=== PATIENT | female | born 1955 ===

== ENCOUNTER 2016-08-16 13:42 | Emergency (ER) | payer MEDICARE, MEDICAID ==
[2016-08-16 13:43] VITALS: BMI 28.5
[2016-08-16] MEDS ORDERED: Sodium Chloride 0.9% 1,000 ML IV STA ×2 (14:35→15:22)
--- NOTE | 2016-08-16 14:40 | ED PDOC ---
HPI: Altered Mental Status Time Seen by Provider: 08/16/16 13:50 Chief Complaint (Nursing): Altered Mental Status Chief Complaint (Provider): ALTERED MENTATION History Per: Patient (61 Y/O FEMALE BROUGHT TO ED FOR EVALUATION OF ALTERED MENTATION NOTED INTERMITTENTLY X 1 WEEK ASSOCIATED WITH VISUAL HALLUCINATIONS. PATIENT NOTES RIGHT SIDED HEADACHE X 1 WEEK WELL. NO VOMITING/FEVERS/CHILLS/ ABDOMINAL PAIN/CHEST PAIN/COUGH/URI. STATES SHE HAS STOPPED METFORMIN 2 YEARS AGO WHEN ADVISED BY [facility] THAT SHE NO LONGER HAD DIABETES. NO HEAD INJURY. DENEIS ANY DIFFICULTY WITH WEAKNESS/DIFFICULTY WITH SPEECH.) Past Medical History Reviewed: Historical Data, Nursing Documentation, Vital Signs Vital Signs: Last Vital Signs Temp 98.1 F 08/16/16 13:53 Pulse 114 H 08/16/16 14:20 Resp 15 08/16/16 14:20 BP 158/95 H 08/16/16 14:20 Pulse Ox 100 08/16/16 14:20 - Medical History PMH: HTN, Hypercholesterolemia Denies: Chronic Kidney Disease - Family History Family History: States: No Known Family Hx - Home Medications Home Medications: Ambulatory Orders Medication Instructions Recorded Valsartan [Diovan] 1 tab PO DAILY 08/16/16 - Allergies Allergies/Adverse Reactions: Allergies Allergy/AdvReac Type Severity Reaction Status Date / Time iodine Allergy Unknown ANAPHYLAXIS Verified 01/31/16 14:19 Penicillins Allergy Unknown ANAPHYLAXIS Verified 01/31/16 14:20 Review of Systems ROS Statement: Except As Marked, All Systems Reviewed And Found Negative Neurological: Positive for: Altered Mental Status, Headache Physical Exam - Reviewed Nursing Documentation Reviewed: Yes Vital Signs Reviewed: Yes - Physical Exam Appears: Positive for: Well, Non-toxic, No Acute Distress Head Exam: Positive for: ATRAUMATIC, NORMAL INSPECTION, NORMOCEPHALIC Skin: Positive for: Normal Color, Warm, DRY Eye Exam: Positive for: EOMI, Normal appearance, PERRL ENT: Positive for: Normal ENT Inspection Neck: Positive for: Normal, Painless ROM Cardiovascular/Chest: Positive for: Regular Rate, Rhythm Respiratory: Positive for: CNT, Normal Breath Sounds Gastrointestinal/Abdominal: Positive for: Normal Exam, Bowel Sounds, Soft Back: Positive for: Normal Inspection Extremity: Positive for: Normal ROM Neurologic/Psych: Positive for: Alert, Oriented - Laboratory Results Result Diagrams: 08/16/16 14:40 08/16/16 14:40 - ECG O2 Sat by Pulse Oximetry: 100 - Progress ED Course And Treament: EKG: SINUS TACHYCARDIA 114 BPM; NO ECTOPY NO ACUTE CHANGES CXR: NAD HEAD CT: WNL ACCUCHECK: 472 NS 1 LITER WIDE OPEN. INSULIN 8 UNITS IV X 1 DOSE NS 2ND LITER GIVEN. D/W ILAN. WILL SEE PATIENT IN ED. Disposition - Clinical Impression Clinical Impression: Hyperglycemia - Patient ED Disposition Is Patient to be Admitted: Transfer of Care - Disposition Disposition: Transfer of Care Disposition Time: 19:47 Condition: FAIR Patient Signed Over To: Gabriella Yanez Handoff Comments: PENDING ABG/BMP/D/W [facility] AFTER
[2016-08-16 15:12] LABS: ALB/GLOB RATIO 1.2 (1.0-2.1); ALCOHOL SERUM < 10 mg/dl (0-10); ALKALINE PHOSPHATASE 88 U/L (38-126); ALT/SGPT 24 U/L (9-52); AST/SGOT 19 U/L (14-36); BLOOD UREA NITROGEN 20 mg/dl (7-17); CALCIUM 9.9 mg/dL (8.4-10.2); CARBON DIOXIDE 25 mmol/L (22-30); CHLORIDE 97 mmol/L (98-107); GFR AFRICAN-AMERICAN > 60; POTASSIUM 3.6 MMOL/L (3.6-5.0); SODIUM 139 mmol/l (132-148); TOTAL PROTEIN 8.3 G/DL (6.3-8.2)
[2016-08-16 15:17] LABS: GLUCOSE,RANDOM 523 mg/dL (65-105)
[2016-08-16 15:18] LABS: RBC URINE 1 /hpf (0-3); URINE BILIRUBIN NEGATIVE (NEGATIVE); URINE BLOOD NEGATIVE (NEGATIVE); URINE COLOR STRAW (YELLOW); URINE GLUCOSE (UA) >=500 mg/dL (Normal); URINE KETONE TRACE mg/dL (NEGATIVE); URINE LEUKOCYTE ESTERASE NEG Leu/uL (Negative); URINE PROTEIN 30 mg/dL (NEGATIVE); URINE UROBILINOGEN 0.2-1.0 mg/dL (0.2-1.0); WBC URINE < 1 /hpf (0-5)
[2016-08-16 15:24] LABS: BASO % 0.6 % (0.0-2.0); EOS # 0.1 K/uL (0.0-0.7); EOS % 0.7 % (0.0-4.0); HEMATOCRIT 37.9 % (34.0-47.0); LYMPH # 1.8 K/uL (1.0-4.3); LYMPH % 21.8 % (20.0-40.0); MEAN CORPUSCULAR HEMOGLOBIN 30.8 pg (27.0-31.0); MEAN CORPUSCULAR HGB CONC 34.2 g/dL (33.0-37.0); MEAN PLATELET VOLUME 8.8 fl (7.2-11.7); MONO # 0.8 K/uL (0.0-0.8); MONO % 9.5 % (0.0-10.0); NEUT # 5.6 K/uL (1.8-7.0); NEUT % 67.4 % (50.0-75.0); RED CELL DISTRIBUTION WIDTH 14.5 % (11.5-14.5); WHITE BLOOD COUNT 8.3 K/uL (4.8-10.8)
[2016-08-16] MEDS ORDERED: Insulin Regular 100 units/ml IVP STA (15:32)
[2016-08-16] MEDS ORDERED: Insulin Regular 100 units/ml ONE (15:37)
--- NOTE | 2016-08-16 15:39 | RAD ---
PROCEDURE: CHEST RADIOGRAPH, 1 VIEW HISTORY: ALTERED MENTATION COMPARISON: 10/21/2014 FINDINGS: LUNGS: The lungs are well inflated and clear. PLEURA: No pneumothorax or pleural fluid seen. CARDIOVASCULAR: The cardiomediastinal silhouette is normal. OSSEOUS STRUCTURES: No significant abnormalities. VISUALIZED UPPER ABDOMEN: Normal. OTHER FINDINGS: None. IMPRESSION: No active pulmonary disease.
--- NOTE | 2016-08-16 16:58 | CARD ---
APPROVED REPORT EKG Measurement Heart [id number] [place] [id number] <Conclusion> Sinus tachycardia Biatrial enlargement Right bundle branch block Abnormal ECG
--- NOTE | 2016-08-16 17:02 | CT ---
PROCEDURE: CT HEAD WITHOUT CONTRAST. HISTORY: Altered mental status COMPARISON: None available. TECHNIQUE: Axial computed tomography images were obtained through the head/brain without intravenous contrast. Radiation dose: Total exam DLP = 775.80 mGy-cm. FINDINGS: HEMORRHAGE: No intracranial hemorrhage. BRAIN: Rogers-white matter differentiation is preserved. There is no mass, mass effect or abnormal extra-axial fluid collection. There is normal density in the larger dural venous sinuses. There are coarse atherosclerotic calcifications in the cavernous carotid arteries. There are symmetric senile calcifications in bilateral basal ganglia. VENTRICLES: There is mild age-related global parenchymal volume loss and proportionate enlargement of the ventricles and cortical sulci. There is a cavum vergae. CALVARIUM: The skull base and calvarium are normal. PARANASAL SINUSES: Predominantly clear. MASTOID AIR CELLS: Predominantly clear. OTHER FINDINGS: None. IMPRESSION: No acute intracranial abnormality. Mild age-related global parenchymal volume loss.
[2016-08-16 19:38] VITALS: RESP 16; TEMP 98.6
[2016-08-16 19:48] VITALS: O2SAT 100
[2016-08-16 20:13] LABS: BLOOD UREA NITROGEN 15 mg/dl (7-17); CALCIUM 9.5 mg/dL (8.4-10.2); CARBON DIOXIDE 24 mmol/L (22-30); CHLORIDE 104 mmol/L (98-107); GFR AFRICAN-AMERICAN > 60; GLUCOSE,RANDOM 216 mg/dL (65-105); POTASSIUM 4.9 MMOL/L (3.6-5.0); SODIUM 140 mmol/l (132-148)
[2016-08-16 20:29] LABS: ABG ALLEN TEST YES; ARTERIAL BLOOD GAS HCO3 24.4 mmol/L (21-28); ARTERIAL BLOOD GAS O2 CAPACITY 15.9 mL/dL (16-24); ARTERIAL BLOOD GAS PH 7.45 (7.35-7.45); ARTERIAL BLOOD GAS PO2 94 mm/Hg (80-100); ARTERIAL BLOOD HGB O2 SAT 96.4 % (95.0-98.0); CARBOXYHEMOGLOBIN 2.3 % (0.5-1.5); HHB -0.6 % (0.0-5.0); METHEMOGLOBIN 1.9 % (0.0-3.0)
[2016-08-16 20:46] VITALS: BP 144/82; PULSE 102
--- NOTE | 2016-08-16 22:07 | CP.PCM.PCO ---
Physician Communication Note - Physician Communication Note Physician Communication Note: Claytonmatt Julia Addendum Addendum: 08/16/16 21:29 CC: Visual hallucinations History provided by the patient and supplemented by family member at bedside S: Patient seen at bedside and describe visual hallucinations for about 1 week with associated headache and dizziness. She says the visual hallucinations she sees in her periphery, and denies auditory hallucinations or depressive symptoms , they occur in the evening but not every evening not associated with speech/ extremity changes, denies seizure-like activity, visual changes, hearing changes. She denies any fevers, chills, sick contacts, SOB, chest pain, palpitations, diarrhea, abdominal pain, dysuria, medication changes. PMH: HTN(medication prescribed by certified novell administrator), DM (no medication), RLE ankle wound (seeing Dr Blas regularly), chronic LEFT ear tinnitus PSH: Cataract b/l, Rt ankle surgery ALL: IV Contrast, PSN- rash ED COURSE CBC: wnl CMP: Glucose- >500, BUN- 20 UA: neg except trace ketones CXR: no active disease CT Head: No acute intracranial abnormality EKG: ST(114), RBB, bi-atrial enlargement Insulin: 8U 2L NS bolus O: 98.6- 102- 144/82- 16- 100%RA GEN: pleasant, AA&O x3, NAD, no speech abnormality noted HEAD: NCAT Eyes: EOMI, pupils c/w cataract surgery Mouth: mucosa moist/no tongue deviation Neck: supple, no adenopathy, fROM PULM: CTAB, no w/r/r CARD: ST, S1S2, no murmurs noted ABD: soft, NT/ND EXT: BLUE- strength 5/5, neurovascular intact, BLLE- strength 5/5, neurovascular intact, no ulcers, drsg to Rt ankle area Neuro: no pronator drift, CNII-XII grossly intact, no tongue deviation Rpt BMP (no gap, bicarb 24), collect ABG- pH 7.45 A/P: Case discussed with Dr Valente and patient may be discharged from the ED with the following instructions. - Follow up with [facility] as soon as possible (please provide #s for both central scheduling as well as General Practitioner Service) - Metformin 500mg, PO, BID #60 (side effects d/w patient) - Stay hydrated - Must be with family member at all times until seen in clinic - Any acute changes in neurological status to include but not limited to seizure activity/auditory hallucinations/lethargy/confusion/extremity weakness/ difficulty with speech - d/w LELA Marmolejo and attending Dr Elida Valente
== END 2016-08-16 22:10 | disposition home or self-care (01) ==
LOC: H.ER 13:42
DX: E11.65 Type 2 diabetes mellitus with hyperglycemia (principal); Z79.4 Long term (current) use of insulin; I10 Essential (primary) hypertension; R00.0 Tachycardia, unspecified

== ENCOUNTER 2016-08-19 16:28 | Inpatient (IN) | payer MEDICARE, MEDICAID ==
[2016-08-19 16:28] VITALS: BMI 28.5
[2016-08-19 17:43] LABS: BASO % 0.4 % (0.0-2.0); EOS # 0.1 K/uL (0.0-0.7); EOS % 0.9 % (0.0-4.0); HEMATOCRIT 40.6 % (34.0-47.0); LYMPH # 2.2 K/uL (1.0-4.3); LYMPH % 20.5 % (20.0-40.0); MEAN CELL VOLUME 89.5 fl (81.0-99.0); MEAN CORPUSCULAR HEMOGLOBIN 30.8 pg (27.0-31.0); MEAN CORPUSCULAR HGB CONC 34.4 g/dL (33.0-37.0); MEAN PLATELET VOLUME 9.2 fl (7.2-11.7); MONO # 1.1 K/uL (0.0-0.8); MONO % 10.5 % (0.0-10.0); NEUT # 7.2 K/uL (1.8-7.0); NEUT % 67.7 % (50.0-75.0); RED CELL DISTRIBUTION WIDTH 14.2 % (11.5-14.5); WHITE BLOOD COUNT 10.6 K/uL (4.8-10.8)
--- NOTE | 2016-08-19 17:44 | ED PDOC ---
Addendum entered and electronically signed by Dwight De La Rosa PA 08/20/16 04:40: Addendum Addendum: 08/20/16 04:40 MRI: IMPRESSION: 1. Acute infarction within RIGHT occipital region. MRI report given to Dr. Warner who is evaluating pt. at bedside. Original Note: HPI: Headache Time Seen by Provider: 08/19/16 16:58 Chief Complaint (Nursing): Headache Chief Complaint (Provider): Headache, dizziness History Per: Patient, Family (Son at bedside ) Additional Complaint(s): 61 y/o female with dizziness, headaches and possible change in vision, son states she has not been acting like herself for over 1 week. went to clinic today for re-evaluation after being seen here and evaluated 08/16 for similar and sent for further evaluation. CT head negative, labs with no acute finding. discharged at that time, son and patient report symptoms have continued with worsening dizziness. she fell today due to dizziness but reports no injury, no LOC. reports cataract surgery. Past Medical History Vital Signs: Last Vital Signs Temp 97.8 F 08/19/16 16:34 Pulse 129 H 08/19/16 16:34 Resp 16 08/19/16 16:34 BP 142/80 08/19/16 16:34 Pulse Ox 100 08/19/16 16:34 - Medical History PMH: HTN, Hypercholesterolemia Denies: Chronic Kidney Disease - Family History Family History: States: Unknown Family Hx - Home Medications Home Medications: Ambulatory Orders Medication Instructions Recorded Valsartan [Diovan] 160 mg PO DAILY 08/16/16 metFORMIN [glucOPHAGE] 500 mg PO BID #30 tab 08/16/16 - Allergies Allergies/Adverse Reactions: Allergies Allergy/AdvReac Type Severity Reaction Status Date / Time iodine Allergy Unknown ANAPHYLAXIS Verified 08/19/16 16:33 Penicillins Allergy Unknown ANAPHYLAXIS Verified 08/19/16 16:33 Review of Systems ROS Statement: Except As Marked, All Systems Reviewed And Found Negative Constitutional: Negative for: Fever, Weakness Eyes: Negative for: Pain Cardiovascular: Negative for: Chest Pain Respiratory: Negative for: Shortness of Breath Gastrointestinal: Negative for: Abdominal Pain Skin: Negative for: Rash Neurological: Positive for: Confusion, Headache, Dizziness. Negative for: Weakness, Numbness, Incoordination, Change in Speech, Seizures Physical Exam - Reviewed Nursing Documentation Reviewed: Yes Vital Signs Reviewed: Yes - Physical Exam Appears: Positive for: Well, No Acute Distress Head Exam: Positive for: NORMAL INSPECTION Skin: Positive for: Normal Color, Warm, Dry Eye Exam: Positive for: Normal appearance, EOMI, PERRL. Negative for: Periorbital swelling, Periorbital tenderness, Conjunctival injection ENT: Positive for: Normal ENT Inspection Neck: Positive for: Normal, Painless ROM Cardiovascular/Chest: Positive for: Tachycardia. Negative for: Murmur, Irregularly Irregular Respiratory: Positive for: Normal Breath Sounds. Negative for: Wheezing Pulses-Dorsalis Pedis (L): 2+ Pulses-Dorsalis Pedis (R): 2+ Pulses-Radial (L): 2+ Pulses-Radial (R): 2+ Gastrointestinal/Abdominal: Positive for: Normal Exam, Soft. Negative for: Tenderness Back: Positive for: Normal Inspection Extremity: Positive for: Normal ROM, Capillary Refill (normal ). Negative for: Tenderness, Swelling Neurologic/Psych: Positive for: Alert, bezel cutter II-XII (grossly intact ), Oriented, Cerebellar Tests (intact ), Gait (normal ), Other ((-) motor defictis, (+) ). Negative for: Motor/Sensory Deficits (peripheral vision deficit to the left periphery), Aphasia, Facial Droop - Laboratory Results Result Diagrams: 08/19/16 17:15 08/19/16 17:15 - ECG ECG: Positive for: Interpreted By Me, Viewed By Pa ECG Rhythm: Positive for: Normal QRS, Normal ST Segment, Sinus Tachycardia (121) , Right Bundle Branch Block O2 Sat by Pulse Oximetry: 100 Pulse Ox Interpretation: Normal Medical Decision Making Medical Decision Makin61 y/o female with dizziness, change in vision, ? AMS - seen and evaluated 08/[address] head negative, labs with no acute finding. discharged at that time - symptoms have continued now with tachycardia, worsening dizziness - labs - CT head - re-evaluation PROCEDURE: CT HEAD WITHOUT CONTRAST. HISTORY:headache, dizziness COMPARISON:Noncontrast head CT performed 08/16/16 TECHNIQUE:Axial computed tomography images were obtained through the head/brain without intravenous contrast. FINDINGS: HEMORRHAGE:No intracranial hemorrhage. BRAIN:Diffuse atrophy with prominence of the ventricles and sulci noted. No mass effect or edema. Bilateral basal ganglia calcifications. Intracranial atherosclerotic calcifications. Mild scattered white matter hypodensities, which are nonspecific, but often seen with chronic microvascular ischemic disease. Please note that MRI with diffusion imaging is more sensitive in the detection of acute ischemic event. VENTRICLES:No hydrocephalus. CALVARIUM:Unremarkable. PARANASAL SINUSES:Unremarkable as visualized. No significant inflammatory changes. MASTOID AIR CELLS:Unremarkable as visualized. No inflammatory changes. OTHER FINDINGS:None. IMPRESSION:Generalized atrophy. Nonspecific white matter changes. patient with Head CT as above. labs with no acute finding. glucoe [address] HR 105 on exam, NAD. Case discussed with Julia Clement. FP resident. agrees with MRI and further evaluation requests neuro python engineer for evaluation she saw this patient the other day, she states patient did have peripheral vision changes, no change in that exam today. she will place further orders. Spoke to Dr. Warner, agrees with MRI, he will be in for evaluation Disposition - Clinical Impression Clinical Impression: Headache, Dizziness, Peripheral visual field defect - Patient ED Disposition Is Patient to be Admitted: Yes - Disposition Disposition Time: 18:27 Condition: STABLE - Pt Status Changed To: Hospital Disposition Of: Inpatient - Admit Certification Admit to Inpatient:: After my assessment, the patient will require hospitalization for at least two midnights. This is because of the severity of symptoms shown, intensity of services needed, and/or the medical risk in this patient being treated as an outpatient. - POA Present On Arrival: Poor Glycemic Control
[2016-08-19 17:48] LABS: ALB/GLOB RATIO 1.2 (1.0-2.1); ALKALINE PHOSPHATASE 74 U/L (38-126); ALT/SGPT 25 U/L (9-52); AST/SGOT 29 U/L (14-36); BILIRUBIN,TOTAL 0.9 mg/dl (0.2-1.3); BLOOD UREA NITROGEN 20 mg/dl (7-17); CALCIUM 9.7 mg/dL (8.4-10.2); CARBON DIOXIDE 24 mmol/L (22-30); CHLORIDE 99 mmol/L (98-107); GFR AFRICAN-AMERICAN > 60; GLUCOSE,RANDOM 250 mg/dL (65-105); MAGNESIUM 1.6 MG/DL (1.6-2.3); PHOSPHOROUS 3.4 mg/dl (2.5-4.5); SODIUM 134 mmol/l (132-148); TOTAL PROTEIN 8.2 G/DL (6.3-8.2)
[2016-08-19 17:54] LABS: PARTIAL THROMBOPLASTIN TIME 22.4 SECONDS (23.3-32.5)
[2016-08-19 18:03] LABS: RBC URINE < 1 /hpf (0-3); URINE BILIRUBIN NEGATIVE (NEGATIVE); URINE BLOOD SMALL (NEGATIVE); URINE COLOR STRAW (YELLOW); URINE GLUCOSE (UA) >=500 mg/dL (Normal); URINE KETONE 20 mg/dL (NEGATIVE); URINE LEUKOCYTE ESTERASE NEG Leu/uL (Negative); URINE PROTEIN 30 mg/dL (NEGATIVE); URINE UROBILINOGEN 0.2-1.0 mg/dL (0.2-1.0); WBC URINE 3 /hpf (0-5)
--- NOTE | 2016-08-19 18:12 | CT ---
PROCEDURE: CT HEAD WITHOUT CONTRAST. HISTORY: headache, dizziness COMPARISON: Noncontrast head CT performed 08/16/16 TECHNIQUE: Axial computed tomography images were obtained through the head/brain without intravenous contrast. Radiation dose: Total exam DLP = 858.15 mGy-cm. FINDINGS: HEMORRHAGE: No intracranial hemorrhage. BRAIN: Diffuse atrophy with prominence of the ventricles and sulci noted. No mass effect or edema. Bilateral basal ganglia calcifications. Intracranial atherosclerotic calcifications. Mild scattered white matter hypodensities, which are nonspecific, but often seen with chronic microvascular ischemic disease. Please note that MRI with diffusion imaging is more sensitive in the detection of acute ischemic event. VENTRICLES: No hydrocephalus. CALVARIUM: Unremarkable. PARANASAL SINUSES: Unremarkable as visualized. No significant inflammatory changes. MASTOID AIR CELLS: Unremarkable as visualized. No inflammatory changes. OTHER FINDINGS: None. IMPRESSION: Generalized atrophy. Nonspecific white matter changes.
[2016-08-19 18:19] LABS: THYROID STIMULATING HORMONE 5.66 mIU/ML (0.46-4.68)
[2016-08-19] MEDS ORDERED: Sodium Chloride 0.9% 100 ML IV STA (18:38)
--- NOTE | 2016-08-19 19:28 | CP.PCM.HP ---
Addendum entered and electronically signed by ClaytonmattJulia 08/20/16 04:26: Paged by ED for acute decompensation in status in the form of seizure. On arrival, nurse at bedside, patient found to have: - Head and eyes turned completely to the LEFT (forced gaze palsy) - Eyelids rapidly blinking, mouth twitching - Non-verbal - b/l arms flexed but not tremulous, no noted effects on lower extremities - HR: 156, ST This then developed into more pronounced b/l upper limb involvement and then subsided, pt noted to be post-ictal with copious oral secretions, however seizures again commenced. Intervention: 2mg Ativan IV, Dr Warner and Hospitalist (Dr Pichardo called). Ativan worked well, however patient not spontaneously clearing secretions, minimal gag reflex, no longer exhibiting forced gaze palsy. Interventions: Emergent intubation for airway protection(Rocuronium/Etomidate), ABG, rpt CT head, CXR, ICU admission, Propofol gtt - Rpt CT scan: no acute changes - All events, rpt imaging d/w Dr Warner: Keppra 500mg Q12H - Protonix, OGT Original Note: History of Present Illness - History of Present Illness History of Present Illness: 61F seen and examined at bedside. Family and patient describe visual hallucinations for about 1 week with associated headache that resolves with motrin and dizziness. She says the visual hallucinations she sees in her periphery, and denies auditory hallucinations or depressive symptoms, they occur in the evening but not every evening not associated with speech/extremity changes, denies seizure-like activity, visual changes, hearing changes. She denies any fevers, chills, sick contacts, SOB, chest pain, palpitations, diarrhea, abdominal pain, dysuria, medication changes. However, referred from [facility] after being seen and both son and patient reporting symptoms have continued with worsening dizziness and that she fell today w/o injury and denies LOC. Son reports more "turning of the head to the left" and feels that confusion has worsened. PMH: HTN (medication prescribed by Dr Aaliyah Urbina), DM, RLE ankle wound ( seeing Dr Blas regularly), chronic LEFT ear tinnitus PSH: Cataract b/l, Rt ankle surgery ALL: IV Contrast, PCN- rash ED COURSE CBC: wnl except elevated monocytes CMP: Glucose- 250, BUN- 20 UA: Glucose>500, Ketones-20, Blood-POS w/o RBCs CXR: no active disease CT Head: no acute ICH, generalized atrophy, non-specific white matter changes MRI: Acute infarct within RIGHT occipital region EKG: No acute changes from 08/16, continues ST 1L NS bolus Neurology Consult: Dr Warner *Prior to MRI completion patient admitted to telemetry for dizziness/headache, NIHSS- 2 at time patient interviewed Present on Admission - Present on Admission Any Indicators Present on Admission: Yes History of DVT/PE: No History of Uncontrolled Diabetes: Yes Review of Systems - Review of Systems All systems: reviewed and no additional remarkable complaints except (as per HPI ) Past Patient History - Past Medical History & Family History Past Medical History?: Yes - Past Social History Smoking Status: Never Smoked - CARDIAC Hx Hypercholesterolemia: Yes Hx Hypertension: Yes - PULMONARY Hx Respiratory Disorders: No - NEUROLOGICAL Hx Neurological Disorder: Yes (RAYNAUD'S SYNDROME) Hx Dizziness: Yes - HEENT Hx HEENT Problems: Yes Hx Cataracts: Yes - RENAL Hx Chronic Kidney Disease: No - ENDOCRINE/METABOLIC Hx Endocrine Disorders: Yes Hx Diabetes Mellitus Type 2: Yes - HEMATOLOGICAL/ONCOLOGICAL Hx Blood Disorders: Yes Other/Comment: RAYNAUD'S SYNDROME - INTEGUMENTARY Hx Dermatological Problems: No - MUSCULOSKELETAL/RHEUMATOLOGICAL Hx Musculoskeletal Disorders: No - GASTROINTESTINAL Hx Gastrointestinal Disorders: No - GENITOURINARY/GYNECOLOGICAL Hx Genitourinary Disorders: No - PSYCHIATRIC Hx Psychophysiologic Disorder: No Hx Emotional Abuse: No Hx Physical Abuse: No Hx Substance Use: No - SURGICAL HISTORY Hx Surgeries: Yes Hx Cataract Extraction: Yes (RT EYE) Hx Orthopedic Surgery: Yes (RT FOOT EXC TUMORS/LEFT FOOT EXC BONE) - ANESTHESIA Hx Anesthesia: Yes Hx Anesthesia Reactions: No Hx Malignant Hyperthermia: No Meds Allergies/Adverse Reactions: Allergies Allergy/AdvReac Type Severity Reaction Status Date / Time iodine Allergy Unknown ANAPHYLAXIS Verified 08/19/16 16:33 Penicillins Allergy Unknown ANAPHYLAXIS Verified 08/19/16 16:33 Physical Exam - Constitutional Appears: Well (Pt w/o speech abnml, however at times could appreciate unexpected expression or answer), Non-toxic, No Acute Distress - Head Exam Head Exam: ATRAUMATIC, NORMAL INSPECTION - Eye Exam Eye Exam: EOMI, Normal appearance Pupil Exam: Irregular (cataract surgery b/l). absent: Unequal - ENT Exam ENT Exam: Mucous Membranes Moist, Normal Exam - Neck Exam Neck exam: Positive for: Normal Inspection. Negative for: Meningismus - Respiratory Exam Respiratory Exam: Clear to Auscultation Bilateral, NORMAL BREATHING PATTERN. absent: Rales, Rhonchi, Wheezes - Cardiovascular Exam Cardiovascular Exam: Tachycardia, REGULAR RHYTHM, +S1, +S2. absent: JVD, Rubs - GI/Abdominal Exam GI & Abdominal Exam: Normal Bowel Sounds, Soft. absent: Tenderness - Extremities Exam Extremities exam: Positive for: full ROM, normal capillary refill, normal inspection (except dressing), pedal pulses present. Negative for: pedal edema Additional comments: BLUE- strength 5/5, neurovascular intact, BLLE- strength 5/5, neurovascular intact, no ulcers, drsg to Rt ankle area - Neurological Exam Neurological exam: Alert, Oriented x3 Additional comments: no pronator drift, no tongue deviation, LEFT hemianopsia - Psychiatric Exam Psychiatric exam: Normal Affect, Normal Mood - Skin Skin Exam: Normal Color, Warm Results - Vital Signs Recent Vital Signs: Last Vital Signs Temp 97.8 F 08/19/16 16:34 Pulse 129 H 08/19/16 16:34 Resp 16 08/19/16 16:34 BP 142/80 08/19/16 16:34 Pulse Ox 100 08/19/16 19:10 - Labs Result Diagrams: 08/19/16 17:15 08/19/16 17:15 Labs: Laboratory Results - last 24 hr 08/19/16 08/19/16 17:10 17:15 WBC 10.6 RBC 4.53 Hgb 13.9 Hct 40.6 MCV 89.5 MCH 30.8 MCHC 34.4 RDW 14.2 Plt Count 227 MPV 9.2 Neut % (Auto) 67.7 Lymph % (Auto) 20.5 [place] % (Auto) 10.5 H Eos % (Auto) 0.9 Baso % (Auto) 0.4 Neut # 7.2 H Lymph # 2.2 [place] # 1.1 H Eos # 0.1 Baso # 0.0 PT 10.6 INR 1.02 APTT 22.4 L Sodium 134 Potassium 4.0 Chloride 99 Carbon Dioxide 24 Anion Gap 15 BUN 20 H Creatinine 0.7 Est GFR ( Amer) > 60 Est GFR (Non-Af Amer) > 60 Random Glucose 250 H Calcium 9.7 Phosphorus 3.4 Magnesium 1.6 Total Bilirubin 0.9 AST 29 ALT 25 Alkaline Phosphatase 74 Troponin I 0.0190 Total Protein 8.2 Albumin 4.5 Globulin 3.7 Albumin/Globulin Ratio 1.2 TSH 3rd Generation 5.66 H Urine Color Straw Urine Clarity Clear Urine pH 6.0 Ur Specific [place] 1.007 Urine Protein 30 Urine Glucose (UA) >=500 Urine Ketones 20 Urine Blood Small Urine Nitrate Negative Urine Bilirubin Negative Urine Urobilinogen 0.2-1.0 Ur Leukocyte Esterase Neg Urine RBC (Auto) < 1 Urine Microscopic WBC 3 Ur Squamous Epith Cells 3 Assessment & Plan (1) CVA (cerebral vascular accident) Assessment and Plan: Initial NIHSS-2, Dr Warner evaluated and with constellation of symptoms and current MRI findings concerned for posterior cerebral artery dysfunction. - Neurology Consult (Dr Warner) appreciated and recommendations noted and implemented. - Plavix 75mg, Daily - EEG, Carotid Duplex, Echocardiogram - Cardiology Consult (Dr Urbina, R) placed - CVA Protocol - NIHSS score, repeat Status: Acute (2) DM2 (diabetes mellitus, type 2) Assessment and Plan: Not well-controlled, recently started on Metformin 500mg, BID. - Hypoglycemia protocol - Accu-check Q6H - Lispro SSI, low - Levemir 7.5mg, SC (TDD calculated 0.3/kg = 15U) - Hemoglobin A1C pending - HELD Metformin Status: Chronic (3) HTN (hypertension) Assessment and Plan: Controlled, but with current CVA will hold for now. - HELD Valsartan 160mg - Monitor Status: Chronic (4) DVT prophylaxis Assessment and Plan: Patient currently on anti-platelet therapy, although no ICH will apply SCDs only at this time. Status: Acute
[2016-08-19] MEDS ORDERED: Dextrose 50% SYRINGE Inj (50 ml) IV PRN (20:02)
[2016-08-19] MEDS ORDERED: Glucagon Recombinant 1 mg Inj IM PRN (20:02)
--- NOTE | 2016-08-19 21:01 | MRI ---
EXAM: MR Head Without Intravenous Contrast. CLINICAL HISTORY: 61 years old, female; Signs and symptoms; Dizziness; Patient HX: Pat C/O dizz and headaches @ possible change in vision, son states she has not acting like herself for over a week TECHNIQUE: Magnetic resonance images of the head/brain without intravenous contrast in multiple planes. COMPARISON: No relevant prior studies available. FINDINGS: Limitations: Motion artifact - mild. Brain: Mild atrophy. No definite intracranial hemorrhage. No mass. Small area restricted diffusion within RIGHT occipital region. Few scattered foci of high T2 signal within periventricular and subcortical white matter. Ventricles: No hydrocephalus. Bones/joints: No acute fracture. Sinuses: No acute sinusitis. Mastoid air cells: Mild partial opacification of LEFT mastoid. Orbits: Unremarkable as visualized. IMPRESSION: 1. Acute infarction within RIGHT occipital region. 2. Incidental/non-acute findings are described above. THIS REPORT CONTAINS FINDINGS THAT MAY BE CRITICAL TO PATIENT CARE. The findings were verbally communicated via telephone conference with physician assistant Quintanilla at 9:00 PM EDT on 08/19/2016. The findings were acknowledged and understood.
--- NOTE | 2016-08-19 22:14 | CON ---
DATE: 08/19/2016 REASON FOR CONSULTATION: Visual disturbances. CHIEF COMPLAINT: The patient was brought in by family members with a history of unsteady gait and visual impairment. From neurological point of view, I was called in to evaluate her for further management. HISTORY OF PRESENT ILLNESS: The patient is a 61-year-old, right-handed, female who lives alone. The family found her, last week, she had visual impairment and she was brought into [facility], being evaluated for workup. She was told that she had hyperglycemia and she was sent home. She was kept with the family members. Her symptoms never have improved and she is losing her balance and she keeps seeing people on her left side, which is not realistic. No history of fall, no history of trauma, no history of involuntary movements, no other symptoms associating with this problem. No similar episodes happened in the past. PAST MEDICAL HISTORY: Hypertension, dyslipidemia, [id number] diabetes mellitus. SOCIAL HISTORY: No history of smoking or alcohol use. ALLERGIES: ALLERGIES TO IODINE AND PENICILLIN. REVIEW OF SYSTEMS: As per H and P. MEDICATIONS: Valsartan, glucagon, insulin, and Lovenox. PHYSICAL EXAMINATION: VITAL SIGNS: Blood pressure 142/80, mean arterial pressure 100, respiratory rate 16, temperature 97.8 with a pulse rate of 129. NECK: Supple. No carotid bruit. HEART: Sounds tachycardia. EXTREMITIES: Normal. NEUROLOGIC EXAMINATION: MENTAL STATUS EXAMINATION: The patient is examined in the presence of her family members. She is awake, alert, oriented to person, place, and time. She knows the President. She knows the year. She knows simple calculations and may get it right. No right and left confusion. CRANIAL NERVE EXAMINATION: Visual field. Dense left homonymous hemianopsia. Pupils reactive to light. Extraocular movement intact. No primary gaze nystagmus. No facial sensory deficit. Facial asymmetry manifesting as a flattening of the left nasolabial fold. Hearing is normal. Tongue is midline. Good gag. MOTOR: Outstretched hand with eyes closed, no drift noted. Power is symmetric on either side. DEEP TENDON REFLEXES: Biceps, brachialis, triceps 2+ on the right side; left side 1+. Both knees are trace. Both ankles are absent. Plantars are upgoing on the left side, right side was downgoing. SENSORY EXAMINATION: Mild distal sensory motor neuropathy. GAIT: She was able to stand up on her own. Rhomberg sign negative. Poor tandem. CONCLUSION: Upon reviewing her history and neurological examination, the patient has presented with possible posterior cerebral artery dysfunction manifesting with dense left homonymous hemianopsia and ataxia. This is probably embolic versus small vessel disease secondary to her underlying risk factors of diabetes and hypertension. WORKUP: CT of the head reviewed. No acute pathologies noted. MRI of the next of MRI of the brain showed a right occipital stroke. BLOOD WORKUP: WBC 10.6, hemoglobin 13.9, hematocrit 40.6, platelet 227. PT 10.6, INR 1.02, PTT 22.4. BUN 20. GFR more than 50. Random glucose of 250. Calcium 9.7, phosphorus 3.4, Troponin 0.019, TSH 5.66. RECOMMENDATIONS: 1. The patient had a sinus tachycardia. I would like to put beta blockers in addition to her current medication. 2. The patient needs antiplatelets, Plavix is added. 3. The patient can be benefitted on a statin as well. 4. EEG, carotid Doppler, and echocardiogram. 5. Cardiology consultation. 6. Out of bed and physical therapy. 7. The patient will be followed closely with you. Saud Warner MD cc: [id number] TT: 08/19/2016 22:14:41 Confirmation # [id number] Dictation # [id number] ln MTDD
[2016-08-19] MEDS ORDERED: Etomidate 20 mg/10ml Inj IV ONE ×2 (23:27→23:33)
[2016-08-19] MEDS ORDERED: Rocuronium 10 mg/ml (5 ml) IV ONE (23:33)
[2016-08-20] MEDS ORDERED: Propofol 10 mg/ml Inj (100 ml) IV SCH (00:15)
--- NOTE | 2016-08-20 01:01 | CP.PCM.CON ---
History of Present Illness - History of Present Illness History of Present Illness: CC: s/p CVA with seizures and AMS History obtained from relatives, chart, and other physicians. This is a 61 y/o female with ?DM2 and possible CVA who was admitted here from clinic after being found to not be acting like herself the past few days. Patient, at the time I saw her, was post-ictal/altered and not able to answer questions. She was having a difficult time maintaining her airway, and had to be emergently intubated. ROS: unable to obtain due to AMS/post ictal state MHx: HTN, HLD, ?DM2, ?CVA SHx: Cataract surgery Medications: As per med rec Allergies: iodinated dye, PCN Family Hx: Unable to obtain from patient/family/chart Social Hx: Lives with family, no tobacco or EtOH Surrogate: Son, info on chart Review of Systems - Review of Systems Systems not reviewed;Unavailable: Acuity of Condition Past Patient History - Past Medical History & Family History Past Medical History?: Yes - Past Social History Smoking Status: Never Smoked - CARDIAC Hx Hypercholesterolemia: Yes Hx Hypertension: Yes - PULMONARY Hx Respiratory Disorders: No - NEUROLOGICAL Hx Neurological Disorder: Yes (RAYNAUD'S SYNDROME) Hx Dizziness: Yes - HEENT Hx HEENT Problems: Yes Hx Cataracts: Yes - RENAL Hx Chronic Kidney Disease: No - ENDOCRINE/METABOLIC Hx Endocrine Disorders: Yes Hx Diabetes Mellitus Type 2: Yes - HEMATOLOGICAL/ONCOLOGICAL Hx Blood Disorders: Yes Other/Comment: RAYNAUD'S SYNDROME - INTEGUMENTARY Hx Dermatological Problems: No - MUSCULOSKELETAL/RHEUMATOLOGICAL Hx Musculoskeletal Disorders: No - GASTROINTESTINAL Hx Gastrointestinal Disorders: No - GENITOURINARY/GYNECOLOGICAL Hx Genitourinary Disorders: No - PSYCHIATRIC Hx Psychophysiologic Disorder: No Hx Emotional Abuse: No Hx Physical Abuse: No Hx Substance Use: No - SURGICAL HISTORY Hx Surgeries: Yes Hx Cataract Extraction: Yes (RT EYE) Hx Orthopedic Surgery: Yes (RT FOOT EXC TUMORS/LEFT FOOT EXC BONE) - ANESTHESIA Hx Anesthesia: Yes Hx Anesthesia Reactions: No Hx Malignant Hyperthermia: No Meds Allergies/Adverse Reactions: Allergies Allergy/AdvReac Type Severity Reaction Status Date / Time iodine Allergy Unknown ANAPHYLAXIS Verified 08/19/16 16:33 Penicillins Allergy Unknown ANAPHYLAXIS Verified 08/19/16 16:33 - Medications Medications: Current Medications Aspirin (Aspirin Chewable) 81 mg PO DAILY [facility] Dextrose (Glutose 15) 0 gm PO ONCE PRN; Protocol PRN Reason: Hypoglycemia Protocol Dextrose (Dextrose 50% Inj) 0 ml IV STAT PRN; Protocol PRN Reason: Hyglycemia Protocol Glucagon (Glucagen Diagnostic Kit) 0 mg IM STAT PRN; Protocol PRN Reason: Hypoglycemia Protocol Insulin Detemir (Levemir) 7.5 units SC HS [facility] Insulin Human Lispro (Humalog) 0 units SC ACHS [facility] PRN Reason: Protocol Metoprolol Succinate (Toprol Xl) 25 mg PO DAILY [facility] Propofol (Diprivan) 1,000 mg IV .TITRATE [facility] PRN Reason: Protocol Valsartan (Diovan) 160 mg PO DAILY [facility] Physical Exam - Constitutional Additional comments: Post ictal, no responsive - Head Exam Head Exam: ATRAUMATIC, NORMOCEPHALIC - ENT Exam ENT Exam: Mucous Membranes Moist - Respiratory Exam Respiratory Exam: Clear to Auscultation Bilateral, Wheezes - Cardiovascular Exam Cardiovascular Exam: Tachycardia, +S1, +S2 - GI/Abdominal Exam GI & Abdominal Exam: Normal Bowel Sounds - Extremities Exam Extremities exam: Positive for: normal inspection - Neurological Exam Additional comments: AMS, then sedated for vent - Skin Skin Exam: Dry, Warm Results - Vital Signs Recent Vital Signs: Last Vital Signs Temp 97.8 F 08/19/16 16:34 Pulse 129 H 08/19/16 16:34 Resp 16 08/19/16 16:34 BP 142/80 08/19/16 16:34 Pulse Ox 100 08/19/16 20:01 - Labs Result Diagrams: 08/19/16 17:15 08/19/16 17:15 - Imaging and Cardiology MRI - head Status: Report reviewed by me (R occipital infarct) Assessment & Plan (1) CVA (cerebral vascular accident) Assessment and Plan: This is a 61 y/o female with multiple medical conditions p/w CVA and seizures. -Admit to ICU -Will put on vent (AC/450/12/50%/5); successfully intubated -Sedate with Propofol, this should suppress further seizures as well -Repeat NC HCT -CXR now and AM -ABG now and AM -GI PPx -DVT PPx -Mgmt of CVA and seizure as per neuro consult (Timmy) -Mgmt of DM2/HTN as per primary team Status: Acute (2) Seizure Status: Acute (3) DM2 (diabetes mellitus, type 2) Status: Acute (4) HTN (hypertension) Status: Acute
--- NOTE | 2016-08-20 01:04 | PCM.PROC ---
Procedures Attestation:: I certify that I have explained the specified Operation(s) or Procedure(s), risks, benefits and reasonable alternatives to the Patient and/or other person responsible. The opportunity was given to ask questions and all questions answered - Intubation Time Out Performed: Yes Sedative: Etomidate Mg Given: 20 Paralytic: Rocuronimum Mg Given: 20 Laryngoscope: Glidescope ET Tube Size: 7.5 ET Tube Secured at Depth: 21 ET Tube Secured Locarion: Lips ET Tube Placement Confirmation: Visualized Passing Through Cords, Breath Sounds Equal Bilaterally, Confirmation w/Capnometry Patient Tolerated Procedure: Well, No Complications Procedure Immediate Complications: Difficult Intubation Additional comments: First attempt was made with direct laryngoscopy (Mac 3). Given difficulty of visualizing airway with direct, switch was made to glidescope. Airway/vocal cords were easily visualized with glidescope.
--- NOTE | 2016-08-20 01:17 | CT ---
EXAM: CT Head Without Intravenous Contrast. CLINICAL HISTORY: 61 years old, female; Condition or disease; Convulsions or seizures; Additional info: Seizure TECHNIQUE: Axial computed tomography images of the head/brain without intravenous contrast. This CT exam was performed using one or more of the following dose reduction techniques: automated exposure control, adjustment of the mA and/or kV according to patient size, and/or use of iterative reconstruction technique. Coronal and sagittal reformatted images were created and reviewed. COMPARISON: CT - 08/19/2016; MRI, 08/19/2016 FINDINGS: Brain: Mild atrophy. No intracranial hemorrhage. No mass. Few scattered foci of decreased attenuation within periventricular/subcortical white matter. Ventricles: No hydrocephalus. Bones/joints: No acute fracture. Soft tissues: Unremarkable. Vasculature: Atherosclerotic disease of intracranial arteries. Sinuses: No acute sinusitis. Mastoid air cells: No mastoid effusion. Orbits: Unremarkable as visualized. IMPRESSION: 1. Nonspecific white matter changes. See MRI report. 2. Incidental/non-acute findings are described above.
[2016-08-20 01:19] LABS: ABG ALLEN TEST YES; ABG MECHANICAL RATE 12; ARTERIAL BLOOD GAS MODE PRVC/AC; ARTERIAL BLOOD GAS O2 CAPACITY 15.4 mL/dL (16-24); ARTERIAL BLOOD GAS O2 CONTENT 15.4 ML/dL (15-23); ARTERIAL BLOOD GAS PH 7.41 (7.35-7.45); ARTERIAL BLOOD GAS PO2 190 mm/Hg (80-100); ARTERIAL BLOOD HGB O2 SAT 96.8 % (95.0-98.0); ATERIAL BLOOD GAS PEEP 5; CARBOXYHEMOGLOBIN 0.8 % (0.5-1.5); HHB 0.1 % (0.0-5.0); METHEMOGLOBIN 2.4 % (0.0-3.0)
[2016-08-20] MEDS: levETIRAcetam 500 MG in Sodium Chloride 0.9% 100 ML IVPB SCH ×2 (03:21→15:20)
[2016-08-20] MEDS: Midazolam 2 MG/2 ML VIAL IV PRN ×2 (03:27→05:44)
[2016-08-20 06:28] LABS: ABG ALLEN TEST YES; ABG MECHANICAL RATE 12; ARTERIAL BLOOD GAS HCO3 24.9 mmol/L (21-28); ARTERIAL BLOOD GAS MODE PRVC/AC; ARTERIAL BLOOD GAS O2 CAPACITY 14.7 mL/dL (16-24); ARTERIAL BLOOD GAS O2 CONTENT 14.7 ML/dL (15-23); ARTERIAL BLOOD GAS PH 7.46 (7.35-7.45); ARTERIAL BLOOD GAS PO2 203 mm/Hg (80-100); ARTERIAL BLOOD HGB O2 SAT 97.3 % (95.0-98.0); ATERIAL BLOOD GAS PEEP 5; CARBOXYHEMOGLOBIN 0.8 % (0.5-1.5); HHB -0.2 % (0.0-5.0)
[2016-08-20 06:34] LABS: HEMATOCRIT 31.2 % (34.0-47.0); MEAN CELL VOLUME 89.5 fl (81.0-99.0); MEAN CORPUSCULAR HEMOGLOBIN 30.6 pg (27.0-31.0); MEAN CORPUSCULAR HGB CONC 34.2 g/dL (33.0-37.0); WHITE BLOOD COUNT 12.1 K/uL (4.8-10.8)
[2016-08-20] MEDS: Insulin Lispro (humaLOG) 100 Units/ml Inj SC SCH ×4 (06:52→22:52)
[2016-08-20 07:12] LABS: BLOOD UREA NITROGEN 16 mg/dl (7-17); CALCIUM 8.6 mg/dL (8.4-10.2); CARBON DIOXIDE 23 mmol/L (22-30); CHLORIDE 104 mmol/L (98-107); CHOLESTEROL 178 mg/dL (0-199); GFR AFRICAN-AMERICAN > 60; GLUCOSE,RANDOM 297 mg/dL (65-105); POTASSIUM 3.9 MMOL/L (3.6-5.0); SODIUM 134 mmol/l (132-148)
[2016-08-20] MEDS ORDERED: Insulin Lispro (humaLOG) 100 Units/ml Inj SC SCH (07:30)
[2016-08-20] MEDS ORDERED: Sodium Chloride 0.9% 1,000 ML IV SCH (08:00)
[2016-08-20] MEDS ORDERED: Chlorhexidine Gluconate 1 APPL/PKT TP ONE (08:36)
--- NOTE | 2016-08-20 08:41 | RAD ---
HISTORY: tachycardia COMPARISON: Comparison is made to the previous study dated 08/16/2016 FINDINGS: LUNGS: No active pulmonary disease. PLEURA: No significant pleural effusion identified, no pneumothorax apparent. CARDIOVASCULAR: Normal. OSSEOUS STRUCTURES: No significant abnormalities. VISUALIZED UPPER ABDOMEN: Normal. OTHER FINDINGS: None. IMPRESSION: No active disease. No significant interval change.
[2016-08-20] MEDS: Metoprolol Succinate 25 mg XL Tab PO SCH (08:53)
[2016-08-20] MEDS ORDERED: Enoxaparin 40 mg Syringe SC SCH (09:00)
--- NOTE | 2016-08-20 10:50 | RAD ---
PROCEDURE: CHEST RADIOGRAPH, 1 VIEW HISTORY: ETT placement COMPARISON: Comparison is made to the previous study dated 08/19/2016 FINDINGS: LUNGS: The ET tube is seen at appropriate position with the tip at the level of the clavicle heads. No significant interval change in the lungs since the previous exam. PLEURA: No pneumothorax or pleural fluid seen. CARDIOVASCULAR: Normal. OSSEOUS STRUCTURES: No significant abnormalities. VISUALIZED UPPER ABDOMEN: Normal. OTHER FINDINGS: None. IMPRESSION: The ET tube seen in place with the tip at the level of the clavicles. No interval change in the lungs.
--- NOTE | 2016-08-20 11:28 | US ---
PROCEDURE: Bilateral duplex Doppler carotid arterial ultrasound examination HISTORY: stenosis COMPARISON: None available TECHNIQUE: Examination of the carotid and vertebral arteries was performed utilizing a linear array color Doppler transducer. FINDINGS: RIGHT CAROTID ARTERY: No significant atheromatous plaque identified. Peak systolic velocity measurements: Distal CCA: 93.5 cm/sec Mid ICA: 88.1 cm/sec ICA to CCA peak systolic velocity ratio: 1.0 Antegrade flow demonstrated in right vertebral artery. An LEFT CAROTID ARTERY: Peak systolic velocity measurements: Distal CCA: 68.2 cm/sec proximal ICA: 93.3 cm/sec ICA to CCA peak systolic velocity ratio: 1.4 Antegrade flow demonstrated in left vertebral artery IMPRESSION: Less than 50 percent carotid arterial stenosis bilaterally. No significant atheromatous narrowing identified. Antegrade flow demonstrated in both vertebral arteries.
--- NOTE | 2016-08-20 11:42 | CP.PCM.PN ---
Subjective - Date & Time of Evaluation Date of Evaluation: 08/20/16 Time of Evaluation: 07:20 - Subjective Subjective: Patient seen and examined bedside today in ICU. Intubated on ventilator A/C. FIO2 40 , PEEP 5. Under sedation, unresponsive but able to do spontaneous active flexion and extension of upper and lower extremities, not related with seizure activity at this moment. Thomson with normal urine color and adequate output Sister bedside amharic speaker reports that patient lives alone and she has not seen her or talked to her for a while but she was told that patient was acting different, not feeling well, with dizziness. Reports that patient had a fall at home, hit her head and had not slurred speech, but had uncontrolled tongue movements. Objective - Vital Signs/Intake and Output Vital Signs (last 24 hours): Temp Pulse Resp BP Pulse Ox 98.9 F 105 H 14 112/62 100 08/20/16 08:00 08/20/16 11:00 08/20/16 11:00 08/20/16 11:00 08/20/16 11:00 Intake and Output: 08/20/16 08/20/16 06:59 18:59 Intake Total 50 Balance 50 - Medications Medications: Current Medications Atorvastatin Calcium (Lipitor) 40 mg PO DAILY [facility] Last Admin: 08/20/16 08:53 Dose: 40 mg Clopidogrel Bisulfate (Plavix) 75 mg PO DAILY [facility] Last Admin: 08/20/16 08:54 Dose: 75 mg Dextrose (Glutose 15) 0 gm PO ONCE PRN; Protocol PRN Reason: Hypoglycemia Protocol Dextrose (Dextrose 50% Inj) 0 ml IV STAT PRN; Protocol PRN Reason: Hyglycemia Protocol Glucagon (Glucagen Diagnostic Kit) 0 mg IM STAT PRN; Protocol PRN Reason: Hypoglycemia Protocol Levetiracetam 500 mg/ Sodium (Chloride) 105 mls @ 210 mls/hr IVPB Q12H [facility] Last Admin: 08/20/16 03:21 Dose: 210 mls/hr Sodium Chloride (Sodium Chloride 0.9%) 1,000 mls @ 75 mls/hr IV .[id number] [facility] Stop: 08/21/16 08:01 Last Admin: 08/20/16 08:19 Dose: 75 mls/hr Propofol (Diprivan) 100 mls @ 1.497 mls/hr IV .Q24H [facility]; 5 MCG/KG/MIN PRN Reason: Protocol Stop: 08/21/16 08:16 Last Admin: 08/20/16 11:09 Dose: 3.742 mls/hr Insulin Detemir (Levemir) 7.5 units SC HS [facility] Insulin Human Lispro (Humalog) 0 units SC ACHS [facility] PRN Reason: Protocol Last Admin: 08/20/16 11:10 Dose: Not Given Metoprolol Succinate (Toprol Xl) 25 mg PO DAILY [facility] Last Admin: 08/20/16 08:53 Dose: 25 mg Midazolam HCl (Versed Inj) 2 mg IV Q2H PRN PRN Reason: Agitation Last Admin: 08/20/16 05:44 Dose: 2 mg Pantoprazole Sodium (Protonix Inj) 40 mg IVP DAILY [facility] Last Admin: 08/20/16 08:19 Dose: 40 mg Valsartan (Diovan) 160 mg PO DAILY [facility] - Labs Labs: 08/20/16 05:30 08/20/16 05:30 PT 10.6 SECONDS (9.6-11.2) 08/19/16 17:15 INR 1.02 (0.92-1.08) 08/19/16 17:15 APTT 22.4 SECONDS (23.3-32.5) L 08/19/16 17:15 - Constitutional Appears: Other (intabated under sedation) - Head Exam Head Exam: ATRAUMATIC - Eye Exam Eye Exam: PERRL - Respiratory Exam Respiratory Exam: absent: Rales, Rhonchi, Wheezes Additional comments: assisted by ventilator - Cardiovascular Exam Cardiovascular Exam: REGULAR RHYTHM, +S1, +S2 - GI/Abdominal Exam GI & Abdominal Exam: Soft, Normal Bowel Sounds. absent: Tenderness - Extremities Exam Extremities Exam: Normal Inspection. absent: Pedal Edema Additional comments: spontaneous active movements of flexion and extension of 4 ext - Neurological Exam Additional comments: Intubated under sedation, with involuntary spontaneous active movements of 4 ext not in relation with seizure activity, may be related to less sedation meds at this moment. - Skin Skin Exam: Intact Assessment and Plan - Assessment and Plan (Free Text) Plan: 61, yo , f, PMHx/o HTN, DM, uterine prolapse presented to ED c/o headache and dizziness started 7 days ago, associated with occs visual hallucination. Patient seen in ER last friday , discharged home and had f/u in our clinic yesterday. Patient was sent to ER for evaluation due to persistent symptoms. Patient had seizures in ED and repiratory distress needing intubation and admission in ICU. Right occipital infart was showed in MRI 1) CVA -risk factors associated HTN, DM -clinical manifestations of posterior cerebral artery CVA -Posible thrombotic origin -MRI Brain (08/19): Few scattered foci of high T2 signal within periventricular and subcortical white matter. Acute infarction within RIGHT occipital region. -CT head 08/16 no acute intracraneal abnormality -CT head 08/19 no specific white matter changes -CT head 08/20 no specific white matter changes. See MRI report. -Carotid U/S (08/19): < 50% carotid arterial stenosis bilaterally. No significant atheromatous narrowing identified. Anterograde flow in both vertebral arteries. -Plavix 75mg PO Daily -Aspirin 81 mg Po daily -Keppra 500 mg IV BID -Neuro Onboard consult appreciated: Recommends Aspirin, plavix and c/w Keppra -[employer] consult suggested -Echo f/u 2) Seizure -secondary to CVA -Intubated for airway precautions -Currently intubated, settings at Rate 12, Tvol 450, PEEP 5, FiO2 40% -Keppra 500mg IVPB Q12H -Versed 2mg IV Q2H PRN -Propofol IV 5mcg/kg/min -Neuro consult appreciated -TSH 5.6 -F/U Folate, Vit 12 -HIV, RPR, ESR 3) DM2 -Controlled with diet as per ECW -Hgb A1c 5.8 on 03/03/15 and same value during 2013 -labs reviewed. Blood glucose ranged bw 250-339 -Possible associated to stress cortisol releasing. -Lispro Sliding Scale ACHS -Levemir 7.5u SC HS -Atorvastatin 40mg PO Daily 4) HTN -Valsartan 160mg PO Daily. hold due to Hypotension -Metoprolol 25mg PO Daily, as per Neuro -Cardiology Consult suggested 5) DVT Prophylaxis -SCDs 6) PUD Prophylaxis -Protonix 40mg IVP Daily
--- NOTE | 2016-08-20 12:22 | CP.CCUPN ---
<Andrea Jacob T - Last Filed: 08/20/16 15:17> CCU Subjective - Physician Review Subjective (Free Text): Pt seen and examined at bedside in ICU. Pt is currently intubated and sedated, thus she cannot give an account of overnight events nor can she answer any questions pertaining to the ROS. There were no known events overnight once she was stabilized. CCU Objective - Vital Signs / Intake & Output Vital Signs (Last 4 hours): Vital Signs Temp Pulse Resp BP Pulse Ox 08/20/16 12:00 99.2 F 94 H 12 90/52 L 100 08/20/16 11:00 105 H 14 112/62 100 08/20/16 10:00 92 H 16 83/47 L 100 08/20/16 09:00 100 H 17 82/41 L 100 08/20/16 08:53 114 H 136/105 H Intake and Output (Last 8hrs): Intake & Output 08/19/16 08/20/16 08/20/16 22:59 06:59 14:59 Intake Total 50 Balance 50 Intake: IV 50 - Physical Exam Physical Exam Limitations: Positive for: Other (intubated, sedated) Head: Positive for: Atraumatic, Normocephalic Pupils: Positive for: PERRL, Other (reactivity has improved) Mouth: Positive for: Moist Mucous Membranes Respiratory/Chest: Positive for: Clear to Auscultation. Negative for: Wheezes, Rhonchi Cardiovascular: Positive for: Regular Rate and Rhythm, Normal S1, S2 Abdomen: Positive for: Normal Bowel Sounds. Negative for: Tenderness, Distention Upper Extremity: Positive for: Normal Inspection. Negative for: Cyanosis Lower Extremity: Positive for: Normal Inspection. Negative for: Edema Neurological: Positive for: Other (intubated, sedated, gag+) Skin: Positive for: Warm, Dry. Negative for: Rashes - Medications Active Medications: Active Medications Generic Name Dose Route Start Last Admin Trade Name Freq PRN Reason Stop Dose Admin Atorvastatin Calcium 40 mg 08/20/16 09:00 08/20/16 08:53 Lipitor PO 40 mg DAILY EDITH Administration Clopidogrel Bisulfate 75 mg 08/20/16 09:00 08/20/16 08:54 Plavix PO 75 mg DAILY EDITH Administration Dextrose 0 gm 08/19/16 20:02 Glutose 15 PO ONCE PRN Hypoglycemia Protocol Protocol Dextrose 0 ml 08/19/16 20:02 Dextrose 50% Inj IV STAT PRN Hyglycemia Protocol Protocol Glucagon 0 mg 08/19/16 20:02 Glucagen Diagnostic Kit IM STAT PRN Hypoglycemia Protocol Protocol Levetiracetam 500 mg/ Sodium 105 mls @ 210 mls/hr 08/20/16 03:30 08/20/16 03:21 Chloride IVPB 210 mls/hr Q12H EDITH Administration Sodium Chloride 1,000 mls @ 75 mls/hr 08/20/16 08:00 08/20/16 08:19 Sodium Chloride 0.9% IV 08/21/16 08:01 75 mls/hr .[id number] EDITH Administration Propofol 100 mls @ 1.497 mls/hr 08/20/16 08:15 08/20/16 11:09 Diprivan IV 08/21/16 08:16 3.742 mls/hr .Q24H EDITH Administration Protocol 5 MCG/KG/MIN Insulin Detemir 7.5 units 08/19/16 22:00 Levemir SC HS [facility] Insulin Human Lispro 0 units 08/20/16 07:30 08/20/16 11:10 Humalog SC Not Given ACHS EDITH Protocol Metoprolol Succinate 25 mg 08/20/16 09:00 08/20/16 08:53 Toprol Xl PO 25 mg DAILY EDITH Administration Midazolam HCl 2 mg 08/20/16 02:44 08/20/16 05:44 Versed Inj IV 2 mg Q2H PRN Administration Agitation Pantoprazole Sodium 40 mg 08/20/16 09:00 08/20/16 08:19 Protonix Inj IVP 40 mg DAILY EDITH Administration Valsartan 160 mg 08/20/16 09:00 Diovan PO DAILY EDITH - Patient Studies Lab Studies: Lab Studies 08/20/16 08/20/16 08/20/16 Range/Units 11:03 06:12 05:30 WBC 12.1 H (4.8-10.8) K/uL RBC 3.48 L (3.80-5.20) Mil/uL Hgb 10.7 L D (12.0-16.0) g/dL Hct 31.2 L (34.0-47.0) % MCV 89.5 (81.0-99.0) fl MCH 30.6 (27.0-31.0) pg MCHC 34.2 (33.0-37.0) g/dL RDW 14.0 (11.5-14.5) % Plt Count 190 (130-400) K/uL pCO2 33 L (35-45) mm/Hg pO2 203 H (80-100) mm/Hg HCO3 24.9 (21-28) mmol/L ABG pH 7.46 H (7.35-7.45) ABG Total CO2 24.5 (22-28) mmol/L ABG O2 Saturation 100.2 H (95-98) % ABG O2 Content 14.7 L (15-23) ML/dL ABG Base Excess 0 (-2.0-3.0) mmol/L ABG Hemoglobin 10.4 L (11.7-17.4) g/dL ABG Carboxyhemoglobin 0.8 (0.5-1.5) % POC ABG HHb (Measured) -0.2 L (0.0-5.0) % ABG Methemoglobin 2.0 (0.0-3.0) % ABG O2 Capacity 14.7 L (16-24) mL/dL Raheel Test Yes A-a O2 Difference 41.0 mm/Hg Hgb O2 Saturation 97.3 (95.0-98.0) % Vent Mode Prvc/ac Mechanical Rate 12 FiO2 40.0 % Tidal Volume 450 PEEP 5 Sodium 134 (132-148) mmol/l Potassium 3.9 (3.6-5.0) MMOL/L Chloride 104 (98-107) mmol/L Carbon Dioxide 23 (22-30) mmol/L Anion Gap 12 (10-20) BUN 16 (7-17) mg/dl Creatinine 0.8 (0.7-1.2) mg/dL Est GFR ( Amer) > 60 Est GFR (Non-Af Amer) > 60 POC Glucose (mg/dL) 128 H (65-110) mg/dL Random Glucose 297 H (65-105) mg/dL Calcium 8.6 (8.4-10.2) mg/dL Troponin I (0.00-0.120) ng/mL Triglycerides 174 H D (0-149) mg/DL Cholesterol 178 (0-199) mg/dL LDL Cholesterol Direct 117 (0-129) mg/dL HDL Cholesterol 39 (30-70) MG/DL Vitamin B12 356 (239-931) pg/mL 08/20/16 08/20/16 08/20/16 Range/Units 05:29 02:05 01:11 WBC (4.8-10.8) K/uL RBC (3.80-5.20) Mil/uL Hgb (12.0-16.0) g/dL Hct (34.0-47.0) % MCV (81.0-99.0) fl MCH (27.0-31.0) pg MCHC (33.0-37.0) g/dL RDW (11.5-14.5) % Plt Count (130-400) K/uL pCO2 39 (35-45) mm/Hg pO2 190 H (80-100) mm/Hg HCO3 25.0 (21-28) mmol/L ABG pH 7.41 (7.35-7.45) ABG Total CO2 25.9 (22-28) mmol/L ABG O2 Saturation 99.9 H (95-98) % ABG O2 Content 15.4 (15-23) ML/dL ABG Base Excess 0.1 (-2.0-3.0) mmol/L ABG Hemoglobin 11.0 L (11.7-17.4) g/dL ABG Carboxyhemoglobin 0.8 (0.5-1.5) % POC ABG HHb (Measured) 0.1 (0.0-5.0) % ABG Methemoglobin 2.4 (0.0-3.0) % ABG O2 Capacity 15.4 L (16-24) mL/dL Raheel Test Yes A-a O2 Difference 118.0 mm/Hg Hgb O2 Saturation 96.8 (95.0-98.0) % Vent Mode Prvc/ac Mechanical Rate 12 FiO2 50.0 % Tidal Volume 450 PEEP 5 Sodium (132-148) mmol/l Potassium (3.6-5.0) MMOL/L Chloride (98-107) mmol/L Carbon Dioxide (22-30) mmol/L Anion Gap (10-20) BUN (7-17) mg/dl Creatinine (0.7-1.2) mg/dL Est GFR ( Amer) Est GFR (Non-Af Amer) POC Glucose (mg/dL) 303 H (65-110) mg/dL Random Glucose (65-105) mg/dL Calcium (8.4-10.2) mg/dL Troponin I 0.0310 (0.00-0.120) ng/mL Triglycerides (0-149) mg/DL Cholesterol (0-199) mg/dL LDL Cholesterol Direct (0-129) mg/dL HDL Cholesterol (30-70) MG/DL Vitamin B12 (239-931) pg/mL 08/19/16 Range/Units 22:54 WBC (4.8-10.8) K/uL RBC (3.80-5.20) Mil/uL Hgb (12.0-16.0) g/dL Hct (34.0-47.0) % MCV (81.0-99.0) fl MCH (27.0-31.0) pg MCHC (33.0-37.0) g/dL RDW (11.5-14.5) % Plt Count (130-400) K/uL pCO2 (35-45) mm/Hg pO2 (80-100) mm/Hg HCO3 (21-28) mmol/L ABG pH (7.35-7.45) ABG Total CO2 (22-28) mmol/L ABG O2 Saturation (95-98) % ABG O2 Content (15-23) ML/dL ABG Base Excess (-2.0-3.0) mmol/L ABG Hemoglobin (11.7-17.4) g/dL ABG Carboxyhemoglobin (0.5-1.5) % POC ABG HHb (Measured) (0.0-5.0) % ABG Methemoglobin (0.0-3.0) % ABG O2 Capacity (16-24) mL/dL Raheel Test A-a O2 Difference mm/Hg Hgb O2 Saturation (95.0-98.0) % Vent Mode Mechanical Rate FiO2 % Tidal Volume PEEP Sodium (132-148) mmol/l Potassium (3.6-5.0) MMOL/L Chloride (98-107) mmol/L Carbon Dioxide (22-30) mmol/L Anion Gap (10-20) BUN (7-17) mg/dl Creatinine (0.7-1.2) mg/dL Est GFR ( Amer) Est GFR (Non-Af Amer) POC Glucose (mg/dL) 339 H (65-110) mg/dL Random Glucose (65-105) mg/dL Calcium (8.4-10.2) mg/dL Troponin I (0.00-0.120) ng/mL Triglycerides (0-149) mg/DL Cholesterol (0-199) mg/dL LDL Cholesterol Direct (0-129) mg/dL HDL Cholesterol (30-70) MG/DL Vitamin B12 (239-931) pg/mL Laboratory Results - last 24 hr 08/19/16 08/20/16 08/20/16 22:54 01:11 02:05 WBC RBC Hgb Hct MCV MCH MCHC RDW Plt Count pCO2 39 pO2 190 H HCO3 25.0 ABG pH 7.41 ABG Total CO2 25.9 ABG O2 Saturation 99.9 H ABG O2 Content 15.4 ABG Base Excess 0.1 ABG Hemoglobin 11.0 L ABG Carboxyhemoglobin 0.8 POC ABG HHb (Measured) 0.1 ABG Methemoglobin 2.4 ABG O2 Capacity 15.4 L Raheel Test Yes A-a O2 Difference 118.0 Hgb O2 Saturation 96.8 Vent Mode Prvc/ac Mechanical Rate 12 FiO2 50.0 Tidal Volume 450 PEEP 5 Sodium Potassium Chloride Carbon Dioxide Anion Gap BUN Creatinine Est GFR ( Amer) Est GFR (Non-Af Amer) POC Glucose (mg/dL) 339 H Random Glucose Calcium Troponin I 0.0310 Triglycerides Cholesterol LDL Cholesterol Direct HDL Cholesterol Vitamin B12 08/20/16 08/20/16 08/20/16 05:29 05:30 06:12 WBC 12.1 H RBC 3.48 L Hgb 10.7 L D Hct 31.2 L MCV 89.5 MCH 30.6 MCHC 34.2 RDW 14.0 Plt Count 190 pCO2 33 L pO2 203 H HCO3 24.9 ABG pH 7.46 H ABG Total CO2 24.5 ABG O2 Saturation 100.2 H ABG O2 Content 14.7 L ABG Base Excess 0 ABG Hemoglobin 10.4 L ABG Carboxyhemoglobin 0.8 POC ABG HHb (Measured) -0.2 L ABG Methemoglobin 2.0 ABG O2 Capacity 14.7 L Raheel Test Yes A-a O2 Difference 41.0 Hgb O2 Saturation 97.3 Vent Mode Prvc/ac Mechanical Rate 12 FiO2 40.0 Tidal Volume 450 PEEP 5 Sodium 134 Potassium 3.9 Chloride 104 Carbon Dioxide 23 Anion Gap 12 BUN 16 Creatinine 0.8 Est GFR ( Amer) > 60 Est GFR (Non-Af Amer) > 60 POC Glucose (mg/dL) 303 H Random Glucose 297 H Calcium 8.6 Troponin I Triglycerides 174 H D Cholesterol 178 LDL Cholesterol Direct 117 HDL Cholesterol 39 Vitamin B12 356 08/20/16 11:03 WBC RBC Hgb Hct MCV MCH MCHC RDW Plt Count pCO2 pO2 HCO3 ABG pH ABG Total CO2 ABG O2 Saturation ABG O2 Content ABG Base Excess ABG Hemoglobin ABG Carboxyhemoglobin POC ABG HHb (Measured) ABG Methemoglobin ABG O2 Capacity Raheel Test A-a O2 Difference Hgb O2 Saturation Vent Mode Mechanical Rate FiO2 Tidal Volume PEEP Sodium Potassium Chloride Carbon Dioxide Anion Gap BUN Creatinine Est GFR ( Amer) Est GFR (Non-Af Amer) POC Glucose (mg/dL) 128 H Random Glucose Calcium Troponin I Triglycerides Cholesterol LDL Cholesterol Direct HDL Cholesterol Vitamin B12 Fingerstick Blood Sugar Results: 128 Review of Systems - Review of Systems Review of Systems: see HPI Critical Care Progress Note - Ventilator Checklist Head of Bed 30 Degrees: Yes Daily Sedation Vacation: Yes Daily Assessment of Readiness to Wean: Yes Daily Spontaneous Breathing Trial: Yes PUD Prophalyxis: Yes DVT Prophylaxis: Yes Oral Care with Chlorhexidine Gluconate {CHG}: Yes - Vent Settings MODE:: PRVC TIDAL VOLUME:: 450 RESP RATE:: 12 FIO2:: 40 PEEP:: 5 - Nutrition Nutrition: Nutrition Category Date Time Status NPO Diet [DIET] Diets 08/19/16 Dinner Active Assessment/Plan - Assessment and Plan (Free Text) Plan: 61 yo F w PMHx of HTN, DM is admitted for CVA and onset seizures, while she's currently intubated/sedated for protection of her airway 1) CVA -Embolic VS small vessel disease secondary to underlying risk factors of DM & HTN -MRI Brain (08/19): Few scattered foci of high T2 signal within periventricular and subcortical white matter. Acute infarction within RIGHT occipital region. -Carotid U/S (08/19): < 50% carotid arterial stenosis bilaterally. No significant atheromatous narrowing identified. Anterograde flow in both vertebral arteries. -NS 75cc/hr -Plavix 75mg PO Daily -Neuro Onboard, follow recommendations -f/u Echo 2) Seizure -Intubated for airway precautions -Currently intubated, settings at Rate 12, Tvol 450, PEEP 5, FiO2 40% -Keppra 500mg IVPB Q12H -Versed 2mg IV Q2H PRN -Propofol IV 5mcg/kg/min -Neuro Onboard, follow recommendations 3) DM2 -FS have ranged bw 250-339 -Lispro Sliding Scale ACHS -Levemir 7.5u SC HS -Atorvastatin 40mg PO Daily -f/u FS 4) HTN -Valsartan 160mg PO Daily HELD due to Hypotension -Metoprolol 25mg PO Daily, as per Neuro -f/u Vitals -f/u Cardiology Consult 5) DVT Prophylaxis -SCDs 6) PUD Prophylaxis -Protonix 40mg IVP Daily <[email or web address] M - Last Filed: 08/20/16 15:22> CCU Objective - Vital Signs / Intake & Output Vital Signs (Last 4 hours): Vital Signs Temp Pulse Resp BP Pulse Ox 08/20/16 15:00 100 H 12 111/71 100 08/20/16 14:00 95 H 12 91/53 L 100 08/20/16 13:00 95 H 12 87/48 L 100 08/20/16 12:00 99.2 F 94 H 12 90/52 L 100 Intake and Output (Last 8hrs): Intake & Output 08/20/16 08/20/16 08/20/16 06:59 14:59 22:59 Intake Total 350 Balance 350 Intake: IV 350 - Medications Active Medications: Active Medications Generic Name Dose Route Start Last Admin Trade Name Freq PRN Reason Stop Dose Admin Aspirin 81 mg 08/21/16 09:00 Aspirin Chewable PO DAILY EDITH Atorvastatin Calcium 40 mg 08/20/16 09:00 08/20/16 08:53 Lipitor PO 40 mg DAILY EDITH Administration Clopidogrel Bisulfate 75 mg 08/20/16 09:00 08/20/16 08:54 Plavix PO 75 mg DAILY EDITH Administration Dextrose 0 gm 08/19/16 20:02 Glutose 15 PO ONCE PRN Hypoglycemia Protocol Protocol Dextrose 0 ml 08/19/16 20:02 Dextrose 50% Inj IV STAT PRN Hyglycemia Protocol Protocol Glucagon 0 mg 08/19/16 20:02 Glucagen Diagnostic Kit IM STAT PRN Hypoglycemia Protocol Protocol Levetiracetam 500 mg/ Sodium 105 mls @ 210 mls/hr 08/20/16 03:30 08/20/16 03:21 Chloride IVPB 210 mls/hr Q12H EDITH Administration Sodium Chloride 1,000 mls @ 75 mls/hr 08/20/16 08:00 08/20/16 08:19 Sodium Chloride 0.9% IV 08/21/16 08:01 75 mls/hr .[id number] EDITH Administration Propofol 100 mls @ 1.497 mls/hr 08/20/16 08:15 08/20/16 14:10 Diprivan IV 08/21/16 08:16 4.491 mls/hr .Q24H EDITH Administration Protocol 5 MCG/KG/MIN Insulin Detemir 7.5 units 08/19/16 22:00 Levemir SC HS [facility] Insulin Human Lispro 0 units 08/20/16 07:30 08/20/16 11:10 Humalog SC Not Given ACHS EDITH Protocol Metoprolol Succinate 25 mg 08/20/16 09:00 08/20/16 08:53 Toprol Xl PO 25 mg DAILY EDITH Administration Midazolam HCl 2 mg 08/20/16 02:44 08/20/16 05:44 Versed Inj IV 2 mg Q2H PRN Administration Agitation Pantoprazole Sodium 40 mg 08/20/16 09:00 08/20/16 08:19 Protonix Inj IVP 40 mg DAILY EDITH Administration Valsartan 160 mg 08/20/16 09:00 Diovan PO DAILY EDITH - Patient Studies Lab Studies: Lab Studies 08/20/16 08/20/16 08/20/16 Range/Units 11:03 06:12 05:30 WBC 12.1 H (4.8-10.8) K/uL RBC 3.48 L (3.80-5.20) Mil/uL Hgb 10.7 L D (12.0-16.0) g/dL Hct 31.2 L (34.0-47.0) % MCV 89.5 (81.0-99.0) fl MCH 30.6 (27.0-31.0) pg MCHC 34.2 (33.0-37.0) g/dL RDW 14.0 (11.5-14.5) % Plt Count 190 (130-400) K/uL pCO2 33 L (35-45) mm/Hg pO2 203 H (80-100) mm/Hg HCO3 24.9 (21-28) mmol/L ABG pH 7.46 H (7.35-7.45) ABG Total CO2 24.5 (22-28) mmol/L ABG O2 Saturation 100.2 H (95-98) % ABG O2 Content 14.7 L (15-23) ML/dL ABG Base Excess 0 (-2.0-3.0) mmol/L ABG Hemoglobin 10.4 L (11.7-17.4) g/dL ABG Carboxyhemoglobin 0.8 (0.5-1.5) % POC ABG HHb (Measured) -0.2 L (0.0-5.0) % ABG Methemoglobin 2.0 (0.0-3.0) % ABG O2 Capacity 14.7 L (16-24) mL/dL Raheel Test Yes A-a O2 Difference 41.0 mm/Hg Hgb O2 Saturation 97.3 (95.0-98.0) % Vent Mode Prvc/ac Mechanical Rate 12 FiO2 40.0 % Tidal Volume 450 PEEP 5 Sodium 134 (132-148) mmol/l Potassium 3.9 (3.6-5.0) MMOL/L Chloride 104 (98-107) mmol/L Carbon Dioxide 23 (22-30) mmol/L Anion Gap 12 (10-20) BUN 16 (7-17) mg/dl Creatinine 0.8 (0.7-1.2) mg/dL Est GFR ( Amer) > 60 Est GFR (Non-Af Amer) > 60 POC Glucose (mg/dL) 128 H (65-110) mg/dL Random Glucose 297 H (65-105) mg/dL Calcium 8.6 (8.4-10.2) mg/dL Troponin I (0.00-0.120) ng/mL Triglycerides 174 H D (0-149) mg/DL Cholesterol 178 (0-199) mg/dL LDL Cholesterol Direct 117 (0-129) mg/dL HDL Cholesterol 39 (30-70) MG/DL Vitamin B12 356 (239-931) pg/mL 08/20/16 08/20/16 08/20/16 Range/Units 05:29 02:05 01:11 WBC (4.8-10.8) K/uL RBC (3.80-5.20) Mil/uL Hgb (12.0-16.0) g/dL Hct (34.0-47.0) % MCV (81.0-99.0) fl MCH (27.0-31.0) pg MCHC (33.0-37.0) g/dL RDW (11.5-14.5) % Plt Count (130-400) K/uL pCO2 39 (35-45) mm/Hg pO2 190 H (80-100) mm/Hg HCO3 25.0 (21-28) mmol/L ABG pH 7.41 (7.35-7.45) ABG Total CO2 25.9 (22-28) mmol/L ABG O2 Saturation 99.9 H (95-98) % ABG O2 Content 15.4 (15-23) ML/dL ABG Base Excess 0.1 (-2.0-3.0) mmol/L ABG Hemoglobin 11.0 L (11.7-17.4) g/dL ABG Carboxyhemoglobin 0.8 (0.5-1.5) % POC ABG HHb (Measured) 0.1 (0.0-5.0) % ABG Methemoglobin 2.4 (0.0-3.0) % ABG O2 Capacity 15.4 L (16-24) mL/dL Raheel Test Yes A-a O2 Difference 118.0 mm/Hg Hgb O2 Saturation 96.8 (95.0-98.0) % Vent Mode Prvc/ac Mechanical Rate 12 FiO2 50.0 % Tidal Volume 450 PEEP 5 Sodium (132-148) mmol/l Potassium (3.6-5.0) MMOL/L Chloride (98-107) mmol/L Carbon Dioxide (22-30) mmol/L Anion Gap (10-20) BUN (7-17) mg/dl Creatinine (0.7-1.2) mg/dL Est GFR ( Amer) Est GFR (Non-Af Amer) POC Glucose (mg/dL) 303 H (65-110) mg/dL Random Glucose (65-105) mg/dL Calcium (8.4-10.2) mg/dL Troponin I 0.0310 (0.00-0.120) ng/mL Triglycerides (0-149) mg/DL Cholesterol (0-199) mg/dL LDL Cholesterol Direct (0-129) mg/dL HDL Cholesterol (30-70) MG/DL Vitamin B12 (239-931) pg/mL 08/19/16 Range/Units 22:54 WBC (4.8-10.8) K/uL RBC (3.80-5.20) Mil/uL Hgb (12.0-16.0) g/dL Hct (34.0-47.0) % MCV (81.0-99.0) fl MCH (27.0-31.0) pg MCHC (33.0-37.0) g/dL RDW (11.5-14.5) % Plt Count (130-400) K/uL pCO2 (35-45) mm/Hg pO2 (80-100) mm/Hg HCO3 (21-28) mmol/L ABG pH (7.35-7.45) ABG Total CO2 (22-28) mmol/L ABG O2 Saturation (95-98) % ABG O2 Content (15-23) ML/dL ABG Base Excess (-2.0-3.0) mmol/L ABG Hemoglobin (11.7-17.4) g/dL ABG Carboxyhemoglobin (0.5-1.5) % POC ABG HHb (Measured) (0.0-5.0) % ABG Methemoglobin (0.0-3.0) % ABG O2 Capacity (16-24) mL/dL Raheel Test A-a O2 Difference mm/Hg Hgb O2 Saturation (95.0-98.0) % Vent Mode Mechanical Rate FiO2 % Tidal Volume PEEP Sodium (132-148) mmol/l Potassium (3.6-5.0) MMOL/L Chloride (98-107) mmol/L Carbon Dioxide (22-30) mmol/L Anion Gap (10-20) BUN (7-17) mg/dl Creatinine (0.7-1.2) mg/dL Est GFR ( Amer) Est GFR (Non-Af Amer) POC Glucose (mg/dL) 339 H (65-110) mg/dL Random Glucose (65-105) mg/dL Calcium (8.4-10.2) mg/dL Troponin I (0.00-0.120) ng/mL Triglycerides (0-149) mg/DL Cholesterol (0-199) mg/dL LDL Cholesterol Direct (0-129) mg/dL HDL Cholesterol (30-70) MG/DL Vitamin B12 (239-931) pg/mL Laboratory Results - last 24 hr 08/19/16 08/20/16 08/20/16 22:54 01:11 02:05 WBC RBC Hgb Hct MCV MCH MCHC RDW Plt Count pCO2 39 pO2 190 H HCO3 25.0 ABG pH 7.41 ABG Total CO2 25.9 ABG O2 Saturation 99.9 H ABG O2 Content 15.4 ABG Base Excess 0.1 ABG Hemoglobin 11.0 L ABG Carboxyhemoglobin 0.8 POC ABG HHb (Measured) 0.1 ABG Methemoglobin 2.4 ABG O2 Capacity 15.4 L Raheel Test Yes A-a O2 Difference 118.0 Hgb O2 Saturation 96.8 Vent Mode Prvc/ac Mechanical Rate 12 FiO2 50.0 Tidal Volume 450 PEEP 5 Sodium Potassium Chloride Carbon Dioxide Anion Gap BUN Creatinine Est GFR ( Amer) Est GFR (Non-Af Amer) POC Glucose (mg/dL) 339 H Random Glucose Calcium Troponin I 0.0310 Triglycerides Cholesterol LDL Cholesterol Direct HDL Cholesterol Vitamin B12 08/20/16 08/20/16 08/20/16 05:29 05:30 06:12 WBC 12.1 H RBC 3.48 L Hgb 10.7 L D Hct 31.2 L MCV 89.5 MCH 30.6 MCHC 34.2 RDW 14.0 Plt Count 190 pCO2 33 L pO2 203 H HCO3 24.9 ABG pH 7.46 H ABG Total CO2 24.5 ABG O2 Saturation 100.2 H ABG O2 Content 14.7 L ABG Base Excess 0 ABG Hemoglobin 10.4 L ABG Carboxyhemoglobin 0.8 POC ABG HHb (Measured) -0.2 L ABG Methemoglobin 2.0 ABG O2 Capacity 14.7 L Raheel Test Yes A-a O2 Difference 41.0 Hgb O2 Saturation 97.3 Vent Mode Prvc/ac Mechanical Rate 12 FiO2 40.0 Tidal Volume 450 PEEP 5 Sodium 134 Potassium 3.9 Chloride 104 Carbon Dioxide 23 Anion Gap 12 BUN 16 Creatinine 0.8 Est GFR ( Amer) > 60 Est GFR (Non-Af Amer) > 60 POC Glucose (mg/dL) 303 H Random Glucose 297 H Calcium 8.6 Troponin I Triglycerides 174 H D Cholesterol 178 LDL Cholesterol Direct 117 HDL Cholesterol 39 Vitamin B12 356 08/20/16 11:03 WBC RBC Hgb Hct MCV MCH MCHC RDW Plt Count pCO2 pO2 HCO3 ABG pH ABG Total CO2 ABG O2 Saturation ABG O2 Content ABG Base Excess ABG Hemoglobin ABG Carboxyhemoglobin POC ABG HHb (Measured) ABG Methemoglobin ABG O2 Capacity Raheel Test A-a O2 Difference Hgb O2 Saturation Vent Mode Mechanical Rate FiO2 Tidal Volume PEEP Sodium Potassium Chloride Carbon Dioxide Anion Gap BUN Creatinine Est GFR ( Amer) Est GFR (Non-Af Amer) POC Glucose (mg/dL) 128 H Random Glucose Calcium Troponin I Triglycerides Cholesterol LDL Cholesterol Direct HDL Cholesterol Vitamin B12 Critical Care Progress Note - Nutrition Nutrition: Nutrition Category Date Time Status NPO Diet [DIET] Diets 08/19/16 Dinner Active Attending/Attestation - Attestation I have personally seen and examined this patient.: Yes I have fully participated in the care of the patient.: Yes I have reviewed all pertinent clinical information: Yes Notes (Text): 08/20/16 15:20 Today: Saturday, August 20, 2016 The Patient was seen and examined at the bedside, Medical records reviewed, all clinical/lab/hemodynamic/radiographic data were reviewed and management issues were discussed and formulated, Events reviewed Pain issues, skin care, head of the bed elevation, GI/DVT prophylaxis, glycemic control were addressed. Acute respiratory failure, intubated for airway protection in the sitting of acute RIGHT occipital cerebral vascular accident Agree with above treatment plans as transcribed in Dr. Jacob note
[2016-08-20] MEDS ORDERED: HYDROmorphone 0.5 mg/0.5 ml ISec IVP ONE (15:17)
[2016-08-20 16:24] LABS: FOLATE 10.4 ng/mL
[2016-08-20] MEDS ORDERED: Sodium Chloride 0.9% 500 ML IV ONE (16:57)
[2016-08-20] MEDS: Sodium Chloride 0.9% 1,000 ML IV SCH (18:31)
[2016-08-20] MEDS: Insulin Detemir 100 Units/ml Inj SC SCH (22:30)
[2016-08-21] MEDS: Sodium Chloride 0.9% 1,000 ML IV SCH (02:00)
[2016-08-21] MEDS: levETIRAcetam 500 MG in Sodium Chloride 0.9% 100 ML IVPB SCH ×2 (03:45→14:43)
[2016-08-21 05:48] LABS: ABG ALLEN TEST YES; ABG MECHANICAL RATE 12; ARTERIAL BLOOD GAS HCO3 22.9 mmol/L (21-28); ARTERIAL BLOOD GAS MODE PRVC/AC; ARTERIAL BLOOD GAS O2 CAPACITY 14.9 mL/dL (16-24); ARTERIAL BLOOD GAS O2 CONTENT 14.9 ML/dL (15-23); ARTERIAL BLOOD GAS PO2 150 mm/Hg (80-100); ARTERIAL BLOOD HGB O2 SAT 97.2 % (95.0-98.0); ATERIAL BLOOD GAS PEEP 5; CARBOXYHEMOGLOBIN 1.6 % (0.5-1.5); HHB 0.3 % (0.0-5.0)
[2016-08-21] MEDS: Insulin Lispro (humaLOG) 100 Units/ml Inj SC SCH ×4 (06:53→21:55)
[2016-08-21 07:21] LABS: HEMATOCRIT 28.8 % (34.0-47.0); MEAN CELL VOLUME 90.2 fl (81.0-99.0); MEAN CORPUSCULAR HEMOGLOBIN 31.2 pg (27.0-31.0); MEAN CORPUSCULAR HGB CONC 34.5 g/dL (33.0-37.0); RED CELL DISTRIBUTION WIDTH 14.4 % (11.5-14.5); WHITE BLOOD COUNT 9.9 K/uL (4.8-10.8)
[2016-08-21 07:38] LABS: ALKALINE PHOSPHATASE 42 U/L (38-126); ALT/SGPT 28 U/L (9-52); AST/SGOT 33 U/L (14-36); BILIRUBIN,TOTAL 0.9 mg/dl (0.2-1.3); BLOOD UREA NITROGEN 16 mg/dl (7-17); CARBON DIOXIDE 19 mmol/L (22-30); CHLORIDE 109 mmol/L (98-107); GFR AFRICAN-AMERICAN > 60; GLUCOSE,RANDOM 122 mg/dL (65-105); POTASSIUM 3.5 MMOL/L (3.6-5.0); SODIUM 142 mmol/l (132-148); TOTAL PROTEIN 5.5 G/DL (6.3-8.2)
[2016-08-21] MEDS: Metoprolol Succinate 25 mg XL Tab PO SCH (08:39)
--- NOTE | 2016-08-21 09:00 | CP.PCM.PN ---
Subjective - Date & Time of Evaluation Date of Evaluation: 08/21/16 Time of Evaluation: 07:20 - Subjective Subjective: Patient seen and examined bedside, intubated under sedation A/C mode ventilator FIO2 40 , PEEP 5 . No overnight events, no seizure activity. Thomson 30 ml normal color. no relatives bedside today. Objective - Vital Signs/Intake and Output Vital Signs (last 24 hours): Temp Pulse Resp BP Pulse Ox 98.4 F 94 H 12 99/58 L 100 08/21/16 04:00 08/21/16 06:00 08/21/16 06:00 08/21/16 06:00 08/21/16 06:00 Intake and Output: 08/21/16 08/21/16 06:59 18:59 Intake Total 870 Output Total 400 Balance 470 - Medications Medications: Current Medications Aspirin (Aspirin Chewable) 81 mg PO DAILY [facility] Last Admin: 08/21/16 08:38 Dose: 81 mg Atorvastatin Calcium (Lipitor) 40 mg PO DAILY [facility] Last Admin: 08/20/16 08:53 Dose: 40 mg Clopidogrel Bisulfate (Plavix) 75 mg PO DAILY [facility] Last Admin: 08/21/16 08:37 Dose: 75 mg Dextrose (Glutose 15) 0 gm PO ONCE PRN; Protocol PRN Reason: Hypoglycemia Protocol Dextrose (Dextrose 50% Inj) 0 ml IV STAT PRN; Protocol PRN Reason: Hyglycemia Protocol Glucagon (Glucagen Diagnostic Kit) 0 mg IM STAT PRN; Protocol PRN Reason: Hypoglycemia Protocol Levetiracetam 500 mg/ Sodium (Chloride) 105 mls @ 210 mls/hr IVPB Q12H [facility] Last Admin: 08/21/16 03:45 Dose: 210 mls/hr Sodium Chloride (Sodium Chloride 0.9%) 1,000 mls @ 125 mls/hr IV .Q8H [facility] Stop: 08/21/16 18:31 Last Admin: 08/21/16 02:00 Dose: 125 mls/hr Insulin Detemir (Levemir) 7.5 units SC HS [facility] Last Admin: 08/20/16 22:30 Dose: 7.5 units Insulin Human Lispro (Humalog) 0 units SC ACHS [facility] PRN Reason: Protocol Last Admin: 08/21/16 06:53 Dose: Not Given Metoprolol Succinate (Toprol Xl) 25 mg PO DAILY [facility] Last Admin: 08/21/16 08:39 Dose: Not Given Midazolam HCl (Versed Inj) 2 mg IV Q2H PRN PRN Reason: Agitation Last Admin: 08/20/16 05:44 Dose: 2 mg Pantoprazole Sodium (Protonix Inj) 40 mg IVP DAILY [facility] Last Admin: 08/21/16 08:39 Dose: 40 mg Valsartan (Diovan) 160 mg PO DAILY [facility] - Labs Labs: 08/21/16 07:02 08/21/16 07:02 PT 10.6 SECONDS (9.6-11.2) 08/19/16 17:15 INR 1.02 (0.92-1.08) 08/19/16 17:15 APTT 22.4 SECONDS (23.3-32.5) L 08/19/16 17:15 - Constitutional Appears: Other (intubated under sedation) - Respiratory Exam Respiratory Exam: Clear to Ausculation Bilateral. absent: Rales, Rhonchi, Wheezes Additional comments: on ventilator A/C mode - Cardiovascular Exam Cardiovascular Exam: REGULAR RHYTHM, +S1, +S2 - GI/Abdominal Exam GI & Abdominal Exam: Soft, Normal Bowel Sounds. absent: Tenderness - Extremities Exam Extremities Exam: Normal Capillary Refill, Normal Inspection. absent: Pedal Edema - Neurological Exam Additional comments: Intubated under sedation - Skin Skin Exam: Intact Assessment and Plan - Assessment and Plan (Free Text) Plan: 61, yo , f, PMHx/o HTN, DM, uterine prolapse presented to ED c/o headache and dizziness started 7 days ago, associated with occs visual hallucination. Patient seen in ER last friday , discharged home and had f/u in our clinic yesterday. Patient was sent to ER for evaluation due to persistent symptoms. Patient had seizures in ED and repiratory distress needing intubation and admission in ICU. 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 Acute infarction within RIGHT occipital region. -CT head 08/16 no acute intracraneal abnormality -CT head 08/19 no specific white matter changes -CT head 08/20 no specific white matter changes. See MRI report. -Carotid U/S (08/19): < 50% carotid arterial stenosis bilaterally. No significant atheromatous narrowing identified. Anterograde flow in both vertebral arteries. -Plavix 75mg PO Daily -Aspirin 81 mg Po daily -Keppra 500 mg IV BID -Neuro Onboard consult appreciated: Recommends Aspirin, plavix and c/w Keppra -Possible extubation today -[employer] consult suggested -Echo f/u 2) Seizure -secondary to CVA -Intubated for airway precautions -Currently intubated, settings at Rate 12, Tvol 450, PEEP 5, FiO2 40% -Keppra 500mg IVPB Q12H -Versed 2mg IV Q2H PRN -Propofol IV 5mcg/kg/min -Neuro consult appreciated -TSH 5.6 -Folate, Vit 12 and RPR normal -HIV, ESR f/u 3) DM2 -Controlled with diet as per ECW -Hgb A1c 5.8 on 03/03/15 and same value during 2013 -labs reviewed. Blood glucose trending down 109 mg/dl -Possible associated to stress cortisol releasing. -Lispro Sliding Scale ACHS -Levemir 7.5u SC HS -Atorvastatin 40mg PO Daily 4) HTN -Valsartan 160mg PO Daily. hold due to Hypotension -Metoprolol 25mg PO Daily, as per Neuro -Cardiology Consult suggested 5) DVT Prophylaxis -Lovenox 40 mg sc daily. Benefit outweigh the risk 6) PUD Prophylaxis -Protonix 40mg IVP Daily
--- NOTE | 2016-08-21 10:00 | RAD ---
HISTORY: intubated pt COMPARISON: 08/20/2016 FINDINGS: LUNGS: No active pulmonary disease. PLEURA: No significant pleural effusion identified, no pneumothorax apparent. CARDIOVASCULAR: Normal heart size. ET tube and NG tube are grossly unchanged in position. OSSEOUS STRUCTURES: No significant abnormalities. VISUALIZED UPPER ABDOMEN: Normal. OTHER FINDINGS: None. IMPRESSION: No acute infiltrate. Lines and tubes unchanged.
[2016-08-21] MEDS ORDERED: Dexmedetomidine Hydrochloride 400 MCG in Sodium Chloride 0.9% 96 ML IV ONE (10:12)
--- NOTE | 2016-08-21 12:33 | CP.CCUPN ---
<Andrea Jacob T - Last Filed: 08/21/16 13:03> CCU Subjective - Physician Review Subjective (Free Text): Pt seen and examined at bedside in ICU. Pt is currently intubated and sedated, is unresponsive to voice and pain, and thus she cannot give an account of overnight events. She cannot provide answers to ROS questioning. No known overnight events or problems. CCU Objective - Vital Signs / Intake & Output Vital Signs (Last 4 hours): Vital Signs Temp Pulse Resp BP Pulse Ox 08/21/16 12:00 98.4 F 95 H 12 107/63 100 08/21/16 11:00 97 H 17 107/63 100 08/21/16 09:00 102 H 18 106/74 100 Intake and Output (Last 8hrs): Intake & Output 08/20/16 08/21/16 08/21/16 22:59 06:59 14:59 Intake Total 850 870 350 Output Total 300 400 Balance 550 470 350 Intake: IV 750 750 250 Intake, Piggyback 100 120 Tube Feeding 100 Output: Urine 300 400 Urethral (Thomson) 300 400 - Physical Exam Physical Exam Limitations: Positive for: Other (intubated, sedated) Head: Positive for: Atraumatic, Normocephalic Pupils: Positive for: PERRL, Other Extroacular Muscles: Positive for: Other (sedated) Mouth: Positive for: Moist Mucous Membranes Respiratory/Chest: Positive for: Clear to Auscultation. Negative for: Wheezes, Rhonchi Cardiovascular: Positive for: Regular Rate and Rhythm, Normal S1, S2 Abdomen: Positive for: Normal Bowel Sounds. Negative for: Tenderness, Distention Upper Extremity: Positive for: Normal Inspection. Negative for: Cyanosis Lower Extremity: Positive for: Normal Inspection. Negative for: Edema Neurological: Positive for: Other (intubated, sedated, unresponsive to pain, gag +) Skin: Positive for: Warm, Dry. Negative for: Rashes - Medications Active Medications: Active Medications Generic Name Dose Route Start Last Admin Trade Name Freq PRN Reason Stop Dose Admin Aspirin 81 mg 08/21/16 09:00 08/21/16 08:38 Aspirin Chewable PO 81 mg DAILY EDITH Administration Atorvastatin Calcium 40 mg 08/20/16 09:00 08/20/16 08:53 Lipitor PO 40 mg DAILY EDITH Administration Clopidogrel Bisulfate 75 mg 08/20/16 09:00 08/21/16 08:37 Plavix PO 75 mg DAILY EDITH Administration Dextrose 0 gm 08/19/16 20:02 Glutose 15 PO ONCE PRN Hypoglycemia Protocol Protocol Dextrose 0 ml 08/19/16 20:02 Dextrose 50% Inj IV STAT PRN Hyglycemia Protocol Protocol Enoxaparin Sodium 40 mg 08/21/16 11:00 Lovenox SC DAILY EDITH Protocol Glucagon 0 mg 08/19/16 20:02 Glucagen Diagnostic Kit IM STAT PRN Hypoglycemia Protocol Protocol Levetiracetam 500 mg/ Sodium 105 mls @ 210 mls/hr 08/20/16 03:30 08/21/16 03:45 Chloride IVPB 210 mls/hr Q12H EDITH Administration Dexmedetomidine HCl 400 mcg/ 100 mls @ 2.49 mls/hr 08/21/16 10:30 Sodium Chloride IV 08/22/16 10:29 .Q24H ONE Protocol 0.2 MCG/KG/HR Insulin Detemir 7.5 units 08/19/16 22:00 08/20/16 22:30 Levemir SC 7.5 units HS EDITH Administration Insulin Human Lispro 0 units 08/20/16 07:30 08/21/16 11:30 Humalog SC Not Given ACHS EDITH Protocol Metoprolol Succinate 25 mg 08/20/16 09:00 08/21/16 08:39 Toprol Xl PO Not Given DAILY EDITH Midazolam HCl 2 mg 08/20/16 02:44 08/20/16 05:44 Versed Inj IV 2 mg Q2H PRN Administration Agitation Pantoprazole Sodium 40 mg 08/20/16 09:00 08/21/16 08:39 Protonix Inj IVP 40 mg DAILY EDITH Administration Valsartan 160 mg 08/20/16 09:00 Diovan PO DAILY EDITH - Patient Studies Lab Studies: Microbiology Studies 08/20/16 06:55 MRSA Culture (Admit) - Final Nose MRSA NOT DETECTED Lab Studies 08/21/16 08/21/16 08/21/16 Range/Units 07:02 06:04 05:00 WBC 9.9 (4.8-10.8) K/uL RBC 3.19 L (3.80-5.20) Mil/uL Hgb 9.9 L (12.0-16.0) g/dL Hct 28.8 L (34.0-47.0) % MCV 90.2 (81.0-99.0) fl MCH 31.2 H (27.0-31.0) pg MCHC 34.5 (33.0-37.0) g/dL RDW 14.4 (11.5-14.5) % Plt Count 148 (130-400) K/uL pCO2 35 (35-45) mm/Hg pO2 150 H (80-100) mm/Hg HCO3 22.9 (21-28) mmol/L ABG pH 7.40 (7.35-7.45) ABG Total CO2 22.8 (22-28) mmol/L ABG O2 Saturation 99.7 H (95-98) % ABG O2 Content 14.9 L (15-23) ML/dL ABG Base Excess -2.6 L (-2.0-3.0) mmol/L ABG Hemoglobin 10.7 L (11.7-17.4) g/dL ABG Carboxyhemoglobin 1.6 H (0.5-1.5) % POC ABG HHb (Measured) 0.3 (0.0-5.0) % ABG Methemoglobin 1.0 (0.0-3.0) % ABG O2 Capacity 14.9 L (16-24) mL/dL Raheel Test Yes A-a O2 Difference 91.0 mm/Hg Hgb O2 Saturation 97.2 (95.0-98.0) % Vent Mode Prvc/ac Mechanical Rate 12 FiO2 40.0 % Tidal Volume 450 PEEP 5 Sodium 142 (132-148) mmol/l Potassium 3.5 L (3.6-5.0) MMOL/L Chloride 109 H (98-107) mmol/L Carbon Dioxide 19 L (22-30) mmol/L Anion Gap 18 (10-20) BUN 16 (7-17) mg/dl Creatinine 0.7 (0.7-1.2) mg/dL Est GFR ( Amer) > 60 Est GFR (Non-Af Amer) > 60 POC Glucose (mg/dL) 109 (65-110) mg/dL Random Glucose 122 H (65-105) mg/dL Calcium 8.0 L (8.4-10.2) mg/dL Total Bilirubin 0.9 (0.2-1.3) mg/dl Direct Bilirubin 0.2 (0.0-0.4) mg/ml AST 33 (14-36) U/L ALT 28 (9-52) U/L Alkaline Phosphatase 42 (38-126) U/L Total Protein 5.5 L (6.3-8.2) G/DL Albumin 2.8 L D (3.5-5.0) g/dL Globulin 2.8 (2.2-3.9) gm/dL Albumin/Globulin Ratio 1.0 (1.0-2.1) Folate ng/mL RPR (NONREACTIVE) 08/20/16 08/20/16 08/20/16 Range/Units 23:19 22:13 16:33 WBC (4.8-10.8) K/uL RBC (3.80-5.20) Mil/uL Hgb (12.0-16.0) g/dL Hct (34.0-47.0) % MCV (81.0-99.0) fl MCH (27.0-31.0) pg MCHC (33.0-37.0) g/dL RDW (11.5-14.5) % Plt Count (130-400) K/uL pCO2 (35-45) mm/Hg pO2 (80-100) mm/Hg HCO3 (21-28) mmol/L ABG pH (7.35-7.45) ABG Total CO2 (22-28) mmol/L ABG O2 Saturation (95-98) % ABG O2 Content (15-23) ML/dL ABG Base Excess (-2.0-3.0) mmol/L ABG Hemoglobin (11.7-17.4) g/dL ABG Carboxyhemoglobin (0.5-1.5) % POC ABG HHb (Measured) (0.0-5.0) % ABG Methemoglobin (0.0-3.0) % ABG O2 Capacity (16-24) mL/dL Raheel Test A-a O2 Difference mm/Hg Hgb O2 Saturation (95.0-98.0) % Vent Mode Mechanical Rate FiO2 % Tidal Volume PEEP Sodium (132-148) mmol/l Potassium (3.6-5.0) MMOL/L Chloride (98-107) mmol/L Carbon Dioxide (22-30) mmol/L Anion Gap (10-20) BUN (7-17) mg/dl Creatinine (0.7-1.2) mg/dL Est GFR ( Amer) Est GFR (Non-Af Amer) POC Glucose (mg/dL) 184 H 193 H 182 H (65-110) mg/dL Random Glucose (65-105) mg/dL Calcium (8.4-10.2) mg/dL Total Bilirubin (0.2-1.3) mg/dl Direct Bilirubin (0.0-0.4) mg/ml AST (14-36) U/L ALT (9-52) U/L Alkaline Phosphatase (38-126) U/L Total Protein (6.3-8.2) G/DL Albumin (3.5-5.0) g/dL Globulin (2.2-3.9) gm/dL Albumin/Globulin Ratio (1.0-2.1) Folate ng/mL RPR (NONREACTIVE) 08/20/16 Range/Units 05:30 WBC (4.8-10.8) K/uL RBC (3.80-5.20) Mil/uL Hgb (12.0-16.0) g/dL Hct (34.0-47.0) % MCV (81.0-99.0) fl MCH (27.0-31.0) pg MCHC (33.0-37.0) g/dL RDW (11.5-14.5) % Plt Count (130-400) K/uL pCO2 (35-45) mm/Hg pO2 (80-100) mm/Hg HCO3 (21-28) mmol/L ABG pH (7.35-7.45) ABG Total CO2 (22-28) mmol/L ABG O2 Saturation (95-98) % ABG O2 Content (15-23) ML/dL ABG Base Excess (-2.0-3.0) mmol/L ABG Hemoglobin (11.7-17.4) g/dL ABG Carboxyhemoglobin (0.5-1.5) % POC ABG HHb (Measured) (0.0-5.0) % ABG Methemoglobin (0.0-3.0) % ABG O2 Capacity (16-24) mL/dL Raheel Test A-a O2 Difference mm/Hg Hgb O2 Saturation (95.0-98.0) % Vent Mode Mechanical Rate FiO2 % Tidal Volume PEEP Sodium (132-148) mmol/l Potassium (3.6-5.0) MMOL/L Chloride (98-107) mmol/L Carbon Dioxide (22-30) mmol/L Anion Gap (10-20) BUN (7-17) mg/dl Creatinine (0.7-1.2) mg/dL Est GFR ( Amer) Est GFR (Non-Af Amer) POC Glucose (mg/dL) (65-110) mg/dL Random Glucose (65-105) mg/dL Calcium (8.4-10.2) mg/dL Total Bilirubin (0.2-1.3) mg/dl Direct Bilirubin (0.0-0.4) mg/ml AST (14-36) U/L ALT (9-52) U/L Alkaline Phosphatase (38-126) U/L Total Protein (6.3-8.2) G/DL Albumin (3.5-5.0) g/dL Globulin (2.2-3.9) gm/dL Albumin/Globulin Ratio (1.0-2.1) Folate 10.4 ng/mL RPR Nonreactive (NONREACTIVE) Laboratory Results - last 24 hr 08/20/16 08/20/16 08/20/16 05:30 16:33 22:13 WBC RBC Hgb Hct MCV MCH MCHC RDW Plt Count pCO2 pO2 HCO3 ABG pH ABG Total CO2 ABG O2 Saturation ABG O2 Content ABG Base Excess ABG Hemoglobin ABG Carboxyhemoglobin POC ABG HHb (Measured) ABG Methemoglobin ABG O2 Capacity Raheel Test A-a O2 Difference Hgb O2 Saturation Vent Mode Mechanical Rate FiO2 Tidal Volume PEEP Sodium Potassium Chloride Carbon Dioxide Anion Gap BUN Creatinine Est GFR ( Amer) Est GFR (Non-Af Amer) POC Glucose (mg/dL) 182 H 193 H Random Glucose Calcium Total Bilirubin Direct Bilirubin AST ALT Alkaline Phosphatase Total Protein Albumin Globulin Albumin/Globulin Ratio Folate 10.4 RPR Nonreactive 08/20/16 08/21/16 08/21/16 23:19 05:00 06:04 WBC RBC Hgb Hct MCV MCH MCHC RDW Plt Count pCO2 35 pO2 150 H HCO3 22.9 ABG pH 7.40 ABG Total CO2 22.8 ABG O2 Saturation 99.7 H ABG O2 Content 14.9 L ABG Base Excess -2.6 L ABG Hemoglobin 10.7 L ABG Carboxyhemoglobin 1.6 H POC ABG HHb (Measured) 0.3 ABG Methemoglobin 1.0 ABG O2 Capacity 14.9 L Raheel Test Yes A-a O2 Difference 91.0 Hgb O2 Saturation 97.2 Vent Mode Prvc/ac Mechanical Rate 12 FiO2 40.0 Tidal Volume 450 PEEP 5 Sodium Potassium Chloride Carbon Dioxide Anion Gap BUN Creatinine Est GFR ( Amer) Est GFR (Non-Af Amer) POC Glucose (mg/dL) 184 H 109 Random Glucose Calcium Total Bilirubin Direct Bilirubin AST ALT Alkaline Phosphatase Total Protein Albumin Globulin Albumin/Globulin Ratio Folate RPR 08/21/16 07:02 WBC 9.9 RBC 3.19 L Hgb 9.9 L Hct 28.8 L MCV 90.2 MCH 31.2 H MCHC 34.5 RDW 14.4 Plt Count 148 pCO2 pO2 HCO3 ABG pH ABG Total CO2 ABG O2 Saturation ABG O2 Content ABG Base Excess ABG Hemoglobin ABG Carboxyhemoglobin POC ABG HHb (Measured) ABG Methemoglobin ABG O2 Capacity Raheel Test A-a O2 Difference Hgb O2 Saturation Vent Mode Mechanical Rate FiO2 Tidal Volume PEEP Sodium 142 Potassium 3.5 L Chloride 109 H Carbon Dioxide 19 L Anion Gap 18 BUN 16 Creatinine 0.7 Est GFR ( Amer) > 60 Est GFR (Non-Af Amer) > 60 POC Glucose (mg/dL) Random Glucose 122 H Calcium 8.0 L Total Bilirubin 0.9 Direct Bilirubin 0.2 AST 33 ALT 28 Alkaline Phosphatase 42 Total Protein 5.5 L Albumin 2.8 L D Globulin 2.8 Albumin/Globulin Ratio 1.0 Folate RPR Fingerstick Blood Sugar Results: 109 Review of Systems - Review of Systems Review of Systems: see HPI Critical Care Progress Note - Ventilator Checklist Head of Bed 30 Degrees: Yes Daily Sedation Vacation: Yes Daily Assessment of Readiness to Wean: Yes Daily Spontaneous Breathing Trial: Yes PUD Prophalyxis: Yes DVT Prophylaxis: Yes Oral Care with Chlorhexidine Gluconate {CHG}: Yes - Vent Settings MODE:: PRVC TIDAL VOLUME:: 450 RESP RATE:: 12 FIO2:: 40 PEEP:: 5 - Nutrition Nutrition: Nutrition Category Date Time Status NPO Diet [DIET] Diets 08/19/16 Dinner Active Assessment/Plan - Assessment and Plan (Free Text) Plan: 61 yo F w PMHx of HTN, DM is admitted for CVA and onset seizures, while she's currently intubated/sedated for protection of her airway 1) CVA -Embolic VS small vessel disease secondary to underlying risk factors of DM & HTN -MRI Brain (08/19): Few scattered foci of high T2 signal within periventricular and subcortical white matter. Acute infarction within RIGHT occipital region. -Carotid U/S (08/19): < 50% carotid arterial stenosis bilaterally. No significant atheromatous narrowing identified. Anterograde flow in both vertebral arteries. -NS 75cc/hr -Plavix 75mg PO Daily -Neuro Onboard, follow recommendations -f/u Echo -f/u Cardiology Consult 2) Seizure -Intubated for airway precautions -Vent: PRVC/AC- Rate 12, Tvol 450, PEEP 5, FiO2 40% -Versed 2mg IV Q2H PRN --d/c'ed Propofol --started on Precedex in hopes of weaning off of vent -Keppra 500mg IVPB Q12H -Neuro Onboard, follow recommendations -f/u ventilator wean -f/u mentation on transition to Precedex 3) DM2 -FS have ranged bw 250-339 -Lispro Sliding Scale ACHS -Levemir 7.5u SC HS -Atorvastatin 40mg PO Daily -f/u FS 4) HTN -Valsartan 160mg PO Daily HELD due to Hypotension -Metoprolol 25mg PO Daily, as per Neuro -f/u Vitals -f/u Cardiology Consult 5) DVT Prophylaxis -SCDs 6) PUD Prophylaxis -Protonix 40mg IVP Daily <Emerald Porter - Last Filed: 08/21/16 15:38> CCU Objective - Vital Signs / Intake & Output Vital Signs (Last 4 hours): Vital Signs Temp Pulse Resp BP Pulse Ox 08/21/16 14:00 114 H 12 103/62 97 08/21/16 13:00 91 H 12 92/54 L 100 08/21/16 12:00 98.4 F 95 H 12 107/63 100 Intake and Output (Last 8hrs): Intake & Output 08/21/16 08/21/16 08/21/16 06:59 14:59 22:59 Intake Total 870 550 Output Total 400 Balance 470 550 Intake: IV 750 450 Intake, Piggyback 120 Tube Feeding 100 Output: Urine 400 Urethral (Thomson) 400 - Medications Active Medications: Active Medications Generic Name Dose Route Start Last Admin Trade Name Freq PRN Reason Stop Dose Admin Aspirin 81 mg 08/21/16 09:00 08/21/16 08:38 Aspirin Chewable PO 81 mg DAILY EDITH Administration Atorvastatin Calcium 40 mg 08/20/16 09:00 08/21/16 12:53 Lipitor PO 40 mg DAILY EDITH Administration Clopidogrel Bisulfate 75 mg 08/20/16 09:00 08/21/16 08:37 Plavix PO 75 mg DAILY EDITH Administration Dextrose 0 gm 08/19/16 20:02 Glutose 15 PO ONCE PRN Hypoglycemia Protocol Protocol Dextrose 0 ml 08/19/16 20:02 Dextrose 50% Inj IV STAT PRN Hyglycemia Protocol Protocol Enoxaparin Sodium 40 mg 08/21/16 11:00 08/21/16 12:52 Lovenox SC 40 mg DAILY EDITH Administration Protocol Glucagon 0 mg 08/19/16 20:02 Glucagen Diagnostic Kit IM STAT PRN Hypoglycemia Protocol Protocol Levetiracetam 500 mg/ Sodium 105 mls @ 210 mls/hr 08/20/16 03:30 08/21/16 14:43 Chloride IVPB 210 mls/hr Q12H EDITH Administration Dexmedetomidine HCl 400 mcg/ 100 mls @ 2.49 mls/hr 08/21/16 10:30 08/21/16 15: 09 Sodium Chloride IV 08/22/16 10:29 0.4 mcg/kg/hr .Q24H ONE Titration Protocol 0.2 MCG/KG/HR Insulin Detemir 7.5 units 08/19/16 22:00 08/20/16 22:30 Levemir SC 7.5 units HS EDITH Administration Insulin Human Lispro 0 units 08/20/16 07:30 08/21/16 11:30 Humalog SC Not Given ACHS EDITH Protocol Metoprolol Succinate 25 mg 08/20/16 09:00 08/21/16 08:39 Toprol Xl PO Not Given DAILY EDITH Midazolam HCl 2 mg 08/20/16 02:44 08/20/16 05:44 Versed Inj IV 2 mg Q2H PRN Administration Agitation Pantoprazole Sodium 40 mg 08/20/16 09:00 08/21/16 08:39 Protonix Inj IVP 40 mg DAILY EDITH Administration Valsartan 160 mg 08/20/16 09:00 Diovan PO DAILY EDITH - Patient Studies Lab Studies: Microbiology Studies 08/20/16 06:55 MRSA Culture (Admit) - Final Nose MRSA NOT DETECTED Lab Studies 08/21/16 08/21/16 08/21/16 Range/Units 12:05 10:47 07:02 WBC 9.9 (4.8-10.8) K/uL RBC 3.19 L (3.80-5.20) Mil/uL Hgb 9.9 L (12.0-16.0) g/dL Hct 28.8 L (34.0-47.0) % MCV 90.2 (81.0-99.0) fl MCH 31.2 H (27.0-31.0) pg MCHC 34.5 (33.0-37.0) g/dL RDW 14.4 (11.5-14.5) % Plt Count 148 (130-400) K/uL pCO2 (35-45) mm/Hg pO2 (80-100) mm/Hg HCO3 (21-28) mmol/L ABG pH (7.35-7.45) ABG Total CO2 (22-28) mmol/L ABG O2 Saturation (95-98) % ABG O2 Content (15-23) ML/dL ABG Base Excess (-2.0-3.0) mmol/L ABG Hemoglobin (11.7-17.4) g/dL ABG Carboxyhemoglobin (0.5-1.5) % POC ABG HHb (Measured) (0.0-5.0) % ABG Methemoglobin (0.0-3.0) % ABG O2 Capacity (16-24) mL/dL Raheel Test A-a O2 Difference mm/Hg Hgb O2 Saturation (95.0-98.0) % Vent Mode Mechanical Rate FiO2 % Tidal Volume PEEP Sodium 142 (132-148) mmol/l Potassium 3.5 L (3.6-5.0) MMOL/L Chloride 109 H (98-107) mmol/L Carbon Dioxide 19 L (22-30) mmol/L Anion Gap 18 (10-20) BUN 16 (7-17) mg/dl Creatinine 0.7 (0.7-1.2) mg/dL Est GFR ( Amer) > 60 Est GFR (Non-Af Amer) > 60 POC Glucose (mg/dL) 86 96 (65-110) mg/dL Random Glucose 122 H (65-105) mg/dL Calcium 8.0 L (8.4-10.2) mg/dL Total Bilirubin 0.9 (0.2-1.3) mg/dl Direct Bilirubin 0.2 (0.0-0.4) mg/ml AST 33 (14-36) U/L ALT 28 (9-52) U/L Alkaline Phosphatase 42 (38-126) U/L Total Protein 5.5 L (6.3-8.2) G/DL Albumin 2.8 L D (3.5-5.0) g/dL Globulin 2.8 (2.2-3.9) gm/dL Albumin/Globulin Ratio 1.0 (1.0-2.1) Folate ng/mL RPR (NONREACTIVE) 08/21/16 08/21/16 08/20/16 Range/Units 06:04 05:00 23:19 WBC (4.8-10.8) K/uL RBC (3.80-5.20) Mil/uL Hgb (12.0-16.0) g/dL Hct (34.0-47.0) % MCV (81.0-99.0) fl MCH (27.0-31.0) pg MCHC (33.0-37.0) g/dL RDW (11.5-14.5) % Plt Count (130-400) K/uL pCO2 35 (35-45) mm/Hg pO2 150 H (80-100) mm/Hg HCO3 22.9 (21-28) mmol/L ABG pH 7.40 (7.35-7.45) ABG Total CO2 22.8 (22-28) mmol/L ABG O2 Saturation 99.7 H (95-98) % ABG O2 Content 14.9 L (15-23) ML/dL ABG Base Excess -2.6 L (-2.0-3.0) mmol/L ABG Hemoglobin 10.7 L (11.7-17.4) g/dL ABG Carboxyhemoglobin 1.6 H (0.5-1.5) % POC ABG HHb (Measured) 0.3 (0.0-5.0) % ABG Methemoglobin 1.0 (0.0-3.0) % ABG O2 Capacity 14.9 L (16-24) mL/dL Raheel Test Yes A-a O2 Difference 91.0 mm/Hg Hgb O2 Saturation 97.2 (95.0-98.0) % Vent Mode Prvc/ac Mechanical Rate 12 FiO2 40.0 % Tidal Volume 450 PEEP 5 Sodium (132-148) mmol/l Potassium (3.6-5.0) MMOL/L Chloride (98-107) mmol/L Carbon Dioxide (22-30) mmol/L Anion Gap (10-20) BUN (7-17) mg/dl Creatinine (0.7-1.2) mg/dL Est GFR ( Amer) Est GFR (Non-Af Amer) POC Glucose (mg/dL) 109 184 H (65-110) mg/dL Random Glucose (65-105) mg/dL Calcium (8.4-10.2) mg/dL Total Bilirubin (0.2-1.3) mg/dl Direct Bilirubin (0.0-0.4) mg/ml AST (14-36) U/L ALT (9-52) U/L Alkaline Phosphatase (38-126) U/L Total Protein (6.3-8.2) G/DL Albumin (3.5-5.0) g/dL Globulin (2.2-3.9) gm/dL Albumin/Globulin Ratio (1.0-2.1) Folate ng/mL RPR (NONREACTIVE) 08/20/16 08/20/16 08/20/16 Range/Units 22:13 16:33 05:30 WBC (4.8-10.8) K/uL RBC (3.80-5.20) Mil/uL Hgb (12.0-16.0) g/dL Hct (34.0-47.0) % MCV (81.0-99.0) fl MCH (27.0-31.0) pg MCHC (33.0-37.0) g/dL RDW (11.5-14.5) % Plt Count (130-400) K/uL pCO2 (35-45) mm/Hg pO2 (80-100) mm/Hg HCO3 (21-28) mmol/L ABG pH (7.35-7.45) ABG Total CO2 (22-28) mmol/L ABG O2 Saturation (95-98) % ABG O2 Content (15-23) ML/dL ABG Base Excess (-2.0-3.0) mmol/L ABG Hemoglobin (11.7-17.4) g/dL ABG Carboxyhemoglobin (0.5-1.5) % POC ABG HHb (Measured) (0.0-5.0) % ABG Methemoglobin (0.0-3.0) % ABG O2 Capacity (16-24) mL/dL Raheel Test A-a O2 Difference mm/Hg Hgb O2 Saturation (95.0-98.0) % Vent Mode Mechanical Rate FiO2 % Tidal Volume PEEP Sodium (132-148) mmol/l Potassium (3.6-5.0) MMOL/L Chloride (98-107) mmol/L Carbon Dioxide (22-30) mmol/L Anion Gap (10-20) BUN (7-17) mg/dl Creatinine (0.7-1.2) mg/dL Est GFR ( Amer) Est GFR (Non-Af Amer) POC Glucose (mg/dL) 193 H 182 H (65-110) mg/dL Random Glucose (65-105) mg/dL Calcium (8.4-10.2) mg/dL Total Bilirubin (0.2-1.3) mg/dl Direct Bilirubin (0.0-0.4) mg/ml AST (14-36) U/L ALT (9-52) U/L Alkaline Phosphatase (38-126) U/L Total Protein (6.3-8.2) G/DL Albumin (3.5-5.0) g/dL Globulin (2.2-3.9) gm/dL Albumin/Globulin Ratio (1.0-2.1) Folate 10.4 ng/mL RPR Nonreactive (NONREACTIVE) Laboratory Results - last 24 hr 08/20/16 08/20/16 08/20/16 05:30 16:33 22:13 WBC RBC Hgb Hct MCV MCH MCHC RDW Plt Count pCO2 pO2 HCO3 ABG pH ABG Total CO2 ABG O2 Saturation ABG O2 Content ABG Base Excess ABG Hemoglobin ABG Carboxyhemoglobin POC ABG HHb (Measured) ABG Methemoglobin ABG O2 Capacity Raheel Test A-a O2 Difference Hgb O2 Saturation Vent Mode Mechanical Rate FiO2 Tidal Volume PEEP Sodium Potassium Chloride Carbon Dioxide Anion Gap BUN Creatinine Est GFR ( Amer) Est GFR (Non-Af Amer) POC Glucose (mg/dL) 182 H 193 H Random Glucose Calcium Total Bilirubin Direct Bilirubin AST ALT Alkaline Phosphatase Total Protein Albumin Globulin Albumin/Globulin Ratio Folate 10.4 RPR Nonreactive 08/20/16 08/21/16 08/21/16 23:19 05:00 06:04 WBC RBC Hgb Hct MCV MCH MCHC RDW Plt Count pCO2 35 pO2 150 H HCO3 22.9 ABG pH 7.40 ABG Total CO2 22.8 ABG O2 Saturation 99.7 H ABG O2 Content 14.9 L ABG Base Excess -2.6 L ABG Hemoglobin 10.7 L ABG Carboxyhemoglobin 1.6 H POC ABG HHb (Measured) 0.3 ABG Methemoglobin 1.0 ABG O2 Capacity 14.9 L Raheel Test Yes A-a O2 Difference 91.0 Hgb O2 Saturation 97.2 Vent Mode Prvc/ac Mechanical Rate 12 FiO2 40.0 Tidal Volume 450 PEEP 5 Sodium Potassium Chloride Carbon Dioxide Anion Gap BUN Creatinine Est GFR ( Amer) Est GFR (Non-Af Amer) POC Glucose (mg/dL) 184 H 109 Random Glucose Calcium Total Bilirubin Direct Bilirubin AST ALT Alkaline Phosphatase Total Protein Albumin Globulin Albumin/Globulin Ratio Folate RPR 08/21/16 08/21/16 08/21/16 07:02 10:47 12:05 WBC 9.9 RBC 3.19 L Hgb 9.9 L Hct 28.8 L MCV 90.2 MCH 31.2 H MCHC 34.5 RDW 14.4 Plt Count 148 pCO2 pO2 HCO3 ABG pH ABG Total CO2 ABG O2 Saturation ABG O2 Content ABG Base Excess ABG Hemoglobin ABG Carboxyhemoglobin POC ABG HHb (Measured) ABG Methemoglobin ABG O2 Capacity Raheel Test A-a O2 Difference Hgb O2 Saturation Vent Mode Mechanical Rate FiO2 Tidal Volume PEEP Sodium 142 Potassium 3.5 L Chloride 109 H Carbon Dioxide 19 L Anion Gap 18 BUN 16 Creatinine 0.7 Est GFR ( Amer) > 60 Est GFR (Non-Af Amer) > 60 POC Glucose (mg/dL) 96 86 Random Glucose 122 H Calcium 8.0 L Total Bilirubin 0.9 Direct Bilirubin 0.2 AST 33 ALT 28 Alkaline Phosphatase 42 Total Protein 5.5 L Albumin 2.8 L D Globulin 2.8 Albumin/Globulin Ratio 1.0 Folate RPR Critical Care Progress Note - Nutrition Nutrition: Nutrition Category Date Time Status NPO Diet [DIET] Diets 08/19/16 Dinner Active Attending/Attestation - Attestation I have personally seen and examined this patient.: Yes I have fully participated in the care of the patient.: Yes I have reviewed all pertinent clinical information: Yes Notes (Text): 08/21/16 15:35 Patient seen and examined in the morning. Very agitated at times, switched to precedex in an attempt to control agitation and assess for extubation. No new seizure events. bp and dm fairly controlled.
[2016-08-21] MEDS: Enoxaparin 40 mg Syringe SC SCH (12:52)
[2016-08-21] MEDS: Dexmedetomidine Hydrochloride 400 MCG in Sodium Chloride 0.9% 96 ML IV ONE ×4 (13:48→16:56)
--- NOTE | 2016-08-21 14:44 | CP.PCM.CON ---
History of Present Illness - History of Present Illness History of Present Illness: I was asked to see patient by ICU team. Patient is a 61 year old female with PMH HTN who presents with altered mental status. The patient was noted to be altered last week, speaking incoherently. The patient presented to [facility] and required intubation. She was thought to have had a seizure. Troponin level was mildly elevated. Consultation was requested. Review of Systems - Review of Systems Systems not reviewed;Unavailable: Intubated Past Patient History - Past Medical History & Family History Past Medical History?: Yes - Past Social History Smoking Status: Never Smoked - CARDIAC Hx Hypercholesterolemia: Yes Hx Hypertension: Yes - PULMONARY Hx Respiratory Disorders: No - NEUROLOGICAL Hx Neurological Disorder: Yes (RAYNAUD'S SYNDROME) - HEENT Hx HEENT Problems: Yes - RENAL Hx Chronic Kidney Disease: No - ENDOCRINE/METABOLIC Hx Endocrine Disorders: Yes - HEMATOLOGICAL/ONCOLOGICAL Hx Blood Disorders: Yes - INTEGUMENTARY Hx Dermatological Problems: No - MUSCULOSKELETAL/RHEUMATOLOGICAL Hx Musculoskeletal Disorders: No - GASTROINTESTINAL Hx Gastrointestinal Disorders: No - GENITOURINARY/GYNECOLOGICAL Hx Genitourinary Disorders: No - PSYCHIATRIC Hx Psychophysiologic Disorder: No - SURGICAL HISTORY Hx Surgeries: Yes Hx Cataract Extraction: Yes (RT EYE) Hx Orthopedic Surgery: Yes (RT FOOT EXC TUMORS/LEFT FOOT EXC BONE) - ANESTHESIA Hx Anesthesia: Yes Hx Anesthesia Reactions: No Hx Malignant Hyperthermia: No Meds Allergies/Adverse Reactions: Allergies Allergy/AdvReac Type Severity Reaction Status Date / Time iodine Allergy Unknown ANAPHYLAXIS Verified 08/19/16 16:33 Penicillins Allergy Unknown ANAPHYLAXIS Verified 08/19/16 16:33 - Medications Medications: Current Medications Aspirin (Aspirin Chewable) 81 mg PO DAILY [facility] Last Admin: 08/21/16 08:38 Dose: 81 mg Atorvastatin Calcium (Lipitor) 40 mg PO DAILY [facility] Last Admin: 08/21/16 12:53 Dose: 40 mg Clopidogrel Bisulfate (Plavix) 75 mg PO DAILY [facility] Last Admin: 08/21/16 08:37 Dose: 75 mg Dextrose (Glutose 15) 0 gm PO ONCE PRN; Protocol PRN Reason: Hypoglycemia Protocol Dextrose (Dextrose 50% Inj) 0 ml IV STAT PRN; Protocol PRN Reason: Hyglycemia Protocol Enoxaparin Sodium (Lovenox) 40 mg SC DAILY [facility] PRN Reason: Protocol Last Admin: 08/21/16 12:52 Dose: 40 mg Glucagon (Glucagen Diagnostic Kit) 0 mg IM STAT PRN; Protocol PRN Reason: Hypoglycemia Protocol Levetiracetam 500 mg/ Sodium (Chloride) 105 mls @ 210 mls/hr IVPB Q12H [facility] Last Admin: 08/21/16 03:45 Dose: 210 mls/hr Dexmedetomidine HCl 400 mcg/ (Sodium Chloride) 100 mls @ 2.49 mls/hr IV .Q24H ONE; 0.2 MCG/KG/HR PRN Reason: Protocol Stop: 08/22/16 10:29 Last Admin: 08/21/16 14:39 Dose: 3.74 mls/hr Insulin Detemir (Levemir) 7.5 units SC HS [facility] Last Admin: 08/20/16 22:30 Dose: 7.5 units Insulin Human Lispro (Humalog) 0 units SC ACHS EDITH PRN Reason: Protocol Last Admin: 08/21/16 11:30 Dose: Not Given Metoprolol Succinate (Toprol Xl) 25 mg PO DAILY [facility] Last Admin: 08/21/16 08:39 Dose: Not Given Midazolam HCl (Versed Inj) 2 mg IV Q2H PRN PRN Reason: Agitation Last Admin: 08/20/16 05:44 Dose: 2 mg Pantoprazole Sodium (Protonix Inj) 40 mg IVP DAILY [facility] Last Admin: 08/21/16 08:39 Dose: 40 mg Valsartan (Diovan) 160 mg PO DAILY [facility] Physical Exam - Constitutional Appears: Toxic - Head Exam Head Exam: NORMAL INSPECTION - Eye Exam Eye Exam: Normal appearance - ENT Exam ENT Exam: Mucous Membranes Moist - Neck Exam Neck exam: Positive for: Full Rom - Respiratory Exam Respiratory Exam: Decreased Breath Sounds - Cardiovascular Exam Cardiovascular Exam: REGULAR RHYTHM - GI/Abdominal Exam GI & Abdominal Exam: Normal Bowel Sounds - Rectal Exam Rectal Exam: Deferred - Extremities Exam Extremities exam: Negative for: pedal edema - Back Exam Back exam: NORMAL INSPECTION - Skin Skin Exam: Normal Color Results - Vital Signs Recent Vital Signs: Last Vital Signs Temp 98.4 F 08/21/16 12:00 Pulse 91 H 08/21/16 13:00 Resp 12 08/21/16 13:00 BP 92/54 L 08/21/16 13:00 Pulse Ox 100 08/21/16 13:00 - Labs Result Diagrams: 08/21/16 07:02 08/21/16 07:02 Labs: Laboratory Results - last 24 hr 08/20/16 08/20/16 08/20/16 05:30 16:33 22:13 WBC RBC Hgb Hct MCV MCH MCHC RDW Plt Count pCO2 pO2 HCO3 ABG pH ABG Total CO2 ABG O2 Saturation ABG O2 Content ABG Base Excess ABG Hemoglobin ABG Carboxyhemoglobin POC ABG HHb (Measured) ABG Methemoglobin ABG O2 Capacity Raheel Test A-a O2 Difference Hgb O2 Saturation Vent Mode Mechanical Rate FiO2 Tidal Volume PEEP Sodium Potassium Chloride Carbon Dioxide Anion Gap BUN Creatinine Est GFR ( Amer) Est GFR (Non-Af Amer) POC Glucose (mg/dL) 182 H 193 H Random Glucose Calcium Total Bilirubin Direct Bilirubin AST ALT Alkaline Phosphatase Total Protein Albumin Globulin Albumin/Globulin Ratio Folate 10.4 RPR Nonreactive 08/20/16 08/21/16 08/21/16 23:19 05:00 06:04 WBC RBC Hgb Hct MCV MCH MCHC RDW Plt Count pCO2 35 pO2 150 H HCO3 22.9 ABG pH 7.40 ABG Total CO2 22.8 ABG O2 Saturation 99.7 H ABG O2 Content 14.9 L ABG Base Excess -2.6 L ABG Hemoglobin 10.7 L ABG Carboxyhemoglobin 1.6 H POC ABG HHb (Measured) 0.3 ABG Methemoglobin 1.0 ABG O2 Capacity 14.9 L Raheel Test Yes A-a O2 Difference 91.0 Hgb O2 Saturation 97.2 Vent Mode Prvc/ac Mechanical Rate 12 FiO2 40.0 Tidal Volume 450 PEEP 5 Sodium Potassium Chloride Carbon Dioxide Anion Gap BUN Creatinine Est GFR ( Amer) Est GFR (Non-Af Amer) POC Glucose (mg/dL) 184 H 109 Random Glucose Calcium Total Bilirubin Direct Bilirubin AST ALT Alkaline Phosphatase Total Protein Albumin Globulin Albumin/Globulin Ratio Folate RPR 08/21/16 08/21/16 08/21/16 07:02 10:47 12:05 WBC 9.9 RBC 3.19 L Hgb 9.9 L Hct 28.8 L MCV 90.2 MCH 31.2 H MCHC 34.5 RDW 14.4 Plt Count 148 pCO2 pO2 HCO3 ABG pH ABG Total CO2 ABG O2 Saturation ABG O2 Content ABG Base Excess ABG Hemoglobin ABG Carboxyhemoglobin POC ABG HHb (Measured) ABG Methemoglobin ABG O2 Capacity Raheel Test A-a O2 Difference Hgb O2 Saturation Vent Mode Mechanical Rate FiO2 Tidal Volume PEEP Sodium 142 Potassium 3.5 L Chloride 109 H Carbon Dioxide 19 L Anion Gap 18 BUN 16 Creatinine 0.7 Est GFR ( Amer) > 60 Est GFR (Non-Af Amer) > 60 POC Glucose (mg/dL) 96 86 Random Glucose 122 H Calcium 8.0 L Total Bilirubin 0.9 Direct Bilirubin 0.2 AST 33 ALT 28 Alkaline Phosphatase 42 Total Protein 5.5 L Albumin 2.8 L D Globulin 2.8 Albumin/Globulin Ratio 1.0 Folate RPR - EKG Data EKG Interpreted by: Myself Rate: Tachycardia Assessment & Plan - Assessment and Plan (Free Text) Assessment: CVA. Unclear etiology. neuro work up is in progress. currently in sinus rhythm. I reviewed the echocardiogram. There is normal left ventricular function with no evidence of apical thrombus. Recommend continued management. I will assist with blood pressure control. I reviewed the troponin level. This does not appear to be indicative of ACS. recommend medical management
--- NOTE | 2016-08-21 15:07 | EEG ---
DATE: 08/20/2016 This study was performed at the bedside in the unit. The patient was on vent and sedated. The resting electroencephalogram consists of 20-30 microvolt diffuse delta mixed with low theta activ ities noted in bilateral cortical leads. Some movement artifact in frontal as well as temporal leads contaminating with muscle artifacts noted. Some sharp wave activities consistently periodically see n which is non-electrographic process. It is probably the artifact from vent. IMPRESSION: This is abnormal electroencephalogram because of persistent slowing throughout the recor d suggestive of bilateral cerebral dysfunction. This is probably secondary to metabolic, vascular or degenerative process. Please correlate the finding with the neurological and radiological studies. Saud Warner MD cc: [id number] TT: 08/21/2016 15:06:15 Confirmation # [id number] Dictation # [id number]
[2016-08-21] MEDS ORDERED: Propofol 10 mg/ml 0 ML ONE (15:19)
--- NOTE | 2016-08-21 17:23 | PN ---
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 VITAL SIGNS: Blood pressure 126/66, mean arterial pressure of 83, respiratory rate 16, temperature a febrile, with a pulse rate 114. The patient is sedated. The patient moves all 4 extremities against gravity. Tone is increased in a ll 4 extremities. On forcibly opening the eyelid roving conjugate gaze noted, good corneal reflex. Electroencephalogram been reviewed by me showed no electrographic seizure activities. RECOMMENDATIONS: Continue Keppra for now. Continue weaning parameters. The case is discussed with [employer]. Continue antiplatelets for her stroke. Saud Warner MD cc: [id number] TT: 08/21/2016 17:22:44 Confirmation # [id number] Dictation # [id number] josiah
--- NOTE | 2016-08-21 20:51 | CON ---
DATE: 08/21/[address] of [address] Serafin Blas DPM THE PATIENT'S AGE: 61 THE PATIENT'S GENDER: Female. SUBJECTIVE: This is a 61-year-old female who was followed up by podiatry for changes to the right lower extremity and history of wounds. The patient is followed by Dr. Blas regularly on an outpatient basis. The patient is intubated and nonresponsive to verbal prompts. Nursing reports no acute overnight events. PHYSICAL EXAMINATION-RIGHT LOWER EXTREMITY FOCUSED: VASCULAR: Dorsalis pedis and posterior tibial pulses are fully palpable, graded 2/4. No localized edema to the right lower extremity. There is capillary refill time to all 5 digits less than 5 seconds. DERMATOLOGICAL: Scaling patch noted to the posterior lateral aspect of the right ankle joints, supramalleolar position, with superficial ulcerations graded to be 0.3 cm in diameter at the central core. No active drainage, no acute signs of infections, no periwound erythema, no exudate, no malodor. Nails are normotrophic. NEUROLOGICAL Protective sensation is unable due to the patient's non-responsive affect and condition. MUSCULOSKELETAL: Largely referred due to the patient being unresponsive. No pain illicit on palpation to the lower extremity. Muscle tone is adequate for the patient's age, and no gross deformities noted. ASSESSMENT: This is a 61-year-old female with some social ulcerations and dermatitis to the right ankle, etiology unknown. PLAN: The patient was evaluated and treated at bedside with attending, Dr. Blas, present. Chart, labs, and vitals reviewed. The patient is noted to be afebrile, and absent leukocytosis. Wound site was dressed with Silvadene and dry sterile dressing. Pt is stable from podiatry standpoint. Please reconsult as needed. Cali Arias DPM Serafin Blas DPM cc: [id number] TT: 08/21/2016 20:51:11 Confirmation # [id number] Dictation # [id number] [email or web address]
[2016-08-21] MEDS ORDERED: Dextrose 50% SYRINGE Inj (50 ml) IVP ONE (22:08)
[2016-08-21] MEDS: Insulin Detemir 100 Units/ml Inj SC SCH (22:18)
[2016-08-22] MEDS ORDERED: Dextrose 50% SYRINGE Inj (50 ml) IV PRN (00:31)
[2016-08-22] MEDS ORDERED: Glucagon Recombinant 1 mg Inj IM PRN (00:31)
[2016-08-22] MEDS: levETIRAcetam 500 MG in Sodium Chloride 0.9% 100 ML IVPB SCH ×2 (03:41→16:44)
[2016-08-22 05:53] LABS: BASO % 0.5 % (0.0-2.0); EOS # 0.1 K/uL (0.0-0.7); EOS % 1.4 % (0.0-4.0); HEMATOCRIT 32.9 % (34.0-47.0); LYMPH # 1.5 K/uL (1.0-4.3); LYMPH % 16.9 % (20.0-40.0); MEAN CELL VOLUME 91.6 fl (81.0-99.0); MEAN CORPUSCULAR HEMOGLOBIN 30.7 pg (27.0-31.0); MEAN CORPUSCULAR HGB CONC 33.5 g/dL (33.0-37.0); MEAN PLATELET VOLUME 8.4 fl (7.2-11.7); MONO # 1.1 K/uL (0.0-0.8); MONO % 11.8 % (0.0-10.0); NEUT # 6.2 K/uL (1.8-7.0); NEUT % 69.4 % (50.0-75.0); NRBC % 0.1 % (0.0-0.0); RED CELL DISTRIBUTION WIDTH 14.3 % (11.5-14.5); WHITE BLOOD COUNT 8.9 K/uL (4.8-10.8)
[2016-08-22 06:05] LABS: CHLORIDE 107 mmol/L (98-107)
[2016-08-22 06:06] LABS: POTASSIUM 3.4 MMOL/L (3.6-5.0); SODIUM 143 mmol/l (132-148)
[2016-08-22 06:09] LABS: ALB/GLOB RATIO 1.1 (1.0-2.1); ALKALINE PHOSPHATASE 59 U/L (38-126); ALT/SGPT 25 U/L (9-52); AST/SGOT 44 U/L (14-36); BILIRUBIN,TOTAL 1.5 mg/dl (0.2-1.3); BLOOD UREA NITROGEN 7 mg/dl (7-17); CALCIUM 8.6 mg/dL (8.4-10.2); CARBON DIOXIDE 23 mmol/L (22-30); GFR AFRICAN-AMERICAN > 60; GLUCOSE,RANDOM 115 mg/dL (65-105); TOTAL PROTEIN 6.3 G/DL (6.3-8.2)
[2016-08-22] MEDS: Insulin Lispro (humaLOG) 100 Units/ml Inj SC SCH ×4 (06:47→22:20)
[2016-08-22] MEDS: Potassium CL 10mEq/100ml 100 ML IVPB SCH ×4 (07:05→12:10)
[2016-08-22] MEDS ORDERED: Potassium CL 10 MEQ/50 ML 50 ML IVPB SCH (08:00)
--- NOTE | 2016-08-22 08:46 | CP.CCUPN ---
<Andrea Jacob T - Last Filed: 08/22/16 10:41> CCU Subjective - Physician Review Subjective (Free Text): Pt seen and examined at bedside in ICU. Pt was extubated yesterday and is currently awake, alert, oriented x3. She denies any overnight complaints or problems. She denies f/c/n/v/d/c, headaches, cp, sob, dyspnea, abd pain, hematuria, dysuria, or myalgias. CCU Objective - Vital Signs / Intake & Output Vital Signs (Last 4 hours): Vital Signs Temp Pulse Resp BP Pulse Ox 08/22/16 08:00 98.4 F 111 H 20 142/70 100 08/22/16 07:00 101 H 18 142/70 100 08/22/16 06:00 99 H 16 142/79 100 08/22/16 05:00 98.4 F 103 H 19 141/81 100 Intake and Output (Last 8hrs): Intake & Output 08/21/16 08/22/16 08/22/16 22:59 06:59 14:59 Intake Total 105 150 Output Total 900 1700 Balance -795 -1550 Intake: IV 5 50 Intake, Piggyback 100 100 Output: Urine 900 1700 Urethral (Thomson) 900 1700 - Physical Exam Head: Positive for: Atraumatic, Normocephalic Pupils: Positive for: PERRL Extroacular Muscles: Positive for: EOMI Conjunctiva: Positive for: Normal Mouth: Positive for: Moist Mucous Membranes Neck: Positive for: Normal Range of Motion, Trachea Midline. Negative for: JVD Respiratory/Chest: Positive for: Clear to Auscultation. Negative for: Wheezes, Rhonchi Cardiovascular: Positive for: Regular Rate and Rhythm, Normal S1, S2 Abdomen: Positive for: Normal Bowel Sounds. Negative for: Tenderness, Distention Upper Extremity: Positive for: Normal Inspection. Negative for: Cyanosis Lower Extremity: Positive for: Normal Inspection. Negative for: Edema Neurological: Positive for: GCS=15, CN II-XII Intact, Speech Normal Skin: Positive for: Warm, Dry, Normal Color. Negative for: Rashes, Diaphoretic Psychiatric: Positive for: Alert, Oriented x 3 - Medications Active Medications: Active Medications Generic Name Dose Route Start Last Admin Trade Name Freq PRN Reason Stop Dose Admin Aspirin 81 mg 08/21/16 09:00 08/21/16 08:38 Aspirin Chewable PO 81 mg DAILY EDITH Administration Atorvastatin Calcium 40 mg 08/20/16 09:00 08/21/16 12:53 Lipitor PO 40 mg DAILY EDITH Administration Clopidogrel Bisulfate 75 mg 08/20/16 09:00 08/21/16 08:37 Plavix PO 75 mg DAILY EDITH Administration Dextrose 0 gm 08/22/16 00:31 Glutose 15 PO ONCE PRN Hypoglycemia Protocol Protocol Dextrose 0 ml 08/22/16 00:31 Dextrose 50% Inj IV STAT PRN Hyglycemia Protocol Protocol Enoxaparin Sodium 40 mg 08/21/16 11:00 08/21/16 12:52 Lovenox SC 40 mg DAILY EDITH Administration Protocol Glucagon 0 mg 08/22/16 00:31 Glucagen Diagnostic Kit IM STAT PRN Hypoglycemia Protocol Protocol Levetiracetam 500 mg/ Sodium 105 mls @ 210 mls/hr 08/20/16 03:30 08/22/16 03:41 Chloride IVPB 210 mls/hr Q12H EDITH Administration Dexmedetomidine HCl 400 mcg/ 100 mls @ 2.49 mls/hr 08/21/16 10:30 08/21/16 16: 56 Sodium Chloride IV 08/22/16 10:29 7 mls/hr .Q24H ONE Administration Protocol 0.2 MCG/KG/HR Potassium Chloride 100 mls @ 100 mls/hr 08/22/16 07:00 08/22/16 07:05 Potassium Chloride 10 Meq/100 Ml IVPB 08/22/16 10:59 100 mls/hr Q1 EDITH Administration Insulin Detemir 7.5 units 08/19/16 22:00 08/21/16 22:18 Levemir SC Not Given HS EDITH Insulin Human Lispro 0 units 08/20/16 07:30 08/22/16 06:47 Humalog SC Not Given ACHS EDITH Protocol Metoprolol Succinate 25 mg 08/20/16 09:00 08/21/16 08:39 Toprol Xl PO Not Given DAILY EDITH Midazolam HCl 2 mg 08/20/16 02:44 08/20/16 05:44 Versed Inj IV 2 mg Q2H PRN Administration Agitation Pantoprazole Sodium 40 mg 08/20/16 09:00 08/21/16 08:39 Protonix Inj IVP 40 mg DAILY EDITH Administration Valsartan 160 mg 08/20/16 09:00 Diovan PO DAILY EDITH - Patient Studies Lab Studies: Microbiology Studies 08/20/16 06:55 MRSA Culture (Admit) - Final Nose MRSA NOT DETECTED Lab Studies 08/22/16 08/22/16 08/22/16 Range/Units 05:49 05:20 01:25 WBC 8.9 (4.8-10.8) K/uL RBC 3.60 L (3.80-5.20) Mil/uL Hgb 11.0 L (12.0-16.0) g/dL Hct 32.9 L (34.0-47.0) % MCV 91.6 (81.0-99.0) fl MCH 30.7 (27.0-31.0) pg MCHC 33.5 (33.0-37.0) g/dL RDW 14.3 (11.5-14.5) % Plt Count 146 (130-400) K/uL MPV 8.4 (7.2-11.7) fl Neut % (Auto) 69.4 (50.0-75.0) % Lymph % (Auto) 16.9 L (20.0-40.0) % Otero % (Auto) 11.8 H (0.0-10.0) % Eos % (Auto) 1.4 (0.0-4.0) % Baso % (Auto) 0.5 (0.0-2.0) % Neut # 6.2 (1.8-7.0) K/uL Lymph # 1.5 (1.0-4.3) K/uL Otero # 1.1 H (0.0-0.8) K/uL Eos # 0.1 (0.0-0.7) K/uL Baso # 0.0 (0.0-0.2) K/uL Sodium 143 (132-148) mmol/l Potassium 3.4 L (3.6-5.0) MMOL/L Chloride 107 (98-107) mmol/L Carbon Dioxide 23 (22-30) mmol/L Anion Gap 16 (10-20) BUN 7 (7-17) mg/dl Creatinine 0.6 L (0.7-1.2) mg/dL Est GFR ( Amer) > 60 Est GFR (Non-Af Amer) > 60 POC Glucose (mg/dL) 111 H 142 H (65-110) mg/dL Random Glucose 115 H (65-105) mg/dL Hemoglobin A1c (4.2-6.5) % Calcium 8.6 (8.4-10.2) mg/dL Total Bilirubin 1.5 H (0.2-1.3) mg/dl AST 44 H D (14-36) U/L ALT 25 (9-52) U/L Alkaline Phosphatase 59 (38-126) U/L Total Protein 6.3 (6.3-8.2) G/DL Albumin 3.4 L D (3.5-5.0) g/dL Globulin 3.0 (2.2-3.9) gm/dL Albumin/Globulin Ratio 1.1 (1.0-2.1) 08/21/16 08/21/16 08/21/16 Range/Units 23:31 21:54 16:26 WBC (4.8-10.8) K/uL RBC (3.80-5.20) Mil/uL Hgb (12.0-16.0) g/dL Hct (34.0-47.0) % MCV (81.0-99.0) fl MCH (27.0-31.0) pg MCHC (33.0-37.0) g/dL RDW (11.5-14.5) % Plt Count (130-400) K/uL MPV (7.2-11.7) fl Neut % (Auto) (50.0-75.0) % Lymph % (Auto) (20.0-40.0) % Otero % (Auto) (0.0-10.0) % Eos % (Auto) (0.0-4.0) % Baso % (Auto) (0.0-2.0) % Neut # (1.8-7.0) K/uL Lymph # (1.0-4.3) K/uL Otero # (0.0-0.8) K/uL Eos # (0.0-0.7) K/uL Baso # (0.0-0.2) K/uL Sodium (132-148) mmol/l Potassium (3.6-5.0) MMOL/L Chloride (98-107) mmol/L Carbon Dioxide (22-30) mmol/L Anion Gap (10-20) BUN (7-17) mg/dl Creatinine (0.7-1.2) mg/dL Est GFR ( Amer) Est GFR (Non-Af Amer) POC Glucose (mg/dL) 184 H 64 L 98 (65-110) mg/dL Random Glucose (65-105) mg/dL Hemoglobin A1c (4.2-6.5) % Calcium (8.4-10.2) mg/dL Total Bilirubin (0.2-1.3) mg/dl AST (14-36) U/L ALT (9-52) U/L Alkaline Phosphatase (38-126) U/L Total Protein (6.3-8.2) G/DL Albumin (3.5-5.0) g/dL Globulin (2.2-3.9) gm/dL Albumin/Globulin Ratio (1.0-2.1) 08/21/16 08/21/16 08/20/16 Range/Units 12:05 10:47 05:30 WBC (4.8-10.8) K/uL RBC (3.80-5.20) Mil/uL Hgb (12.0-16.0) g/dL Hct (34.0-47.0) % MCV (81.0-99.0) fl MCH (27.0-31.0) pg MCHC (33.0-37.0) g/dL RDW (11.5-14.5) % Plt Count (130-400) K/uL MPV (7.2-11.7) fl Neut % (Auto) (50.0-75.0) % Lymph % (Auto) (20.0-40.0) % Otero % (Auto) (0.0-10.0) % Eos % (Auto) (0.0-4.0) % Baso % (Auto) (0.0-2.0) % Neut # (1.8-7.0) K/uL Lymph # (1.0-4.3) K/uL Otero # (0.0-0.8) K/uL Eos # (0.0-0.7) K/uL Baso # (0.0-0.2) K/uL Sodium (132-148) mmol/l Potassium (3.6-5.0) MMOL/L Chloride (98-107) mmol/L Carbon Dioxide (22-30) mmol/L Anion Gap (10-20) BUN (7-17) mg/dl Creatinine (0.7-1.2) mg/dL Est GFR ( Amer) Est GFR (Non-Af Amer) POC Glucose (mg/dL) 86 96 (65-110) mg/dL Random Glucose (65-105) mg/dL Hemoglobin A1c 13.8 H D (4.2-6.5) % Calcium (8.4-10.2) mg/dL Total Bilirubin (0.2-1.3) mg/dl AST (14-36) U/L ALT (9-52) U/L Alkaline Phosphatase (38-126) U/L Total Protein (6.3-8.2) G/DL Albumin (3.5-5.0) g/dL Globulin (2.2-3.9) gm/dL Albumin/Globulin Ratio (1.0-2.1) Laboratory Results - last 24 hr 08/20/16 08/21/16 08/21/16 05:30 10:47 12:05 WBC RBC Hgb Hct MCV MCH MCHC RDW Plt Count MPV Neut % (Auto) Lymph % (Auto) Otero % (Auto) Eos % (Auto) Baso % (Auto) Neut # Lymph # Otero # Eos # Baso # Sodium Potassium Chloride Carbon Dioxide Anion Gap BUN Creatinine Est GFR ( Amer) Est GFR (Non-Af Amer) POC Glucose (mg/dL) 96 86 Random Glucose Hemoglobin A1c 13.8 H D Calcium Total Bilirubin AST ALT Alkaline Phosphatase Total Protein Albumin Globulin Albumin/Globulin Ratio 08/21/16 08/21/16 08/21/16 16:26 21:54 23:31 WBC RBC Hgb Hct MCV MCH MCHC RDW Plt Count MPV Neut % (Auto) Lymph % (Auto) Otero % (Auto) Eos % (Auto) Baso % (Auto) Neut # Lymph # Otero # Eos # Baso # Sodium Potassium Chloride Carbon Dioxide Anion Gap BUN Creatinine Est GFR ( Amer) Est GFR (Non-Af Amer) POC Glucose (mg/dL) 98 64 L 184 H Random Glucose Hemoglobin A1c Calcium Total Bilirubin AST ALT Alkaline Phosphatase Total Protein Albumin Globulin Albumin/Globulin Ratio 08/22/16 08/22/16 08/22/16 01:25 05:20 05:49 WBC 8.9 RBC 3.60 L Hgb 11.0 L Hct 32.9 L MCV 91.6 MCH 30.7 MCHC 33.5 RDW 14.3 Plt Count 146 MPV 8.4 Neut % (Auto) 69.4 Lymph % (Auto) 16.9 L Otero % (Auto) 11.8 H Eos % (Auto) 1.4 Baso % (Auto) 0.5 Neut # 6.2 Lymph # 1.5 Otero # 1.1 H Eos # 0.1 Baso # 0.0 Sodium 143 Potassium 3.4 L Chloride 107 Carbon Dioxide 23 Anion Gap 16 BUN 7 Creatinine 0.6 L Est GFR ( Amer) > 60 Est GFR (Non-Af Amer) > 60 POC Glucose (mg/dL) 142 H 111 H Random Glucose 115 H Hemoglobin A1c Calcium 8.6 Total Bilirubin 1.5 H AST 44 H D ALT 25 Alkaline Phosphatase 59 Total Protein 6.3 Albumin 3.4 L D Globulin 3.0 Albumin/Globulin Ratio 1.1 Fingerstick Blood Sugar Results: 111 Review of Systems - Review of Systems Review of Systems: see HPI Critical Care Progress Note - Nutrition Nutrition: Nutrition Category Date Time Status NPO Diet [DIET] Diets 08/19/16 Dinner Active Assessment/Plan - Assessment and Plan (Free Text) Plan: 61 yo F w PMHx of HTN, DM is admitted for CVA and onset seizures, was extubated yesterday afternoon and is improving 1) CVA -Mentation has improved once sedation/vent removed, pt is AAOx3 -Embolic VS small vessel disease secondary to underlying risk factors of DM & HTN -MRI Brain (08/19): Acute infarction within RIGHT occipital region. -Plavix 75mg PO Daily for prevention of any additional thrombi formation -Cardiology onboard, no evidence of emboli, will assist w HTN control -Neuro Onboard, follow recommendations 2) Seizure -No recent seizure activity -Extubated yesterday afternoon and is able to maintain patent airway w/o assistance -Versed 2mg IV Q2H PRN -Precedex IV -Keppra 500mg IVPB Q12H -Neuro Onboard, follow recommendations 3) DM2 -FS have ranged bw 250-339 -Lispro Sliding Scale ACHS -Levemir 7.5u SC HS -Atorvastatin 40mg PO Daily -f/u FS 4) HTN -Valsartan 160mg PO Daily HELD due to Hypotension -Metoprolol 25mg PO Daily, as per Neuro -f/u Vitals -f/u Cardiology Consult 5) DVT Prophylaxis -Lovenox 40mg SC Daily -SCDs 6) PUD Prophylaxis -Protonix 40mg IVP Daily <Russ-Emerald Jean - Last Filed: 08/22/16 14:13> CCU Objective - Vital Signs / Intake & Output Vital Signs (Last 4 hours): Vital Signs Temp Pulse Resp BP Pulse Ox 08/22/16 12:00 98.6 F 97 H 20 127/70 100 Intake and Output (Last 8hrs): Intake & Output 08/21/16 08/22/16 08/22/16 22:59 06:59 14:59 Intake Total 105 150 Output Total 900 1700 300 Balance -795 -1550 -300 Intake: IV 5 50 Intake, Piggyback 100 100 Output: Urine 900 1700 300 Urethral (Thomson) 900 1700 300 - Medications Active Medications: Active Medications Generic Name Dose Route Start Last Admin Trade Name Freq PRN Reason Stop Dose Admin Aspirin 81 mg 08/21/16 09:00 08/22/16 09:36 Aspirin Chewable PO 81 mg DAILY EDITH Administration Atorvastatin Calcium 40 mg 08/20/16 09:00 08/22/16 09:36 Lipitor PO 40 mg DAILY EDITH Administration Clopidogrel Bisulfate 75 mg 08/20/16 09:00 08/22/16 09:36 Plavix PO 75 mg DAILY EDITH Administration Dextrose 0 gm 08/22/16 00:31 Glutose 15 PO ONCE PRN Hypoglycemia Protocol Protocol Dextrose 0 ml 08/22/16 00:31 Dextrose 50% Inj IV STAT PRN Hyglycemia Protocol Protocol Enoxaparin Sodium 40 mg 08/21/16 11:00 08/22/16 09:36 Lovenox SC 40 mg DAILY EDITH Administration Protocol Glucagon 0 mg 08/22/16 00:31 Glucagen Diagnostic Kit IM STAT PRN Hypoglycemia Protocol Protocol Levetiracetam 500 mg/ Sodium 105 mls @ 210 mls/hr 08/20/16 03:30 08/22/16 03:41 Chloride IVPB 210 mls/hr Q12H EDITH Administration Insulin Detemir 7.5 units 08/19/16 22:00 08/21/16 22:18 Levemir SC Not Given HS [facility] Insulin Human Lispro 0 units 08/20/16 07:30 08/22/16 12:11 Humalog SC 2 units ACHS EDITH Administration Protocol Midazolam HCl 2 mg 08/20/16 02:44 08/20/16 05:44 Versed Inj IV 2 mg Q2H PRN Administration Agitation Pantoprazole Sodium 40 mg 08/20/16 09:00 08/22/16 09:37 Protonix Inj IVP 40 mg DAILY EDITH Administration - Patient Studies Lab Studies: Lab Studies 08/22/16 08/22/16 08/22/16 Range/Units 11:32 05:49 05:20 WBC 8.9 (4.8-10.8) K/uL RBC 3.60 L (3.80-5.20) Mil/uL Hgb 11.0 L (12.0-16.0) g/dL Hct 32.9 L (34.0-47.0) % MCV 91.6 (81.0-99.0) fl MCH 30.7 (27.0-31.0) pg MCHC 33.5 (33.0-37.0) g/dL RDW 14.3 (11.5-14.5) % Plt Count 146 (130-400) K/uL MPV 8.4 (7.2-11.7) fl Neut % (Auto) 69.4 (50.0-75.0) % Lymph % (Auto) 16.9 L (20.0-40.0) % Otero % (Auto) 11.8 H (0.0-10.0) % Eos % (Auto) 1.4 (0.0-4.0) % Baso % (Auto) 0.5 (0.0-2.0) % Neut # 6.2 (1.8-7.0) K/uL Lymph # 1.5 (1.0-4.3) K/uL Otero # 1.1 H (0.0-0.8) K/uL Eos # 0.1 (0.0-0.7) K/uL Baso # 0.0 (0.0-0.2) K/uL Sodium 143 (132-148) mmol/l Potassium 3.4 L (3.6-5.0) MMOL/L Chloride 107 (98-107) mmol/L Carbon Dioxide 23 (22-30) mmol/L Anion Gap 16 (10-20) BUN 7 (7-17) mg/dl Creatinine 0.6 L (0.7-1.2) mg/dL Est GFR ( Amer) > 60 Est GFR (Non-Af Amer) > 60 POC Glucose (mg/dL) 208 H 111 H (65-110) mg/dL Random Glucose 115 H (65-105) mg/dL Hemoglobin A1c (4.2-6.5) % Calcium 8.6 (8.4-10.2) mg/dL Total Bilirubin 1.5 H (0.2-1.3) mg/dl AST 44 H D (14-36) U/L ALT 25 (9-52) U/L Alkaline Phosphatase 59 (38-126) U/L Total Protein 6.3 (6.3-8.2) G/DL Albumin 3.4 L D (3.5-5.0) g/dL Globulin 3.0 (2.2-3.9) gm/dL Albumin/Globulin Ratio 1.1 (1.0-2.1) 08/22/16 08/21/16 08/21/16 Range/Units 01:25 23:31 21:54 WBC (4.8-10.8) K/uL RBC (3.80-5.20) Mil/uL Hgb (12.0-16.0) g/dL Hct (34.0-47.0) % MCV (81.0-99.0) fl MCH (27.0-31.0) pg MCHC (33.0-37.0) g/dL RDW (11.5-14.5) % Plt Count (130-400) K/uL MPV (7.2-11.7) fl Neut % (Auto) (50.0-75.0) % Lymph % (Auto) (20.0-40.0) % Otero % (Auto) (0.0-10.0) % Eos % (Auto) (0.0-4.0) % Baso % (Auto) (0.0-2.0) % Neut # (1.8-7.0) K/uL Lymph # (1.0-4.3) K/uL Otero # (0.0-0.8) K/uL Eos # (0.0-0.7) K/uL Baso # (0.0-0.2) K/uL Sodium (132-148) mmol/l Potassium (3.6-5.0) MMOL/L Chloride (98-107) mmol/L Carbon Dioxide (22-30) mmol/L Anion Gap (10-20) BUN (7-17) mg/dl Creatinine (0.7-1.2) mg/dL Est GFR ( Amer) Est GFR (Non-Af Amer) POC Glucose (mg/dL) 142 H 184 H 64 L (65-110) mg/dL Random Glucose (65-105) mg/dL Hemoglobin A1c (4.2-6.5) % Calcium (8.4-10.2) mg/dL Total Bilirubin (0.2-1.3) mg/dl AST (14-36) U/L ALT (9-52) U/L Alkaline Phosphatase (38-126) U/L Total Protein (6.3-8.2) G/DL Albumin (3.5-5.0) g/dL Globulin (2.2-3.9) gm/dL Albumin/Globulin Ratio (1.0-2.1) 08/21/16 08/20/16 Range/Units 16:26 05:30 WBC (4.8-10.8) K/uL RBC (3.80-5.20) Mil/uL Hgb (12.0-16.0) g/dL Hct (34.0-47.0) % MCV (81.0-99.0) fl MCH (27.0-31.0) pg MCHC (33.0-37.0) g/dL RDW (11.5-14.5) % Plt Count (130-400) K/uL MPV (7.2-11.7) fl Neut % (Auto) (50.0-75.0) % Lymph % (Auto) (20.0-40.0) % Otero % (Auto) (0.0-10.0) % Eos % (Auto) (0.0-4.0) % Baso % (Auto) (0.0-2.0) % Neut # (1.8-7.0) K/uL Lymph # (1.0-4.3) K/uL Otero # (0.0-0.8) K/uL Eos # (0.0-0.7) K/uL Baso # (0.0-0.2) K/uL Sodium (132-148) mmol/l Potassium (3.6-5.0) MMOL/L Chloride (98-107) mmol/L Carbon Dioxide (22-30) mmol/L Anion Gap (10-20) BUN (7-17) mg/dl Creatinine (0.7-1.2) mg/dL Est GFR ( Amer) Est GFR (Non-Af Amer) POC Glucose (mg/dL) 98 (65-110) mg/dL Random Glucose (65-105) mg/dL Hemoglobin A1c 13.8 H D (4.2-6.5) % Calcium (8.4-10.2) mg/dL Total Bilirubin (0.2-1.3) mg/dl AST (14-36) U/L ALT (9-52) U/L Alkaline Phosphatase (38-126) U/L Total Protein (6.3-8.2) G/DL Albumin (3.5-5.0) g/dL Globulin (2.2-3.9) gm/dL Albumin/Globulin Ratio (1.0-2.1) Laboratory Results - last 24 hr 08/20/16 08/21/16 08/21/16 05:30 16:26 21:54 WBC RBC Hgb Hct MCV MCH MCHC RDW Plt Count MPV Neut % (Auto) Lymph % (Auto) Otero % (Auto) Eos % (Auto) Baso % (Auto) Neut # Lymph # Otero # Eos # Baso # Sodium Potassium Chloride Carbon Dioxide Anion Gap BUN Creatinine Est GFR ( Amer) Est GFR (Non-Af Amer) POC Glucose (mg/dL) 98 64 L Random Glucose Hemoglobin A1c 13.8 H D Calcium Total Bilirubin AST ALT Alkaline Phosphatase Total Protein Albumin Globulin Albumin/Globulin Ratio 0308/22/16 08/22/16 23:31 01:25 05:20 WBC 8.9 RBC 3.60 L Hgb 11.0 L Hct 32.9 L MCV 91.6 MCH 30.7 MCHC 33.5 RDW 14.3 Plt Count 146 MPV 8.4 Neut % (Auto) 69.4 Lymph % (Auto) 16.9 L Otero % (Auto) 11.8 H Eos % (Auto) 1.4 Baso % (Auto) 0.5 Neut # 6.2 Lymph # 1.5 Otero # 1.1 H Eos # 0.1 Baso # 0.0 Sodium 143 Potassium 3.4 L Chloride 107 Carbon Dioxide 23 Anion Gap 16 BUN 7 Creatinine 0.6 L Est GFR ( Amer) > 60 Est GFR (Non-Af Amer) > 60 POC Glucose (mg/dL) 184 H 142 H Random Glucose 115 H Hemoglobin A1c Calcium 8.6 Total Bilirubin 1.5 H AST 44 H D ALT 25 Alkaline Phosphatase 59 Total Protein 6.3 Albumin 3.4 L D Globulin 3.0 Albumin/Globulin Ratio 1.1 08/22/16 08/22/16 05:49 11:32 WBC RBC Hgb Hct MCV MCH MCHC RDW Plt Count MPV Neut % (Auto) Lymph % (Auto) Otero % (Auto) Eos % (Auto) Baso % (Auto) Neut # Lymph # Otero # Eos # Baso # Sodium Potassium Chloride Carbon Dioxide Anion Gap BUN Creatinine Est GFR ( Amer) Est GFR (Non-Af Amer) POC Glucose (mg/dL) 111 H 208 H Random Glucose Hemoglobin A1c Calcium Total Bilirubin AST ALT Alkaline Phosphatase Total Protein Albumin Globulin Albumin/Globulin Ratio Critical Care Progress Note - Nutrition Nutrition: Nutrition Category Date Time Status Pureed [Dysphagia/Modified Consistency Diet] [DIET] Diets 08/22/16 Breakfast Active Attending/Attestation - Attestation I have personally seen and examined this patient.: Yes I have fully participated in the care of the patient.: Yes I have reviewed all pertinent clinical information: Yes Notes (Text): 08/22/16 14:02 Patient seen and examined in the morning. HR not controlled despite verapamil 160 mg daily. Noted that yesterday she slow her rate on metoprolol IV, but no cardizem IV. So started on metoprolol 12.5 mg q12h. Tolerates trach collar, but needs lots of reassuring since she gets very anxious and wants to go back on the ventilator right away, gave 5 mg of haldol in an attempt to relax her, but she very sedated. A few mn ago she went hypotensive, possibly a combination of sedative and b- es. change to metoprolol 2.5 q6h prn hr above 100 mmhg
--- NOTE | 2016-08-22 09:31 | CP.PCM.PN ---
Subjective - Date & Time of Evaluation Date of Evaluation: 08/22/16 Time of Evaluation: 07:00 - Subjective Subjective: Patient seen and examined bedside. Patient was extubated yesterday afternoon. Awake, alert, Oriented to person, time but not place. Speech fluent. Reports sore throat. Denies chest pain, palpitation, SOB. Able to move her 4 extremities. 10: 30Am Rounding with Dr Gabriel and patient sitting on a chair, able to stand up from chair, c/o sore throat. fluent speech, no motor deficit, no facial paralysis. Objective - Vital Signs/Intake and Output Vital Signs (last 24 hours): Temp Pulse Resp BP Pulse Ox 98.4 F 111 H 20 142/70 100 08/22/16 08:00 08/22/16 08:00 08/22/16 08:00 08/22/16 08:00 08/22/16 08:00 Intake and Output: 08/22/16 08/22/16 06:59 18:59 Intake Total 150 Output Total 1700 Balance -1550 - Medications Medications: Current Medications Aspirin (Aspirin Chewable) 81 mg PO DAILY [facility] Last Admin: 08/21/16 08:38 Dose: 81 mg Atorvastatin Calcium (Lipitor) 40 mg PO DAILY [facility] Last Admin: 08/21/16 12:53 Dose: 40 mg Clopidogrel Bisulfate (Plavix) 75 mg PO DAILY [facility] Last Admin: 08/21/16 08:37 Dose: 75 mg Dextrose (Glutose 15) 0 gm PO ONCE PRN; Protocol PRN Reason: Hypoglycemia Protocol Dextrose (Dextrose 50% Inj) 0 ml IV STAT PRN; Protocol PRN Reason: Hyglycemia Protocol Enoxaparin Sodium (Lovenox) 40 mg SC DAILY [facility] PRN Reason: Protocol Last Admin: 08/21/16 12:52 Dose: 40 mg Glucagon (Glucagen Diagnostic Kit) 0 mg IM STAT PRN; Protocol PRN Reason: Hypoglycemia Protocol Levetiracetam 500 mg/ Sodium (Chloride) 105 mls @ 210 mls/hr IVPB Q12H [facility] Last Admin: 08/22/16 03:41 Dose: 210 mls/hr Dexmedetomidine HCl 400 mcg/ (Sodium Chloride) 100 mls @ 2.49 mls/hr IV .Q24H ONE; 0.2 MCG/KG/HR PRN Reason: Protocol Stop: 08/22/16 10:29 Last Admin: 08/21/16 16:56 Dose: 7 mls/hr Potassium Chloride (Potassium Chloride 10 Meq/100 Ml) 100 mls @ 100 mls/hr IVPB Q1 [facility] Stop: 08/22/16 10:59 Last Admin: 08/22/16 07:05 Dose: 100 mls/hr Insulin Detemir (Levemir) 7.5 units SC HS [facility] Last Admin: 08/21/16 22:18 Dose: Not Given Insulin Human Lispro (Humalog) 0 units SC ACHS [facility]ITH PRN Reason: Protocol Last Admin: 08/22/16 06:47 Dose: Not Given Metoprolol Succinate (Toprol Xl) 25 mg PO DAILY [facility] Last Admin: 08/21/16 08:39 Dose: Not Given Midazolam HCl (Versed Inj) 2 mg IV Q2H PRN PRN Reason: Agitation Last Admin: 08/20/16 05:44 Dose: 2 mg Pantoprazole Sodium (Protonix Inj) 40 mg IVP DAILY [facility] Last Admin: 08/21/16 08:39 Dose: 40 mg Valsartan (Diovan) 160 mg PO DAILY [facility] - Labs Labs: 08/22/16 05:20 08/22/16 05:20 PT 10.6 SECONDS (9.6-11.2) 08/19/16 17:15 INR 1.02 (0.92-1.08) 08/19/16 17:15 APTT 22.4 SECONDS (23.3-32.5) L 08/19/16 17:15 - Constitutional Appears: Non-toxic, No Acute Distress - Respiratory Exam Respiratory Exam: Clear to Ausculation Bilateral. absent: Rales, Rhonchi, Wheezes - Cardiovascular Exam Cardiovascular Exam: REGULAR RHYTHM, +S1, +S2 - GI/Abdominal Exam GI & Abdominal Exam: Soft, Normal Bowel Sounds. absent: Tenderness - Neurological Exam Neurological Exam: Alert, Awake Neuro motor strength exam: Left Upper Extremity: 3, Right Upper Extremity: 3 Additional comments: Left peripheral vision temporal and nasal impaired Oriented x2 person and time, not place - Psychiatric Exam Psychiatric exam: Normal Affect - Skin Additional comments: Right ankle small 0.2 ulcer x 2, no erythema, no signs of infection Assessment and Plan - Assessment and Plan (Free Text) Plan: 61, yo , f, PMHx/o HTN, DM, uterine prolapse presented to ED c/o headache and dizziness started 7 days ago, associated with occs visual hallucination. Patient seen in ER last friday , discharged home and had f/u in our clinic yesterday. Patient was sent to ER for evaluation due to persistent symptoms. Patient had seizures in ED and repiratory distress needing intubation and admission in ICU. 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 Acute infarction within RIGHT occipital region. -CT head 08/16 no acute intracraneal abnormality -CT head 08/19 no specific white matter changes -CT head 08/20 no specific white matter changes. See MRI report. -Carotid U/S (08/19): < 50% carotid arterial stenosis bilaterally. No significant atheromatous narrowing identified. Anterograde flow in both vertebral arteries. -Plavix 75mg PO Daily -Aspirin 81 mg Po daily -Keppra 500 mg IV BID -Neuro Onboard consult appreciated: EGG no seizure activity, c/w keppra and platelets antiaggregant meds -Laundry Tech consult appreciated. mild increased troponin no indicative of ACS. Echo no apical thrombus. NL LV function. -Transfer to telemetry -Physical therapy, swallow test, speech therapy 2) Seizure -secondary to CVA -resolved -Keppra 500mg IVPB Q12H -Neuro consult appreciated -TSH 5.6 -Folate, Vit 12 and RPR normal -HIV, ESR f/u 3) DM2 -Controlled with diet as per ECW -Hgb A1c 5.8 on 03/03/15 and same value during 2013 -labs reviewed. Blood glucose trending down 111 mg/dl -Possible associated to stress cortisol releasing. -Lispro Sliding Scale ACHS -Levemir 7.5u SC HS -Atorvastatin 40mg PO Daily 4) HTN -Valsartan 160mg PO Daily. hold due to Hypotension -Metoprolol 25mg PO Daily, as per Neuro -Cardiology Consult suggested 5) DVT Prophylaxis -Lovenox 40 mg sc daily. Benefit outweigh the risk
[2016-08-22] MEDS: Enoxaparin 40 mg Syringe SC SCH (09:36)
[2016-08-22] MEDS: Metoprolol Succinate 25 mg XL Tab PO SCH (09:37)
[2016-08-22] MEDS ORDERED: Metoprolol 1 mg/ml Inj IVP PRN (14:13)
--- NOTE | 2016-08-22 17:52 | CARD ---
APPROVED REPORT EXAM: Two-dimensional and M-mode echocardiogram with Doppler and color Doppler. Other Information Quality : AverageRhythm : NSR INDICATION CVA/TIA CARDIO EMBOLIC SOURCE 2D DIMENSIONS IVSd1.20 (0.7-1.1cm)LVDd3.54 (3.9-5.9cm) LVOT Diameter2.12 (1.8-2.4cm)PWd1.04 (0.7-1.1cm) IVSs1.82 (0.8-1.2cm)LVDs2.08 (2.5-4.0cm) FS (%) 41.1 %PWs1.48 (0.8-1.2cm) M-Mode DIMENSIONS Left Atrium (MM)3.72 (2.5-4.0cm)IVSd1.27 (0.7-1.1cm) Aortic Root2.04 (2.2-3.7cm)LVDd3.53 (4.0-5.6cm) Aortic Cusp Exc.1.43 (1.5-2.0cm)PWd1.46 (0.7-1.1cm) IVSs1.71 cmFS (%) 54 % LVDs1.63 (2.0-3.8cm)PWs2.15 cm Mitral Valve MV E Lraqcizb54.5cm/sMV DECEL [id number] A Obhawpbg49.5cm/s MV [id number]/A ratio0.9MVA (PHT)4.76cm2 TDI Lateral E' Peak V8.23cm/sMedial E' Peak V8.47cm/sE/Lateral E'8.2 E/Medial E'8.0 Pulmonary Valve PV Peak Jwiyofvm67.3cm/s LEFT VENTRICLE The left ventricle is normal size. There is normal left ventricular wall thickness. The left ventricular function is normal. The left ventricular ejection fraction is 60%. There is normal LV segmental wall motion. The left ventricular diastolic function is normal. No left ventricle thrombus noted on this study. There is no ventricular septal defect visualized. There is no left ventricular aneurysm. There is no mass noted in the left ventricle. RIGHT VENTRICLE The right ventricle is normal size. There is normal right ventricular wall thickness. The right ventricular systolic function is normal. ATRIA The left atrium size is normal. The right atrium size is normal. The interatrial septum is intact with no evidence for an atrial septal defect. AORTIC VALVE The aortic valve is normal in structure and function. No aortic regurgitation is present. There is no aortic valvular stenosis. There is no aortic valvular vegetation. MITRAL VALVE The mitral valve is normal in structure and function. There is no evidence of mitral valve prolapse. There is no mitral valve stenosis. There is no mitral valve regurgitation noted. TRICUSPID VALVE The tricuspid valve is normal in structure and function. There is no tricuspid valve regurgitation noted. There is no tricuspid valve prolapse or vegetation. There is no tricuspid valve stenosis. PULMONIC VALVE The pulmonary valve is normal in structure and function. There is no pulmonic valvular regurgitation. There is no pulmonic valvular stenosis. GREAT VESSELS The aortic root is normal in size. The ascending aorta is normal in size. The IVC is normal in size and collapses >50% with inspiration. PERICARDIAL EFFUSION The pericardium appears normal. There is no pleural effusion. <Conclusion> Normal Echocardiogram
--- NOTE | 2016-08-22 20:26 | PN ---
DATE: 08/22/2016 SUBJECTIVE: Stroke, left homonymous hemianopsia and seizure, status post extubation. PHYSICAL EXAMINATION: VITAL SIGNS: Blood pressure 120/69,, respiratory rate 12, temperature 99.5, pulse rate is 102. NEUROLOGIC: The patient is more awake, alert, oriented to person, place, and time. Speech is clear. She follows all commands. Still having left homonymous hemianopsia. She is stable with Keppra for her seizures. Continue the present management. When medically stable, the patient can be more to the telemetry. Saud Warner MD cc: [id number] TT: 08/22/2016 20:25:45 Confirmation # [id number] Dictation # [id number] MTDD
[2016-08-22] MEDS: Insulin Detemir 100 Units/ml Inj SC SCH ×2 (22:22→22:23)
[2016-08-23] MEDS: levETIRAcetam 500 MG in Sodium Chloride 0.9% 100 ML IVPB SCH (04:00)
--- NOTE | 2016-08-23 06:43 | PQF GENQUE ---
This form is a permanent part of the medical record 08/24/15 Dr. Harvey Funes, Immunopathologist documented the following information with no mention of this diagnosis in your documentation. Please indicate in your next progress note and /or discharge summary your agreement with disaster recovery consultant or provide clarification that this diagnosis is not a current condition. Diagnosis: ACUTE RESPIRATORY FAILURE Admitted for CVA and noted to have seizures and intubated/ ventilated for airway protection. Clarification of your documentation is requested to better reflect the severity of illness and intensity of treatment of your patient. PHYSICIAN'S RESPONSE Based on your medical judgment of the clinical indicators outlined above please clarify the following: [] Practitioner response [] If unable to determine, please check the box, sign and date. Present On Admission (POA) Indicator: [] Present at the time of admission [] Not present at the time of admission [] Clinically Undetermined In responding to this query, please exercise your independent professional judgment. The fact that a question is asked does not imply that any particular answer is desired or expected. Thank you for your clarification on this documentation. If you have any questions please [phone] * Thank you, Mechelle Mercado RN CDMP MTDD
[2016-08-23] MEDS: Insulin Lispro (humaLOG) 100 Units/ml Inj SC SCH ×2 (07:58→10:53)
[2016-08-23] MEDS: Enoxaparin 40 mg Syringe SC SCH (08:31)
--- NOTE | 2016-08-23 08:51 | CP.PCM.PN ---
Subjective - Date & Time of Evaluation Date of Evaluation: 08/23/16 Time of Evaluation: 07:10 - Subjective Subjective: Patient seen and examined bedside. No overnight events. AAO x3, good eye contact , fluent speech. Reports sore throat. Denies chest pain. SOB, abd pain. Passed swallow evaluation and tolerating diet. Hemodynamically stable. Objective - Vital Signs/Intake and Output Vital Signs (last 24 hours): Temp Pulse Resp BP Pulse Ox 99.3 F 91 H 19 124/73 98 08/23/16 08:00 08/23/16 08:00 08/23/16 08:00 08/23/16 08:00 08/23/16 08:00 Intake and Output: 08/23/16 08/23/16 06:59 18:59 Intake Total 100 120 Output Total 1050 Balance -950 120 - Medications Medications: Current Medications Aspirin (Aspirin Chewable) 81 mg PO DAILY [facility] Last Admin: 08/23/16 08:31 Dose: 81 mg Atorvastatin Calcium (Lipitor) 40 mg PO DAILY [facility] Last Admin: 08/23/16 08:31 Dose: 40 mg Clopidogrel Bisulfate (Plavix) 75 mg PO DAILY [facility] Last Admin: 08/23/16 08:31 Dose: 75 mg Dextrose (Glutose 15) 0 gm PO ONCE PRN; Protocol PRN Reason: Hypoglycemia Protocol Dextrose (Dextrose 50% Inj) 0 ml IV STAT PRN; Protocol PRN Reason: Hyglycemia Protocol Enoxaparin Sodium (Lovenox) 40 mg SC DAILY [facility] PRN Reason: Protocol Last Admin: 08/23/16 08:31 Dose: 40 mg Glucagon (Glucagen Diagnostic Kit) 0 mg IM STAT PRN; Protocol PRN Reason: Hypoglycemia Protocol Levetiracetam 500 mg/ Sodium (Chloride) 105 mls @ 210 mls/hr IVPB Q12H [facility] Last Admin: 08/23/16 04:00 Dose: 210 mls/hr Insulin Detemir (Levemir) 7.5 units SC HS [facility] Last Admin: 08/22/16 22:23 Dose: 7 units Insulin Human Lispro (Humalog) 0 units SC ACHS [facility] PRN Reason: Protocol Last Admin: 08/23/16 07:58 Dose: Not Given Metoprolol Tartrate (Lopressor) 2.5 mg IVP Q6H PRN PRN Reason: Other Midazolam HCl (Versed Inj) 2 mg IV Q2H PRN PRN Reason: Agitation Last Admin: 08/20/16 05:44 Dose: 2 mg Pantoprazole Sodium (Protonix Inj) 40 mg IVP DAILY [facility] Last Admin: 08/23/16 08:32 Dose: 40 mg - Labs Labs: 08/22/16 05:20 08/22/16 05:20 PT 10.6 SECONDS (9.6-11.2) 08/19/16 17:15 INR 1.02 (0.92-1.08) 08/19/16 17:15 APTT 22.4 SECONDS (23.3-32.5) L 08/19/16 17:15 - Constitutional Appears: Non-toxic, No Acute Distress - Eye Exam Pupil Exam: PERRL Additional comments: left eye peripheral vision improved 75 % compared with yesterday. ROMERO.visual acuity to distinguish fingers normal. color vision normal - Respiratory Exam Respiratory Exam: Clear to Ausculation Bilateral. absent: Rales, Rhonchi, Wheezes - Cardiovascular Exam Cardiovascular Exam: REGULAR RHYTHM, +S1, +S2 - GI/Abdominal Exam GI & Abdominal Exam: Soft, Normal Bowel Sounds. absent: Tenderness - Extremities Exam Extremities Exam: absent: Pedal Edema - Neurological Exam Neurological Exam: Alert, Awake, Oriented x3, Reflexes Normal Neuro motor strength exam: Left Upper Extremity: 5, Right Upper Extremity: 5, Left Lower Extremity: 5, Right Lower Extremity: 5 - Psychiatric Exam Psychiatric exam: Normal Mood - Skin Additional comments: Right ankle superficial ulcer 0.2 cm x 2. no erythema, no signs of infection Assessment and Plan - Assessment and Plan (Free Text) Plan: 61, yo , f, PMHx/o HTN, DM, uterine prolapse presented to ED c/o headache and dizziness started 7 days ago, associated with occs visual hallucination. Patient seen in ER last friday , discharged home and had f/u in our clinic yesterday. Patient was sent to ER for evaluation due to persistent symptoms. Patient had seizures in ED and repiratory distress needing intubation and admission in ICU. 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 Acute infarction within RIGHT occipital region. -CT head 08/16 no acute intracraneal abnormality -CT head 08/19 no specific white matter changes -CT head 08/20 no specific white matter changes. See MRI report. -Carotid U/S (08/19): < 50% carotid arterial stenosis bilaterally. No significant atheromatous narrowing identified. Anterograde flow in both vertebral arteries. -Plavix 75mg PO Daily -Aspirin 81 mg Po daily -Keppra 500 mg IV BID -Neuro Onboard consult appreciated: c/w keppra and same management -Spirits Model consult appreciated. mild increased troponin no indicative of ACS. Echo no apical thrombus. NL LV function. -Echo normal -Physical therapy evaluation to start rehab -passed swallow test. tolerating diet. seen by speech therapy 2) Seizure -resolved -secondary to CVA. -Patient required intubation in ER for acute respiratory failure secondary to seizure with CVA . Extubated 48 h ago. -Keppra 500mg IVPB Q12H -Neuro consult appreciated -TSH 5.6 -Folate, Vit 12 and RPR normal -HIV, ESR f/u 3) DM2 -Controlled with diet as per ECW -Hgb A1c 13.8 08/20/16 -Hgb A1c 5.8 on 03/03/15 and same value during 2013 -labs reviewed. Blood glucose trending down 141 mg/dl -Possible associated to stress cortisol releasing. -Lispro Sliding Scale ACHS -Levemir 7.5u SC HS -Atorvastatin 40mg PO Daily 4) HTN -Valsartan 160mg PO Daily. hold due to Hypotension -Metoprolol 25mg PO Daily -Cardiology Consult appreciated 5) DVT Prophylaxis -Lovenox 40 mg sc daily. Benefit outweigh the risk
[2016-08-23 09:55] LABS: ALKALINE PHOSPHATASE 91 U/L (38-126); ALT/SGPT 34 U/L (9-52); AST/SGOT 41 U/L (14-36); BILIRUBIN,TOTAL 0.9 mg/dl (0.2-1.3); BLOOD UREA NITROGEN 6 mg/dl (7-17); CALCIUM 9.1 mg/dL (8.4-10.2); CARBON DIOXIDE 27 mmol/L (22-30); CHLORIDE 103 mmol/L (98-107); GFR AFRICAN-AMERICAN > 60; GLUCOSE,RANDOM 229 mg/dL (65-105); SODIUM 140 mmol/l (132-148); TOTAL PROTEIN 7.3 G/DL (6.3-8.2)
[2016-08-23] MEDS ORDERED: Insulin Regular 100 units/ml SC STA (10:51)
[2016-08-23 12:13] LABS: BLOOD UREA NITROGEN 7 mg/dl (7-17); CARBON DIOXIDE 26 mmol/L (22-30); CHLORIDE 100 mmol/L (98-107); GFR AFRICAN-AMERICAN > 60; POTASSIUM 3.9 MMOL/L (3.6-5.0); SODIUM 137 mmol/l (132-148)
[2016-08-23 12:26] LABS: GLUCOSE,RANDOM 411 mg/dL (65-105)
[2016-08-23] MEDS: Insulin Regular 100 units/ml SC SCH ×3 (12:47→23:00)
--- NOTE | 2016-08-23 17:33 | CP.PCM.PN ---
Subjective - Date & Time of Evaluation Date of Evaluation: 08/23/16 Time of Evaluation: 16:30 - Subjective Subjective: patient has no current chest pain or dyspnea. sitting in the chair. Objective - Vital Signs/Intake and Output Vital Signs (last 24 hours): Temp Pulse Resp BP Pulse Ox 98.9 F 114 H 20 123/75 100 08/23/16 15:45 08/23/16 15:45 08/23/16 15:45 08/23/16 15:45 08/23/16 15:45 Intake and Output: 08/23/16 08/23/16 06:59 18:59 Intake Total 100 580 Output Total 1050 800 Balance -950 -220 - Medications Medications: Current Medications Aspirin (Aspirin Chewable) 81 mg PO DAILY [facility] Last Admin: 08/23/16 08:31 Dose: 81 mg Atorvastatin Calcium (Lipitor) 40 mg PO DAILY [facility] Last Admin: 08/23/16 08:31 Dose: 40 mg Clopidogrel Bisulfate (Plavix) 75 mg PO DAILY [facility] Last Admin: 08/23/16 08:31 Dose: 75 mg Dextrose (Glutose 15) 0 gm PO ONCE PRN; Protocol PRN Reason: Hypoglycemia Protocol Dextrose (Dextrose 50% Inj) 0 ml IV STAT PRN; Protocol PRN Reason: Hyglycemia Protocol Enoxaparin Sodium (Lovenox) 40 mg SC DAILY [facility] PRN Reason: Protocol Last Admin: 08/23/16 08:31 Dose: 40 mg Glucagon (Glucagen Diagnostic Kit) 0 mg IM STAT PRN; Protocol PRN Reason: Hypoglycemia Protocol Insulin Detemir (Levemir) 10 units SC [facility] Insulin Human Regular (Humulin R) 0 units SC ACCU-CHECK [facility] PRN Reason: Protocol Last Admin: 08/23/16 16:56 Dose: 3 u Levetiracetam (Keppra) 500 mg PO BID [facility] Last Admin: 08/23/16 16:55 Dose: 500 mg Metoprolol Tartrate (Lopressor) 2.5 mg IVP Q6H PRN PRN Reason: Other Midazolam HCl (Versed Inj) 2 mg IV Q2H PRN PRN Reason: Agitation Last Admin: 08/20/16 05:44 Dose: 2 mg Pantoprazole Sodium (Protonix Inj) 40 mg IVP DAILY [facility] Last Admin: 08/23/16 08:32 Dose: 40 mg - Labs Labs: 08/22/16 05:20 08/23/16 11:55 PT 10.6 SECONDS (9.6-11.2) 08/19/16 17:15 INR 1.02 (0.92-1.08) 08/19/16 17:15 APTT 22.4 SECONDS (23.3-32.5) L 08/19/16 17:15 - Constitutional Appears: Non-toxic - Head Exam Head Exam: NORMAL INSPECTION - Eye Exam Eye Exam: Normal appearance - ENT Exam ENT Exam: Mucous Membranes Moist - Neck Exam Neck Exam: Normal Inspection - Respiratory Exam Respiratory Exam: NORMAL BREATHING PATTERN - Cardiovascular Exam Cardiovascular Exam: REGULAR RHYTHM - GI/Abdominal Exam GI & Abdominal Exam: Normal Bowel Sounds - Rectal Exam Rectal Exam: Deferred - Extremities Exam Extremities Exam: absent: Pedal Edema - Back Exam Back Exam: NORMAL INSPECTION - Neurological Exam Neurological Exam: Alert - Psychiatric Exam Psychiatric exam: Normal Affect - Skin Skin Exam: Normal Color Assessment and Plan - Assessment and Plan (Free Text) Assessment: CVA. does no appear cardioembolic. medical therapy. HTN Blood pressure control Hypercholesterolemia statin therapy
[2016-08-23] MEDS: Insulin Detemir 100 Units/ml Inj SC SCH (22:33)
[2016-08-24] MEDS: Insulin Regular 100 units/ml SC SCH ×4 (07:24→22:50)
--- NOTE | 2016-08-24 09:25 | CP.PCM.PN ---
Subjective - Date & Time of Evaluation Date of Evaluation: 08/24/16 Time of Evaluation: 07:35 - Subjective Subjective: Patient seen and examined bedside. Reports feeling better. Speech fluent. AAO x 3, good eye contact. Had PT yesterday and reports gait imbalance during PT. Denies difficulty vision or blurry vision. Denies fever, chest pain, palpitation , SOB,N/V/D. Tolerating diet. Voids frequent w/o difficulty. 1 BM yesterday. Patient evaluated by PT yesterday. Recommends acute rehab Objective - Vital Signs/Intake and Output Vital Signs (last 24 hours): Temp Pulse Resp BP Pulse Ox 98.1 F 95 H 20 119/73 96 08/24/16 09:21 08/24/16 09:21 08/24/16 09:21 08/24/16 09:21 08/24/16 09:21 - Medications Medications: Current Medications Aspirin (Aspirin Chewable) 81 mg PO DAILY [facility] Last Admin: 08/23/16 08:31 Dose: 81 mg Atorvastatin Calcium (Lipitor) 40 mg PO DAILY [facility] Last Admin: 08/23/16 08:31 Dose: 40 mg Clopidogrel Bisulfate (Plavix) 75 mg PO DAILY [facility] Last Admin: 08/23/16 08:31 Dose: 75 mg Dextrose (Glutose 15) 0 gm PO ONCE PRN; Protocol PRN Reason: Hypoglycemia Protocol Dextrose (Dextrose 50% Inj) 0 ml IV STAT PRN; Protocol PRN Reason: Hyglycemia Protocol Enoxaparin Sodium (Lovenox) 40 mg SC DAILY [facility] PRN Reason: Protocol Last Admin: 08/23/16 08:31 Dose: 40 mg Glucagon (Glucagen Diagnostic Kit) 0 mg IM STAT PRN; Protocol PRN Reason: Hypoglycemia Protocol Insulin Detemir (Levemir) 10 units SC HS [facility] Last Admin: 08/23/16 22:33 Dose: 10 units Insulin Human Regular (Humulin R) 0 units SC ACCU-CHECK [facility] PRN Reason: Protocol Last Admin: 08/24/16 07:24 Dose: Not Given Levetiracetam (Keppra) 500 mg PO BID [facility] Last Admin: 08/23/16 16:55 Dose: 500 mg Metoprolol Tartrate (Lopressor) 2.5 mg IVP Q6H PRN PRN Reason: Other Midazolam HCl (Versed Inj) 2 mg IV Q2H PRN PRN Reason: Agitation Last Admin: 08/20/16 05:44 Dose: 2 mg Pantoprazole Sodium (Protonix Inj) 40 mg IVP DAILY [facility] Last Admin: 08/23/16 08:32 Dose: 40 mg - Labs Labs: 08/22/16 05:20 08/23/16 11:55 PT 10.6 SECONDS (9.6-11.2) 08/19/16 17:15 INR 1.02 (0.92-1.08) 08/19/16 17:15 APTT 22.4 SECONDS (23.3-32.5) L 08/19/16 17:15 - Constitutional Appears: Non-toxic, No Acute Distress - Eye Exam Pupil Exam: PERRL Additional comments: Left eye: peripheral vision field temporal and nasal field impaired but improving compared with yesterday - Respiratory Exam Respiratory Exam: Clear to Ausculation Bilateral. absent: Rales, Rhonchi, Wheezes - Cardiovascular Exam Cardiovascular Exam: REGULAR RHYTHM, +S1, +S2 - GI/Abdominal Exam GI & Abdominal Exam: Soft, Normal Bowel Sounds. absent: Guarding, Tenderness - Extremities Exam Extremities Exam: Normal Inspection - Neurological Exam Neurological Exam: Alert, Awake, Oriented x3 Neuro motor strength exam: Left Upper Extremity: 5, Right Upper Extremity: 5, Left Lower Extremity: 5, Right Lower Extremity: 5 - Psychiatric Exam Psychiatric exam: Normal Affect - Skin Additional comments: right forearm small abrasion 1cmx 0.5 cm, dry,no erythema, no signs of infection related with tape used Assessment and Plan - Assessment and Plan (Free Text) Plan: 61, yo , f, PMHx/o HTN, DM, uterine prolapse presented to ED c/o headache and dizziness started 7 days ago, associated with occs visual hallucination. Patient seen in ER last friday , discharged home and had f/u in our clinic yesterday. Patient was sent to ER for evaluation due to persistent symptoms. Patient had seizures in ED and repiratory distress needing intubation and admission in ICU. 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 Acute infarction within RIGHT occipital region. -CT head 08/16 no acute intracraneal abnormality -CT head 08/19 no specific white matter changes -CT head 08/20 no specific white matter changes. See MRI report. -Carotid U/S (08/19): < 50% carotid arterial stenosis bilaterally. No significant atheromatous narrowing identified. Anterograde flow in both vertebral arteries. -Plavix 75mg PO Daily -Aspirin 81 mg Po daily -Keppra 500 mg IV BID -Neuro Onboard consult appreciated: c/w keppra and same management -Guidance Director consult appreciated. no cardioembolic event.HtN controlled -Echo normal -Physical therapy evaluation appreciated: Suggest acute rehab -passed swallow test. tolerating diet. seen by speech therapy 2) Seizure -resolved -secondary to CVA. -Patient required intubation in ER for acute respiratory failure secondary to seizure with CVA - S/P Extubated -Keppra 500mg IVPB Q12H -Neuro consult appreciated -TSH 5.6 -Folate, Vit 12 and RPR normal -F/U HIV, HepC, microalbumin -F/U CBC 3) DM2 -Controlled with diet as per ECW -Hgb A1c 13.8 08/20/16 -Hgb A1c 5.8 on 03/03/15 and same value during 2013 -labs reviewed. Blood glucose yest 495 mg/dl trending down 116 mg/dl today -Lispro Sliding Scale ACHS -Levemir 10 u SC HS -Atorvastatin 40mg PO Daily 4) HTN -Controlled -Valsartan 160mg PO Daily. hold due to Hypotension -Metoprolol 2.5 IV q6h PRN -Cardiology Consult appreciated 5) DVT Prophylaxis -Lovenox 40 mg sc daily. Benefit outweigh the risk
[2016-08-24] MEDS: Enoxaparin 40 mg Syringe SC SCH (09:44)
[2016-08-24] MEDS: Sodium Chloride 0.9% 1,000 ML IV SCH (10:53)
--- NOTE | 2016-08-24 18:33 | PN ---
DATE: 08/24/2016 NEUROLOGICAL PROBLEM: Right occipital infarct with seizure and respiratory failure (resolved). OBJECTIVE: VITAL SIGNS: Blood pressure 132/78, mean arterial pressure 93, respiratory rate 16, temperature 98.7, pulse rate 120. NEUROLOGICAL EXAMINATION: Has persistent left dense homonymous hemianopsia. Speech with hoarseness due to post-extubation. Extraocular movement normal. Motor strength is symmetric on either side. The rest of the examination is unchanged. RECOMMENDATIONS: Continue antiplatelets and Keppra for her seizures. For her persistent intermittent sinus tachycardia, the patient should have follow up with a concrete conveyor operator and the dose can be adjusted to regulate her rate. The patient is a good candidate for rehabilitation. Saud Warner MD cc: [id number] TT: 08/24/2016 18:32:35 Confirmation # [id number] Dictation # [id number] HUNT
[2016-08-24] MEDS: Insulin Detemir 100 Units/ml Inj SC SCH (22:00)
[2016-08-25 09:15] LABS: HEMATOCRIT 35.6 % (34.0-47.0); MEAN CELL VOLUME 90.6 fl (81.0-99.0); MEAN CORPUSCULAR HEMOGLOBIN 30.4 pg (27.0-31.0); MEAN CORPUSCULAR HGB CONC 33.6 g/dL (33.0-37.0); RED CELL DISTRIBUTION WIDTH 14.3 % (11.5-14.5); WHITE BLOOD COUNT 6.7 K/uL (4.8-10.8)
--- NOTE | 2016-08-25 09:36 | CP.PCM.PN ---
Subjective - Date & Time of Evaluation Date of Evaluation: 08/25/16 Time of Evaluation: 08:00 - Subjective Subjective: No over-night events. Tolerance PO intake. Participating in PT. Complains of sore throat. No cough, shortness of breath, chest pain, sputum production. Afebrile. Objective - Vital Signs/Intake and Output Vital Signs (last 24 hours): Temp Pulse Resp BP Pulse Ox 98.3 F 102 H 20 111/68 98 08/25/16 04:59 08/25/16 04:59 08/25/16 04:59 08/25/16 04:59 08/25/16 04:59 - Medications Medications: Current Medications Aspirin (Aspirin Chewable) 81 mg PO DAILY [facility] Last Admin: 08/24/16 09:45 Dose: 81 mg Atorvastatin Calcium (Lipitor) 40 mg PO DAILY [facility] Last Admin: 08/24/16 09:44 Dose: 40 mg Clopidogrel Bisulfate (Plavix) 75 mg PO DAILY [facility] Last Admin: 08/24/16 09:44 Dose: 75 mg Dextrose (Glutose 15) 0 gm PO ONCE PRN; Protocol PRN Reason: Hypoglycemia Protocol Dextrose (Dextrose 50% Inj) 0 ml IV STAT PRN; Protocol PRN Reason: Hyglycemia Protocol Glucagon (Glucagen Diagnostic Kit) 0 mg IM STAT PRN; Protocol PRN Reason: Hypoglycemia Protocol Sodium Chloride (Sodium Chloride 0.9%) 1,000 mls @ 50 mls/hr IV .Q20H [facility] Stop: 08/25/16 10:16 Last Admin: 08/24/16 10:53 Dose: 50 mls/hr Insulin Detemir (Levemir) 10 units SC [facility] Last Admin: 08/24/16 22:00 Dose: 10 units Insulin Human Regular (Humulin R) 0 units SC ACCU-CHECK [facility] PRN Reason: Protocol Last Admin: 08/24/16 22:50 Dose: Not Given Levetiracetam (Keppra) 500 mg PO BID [facility] Last Admin: 08/24/16 17:21 Dose: 500 mg Metoprolol Tartrate (Lopressor) 2.5 mg IVP Q6H PRN PRN Reason: Other - Labs Labs: 08/22/16 05:20 08/23/16 11:55 PT 10.6 SECONDS (9.6-11.2) 08/19/16 17:15 INR 1.02 (0.92-1.08) 08/19/16 17:15 APTT 22.4 SECONDS (23.3-32.5) L 08/19/16 17:15 - Head Exam Head Exam: ATRAUMATIC, NORMOCEPHALIC - Eye Exam Eye Exam: EOMI, Normal appearance Additional comments: left sided homonymous hemianopsia - ENT Exam ENT Exam: Mucous Membranes Moist - Neck Exam Neck Exam: Full ROM - Cardiovascular Exam Cardiovascular Exam: REGULAR RHYTHM, +S1 - GI/Abdominal Exam GI & Abdominal Exam: Soft. absent: Distended, Tenderness - Extremities Exam Extremities Exam: Full ROM. absent: Tenderness - Neurological Exam Neurological Exam: Alert, Awake, CN II-XII Intact Neuro motor strength exam: Left Upper Extremity: 5, Right Upper Extremity: 5, Left Lower Extremity: 5, Right Lower Extremity: 5 Assessment and Plan - Assessment and Plan (Free Text) Plan: 1. CVA, right occipital with left homonymous hemianopsia MRI Brain (08/19): Few scattered foci of high T2 signal within periventricular and subcortical white matter. Acute infarction within RIGHT occipital region. Carotid U/S (08/19): < 50% carotid arterial stenosis bilaterally. No significant atheromatous narrowing identified. Anterograde flow in both vertebral arteries. Plavix 75mg PO Daily Aspirin 81 mg Po daily Keppra 500 mg IV BID Neuro Onboard consult appreciated: c/w keppra and same management Nitric Acid Concentrator Operator consult appreciated. no cardioembolic event. HTN controlled Echo normal Physical therapy- Subacute eval and rehab 2. DM II, hyperglycemia, uncontrolled Hgb A1c- 13.8% 08/20/16 Mid 100s- Low 300s Lispro Sliding Scale ACHS Increase Levemir 15 u SC HS Add Metformin 500mg PO BIDWM, taper up 1 daily to BID, diarrhea ADRs reviewed Atorvastatin 40mg PO Daily Will continue augmentation PRN 3. HTN Historically documented. Previously on Diovan. Monitor pressures. No medications at this time. 4. Seizure Likely secondary to CVA Patient required intubation in ER for acute respiratory failure secondary to seizure with CVA - S/P Extubated Keppra 500mg IVPB Q12H Neuro consult appreciated TSH 5.6 Folate, Vit 12 and RPR normal F/U HIV, HepC, microalbumin 5. DVT Prophylaxis Lovenox 40 mg sc daily
[2016-08-25] MEDS ORDERED: Benzocaine/Menthol (Cepacol) Lozenge PO PRN (09:42)
[2016-08-25] MEDS ORDERED: Insulin Detemir 100 Units/ml Inj SC SCH (09:45)
[2016-08-25] MEDS: Sodium Chloride 0.9% 1,000 ML IV SCH (09:49)
[2016-08-25] MEDS: Insulin Regular 100 units/ml SC SCH ×4 (09:50→23:30)
--- NOTE | 2016-08-25 10:24 | CP.PCM.PN ---
Subjective - Date & Time of Evaluation Date of Evaluation: 08/25/16 Time of Evaluation: 10:24 - Subjective Subjective: 61 year old female seen at bedside concerning right lateral ankle ulcer. Pt was sitting comfortably in chair upon arrival. Pt denies pedal complaints and no pedal pain at this time. Pt denies and acute overnight events. Pt denies recent f/c/n/v/cp/sob. Objective - Vital Signs/Intake and Output Vital Signs (last 24 hours): Temp Pulse Resp BP Pulse Ox 99.1 F 103 H 20 107/68 97 08/25/16 09:50 08/25/16 09:50 08/25/16 09:50 08/25/16 09:50 08/25/16 09:50 - Medications Medications: Current Medications Aspirin (Aspirin Chewable) 81 mg PO DAILY [facility] Last Admin: 08/25/16 09:48 Dose: 81 mg Atorvastatin Calcium (Lipitor) 40 mg PO DAILY [facility] Last Admin: 08/25/16 09:49 Dose: 40 mg Benzocaine/Menthol (Cepacol Sore Throat) 1 basilio PO Q3 PRN PRN Reason: Sore Throat Clopidogrel Bisulfate (Plavix) 75 mg PO DAILY [facility] Last Admin: 08/25/16 09:48 Dose: 75 mg Dextrose (Glutose 15) 0 gm PO ONCE PRN; Protocol PRN Reason: Hypoglycemia Protocol Dextrose (Dextrose 50% Inj) 0 ml IV STAT PRN; Protocol PRN Reason: Hyglycemia Protocol Glucagon (Glucagen Diagnostic Kit) 0 mg IM STAT PRN; Protocol PRN Reason: Hypoglycemia Protocol Insulin Detemir (Levemir) 15 units SC [facility] Insulin Human Regular (Humulin R) 0 units SC ACCU-CHECK [facility] PRN Reason: Protocol Last Admin: 08/25/16 09:50 Dose: 2 u Levetiracetam (Keppra) 500 mg PO BID [facility] Last Admin: 08/25/16 09:49 Dose: 500 mg Metformin HCl (Glucophage) 500 mg PO BIDWM [facility] Metoprolol Tartrate (Lopressor) 2.5 mg IVP Q6H PRN PRN Reason: Other - Labs Labs: 08/25/16 08:00 08/23/16 11:55 PT 10.6 SECONDS (9.6-11.2) 08/19/16 17:15 INR 1.02 (0.92-1.08) 08/19/16 17:15 APTT 22.4 SECONDS (23.3-32.5) L 08/19/16 17:15 - Constitutional Appears: Well, Non-toxic, No Acute Distress - Extremities Exam Additional comments: Right Lower extremity focused. VASC: DP and PT pulses are fully palpable, graded 2/4. No edema noted to right lower extremity. Cap refill time to all digits less than 5 sedons. DERM: Dishydrotic parch noted to posterior lateral ankle. 0.2 cm superficial ulceration with exudate crust undergoing early stage re-externalization noted. No active drainage not acute sign of infection noted. NEUOR: Protective sensation grossly diminished. MUSCK: Pedal muscle strenght graded 5/5 in 4 major pedal muscle groups. - Neurological Exam Neurological Exam: Alert, Awake, Oriented x3 - Psychiatric Exam Psychiatric exam: Normal Affect, Normal Mood Assessment and Plan - Assessment and Plan (Free Text) Assessment: 61 year old female with Black grade 1 ulcerations to right ankle, secondary to diabetes. Plan: Pt evaluated and treated at bedside. Chart, labs, and vitals reviewed. Discussed with attending, Dr. Blas. -Redressed abbey ankle wound with Bacitracin and DSD. Pt is stable from podiatry standpoint for discharge. To follow up with Dr. Blas for podiatry needs. Podiatry will continue to follow while inhouse
--- NOTE | 2016-08-25 19:00 | PN ---
DATE: 08/25/2016 NEUROLOGICAL PROBLEM: Right occipital infarct with seizures. OBJECTIVE: VITAL SIGNS: Blood pressure 101/64, mean arterial pressure of 76, respiratory rate 16, temperature afebrile. NECK: Supple. No carotid bruit. HEART: Sounds are regular. NEUROLOGIC: Shows still left dense homonymous hemianopsia. Mentation is normal. Moves all 4 extremities without any difficulty. RECOMMENDATIONS: Continue the present medical management including antiplatelets, statin and Keppra for now. The patient is a good candidate for sub acute rehabilitation. The patient will be followed closely while he is in the hospital. Saud Warner MD cc: [id number] TT: 08/25/2016 18:59:54 Confirmation # [id number] Dictation # [id number] nikkie MTDD
[2016-08-26] MEDS: Insulin Regular 100 units/ml SC SCH ×3 (06:10→17:05)
--- NOTE | 2016-08-26 10:01 | CP.PCM.PN ---
Subjective - Date & Time of Evaluation Date of Evaluation: 08/26/16 Time of Evaluation: 07:30 - Subjective Subjective: Patient seen and examined bedside Objective - Vital Signs/Intake and Output Vital Signs (last 24 hours): Temp Pulse Resp BP Pulse Ox 97.9 F 101 H 18 115/67 96 08/26/16 08:00 08/26/16 08:42 08/26/16 08:00 08/26/16 08:42 08/26/16 08:00 - Medications Medications: Current Medications Aspirin (Aspirin Chewable) 81 mg PO DAILY [facility] Last Admin: 08/26/16 08:42 Dose: 81 mg Atorvastatin Calcium (Lipitor) 40 mg PO DAILY [facility] Last Admin: 08/26/16 08:43 Dose: 40 mg Benzocaine/Menthol (Cepacol Sore Throat) 1 basilio PO Q3 PRN PRN Reason: Sore Throat Clopidogrel Bisulfate (Plavix) 75 mg PO DAILY [facility] Last Admin: 08/26/16 08:43 Dose: 75 mg Dextrose (Glutose 15) 0 gm PO ONCE PRN; Protocol PRN Reason: Hypoglycemia Protocol Dextrose (Dextrose 50% Inj) 0 ml IV STAT PRN; Protocol PRN Reason: Hyglycemia Protocol Glucagon (Glucagen Diagnostic Kit) 0 mg IM STAT PRN; Protocol PRN Reason: Hypoglycemia Protocol Insulin Detemir (Levemir) 15 units SC HS [facility] Last Admin: 08/25/16 21:37 Dose: 15 units Insulin Human Regular (Humulin R) 0 units SC ACCU-CHECK EDITH PRN Reason: Protocol Last Admin: 08/26/16 06:10 Dose: Not Given Levetiracetam (Keppra) 500 mg PO BID [facility] Last Admin: 08/26/16 08:43 Dose: 500 mg Metformin HCl (Glucophage) 500 mg PO BIDWM [facility] Last Admin: 08/26/16 08:43 Dose: 500 mg Metoprolol Tartrate (Lopressor) 6.25 mg PO Q12 [facility] Last Admin: 08/26/16 08:42 Dose: 6.25 mg - Labs Labs: 08/25/16 08:00 08/23/16 11:55 PT 10.6 SECONDS (9.6-11.2) 08/19/16 17:15 INR 1.02 (0.92-1.08) 03/13/17 17:15 APTT 22.4 SECONDS (23.3-32.5) L 08/19/16 17:15
--- NOTE | 2016-08-26 11:33 | CP.PCM.DIS ---
Provider - Provider Date of Admission: 08/19/16 19:47 Attending physician: Radha Orellana MD Time Spent in preparation of Discharge (in minutes): 40 Hospital Course - Lab Results Lab Results: Micro Results 08/23/16 12:00 Naris MRSA Culture (Admit) - Final MRSA NOT DETECTED 08/20/16 06:55 Nose MRSA Culture (Admit) - Final MRSA NOT DETECTED Most Recent Lab Values WBC 6.7 K/uL (4.8-10.8) 08/25/16 08:00 RBC 3.93 Mil/uL (3.80-5.20) 08/25/16 08:00 Hgb 12.0 g/dL (12.0-16.0) 08/25/16 08:00 Hct 35.6 % (34.0-47.0) 08/25/16 08:00 MCV 90.6 fl (81.0-99.0) 08/25/16 08:00 MCH 30.4 pg (27.0-31.0) 08/25/16 08:00 MCHC 33.6 g/dL (33.0-37.0) 08/25/16 08:00 RDW 14.3 % (11.5-14.5) 08/25/16 08:00 Plt Count 235 K/uL (130-400) 08/25/16 08:00 MPV 8.4 fl (7.2-11.7) 08/22/16 05:20 Neut % (Auto) 69.4 % (50.0-75.0) 08/22/16 05:20 Lymph % (Auto) 16.9 % (20.0-40.0) L 08/22/16 05:20 [place] % (Auto) 11.8 % (0.0-10.0) H 08/22/16 05:20 Eos % (Auto) 1.4 % (0.0-4.0) 08/22/16 05:20 Baso % (Auto) 0.5 % (0.0-2.0) 08/22/16 05:20 Neut # 6.2 K/uL (1.8-7.0) 08/22/16 05:20 Lymph # 1.5 K/uL (1.0-4.3) 08/22/16 05:20 [place] # 1.1 K/uL (0.0-0.8) H 08/22/16 05:20 Eos # 0.1 K/uL (0.0-0.7) 08/22/16 05:20 Baso # 0.0 K/uL (0.0-0.2) 08/22/16 05:20 PT 10.6 SECONDS (9.6-11.2) 08/19/16 17:15 INR 1.02 (0.92-1.08) 08/19/16 17:15 APTT 22.4 SECONDS (23.3-32.5) L 08/19/16 17:15 pCO2 35 mm/Hg (35-45) 08/21/16 05:00 pO2 150 mm/Hg (80-100) H 08/21/16 05:00 HCO3 22.9 mmol/L (21-28) 08/21/16 05:00 ABG pH 7.40 (7.35-7.45) 08/21/16 05:00 ABG Total CO2 22.8 mmol/L (22-28) 08/21/16 05:00 ABG O2 Saturation 99.7 % (95-98) H 08/21/16 05:00 ABG O2 Content 14.9 ML/dL (15-23) L 08/21/16 05:00 ABG Base Excess -2.6 mmol/L (-2.0-3.0) L 08/21/16 05:00 ABG Hemoglobin 10.7 g/dL (11.7-17.4) L 08/21/16 05:00 ABG Carboxyhemoglobin 1.6 % (0.5-1.5) H 08/21/16 05:00 POC ABG HHb (Measured) 0.3 % (0.0-5.0) 08/21/16 05:00 ABG Methemoglobin 1.0 % (0.0-3.0) 08/21/16 05:00 ABG O2 Capacity 14.9 mL/dL (16-24) L 08/21/16 05:00 Raheel Test Yes 08/21/16 05:00 A-a O2 Difference 91.0 mm/Hg 08/21/16 05:00 Hgb O2 Saturation 97.2 % (95.0-98.0) 08/21/16 05:00 Vent Mode Prvc/ac 08/21/16 05:00 Mechanical Rate 12 08/21/16 05:00 FiO2 40.0 % 08/21/16 05:00 Tidal Volume 450 08/21/16 05:00 PEEP 5 08/21/16 05:00 Sodium 137 mmol/l (132-148) 08/23/16 11:55 Potassium 3.9 MMOL/L (3.6-5.0) 08/23/16 11:55 Chloride 100 mmol/L (98-107) 08/23/16 11:55 Carbon Dioxide 26 mmol/L (22-30) 08/23/16 11:55 Anion Gap 15 (10-20) 08/23/16 11:55 BUN 7 mg/dl (7-17) 08/23/16 11:55 Creatinine 0.7 mg/dL (0.7-1.2) 08/23/16 11:55 Est GFR ( Amer) > 60 08/23/16 11:55 Est GFR (Non-Af Amer) > 60 08/23/16 11:55 POC Glucose (mg/dL) 96 mg/dL (65-110) 08/26/16 05:44 Random Glucose 411 mg/dL (65-105) H* D 08/23/16 11:55 Hemoglobin A1c 13.8 % (4.2-6.5) H D 08/20/16 05:30 Calcium 9.0 mg/dL (8.4-10.2) 08/23/16 11:55 Phosphorus 3.4 mg/dl (2.5-4.5) 08/19/16 17:15 Magnesium 1.6 MG/DL (1.6-2.3) 08/19/16 17:15 Total Bilirubin 0.9 mg/dl (0.2-1.3) 08/23/16 09:30 Direct Bilirubin 0.2 mg/ml (0.0-0.4) 08/21/16 07:02 AST 41 U/L (14-36) H 08/23/16 09:30 ALT 34 U/L (9-52) 08/23/16 09:30 Alkaline Phosphatase 91 U/L (38-126) 08/23/16 09:30 Troponin I 0.0310 ng/mL (0.00-0.120) 08/20/16 02:05 Total Protein 7.3 G/DL (6.3-8.2) 08/23/16 09:30 Albumin 3.7 g/dL (3.5-5.0) 08/23/16 09:30 Globulin 3.6 gm/dL (2.2-3.9) 08/23/16 09:30 Albumin/Globulin Ratio 1.0 (1.0-2.1) 08/23/16 09:30 Triglycerides 174 mg/DL (0-149) H D 08/20/16 05:30 Cholesterol 178 mg/dL (0-199) 08/20/16 05:30 LDL Cholesterol Direct 117 mg/dL (0-129) 08/20/16 05:30 HDL Cholesterol 39 MG/DL (30-70) 08/20/16 05:30 Vitamin B12 356 pg/mL (239-931) 08/20/16 05:30 Folate 10.4 ng/mL 08/20/16 05:30 TSH 3rd Generation 5.66 mIU/ML (0.46-4.68) H 08/19/16 17:15 Urine Color Straw (YELLOW) 08/19/16 17:10 Urine Clarity Clear (Clear) 08/19/16 17:10 Urine pH 6.0 (5.0-8.0) 08/19/16 17:10 Ur Specific [place] 1.007 (1.003-1.030) 08/19/16 17:10 Urine Protein 30 mg/dL (NEGATIVE) 08/19/16 17:10 Urine Glucose (UA) >=500 mg/dL (Normal) 08/19/16 17:10 Urine Ketones 20 mg/dL (NEGATIVE) 08/19/16 17:10 Urine Blood Small (NEGATIVE) 08/19/16 17:10 Urine Nitrate Negative (NEGATIVE) 08/19/16 17:10 Urine Bilirubin Negative (NEGATIVE) 08/19/16 17:10 Urine Urobilinogen 0.2-1.0 mg/dL (0.2-1.0) 08/19/16 17:10 Ur Leukocyte Esterase Neg [place]/uL (Negative) 08/19/16 17:10 Urine RBC (Auto) < 1 /hpf (0-3) 08/19/16 17:10 Urine Microscopic WBC 3 /hpf (0-5) 08/19/16 17:10 Ur Squamous Epith Cells 3 /hpf (0-5) 08/19/16 17:10 RPR Nonreactive (NONREACTIVE) 08/20/16 05:30 Hepatitis C Antibody Negative (NEGATIVE) 08/25/16 08:00 - Hospital Course Hospital Course: 61, yo , f, PMHx/o HTN, DM, uterine prolapse presented to ED c/o headache, dizziness, visual hallucination. Patient had seizures in ER secondary to CVA( Right occipital infart ) and needed intubation for acute respiratory failure during seizure. Patient after extubation with residual left homonymous hemianopsia, no motor deficit. Jey on consult. On treatment with Keppra, platelets antiaggregant and needing acute rehab for rehabilitation. Diagnosis 1. CVA, right occipital with left homonymous hemianopsia MRI Brain (08/19): Few scattered foci of high T2 signal within periventricular and subcortical white matter. Acute infarction within RIGHT occipital region. Carotid U/S (08/19): < 50% carotid arterial stenosis bilaterally. No significant atheromatous narrowing identified. Anterograde flow in both vertebral arteries. Plavix 75mg PO Daily Aspirin 81 mg Po daily Keppra 500 mg IV BID Neuro Onboard consult appreciated: c/w keppra and same management Python Developer consult appreciated. no cardioembolic event. HTN controlled Echo normal Physical therapy- Subacute eval and rehab 2. DM II, hyperglycemia, uncontrolled Hgb A1c- 13.8% 08/20/16 Mid 100s- Low 300s Lispro Sliding Scale ACHS Increase Levemir 15 u SC HS Add Metformin 500mg PO BIDWM, taper up 1 daily to BID, diarrhea ADRs reviewed Atorvastatin 40mg PO Daily Will continue augmentation PRN 3. HTN Historically documented. Previously on Diovan. Monitor pressures. No medications at this time. 4. Seizure Likely secondary to CVA Patient required intubation in ER for acute respiratory failure secondary to seizure with CVA - S/P Extubated Keppra 500mg IVPB Q12H Neuro consult appreciated TSH 5.6 Folate, Vit 12 and RPR normal F/U HIV, HepC, microalbumin 5. DVT Prophylaxis Lovenox 40 mg sc daily Discharge Exam - Head Exam Head Exam: ATRAUMATIC, NORMOCEPHALIC - Eye Exam Eye Exam: Normal appearance Pupil Exam: PERRL Additional comments: Left eye with temporal peripheral vision diminished - Respiratory Exam Respiratory Exam: Clear to PA & Lateral. absent: Rales, Rhonchi - Cardiovascular Exam Cardiovascular Exam: REGULAR RHYTHM, +S1, +S2 - GI/Abdominal Exam GI & Abdominal Exam: Normal Bowel Sounds. absent: Guarding, Rebound - Extremities Exam Additional comments: Right superficial ulcer lateral side ankle 0.2 cm , no erythema, no signs of infection - Neurological Exam Neurological exam: Alert, Oriented x3 - Psychiatric Exam Psychiatric exam: Normal Affect, Normal Mood Discharge Plan - Discharge Medications Prescriptions: Aspirin [Aspirin Chewable] 81 mg PO DAILY #30 ctb Benzocaine/Menthol [Cepacol Sore Throat Lozenge] 1 each MM Q3 #30 lozenge Levetiracetam [Keppra] 500 mg PO BID #60 tablet Insulin Detemir [Levemir] 15 unit SC HS 30 Days Atorvastatin [Lipitor] 40 mg PO HS #30 tab Metoprolol Tartrate [Lopressor] 12.5 mg PO BID #60 tab Clopidogrel [Plavix] 75 mg PO DAILY #30 tab - Follow Up Plan Condition: STABLE Disposition: REHAB FACILITY/REHAB UNIT Clinical Quality Measures - CQM - Stroke Anticoagulation Prescribed for Atrial Flutter, Atrial Fibrillation and History of:: Not Applicable Statin prescribed: Yes
[2016-08-26 15:38] VITALS: BP 116/72; RESP 20; TEMP 97.8; O2SAT 100
--- NOTE | 2016-08-26 17:29 | CARD ---
APPROVED REPORT EKG Measurement Heart [id number] OR [id number] <Conclusion> Sinus tachycardia Possible Left atrial enlargement Right bundle branch block Abnormal ECG
--- NOTE | 2016-08-26 18:27 | PN ---
DATE: 08/26/2016 NEUROLOGICAL PROBLEM: Stroke with seizures. PHYSICAL EXAMINATION: VITAL SIGNS: Blood pressure 116/70 with a mean arterial pressure of 86, respiratory rate 20, tempera ture 97.8 with pulse rate of 105. NEUROLOGIC: The patient was examined with her family member. The examination shows persistent left homonymous hemianopsia. Rest of the examination is unchanged. The patient is stable with current Ke ppra dose. Continue stroke prophylactic medication. The patient is neurologically stable. Saud Warner MD cc: [id number] TT: 08/26/2016 18:26:40 Confirmation # [id number] Dictation # [id number]
[2016-08-26 19:57] VITALS: PULSE 118
== END 2016-08-26 17:00 | DRG 64 ==
LOC: H.ER 16:28 → H.ERHOLD 19:47 → OBSVTOIN 19:47 → H.ICU/CCU 08-20 01:00 → H.TEL 08-23 13:38
PROVIDERS: ADMIT Family Medicine; ATTEND Family Medicine
PROC: 0BH17EZ Insertion of Endotracheal Airway into Trachea, Via Natural or Artificial Opening (ICD-10-PCS; principal; 2016-08-20)
PROC: 5A1935Z Respiratory Ventilation, Less than 24 Consecutive Hours (ICD-10-PCS; 2016-08-20)
DX: I63.331 Cerebral infarction due to thrombosis of right posterior cerebral artery (principal); J96.00 Acute respiratory failure, unspecified whether with hypoxia or hypercapnia; R56.9 Unspecified convulsions; L97.319 Non-pressure chronic ulcer of right ankle with unspecified severity; E11.622 Type 2 diabetes mellitus with other skin ulcer; E11.65 Type 2 diabetes mellitus with hyperglycemia; H53.462 Homonymous bilateral field defects, left side; I10 Essential (primary) hypertension; I73.00 Raynaud's syndrome without gangrene; E78.00 Pure hypercholesterolemia, unspecified; H53.40 Unspecified visual field defects; I69.398 Other sequelae of cerebral infarction; L30.9 Dermatitis, unspecified; E78.5 Hyperlipidemia, unspecified; H51.0 Palsy (spasm) of conjugate gaze; Z91.81 History of falling

== ENCOUNTER 2016-08-26 13:58 | Inpatient (IN) | payer MEDICARE, MEDICAID ==
[2016-08-26 14:33] VITALS: BMI 21.4
[2016-08-26] MEDS: Insulin Detemir 100 Units/ml Inj SC SCH (21:37)
[2016-08-26] MEDS: Insulin Regular 100 units/ml SC SCH (21:38)
[2016-08-27] MEDS: Insulin Regular 100 units/ml SC SCH ×4 (06:58→21:50)
--- NOTE | 2016-08-27 07:00 | CP.PCM.HP ---
History of Present Illness - History of Present Illness History of Present Illness: 61, yo , f, PMHx/o HTN, DM, uterine prolapse presented to ED 08/19 c/o headache, dizziness, visual hallucination x 7 days. Patient had seizures in ER secondary to CVA( Right occipital infart ) and needed intubation for acute respiratory failure during seizure. Patient after extubation with residual left homonymous hemianopsia, no motor deficit. Jey on consult. On treatment with Keppra, platelets antiaggregant and needing acute rehab for rehabilitation. Patient transferred to Acute rehab . Reports gait imbalance while walking and sore throat secondary to intubation. Denies visual hallucination,chest pain, SOB, palpitation. tolerating diet. PMH: HTN (medication prescribed by Dr Aaliyah Urbina), DM, RLE ankle wound ( seeing Dr Blas regularly), chronic LEFT ear tinnitus PSH: Cataract b/l, Rt ankle surgery ALL: IV Contrast, PCN- rash SHx: lives alone. denies ETOH, rect drugs, cig Present on Admission - Present on Admission Any Indicators Present on Admission: No History of DVT/PE: No History of Uncontrolled Diabetes: Yes Urinary Catheter: No Decubitus Ulcer Present: No Review of Systems - Cardiovascular Cardiovascular: absent: Chest Pain - Respiratory Respiratory: absent: Dyspnea Additional comments: sore throat - Gastrointestinal Gastrointestinal: As Per HPI - Genitourinary Genitourinary: As Per HPI - Neurological Neurological: Disequilibrium. absent: Headaches Past Patient History - Past Medical History & Family History Past Medical History?: Yes - Past Social History Smoking Status: Never Smoked - CARDIAC Hx Hypercholesterolemia: Yes Hx Hypertension: Yes - PULMONARY Hx Respiratory Disorders: No - NEUROLOGICAL Hx Neurological Disorder: Yes (RAYNAUD'S SYNDROME) Hx Dizziness: Yes Hx Seizures: Yes - HEENT Hx HEENT Problems: Yes Hx Cataracts: Yes - RENAL Hx Chronic Kidney Disease: No - ENDOCRINE/METABOLIC Hx Endocrine Disorders: Yes Hx Diabetes Mellitus Type 2: Yes - HEMATOLOGICAL/ONCOLOGICAL Hx Blood Disorders: Yes - INTEGUMENTARY Hx Dermatological Problems: No - MUSCULOSKELETAL/RHEUMATOLOGICAL Hx Musculoskeletal Disorders: Yes Hx Falls: No Hx Unsteady Gait: Yes - GASTROINTESTINAL Hx Gastrointestinal Disorders: No - GENITOURINARY/GYNECOLOGICAL Hx Genitourinary Disorders: No - PSYCHIATRIC Hx Psychophysiologic Disorder: No Hx Substance Use: No - SURGICAL HISTORY Hx Surgeries: Yes Hx Cataract Extraction: Yes (Bilateral eye) Hx Orthopedic Surgery: Yes (RT FOOT EXC TUMORS/LEFT FOOT EXC BONE) - ANESTHESIA Hx Anesthesia: Yes Hx Anesthesia Reactions: No Hx Malignant Hyperthermia: No Meds Allergies/Adverse Reactions: Allergies Allergy/AdvReac Type Severity Reaction Status Date / Time iodine Allergy Unknown RASH Verified 08/26/16 18:35 Penicillins Allergy Unknown RASH Verified 08/26/16 18:35 Physical Exam - Constitutional Appears: Non-toxic, No Acute Distress - Head Exam Head Exam: ATRAUMATIC, NORMOCEPHALIC - Eye Exam Eye Exam: Normal appearance Pupil Exam: PERRL Additional comments: Right eye with decreased peripheral vision nasal and temporal visual wilson - Respiratory Exam Respiratory Exam: Clear to Auscultation Bilateral. absent: Rales, Rhonchi, Wheezes - Cardiovascular Exam Cardiovascular Exam: REGULAR RHYTHM, +S1, +S2 - GI/Abdominal Exam GI & Abdominal Exam: Mass, Normal Bowel Sounds, Soft. absent: Guarding - Extremities Exam Additional comments: Right ankle lateral superficial ulcer 0.2 cm, no eryhtema or signs of infection - Neurological Exam Neurological exam: Alert, Oriented x3 - Psychiatric Exam Psychiatric exam: Normal Affect Results - Vital Signs Recent Vital Signs: Last Vital Signs Temp 98.2 F 08/26/16 19:47 Pulse 100 H 08/26/16 19:47 Resp 20 08/26/16 19:47 BP 125/73 08/26/16 19:47 Pulse Ox 98 08/26/16 19:47 Assessment & Plan - Assessment and Plan (Free Text) Plan: 61, yo , f, PMHx/o HTN, DM, uterine prolapse admitted with Right occipital infart with residual left homonymous hemianopsia and gait imbalance . Transferred to acute rehab to c/w rehabilitation 1. CVA, right occipital with left homonymous hemianopsia MRI Brain (08/19): Few scattered foci of high T2 signal within periventricular and subcortical white matter. Acute infarction within RIGHT occipital region. Carotid U/S (08/19): < 50% carotid arterial stenosis bilaterally. No significant atheromatous narrowing identified. Anterograde flow in both vertebral arteries. Plavix 75mg PO Daily Aspirin 81 mg Po daily Keppra 500 mg IV BID Neuro Onboard consult appreciated: c/w keppra and same management Ventilating Engineer consult appreciated. no cardioembolic event. HTN controlled Echo normal -Subacute rehab 2. DM II, hyperglycemia, uncontrolled Hgb A1c- 13.8% 08/20/16 Mid 100s- Low 300s Lispro Sliding Scale ACHS Increase Levemir 15 u SC HS Add Metformin 500mg PO BIDWM, taper up 1 daily to BID, diarrhea ADRs reviewed Atorvastatin 40mg PO Daily Will continue augmentation PRN 3. HTN Historically documented. Previously on Diovan. Monitor pressures. No medications at this time. 4. Seizure Likely secondary to CVA Patient required intubation in ER for acute respiratory failure secondary to seizure with CVA - S/P Extubated Keppra 500mg IVPB Q12H Neuro consult appreciated TSH 5.6 Folate, Vit 12 and RPR normal F/U HIV, HepC, microalbumin 5. DVT Prophylaxis Lovenox 40 mg sc daily
[2016-08-27] MEDS: Benzocaine/Menthol (Cepacol) Lozenge PO PRN (08:50)
--- NOTE | 2016-08-27 13:07 | PSY.TMCNF ---
Nursing - Vital Signs Vital Signs (Last 8 hours): Vital Signs 08/27/16 08/27/16 08/27/16 08:46 08:53 11:02 Temperature 97.5 F L Pulse Rate 105 H 71 107 H Respiratory 20 Rate Blood Pressure 103/63 98/64 L O2 Sat by Pulse 97 97 Oximetry - Medications/Other Issues Comment: to follow as per protocol - Bladder Management Bladder Pattern: Normal Voiding Method: Toilet - Bowel Management Bowel Pattern: Normal Physical Therapy - Bed Mobility Bed Mobility: Supervision - Transfers Sit to Stand: Verbal Cues, Contact Guard - Ambulation Level of Assistance: Verbal Cues, Contact Guard Distance (ft.): 150 Assistive Devices: N/A - Stair Negotiation Stairs: Level of Assistance: Verbal Cues, Contact Guard Number of Stairs: 6 Stairs: Assistive Devices: Right Handrail - Standing Balance Static Stand: Supervision Dynamic Stand: Contact Guard Assist - Pain Pain (assessed during therapy session): 0 - Insight/Carryover Insight/Carryover: Good - Patient/Family Education Comment: Pt education provided for role of PT, POC, PT goals, therapy schedule. Educated on inc. safety awareness and proper techniques during functional mobility training - Assessment/Plan Assessment: The pt is admitted to [facility] acute rehab with acute dx of CVA resulting in noted deficits in BLE strength, standing balance, and endurance resulting in decreased I with functional mobility tasks. Pt currently requires S for bed mobility, CGA for transfers, gait, and step negotiation. Pt previously I in all levels of function; therefore, therapy is necessary to prevent further decline in function, reduce fall risk, and maximize functional independence to achieve rehab goals. - Goals Timeframe: 2 weeks Goals: Sit < > supine (I). Sit < > stand (I). Ambulate 1000 ft on even/uneven surfaces (I). Negotiate 2 flights of stairs with R hand rail mod I - Provider Therapist: Vanda Worthy PT, DPT License Number: [id number] Occupational Therapy - Arousal/Attention/Orientation Patient Orientation: Person, Place, Time - Pain Pain (assessed during therapy session): 0 - Insight/Carryover Insight/Carryover: Good - Patient/Family Education Comment: Pt education provided for role of PT, POC, PT goals, therapy schedule. Educated on inc. safety awareness and proper techniques during functional mobility training - Assessment/Plan Assessment: The pt is admitted to [facility] acute rehab with acute dx of CVA resulting in noted deficits in BLE strength, standing balance, and endurance resulting in decreased I with functional mobility tasks. Pt currently requires S for bed mobility, CGA for transfers, gait, and step negotiation. Pt previously I in all levels of function; therefore, therapy is necessary to prevent further decline in function, reduce fall risk, and maximize functional independence to achieve rehab goals. - Goals Timeframe: 2 weeks Goals: Sit < > supine (I). Sit < > stand (I). Ambulate 1000 ft on even/uneven surfaces (I). Negotiate 2 flights of stairs with R hand rail mod I Speech Therapy - Plan Assessment: The pt is admitted to [facility] acute rehab with acute dx of CVA resulting in noted deficits in BLE strength, standing balance, and endurance resulting in decreased I with functional mobility tasks. Pt currently requires S for bed mobility, CGA for transfers, gait, and step negotiation. Pt previously I in all levels of function; therefore, therapy is necessary to prevent further decline in function, reduce fall risk, and maximize functional independence to achieve rehab goals. Recreational Therapy - Assessment Assessment/Plan: The pt is admitted to [facility] acute rehab with acute dx of CVA resulting in noted deficits in BLE strength, standing balance, and endurance resulting in decreased I with functional mobility tasks. Pt currently requires S for bed mobility, CGA for transfers, gait, and step negotiation. Pt previously I in all levels of function; therefore, therapy is necessary to prevent further decline in function, reduce fall risk, and maximize functional independence to achieve rehab goals. Nutrition - Current Diet Current Diet/ Supplement/ Feedings: Moderate consistent CHO Pureed nectar thick liquids - Appetite Percent Meal Consumed: 75-100% - Assessment/Goals/Time Frame Assessment/Goals/Time Frame: to follow as per protocol - Provider Provider: Julia Mederos RD Case Management - Discharge Plan Discharge Plan: Home alone (2 flights) Rehabilitation Plan - Treatment Plan Treatment Plan: Physical Therapy, Occupational Therapy, Speech, Dietary, Patient /Family Education - Discharge Plan Discharge to: Home
--- NOTE | 2016-08-27 13:41 | CP.PCM.CON ---
History of Present Illness - History of Present Illness History of Present Illness: Dr Forrester PMR consultation on Consuelo Dixon, born 1955, who has been admitted to [facility] for acute inpatient rehabilitation following an admission with altered mental status and required intubation. She was extubated, still with sore throat. Right CVA with left HP. Minimal deficit though but functional deficits are present. She is right hand dominant and was independent [employer] Review of Systems - Constitutional Constitutional: absent: Anorexia, Chills - EENT Eyes: absent: Blind Spots, Blurred Vision Nose/Mouth/Throat: absent: Nasal Congestion - Cardiovascular Cardiovascular: absent: Chest Pain - Respiratory Respiratory: absent: Dyspnea - Gastrointestinal Gastrointestinal: absent: Change in Bowel Habits - Musculoskeletal Musculoskeletal: absent: Arthralgias - Integumentary Integumentary: absent: Bleeding Lesions - Neurological Neurological: Abnormal Gait. absent: Abnormal Movements - Psychiatric Psychiatric: absent: Anxiety - Endocrine Endocrine: absent: Excessive Sweating Past Patient History - Past Medical History & Family History Past Medical History?: Yes - Past Social History Smoking Status: Never Smoked Alcohol: None Drugs: Denies Home Situation {Lives}: Alone (20 steps) - CARDIAC Hx Hypercholesterolemia: Yes Hx Hypertension: Yes - PULMONARY Hx Respiratory Disorders: No - NEUROLOGICAL Hx Neurological Disorder: Yes (RAYNAUD'S SYNDROME) Hx Dizziness: Yes Hx Seizures: Yes - HEENT Hx HEENT Problems: Yes Hx Cataracts: Yes - RENAL Hx Chronic Kidney Disease: No - ENDOCRINE/METABOLIC Hx Endocrine Disorders: Yes Hx Diabetes Mellitus Type 2: Yes - HEMATOLOGICAL/ONCOLOGICAL Hx Blood Disorders: Yes - INTEGUMENTARY Hx Dermatological Problems: No - MUSCULOSKELETAL/RHEUMATOLOGICAL Hx Musculoskeletal Disorders: Yes Hx Falls: No Hx Unsteady Gait: Yes - GASTROINTESTINAL Hx Gastrointestinal Disorders: No - GENITOURINARY/GYNECOLOGICAL Hx Genitourinary Disorders: No - PSYCHIATRIC Hx Psychophysiologic Disorder: No Hx Substance Use: No - SURGICAL HISTORY Hx Surgeries: Yes Hx Cataract Extraction: Yes (Bilateral eye) Hx Orthopedic Surgery: Yes (RT FOOT EXC TUMORS/LEFT FOOT EXC BONE) - ANESTHESIA Hx Anesthesia: Yes Hx Anesthesia Reactions: No Hx Malignant Hyperthermia: No Meds Allergies/Adverse Reactions: Allergies Allergy/AdvReac Type Severity Reaction Status Date / Time iodine Allergy Unknown RASH Verified 08/26/16 18:35 Penicillins Allergy Unknown RASH Verified 08/26/16 18:35 - Medications Medications: Current Medications Aspirin (Aspirin Chewable) 81 mg PO DAILY [facility] Last Admin: 08/27/16 08:45 Dose: 81 mg Atorvastatin Calcium (Lipitor) 40 mg PO HS [facility] Benzocaine/Menthol (Cepacol Sore Throat) 1 basilio PO Q3 PRN PRN Reason: Sore Throat Last Admin: 08/27/16 08:50 Dose: 1 basilio Clopidogrel Bisulfate (Plavix) 75 mg PO DAILY [facility] Last Admin: 08/27/16 08:45 Dose: 75 mg Insulin Detemir (Levemir) 15 units SC [facility] Last Admin: 08/26/16 21:37 Dose: 15 units Insulin Human Regular (Humulin R) 0 units SC [facility] PRN Reason: Protocol Last Admin: 08/27/16 06:58 Dose: Not Given Levetiracetam (Keppra) 500 mg PO BID [facility] Last Admin: 08/27/16 08:46 Dose: 500 mg Metformin HCl (Glucophage) 500 mg PO BID [facility] Last Admin: 08/27/16 08:45 Dose: 500 mg Metoprolol Tartrate (Lopressor) 12.5 mg PO Q12 [facility] Last Admin: 08/27/16 08:46 Dose: 12.5 mg Physical Exam - Constitutional Appears: Well, Non-toxic, No Acute Distress - Head Exam Head Exam: ATRAUMATIC, NORMAL INSPECTION, NORMOCEPHALIC - Eye Exam Eye Exam: EOMI Pupil Exam: NORMAL ACCOMODATION - ENT Exam ENT Exam: Mucous Membranes Moist - Respiratory Exam Respiratory Exam: NORMAL BREATHING PATTERN - Cardiovascular Exam Cardiovascular Exam: REGULAR RHYTHM - GI/Abdominal Exam GI & Abdominal Exam: Normal Bowel Sounds. absent: Distended - Extremities Exam Extremities exam: Positive for: full ROM. Negative for: joint swelling - Neurological Exam Neurological exam: Alert, CN II-XII Intact, Oriented x3 - Psychiatric Exam Psychiatric exam: Normal Affect, Normal Mood - Skin Skin Exam: Dry, Normal Color, Warm Results - Vital Signs Recent Vital Signs: Last Vital Signs Temp 97.5 F L 08/27/16 08:53 Pulse 107 H 08/27/16 11:02 Resp 20 08/27/16 08:53 BP 98/64 L 08/27/16 08:53 Pulse Ox 97 08/27/16 11:02 - Labs Labs: Laboratory Results - last 24 hr 08/27/16 05:35 POC Glucose (mg/dL) 129 H Assessment & Plan - Assessment and Plan (Free Text) Assessment: right CVA with minimal left HP deficit but functional deficit in particular gait imbalance Plan: PT/OT to continue to help increase functional independence Team conference for d/c planning Pain: controlled Vascular: no evidence of DVT GI: No evidence of constipation or diarrhea Patient is an excellent acute rehabilitation candidate and will have focused PT , OT and recreational therapy to help facilitate a safe and appropriate d/c plan impairment code 01.1
--- NOTE | 2016-08-27 18:13 | CP.PCM.PN ---
Subjective - Date & Time of Evaluation Date of Evaluation: 08/27/16 Time of Evaluation: 13:13 - Subjective Subjective: Patient seen for right CVA left HP Objective - Vital Signs/Intake and Output Vital Signs (last 24 hours): Temp Pulse Resp BP Pulse Ox 97.5 F L 99 H 18 111/66 98 08/27/16 16:07 08/27/16 16:07 08/27/16 16:07 08/27/16 16:07 08/27/16 16:07 - Medications Medications: Current Medications Aspirin (Aspirin Chewable) 81 mg PO DAILY [facility] Last Admin: 08/27/16 08:45 Dose: 81 mg Atorvastatin Calcium (Lipitor) 40 mg PO HS [facility] Benzocaine/Menthol (Cepacol Sore Throat) 1 basilio PO Q3 PRN PRN Reason: Sore Throat Last Admin: 08/27/16 08:50 Dose: 1 basilio Clopidogrel Bisulfate (Plavix) 75 mg PO DAILY [facility] Last Admin: 08/27/16 08:45 Dose: 75 mg Insulin Detemir (Levemir) 15 units SC HS [facility] Last Admin: 08/26/16 21:37 Dose: 15 units Insulin Human Regular (Humulin R) 0 units SC ACHS [facility] PRN Reason: Protocol Last Admin: 08/27/16 17:01 Dose: 2 unit Levetiracetam (Keppra) 500 mg PO BID [facility] Last Admin: 08/27/16 18:00 Dose: 500 mg Metformin HCl (Glucophage) 500 mg PO BID [facility] Last Admin: 08/27/16 18:00 Dose: 500 mg Metoprolol Tartrate (Lopressor) 12.5 mg PO Q12 [facility] Last Admin: 08/27/16 08:46 Dose: 12.5 mg Physiatry Overall Plan of Care - Overall Plan of Care Estimated Length of Stay in Weeks: 2 Rehab Impairment: Mobility, Balance, Coordination Etiologic Diagnosis: Cerebrovascular Accident Rehab/Medical Prognosis: Good - Anticipated Interventions Physical Therapy:: Yes Occupational Therapy:: Yes Speech Therapy:: No Recreational Therapy:: Yes - Therapy Goals Bed Mobility: Independent Ambulation: Independent Functional Positional Changes:: Independent - Discharge Plan Identification of Barriers to Discharge: Home Situation Discharge Destination: Home
[2016-08-27] MEDS: Insulin Detemir 100 Units/ml Inj SC SCH (21:58)
[2016-08-28] MEDS: Insulin Regular 100 units/ml SC SCH ×4 (06:51→21:55)
[2016-08-28] MEDS: Benzocaine/Menthol (Cepacol) Lozenge PO PRN ×3 (08:36→20:06)
--- NOTE | 2016-08-28 09:11 | CP.PCM.PN ---
Subjective - Date & Time of Evaluation Date of Evaluation: 08/28/16 Time of Evaluation: 08:15 - Subjective Subjective: 61 year old female patient was seen at bedside this morning concerning right lateral ankle ulcer. Patient was resting comfortably in chair this morning and denies of any acute overnight distress. Pt denies pedal complaints and no pedal pain at this time. Pt denies and acute overnight events. Pt denies any f/c/n/v/ cp/sob. Objective - Vital Signs/Intake and Output Vital Signs (last 24 hours): Temp Pulse Resp BP Pulse Ox 98.2 F 104 H 20 132/75 97 08/28/16 08:30 08/28/16 08:35 08/28/16 08:30 08/28/16 08:35 08/28/16 08:30 - Medications Medications: Current Medications Aspirin (Aspirin Chewable) 81 mg PO DAILY [facility] Last Admin: 08/28/16 08:34 Dose: 81 mg Atorvastatin Calcium (Lipitor) 40 mg PO HS [facility] Last Admin: 08/27/16 21:59 Dose: 40 mg Benzocaine/Menthol (Cepacol Sore Throat) 1 basilio PO Q3 PRN PRN Reason: Sore Throat Last Admin: 08/28/16 08:36 Dose: 1 basilio Clopidogrel Bisulfate (Plavix) 75 mg PO DAILY [facility] Last Admin: 08/28/16 08:36 Dose: 75 mg Insulin Detemir (Levemir) 15 units SC [facility] Last Admin: 08/27/16 21:58 Dose: 15 units Insulin Human Regular (Humulin R) 0 units SC [facility] PRN Reason: Protocol Last Admin: 08/28/16 06:51 Dose: 2 unit Levetiracetam (Keppra) 500 mg PO BID [facility] Last Admin: 08/28/16 08:35 Dose: 500 mg Metformin HCl (Glucophage) 500 mg PO BID [facility] Last Admin: 08/28/16 08:34 Dose: 500 mg Metoprolol Tartrate (Lopressor) 12.5 mg PO Q12 [facility] Last Admin: 08/28/16 08:35 Dose: 12.5 mg - Constitutional Appears: Well, Non-toxic, No Acute Distress - Extremities Exam Additional comments: Right Lower extremity focused. VASC: DP and PT pulses are palpable, graded 2/4. No edema noted to right lower extremity. Cap refill time to all digits less than 5 seconds DERM: Dishydrotic parch noted to posterior lateral ankle. 0.2 cm superficial ulceration with exudates crust undergoing early stage re-externalization noted. No active drainage not acute sign of infection noted. NEUOR: Protective sensation grossly diminished. MUSCK: Pedal muscle strenght graded 5/5 in 4 major pedal muscle groups. - Neurological Exam Neurological Exam: Awake, Oriented x3 - Psychiatric Exam Psychiatric exam: Normal Affect, Normal Mood - Skin Skin Exam: Normal Color, Warm Assessment and Plan - Assessment and Plan (Free Text) Assessment: 61 year old female with diabetic superficial ulceration to right ankle Plan: Pt evaluated and treated at bedside with all questions and concerns addressed Chart, labs, and vitals reviewed. Discussed with attending, Dr. Blas. Dressing change with Bacitracin and DSD. Pt is stable from podiatry standpoint for discharge. To follow up with Dr. Blas for podiatry needs. Podiatry will continue to follow while inhouse
--- NOTE | 2016-08-28 09:27 | CP.PCM.CON ---
History of Present Illness - History of Present Illness History of Present Illness: 61 year old female patient with PMHx of HTN, DM, uterine prolapse was seen at bedside Rehab this morning concerning right lateral ankle ulcer. Patient was resting comfortably in chair this morning and denies of any acute overnight distress. Patient denies pedal complaints and no pedal pain at this time. Patient denies and acute overnight events. Patient denies any f/c/n/v/cp/sob. Past Patient History - Past Medical History & Family History Past Medical History?: Yes - Past Social History Smoking Status: Never Smoked Alcohol: None Drugs: Denies Home Situation {Lives}: Alone (20 steps) - CARDIAC Hx Hypercholesterolemia: Yes Hx Hypertension: Yes - PULMONARY Hx Respiratory Disorders: No - NEUROLOGICAL Hx Neurological Disorder: Yes (RAYNAUD'S SYNDROME) Hx Dizziness: Yes Hx Seizures: Yes - HEENT Hx HEENT Problems: Yes Hx Cataracts: Yes - RENAL Hx Chronic Kidney Disease: No - ENDOCRINE/METABOLIC Hx Endocrine Disorders: Yes Hx Diabetes Mellitus Type 2: Yes - HEMATOLOGICAL/ONCOLOGICAL Hx Blood Disorders: Yes - INTEGUMENTARY Hx Dermatological Problems: No - MUSCULOSKELETAL/RHEUMATOLOGICAL Hx Musculoskeletal Disorders: Yes Hx Falls: No Hx Unsteady Gait: Yes - GASTROINTESTINAL Hx Gastrointestinal Disorders: No - GENITOURINARY/GYNECOLOGICAL Hx Genitourinary Disorders: No - PSYCHIATRIC Hx Psychophysiologic Disorder: No Hx Substance Use: No - SURGICAL HISTORY Hx Surgeries: Yes Hx Cataract Extraction: Yes (Bilateral eye) Hx Orthopedic Surgery: Yes (RT FOOT EXC TUMORS/LEFT FOOT EXC BONE) - ANESTHESIA Hx Anesthesia: Yes Hx Anesthesia Reactions: No Hx Malignant Hyperthermia: No Meds Allergies/Adverse Reactions: Allergies Allergy/AdvReac Type Severity Reaction Status Date / Time iodine Allergy Unknown RASH Verified 08/26/16 18:35 Penicillins Allergy Unknown RASH Verified 08/26/16 18:35 - Medications Medications: Current Medications Aspirin (Aspirin Chewable) 81 mg PO DAILY [facility] Last Admin: 08/28/16 08:34 Dose: 81 mg Atorvastatin Calcium (Lipitor) 40 mg PO HS [facility] Last Admin: 08/27/16 21:59 Dose: 40 mg Benzocaine/Menthol (Cepacol Sore Throat) 1 basilio PO Q3 PRN PRN Reason: Sore Throat Last Admin: 08/28/16 08:36 Dose: 1 basilio Clopidogrel Bisulfate (Plavix) 75 mg PO DAILY [facility] Last Admin: 08/28/16 08:36 Dose: 75 mg Insulin Detemir (Levemir) 15 units SC HS [facility] Last Admin: 08/27/16 21:58 Dose: 15 units Insulin Human Regular (Humulin R) 0 units SC ACHS [facility] PRN Reason: Protocol Last Admin: 08/28/16 06:51 Dose: 2 unit Levetiracetam (Keppra) 500 mg PO BID [facility] Last Admin: 08/28/16 08:35 Dose: 500 mg Metformin HCl (Glucophage) 500 mg PO BID [facility] Last Admin: 08/28/16 08:34 Dose: 500 mg Metoprolol Tartrate (Lopressor) 12.5 mg PO Q12 [facility] Last Admin: 08/28/16 08:35 Dose: 12.5 mg Physical Exam - Constitutional Appears: Well, Non-toxic, No Acute Distress - Extremities Exam Additional comments: Right Lower extremity focused. VASC: DP and PT pulses are palpable, graded 2/4. No edema noted to right lower extremity. Cap refill time to all digits less than 5 seconds DERM: Dishydrotic parch noted to posterior lateral ankle. 0.2 cm superficial ulceration with exudates crust undergoing early stage re-externalization noted. No active drainage not acute sign of infection noted. NEUOR: Protective sensation grossly diminished. MUSCK: Pedal muscle strenght graded 5/5 in 4 major pedal muscle groups. - Neurological Exam Neurological exam: Alert, Oriented x3 - Psychiatric Exam Psychiatric exam: Normal Affect, Normal Mood - Skin Skin Exam: Normal Color, Warm Results - Vital Signs Recent Vital Signs: Last Vital Signs Temp 98.2 F 08/28/16 08:30 Pulse 104 H 08/28/16 08:35 Resp 20 08/28/16 08:30 BP 132/75 08/28/16 08:35 Pulse Ox 97 08/28/16 08:30 - Labs Labs: Laboratory Results - last 24 hr 08/27/16 08/27/16 08/27/16 13:34 15:52 21:04 POC Glucose (mg/dL) 287 H 184 H 224 H 08/28/16 05:04 POC Glucose (mg/dL) 167 H Assessment & Plan - Assessment and Plan (Free Text) Assessment: 61 year old female with diabetic superficial ulceration to right ankle Plan: Pt evaluated and treated at bedside with all questions and concerns addressed Chart, labs, and vitals reviewed. Discussed with attending, Dr. Blas. Dressing change with Bacitracin and DSD. Pt is stable from podiatry standpoint for discharge. To follow up with Dr. Blas for podiatry needs. Podiatry will continue to follow while inhouse
[2016-08-28] MEDS: Insulin Detemir 100 Units/ml Inj SC SCH (21:55)
[2016-08-29] MEDS: Insulin Regular 100 units/ml SC SCH ×4 (06:40→21:00)
[2016-08-29] MEDS: Benzocaine/Menthol (Cepacol) Lozenge PO PRN (08:40)
--- NOTE | 2016-08-29 09:06 | CP.PCM.PN ---
Subjective - Date & Time of Evaluation Date of Evaluation: 08/29/16 Time of Evaluation: 08:00 - Subjective Subjective: 61 year old female patient with PMHx of HTN, DM, uterine prolapse was seen at bedside this morning concerning right lateral ankle ulcer. Patient was eating breakfast in chair this morning, AAO x3. She denies of any acute overnight distress. Patient denies pedal complaints and no pedal pain at this time. Patient denies and acute overnight events. Patient denies any f/c/n/v/cp/sob. Objective - Vital Signs/Intake and Output Vital Signs (last 24 hours): Temp Pulse Resp BP Pulse Ox 97.9 F 100 H 20 102/68 100 08/29/16 08:46 08/29/16 08:46 08/29/16 08:46 08/29/16 08:46 08/29/16 08:46 - Medications Medications: Current Medications Aspirin (Aspirin Chewable) 81 mg PO DAILY [facility] Last Admin: 08/29/16 08:40 Dose: 81 mg Atorvastatin Calcium (Lipitor) 40 mg PO [facility] Last Admin: 08/28/16 21:56 Dose: 40 mg Benzocaine/Menthol (Cepacol Sore Throat) 1 basilio PO Q3 PRN PRN Reason: Sore Throat Last Admin: 08/29/16 08:40 Dose: 1 basilio Clopidogrel Bisulfate (Plavix) 75 mg PO DAILY [facility] Last Admin: 08/29/16 08:42 Dose: 75 mg Insulin Detemir (Levemir) 15 units SC [facility] Last Admin: 08/28/16 21:55 Dose: 15 units Insulin Human Regular (Humulin R) 0 units SC [facility] PRN Reason: Protocol Last Admin: 08/29/16 06:40 Dose: 2 unit Levetiracetam (Keppra) 500 mg PO BID [facility] Last Admin: 08/29/16 08:41 Dose: 500 mg Metformin HCl (Glucophage) 500 mg PO BID [facility] Last Admin: 08/29/16 08:40 Dose: 500 mg Metoprolol Tartrate (Lopressor) 12.5 mg PO Q12 [facility] Last Admin: 08/29/16 08:41 Dose: 12.5 mg - Extremities Exam Additional comments: Right Lower extremity focused. VASC: DP and PT pulses are palpable, graded 2/4. No edema noted to right lower extremity. Cap refill time to all digits less than 5 seconds DERM: Dishydrotic parch noted to posterior lateral ankle. 0.2 cm superficial ulceration with exudates crust undergoing early stage re-externalization noted. No active drainage. NO acute sign of infection noted. NEUOR: Protective sensation grossly diminished. MUSCK: Pedal muscle strenght graded 5/5 in 4 major pedal muscle groups. Assessment and Plan - Assessment and Plan (Free Text) Assessment: 61 year old female with diabetic superficial ulceration to right ankle Plan: Pt evaluated and treated at bedside with all questions and concerns addressed Chart, labs, and vitals reviewed. Discussed with attending, Dr. Blas. Dressing change with Bacitracin and DSD. Pt is stable from podiatry standpoint for discharge. To follow up with Dr. Blas for podiatry needs. Podiatry will continue to follow while inhouse
[2016-08-29] MEDS: Insulin Detemir 100 Units/ml Inj SC SCH (21:49)
[2016-08-30] MEDS: Insulin Regular 100 units/ml SC SCH ×4 (06:30→21:00)
--- NOTE | 2016-08-30 08:02 | CP.PCM.PN ---
Subjective - Date & Time of Evaluation Date of Evaluation: 08/30/16 Time of Evaluation: 07:35 - Subjective Subjective: Patient seen and examined bedside feeling better. Reports she had heartburn and 1 brown color postpandrial vomiting yesterday afternoon. Denies pyrosis today, nausea, vomiting, abd pain, chest pain, palpitation, rectal bleeding . improving gait with physical therapy. Objective - Vital Signs/Intake and Output Vital Signs (last 24 hours): Temp Pulse Resp BP Pulse Ox 98.4 F 93 H 20 108/70 100 08/29/16 20:18 08/29/16 20:25 08/29/16 20:18 08/29/16 20:25 08/29/16 20:18 - Medications Medications: Current Medications Aspirin (Aspirin Chewable) 81 mg PO DAILY [facility] Last Admin: 08/29/16 08:40 Dose: 81 mg Atorvastatin Calcium (Lipitor) 40 mg PO HS [facility] Last Admin: 08/29/16 21:49 Dose: 40 mg Benzocaine/Menthol (Cepacol Sore Throat) 1 basilio PO Q3 PRN PRN Reason: Sore Throat Last Admin: 08/29/16 08:40 Dose: 1 basilio Clopidogrel Bisulfate (Plavix) 75 mg PO DAILY [facility] Last Admin: 08/29/16 08:42 Dose: 75 mg Insulin Detemir (Levemir) 15 units SC HS [facility] Last Admin: 08/29/16 21:49 Dose: 15 units Insulin Human Regular (Humulin R) 0 units SC ACHS [facility] PRN Reason: Protocol Last Admin: 08/30/16 06:30 Dose: Not Given Levetiracetam (Keppra) 500 mg PO BID [facility] Last Admin: 08/29/16 16:36 Dose: 500 mg Metformin HCl (Glucophage) 500 mg PO BID [facility] Last Admin: 08/29/16 16:36 Dose: 500 mg Metoprolol Tartrate (Lopressor) 12.5 mg PO Q12 [facility] Last Admin: 08/29/16 20:25 Dose: 12.5 mg - Constitutional Appears: Non-toxic, No Acute Distress - Head Exam Head Exam: ATRAUMATIC, NORMOCEPHALIC - Eye Exam Eye Exam: Normal appearance, PERRL. absent: Nystagmus Additional comments: Left eye: decreased peripheral field vision - Respiratory Exam Respiratory Exam: Clear to Ausculation Bilateral. absent: Rales, Rhonchi, Wheezes, Stridor - Cardiovascular Exam Cardiovascular Exam: REGULAR RHYTHM, +S1, +S2 - GI/Abdominal Exam GI & Abdominal Exam: Soft, Normal Bowel Sounds. absent: Guarding, Tenderness - Extremities Exam Extremities Exam: absent: Calf Tenderness Additional comments: Right ankle superficial ulcer 0.2 mm w/o erythema or signs of infection - Neurological Exam Neurological Exam: Alert, Awake, Oriented x3 - Psychiatric Exam Psychiatric exam: Normal Affect Assessment and Plan - Assessment and Plan (Free Text) Plan: 61, yo , f, PMHx/o HTN, DM, uterine prolapse admitted with Right occipital infart and residual left homonymous hemianopsia and gait imbalance . Transferred to acute rehab to c/w rehabilitation 1. CVA, right occipital with left homonymous hemianopsia MRI Brain (08/19): Few scattered foci of high T2 signal within periventricular and subcortical white matter. Acute infarction within RIGHT occipital region. Carotid U/S (08/19): < 50% carotid arterial stenosis bilaterally. No significant atheromatous narrowing identified. Anterograde flow in both vertebral arteries. Plavix 75mg PO Daily Aspirin 81 mg Po daily Keppra 500 mg IV BID Neuro Onboard consult appreciated: c/w keppra and same management -New Neuro consult requested Personnel Records Clerk consult appreciated. no cardioembolic event. HTN controlled Echo normal -Subacute rehab 2. Seizure Likely secondary to CVA Patient required intubation in ER for acute respiratory failure secondary to seizure with CVA - S/P Extubated Keppra 500mg IVPB Q12H Neuro consult appreciated TSH 5.6 Folate, Vit 12 and RPR normal -HIV, Hep C, RPR neg. 3) Pyrosis - Heartburn and 1 emesis yesterday -Pepcid 20 mg BID 4) DM II, hyperglycemia, uncontrolled Hgb A1c- 13.8% 08/20/16 Blood glucose 130 mg/dl Lispro Sliding Scale ACHS Levemir 15 u SC HS Metformin 500mg PO BID Atorvastatin 40mg PO Daily -F/U CBC, CMP, PT/INR 5. HTN Metoprolol tartrate 12.5 mg BID 6. DVT Prophylaxis Lovenox 40 mg sc daily
[2016-08-30] MEDS: Benzocaine/Menthol (Cepacol) Lozenge PO PRN (08:53)
[2016-08-30] MEDS: Enoxaparin 40 mg Syringe SC SCH (13:50)
--- NOTE | 2016-08-30 16:30 | CP.PCM.PN ---
Subjective - Date & Time of Evaluation Date of Evaluation: 08/30/16 Time of Evaluation: 16:29 - Subjective Subjective: Patient is doing very nicely ambulating w/o AD even at times in PT gym having a good time NAD continue current care Objective - Vital Signs/Intake and Output Vital Signs (last 24 hours): Temp Pulse Resp BP Pulse Ox 97.7 F 97 H 18 112/66 98 08/30/16 09:16 08/30/16 10:24 08/30/16 09:16 08/30/16 09:16 08/30/16 10:24 - Medications Medications: Current Medications Aspirin (Aspirin Chewable) 81 mg PO DAILY [facility] Last Admin: 08/30/16 08:43 Dose: 81 mg Atorvastatin Calcium (Lipitor) 40 mg PO HS [facility] Last Admin: 08/29/16 21:49 Dose: 40 mg Benzocaine/Menthol (Cepacol Sore Throat) 1 basilio PO Q3 PRN PRN Reason: Sore Throat Last Admin: 08/30/16 08:53 Dose: 1 basilio Clopidogrel Bisulfate (Plavix) 75 mg PO DAILY [facility] Last Admin: 08/30/16 08:43 Dose: 75 mg Enoxaparin Sodium (Lovenox) 40 mg SC DAILY [facility] PRN Reason: Protocol Last Admin: 08/30/16 13:50 Dose: 40 mg Famotidine (Pepcid) 20 mg PO BID [facility] Insulin Detemir (Levemir) 15 units SC HS [facility] Last Admin: 08/29/16 21:49 Dose: 15 units Insulin Human Regular (Humulin R) 0 units SC [facility] PRN Reason: Protocol Last Admin: 08/30/16 12:00 Dose: 3 unit Levetiracetam (Keppra) 500 mg PO BID [facility] Last Admin: 08/30/16 08:43 Dose: 500 mg Metformin HCl (Glucophage) 500 mg PO BID [facility] Last Admin: 08/30/16 08:43 Dose: 500 mg Metoprolol Tartrate (Lopressor) 12.5 mg PO Q12 [facility]
--- NOTE | 2016-08-30 19:33 | PN ---
DATE: 08/30/2016 NEUROLOGICAL PROBLEM: Right occipital lobe infarct manifesting as left homonymous hemianopsia and se izures. VITAL SIGNS: Blood pressure 111/70, mean arterial pressure of 83, respiratory rate 16, temperature a febrile. NECK: Supple. No carotid bruit. HEART SOUNDS: Regular. CHEST: Fair air entry. EXTREMITIES: No edema in legs. NEUROLOGIC EXAMINATION: MENTAL STATUS EXAMINATION: She is awake, alert, oriented to person, place, and time. CRANIAL NERVE EXAMINATION: Left homonymous hemianopsia which is dense. No macular studding. The rest of the cranial nerve examination is normal. MOTOR EXAMINATION: Showed no focal weakness. Deep tendon reflexes are trace. Plantars are downgoin g. SENSORY: Mildly sensory motor neuropathy. GAIT: Normal. The patient does not have any seizures since she was treated primarily with antiepileptic drugs. RECOMMENDATIONS: 1. Continue the stroke preventive medications as she has been given. 2. Continue Keppra. 3. Deep venous thrombosis prophylaxis. 4. Active physical therapy. Please be aware her vision on her left side is not good secondary to her homonymous hemianopsia. The patient will be followed closely with you. Saud Warner MD cc: [id number] TT: 08/30/2016 19:32:37 Confirmation # [id number] Dictation # [id number] [email or web address]
[2016-08-30] MEDS: Insulin Detemir 100 Units/ml Inj SC SCH (21:20)
[2016-08-31] MEDS: Insulin Regular 100 units/ml SC SCH ×4 (06:30→21:46)
[2016-08-31 08:17] LABS: ALB/GLOB RATIO 1.1 (1.0-2.1); ALKALINE PHOSPHATASE 66 U/L (38-126); ALT/SGPT 42 U/L (9-52); AST/SGOT 33 U/L (14-36); BILIRUBIN,TOTAL 0.6 mg/dl (0.2-1.3); BLOOD UREA NITROGEN 18 mg/dl (7-17); CALCIUM 9.5 mg/dL (8.4-10.2); CARBON DIOXIDE 30 mmol/L (22-30); CHLORIDE 101 mmol/L (98-107); GFR AFRICAN-AMERICAN > 60; GLUCOSE,RANDOM 146 mg/dL (65-105); SODIUM 145 mmol/l (132-148); TOTAL PROTEIN 7.2 G/DL (6.3-8.2)
[2016-08-31 08:24] LABS: HEMATOCRIT 33.6 % (34.0-47.0); MEAN CELL VOLUME 90.8 fl (81.0-99.0); MEAN CORPUSCULAR HEMOGLOBIN 30.1 pg (27.0-31.0); MEAN CORPUSCULAR HGB CONC 33.2 g/dL (33.0-37.0); RED CELL DISTRIBUTION WIDTH 14.8 % (11.5-14.5); WHITE BLOOD COUNT 7.1 K/uL (4.8-10.8)
[2016-08-31 09:11] LABS: PARTIAL THROMBOPLASTIN TIME 23.8 SECONDS (23.3-32.5)
[2016-08-31] MEDS: Enoxaparin 40 mg Syringe SC SCH (09:11)
[2016-08-31] MEDS: Benzocaine/Menthol (Cepacol) Lozenge PO PRN (15:26)
[2016-08-31] MEDS: Insulin Detemir 100 Units/ml Inj SC SCH (21:45)
[2016-09-01] MEDS: Insulin Regular 100 units/ml SC SCH ×4 (06:29→22:00)
[2016-09-01] MEDS: Enoxaparin 40 mg Syringe SC SCH (08:41)
[2016-09-01] MEDS: Benzocaine/Menthol (Cepacol) Lozenge PO PRN ×2 (08:42→17:24)
[2016-09-01] MEDS: Insulin Detemir 100 Units/ml Inj SC SCH (21:33)
[2016-09-02] MEDS: Insulin Regular 100 units/ml SC SCH ×2 (07:06→12:28)
[2016-09-02] MEDS: Enoxaparin 40 mg Syringe SC SCH (08:54)
[2016-09-02] MEDS: Benzocaine/Menthol (Cepacol) Lozenge PO PRN ×2 (08:56→13:00)
--- NOTE | 2016-09-02 13:20 | CP.PCM.PN ---
Subjective - Date & Time of Evaluation Date of Evaluation: 09/02/16 Time of Evaluation: 07:45 - Subjective Subjective: Patient seen and examined bedside feeling better. Reports she is improving walking with PT but still reports difficulty vision left eye.AAO x3. Denies chest pain, SOB, palpitation, N/V/D, visual hallucinations. Objective - Vital Signs/Intake and Output Vital Signs (last 24 hours): Temp Pulse Resp BP Pulse Ox 98.2 F 94 H 18 100/62 94 L 09/02/16 09:01 09/02/16 09:01 09/02/16 09:01 09/02/16 09:01 09/02/16 09:01 - Medications Medications: Current Medications Aspirin (Aspirin Chewable) 81 mg PO DAILY [facility] Last Admin: 09/02/16 08:57 Dose: 81 mg Atorvastatin Calcium (Lipitor) 40 mg PO HS [facility] Last Admin: 09/01/16 21:34 Dose: 40 mg Benzocaine/Menthol (Cepacol Sore Throat) 1 basilio PO Q3 PRN PRN Reason: Sore Throat Last Admin: 09/02/16 08:56 Dose: 1 basilio Clopidogrel Bisulfate (Plavix) 75 mg PO DAILY [facility] Last Admin: 09/02/16 09:05 Dose: 75 mg Enoxaparin Sodium (Lovenox) 40 mg SC DAILY [facility] PRN Reason: Protocol Last Admin: 09/02/16 08:54 Dose: 40 mg Famotidine (Pepcid) 20 mg PO BID [facility] Last Admin: 09/02/16 08:57 Dose: 20 mg Insulin Detemir (Levemir) 5 units SC HS [facility] Insulin Human Regular (Humulin R) 0 units SC ACHS [facility] PRN Reason: Protocol Last Admin: 09/02/16 12:28 Dose: Not Given Levetiracetam (Keppra) 500 mg PO BID [facility] Last Admin: 09/02/16 08:57 Dose: 500 mg Metformin HCl (Glucophage) 500 mg PO 1801 [facility] Metformin HCl (Glucophage) 1,000 mg PO 0900 [facility] Metoprolol Tartrate (Lopressor) 12.5 mg PO Q12 [facility] Last Admin: 09/02/16 08:55 Dose: Not Given - Labs Labs: 08/31/16 07:00 08/31/16 07:00 PT 10.5 SECONDS (9.6-11.2) 08/31/16 07:00 INR 1.01 (0.92-1.08) 08/31/16 07:00 APTT 23.8 SECONDS (23.3-32.5) 08/31/16 07:00 - Constitutional Appears: Non-toxic, No Acute Distress - Head Exam Head Exam: ATRAUMATIC, NORMOCEPHALIC - Eye Exam Additional comments: Left eye with reduced peripheral field vision. - Respiratory Exam Respiratory Exam: Clear to Ausculation Bilateral. absent: Rales, Wheezes, Stridor - Cardiovascular Exam Cardiovascular Exam: REGULAR RHYTHM, +S1, +S2 - GI/Abdominal Exam GI & Abdominal Exam: Soft, Normal Bowel Sounds. absent: Tenderness - Extremities Exam Extremities Exam: absent: Pedal Edema Assessment and Plan - Assessment and Plan (Free Text) Plan: 61, yo , f, PMHx/o HTN, DM, uterine prolapse admitted with Right occipital infart and residual left homonymous hemianopsia and gait imbalance . Transferred to acute rehab to c/w rehabilitation 1. CVA, right occipital with left homonymous hemianopsia MRI Brain (08/19): Few scattered foci of high T2 signal within periventricular and subcortical white matter. Acute infarction within RIGHT occipital region. Carotid U/S (08/19): < 50% carotid arterial stenosis bilaterally. No significant atheromatous narrowing identified. Anterograde flow in both vertebral arteries. Plavix 75mg PO Daily Aspirin 81 mg Po daily Keppra 500 mg IV BID Neuro Onboard consult appreciated: c/w keppra and same management Sheep Boner consult appreciated. no cardioembolic event. HTN controlled Echo normal -Subacute rehab 2. Seizure Likely secondary to CVA Patient required intubation in ER for acute respiratory failure secondary to seizure with CVA - S/P Extubated Keppra 500mg IVPB Q12H Neuro consult appreciated TSH 5.6 Folate, Vit 12 and RPR normal -HIV, Hep C, RPR neg. 3) Pyrosis - Heartburn and 1 emesis yesterday -Pepcid 20 mg BID 4) DM II, hyperglycemia, uncontrolled Hgb A1c- 13.8% 08/20/16 Blood glucose 177 mg/dl Lispro Sliding Scale ACHS Levemir 5 u SC HS Metformin 1000 mg PO after breakfast 500 mg after meals Atorvastatin 40mg PO Daily -PT/INR 1.01 5. HTN Metoprolol tartrate 12.5 mg BID 6. DVT Prophylaxis Lovenox 40 mg sc daily
[2016-09-02] MEDS ORDERED: Insulin Regular 100 units/ml SC SCH (17:00)
[2016-09-02] MEDS: Insulin Detemir 100 Units/ml Inj SC SCH (21:54)
[2016-09-03] MEDS: Insulin Regular 100 units/ml SC SCH ×2 (06:57→16:30)
[2016-09-03 07:07] LABS: MEAN CELL VOLUME 89.5 fl (81.0-99.0); MEAN CORPUSCULAR HEMOGLOBIN 31.1 pg (27.0-31.0); MEAN CORPUSCULAR HGB CONC 34.7 g/dL (33.0-37.0); RED CELL DISTRIBUTION WIDTH 14.7 % (11.5-14.5); WHITE BLOOD COUNT 6.4 K/uL (4.8-10.8)
[2016-09-03] MEDS: Benzocaine/Menthol (Cepacol) Lozenge PO PRN ×4 (08:18→21:16)
[2016-09-03] MEDS: Enoxaparin 40 mg Syringe SC SCH (08:22)
--- NOTE | 2016-09-03 13:12 | PSY.TMCNF ---
Nursing - Vital Signs Vital Signs (Last 8 hours): Vital Signs 09/03/16 09/03/16 09/03/16 08:20 09:00 10:00 Temperature 98.2 F 96.8 F L Pulse Rate 82 82 82 Respiratory 20 18 Rate Blood Pressure 108/62 108/62 108/62 O2 Sat by Pulse 94 L Oximetry Pain: 0 - Precautions: Precautions: Fall Prevention, Aspiration - Medications/Other Issues Comment: Pt at moderate nutritional risk. goal:1. PO intake >75% of meals with tolerance. Follow-up due on 09/03/2016 - Consults Comment: DR. Forrester - Toileting Toileting: Supervision - Bladder Management Bladder Pattern: Normal Voiding Method: Toilet Bladder Management: Modified Independent Frequency of Accidents: 0 - Bowel Management Bowel Pattern: Normal Bowel Management: Modified Independent Frequency of Accidents: none - Transfers Transfers: Supervision - ADL's ADL's: Supervision - Pain Management Comments: denies - Patient/Family Teaching Comments: Care post CVA and safety precautions - Goals/Time Frame Comments: Per multidisciplinary care plan and goals Physical Therapy - Bed Mobility Bed Mobility: Independent - Transfers Wheelchair to Mat: Supervision Sit to Stand: Supervision, Verbal Cues - Ambulation Level of Assistance: Supervision Distance (ft.): 250 Assistive Devices: N/A Comment: pt ambulates without AD - Stair Negotiation Stairs: Level of Assistance: Supervision, Verbal Cues Number of Stairs: 22 Handrails: Right Stairs: Assistive Devices: Right Handrail - Standing Balance Static Stand: Modified [place] with assistive device Dynamic Stand: Tandem stance, Supervision - Pain Pain (assessed during therapy session): 0 - Insight/Carryover Insight/Carryover: Good - Patient/Family Education Comment: Pt education provided for increased safety awareness and proper techniques/body mechanics during functional mobility tasks. - Assessment/Plan Assessment: Consuelo Dixon presents with mild cognitive linguistic deficits characterized by impaired short-term recall and thought organization for complex tasks, as well as mild dysphonia characterized by weak, breathy, hoarse vocal quality. Pt has met tx goals for dysphagia and her diet has been advanced to regular solids and thin liquids; no further need for continued dysphagia tx as pt is tolerating least restrictive diet. Pt would benefit from ST 3-5x/week to improve cognition and voice. - Goals Timeframe: 2 weeks Goals: Bed mobility with independence. All functional transfers with independence. Ambulate 1000 ft on even/uneven surfaces with independence. Ascend/descend 2 flights of stairs with R handrail mod I., - Provider License Number: [id number] Occupational Therapy - Arousal/Attention/Orientation Patient Orientation: Person, Place, Time, Appropriate to Age, Appropriate to Situation - ADL/IADL Self Feeding: Supervision, Set-up Help Grooming: Supervision, Set-up Help Dressing-Upper Extremity: Supervision, Set-up Help Dressing-Lower Extremity: Supervision, Set-up Help - Sitting Balance Static Sitting: Independent without upper extremity support Dynamic Sitting: Reaches across midline, Reaches within base of support, Requires supervision - Transfers Wheelchair to Bed Transfers: Supervision, Contact Guard Toilet Transfers: Supervision, Contact Guard Comment: Tub and shower transfers not assessed during the initial evaluation. Will assess in future occupational therapy session as appropriate. - Wheelchair Management Level of Assistance: Supervision Distance (ft.): 100 - Pain Pain (assessed during therapy session): 0 - Insight/Carryover Insight/Carryover: Good - Patient/Family Education Comment: Pt education provided for increased safety awareness and proper techniques/body mechanics during functional mobility tasks. - Assessment/Plan Assessment: Consuelo Dixon presents with mild cognitive linguistic deficits characterized by impaired short-term recall and thought organization for complex tasks, as well as mild dysphonia characterized by weak, breathy, hoarse vocal quality. Pt has met tx goals for dysphagia and her diet has been advanced to regular solids and thin liquids; no further need for continued dysphagia tx as pt is tolerating least restrictive diet. Pt would benefit from ST 3-5x/week to improve cognition and voice. - Goals Timeframe: 2 weeks Goals: Bed mobility with independence. All functional transfers with independence. Ambulate 1000 ft on even/uneven surfaces with independence. Ascend/descend 2 flights of stairs with R handrail mod I., - Provider Therapist: Destiny MARRERO Speech Therapy - Consult Information Patient on Program: Yes Medical Diagnosis: CVA Treatment Diagnosis: - mild cognitive deficits. - mild voice disorder - Assessment Problem Solving Impairment: Mild Comment: impaired for high level/complex tasks Memory Impairment: Mild - Plan Assessment: Consuelo Dixon presents with mild cognitive linguistic deficits characterized by impaired short-term recall and thought organization for complex tasks, as well as mild dysphonia characterized by weak, breathy, hoarse vocal quality. Pt has met tx goals for dysphagia and her diet has been advanced to regular solids and thin liquids; no further need for continued dysphagia tx as pt is tolerating least restrictive diet. Pt would benefit from ST 3-5x/week to improve cognition and voice. Plan: Continue Speech/Language Therapy, Discharge Dysphagia Therapy Frequency: 3-5 times per week Duration: 1 week Goals/Timeframe: Please see progress note dated 09/02/16 for updated goals/POC Recommendations: - Continue speech tx 3-5x/week. - Discharge dysphagia tx; regular solids/thin liquids - Provider Therapist: Jemma Boggs License Number: [id number] Recreational Therapy - Participation Participation: Participates in Individual and/or Group Sessions - Attendance Attendance: 3-5 times per week - Activities Leisure Activities: Socializing - Socialization Level of Socialization: Initiates/interacts freely with care givers and peer - Diversional Time Diversional Time: reading, television - Assessment Assessment/Plan: Consuelo Dixon presents with mild cognitive linguistic deficits characterized by impaired short-term recall and thought organization for complex tasks, as well as mild dysphonia characterized by weak, breathy, hoarse vocal quality. Pt has met tx goals for dysphagia and her diet has been advanced to regular solids and thin liquids; no further need for continued dysphagia tx as pt is tolerating least restrictive diet. Pt would benefit from ST 3-5x/week to improve cognition and voice. - Provider Therapist: Kristal Gonzales, [employer] #[id number] Nutrition - Current Diet Current Diet/ Supplement/ Feedings: Moderate consistent CHO advanced bite size diet thin liquids - Appetite Percent Meal Consumed: 75-100% - Comments Comments: Care post CVA and safety precautions - Assessment/Goals/Time Frame Assessment/Goals/Time Frame: Pt at moderate nutritional risk. goal:1. PO intake >75% of meals with tolerance. Follow-up due on 09/03/2016 - Provider Provider: Julia Mederos RD Case Management - Psychosocial Assessment Support Systems: Patient lives alone, however, sibling and son are involved in care. Fernanda Morley (sibling)- [phone], . Torsten Kee (son) - [phone] Psychological Interventions/Needs: Patient is alert and oriented x3 and is able to verbalize needs Discharge Concerns: Patient with limited support at home and 2 flights of stairs to negotiate at home Patient/Family Meeting: CM met with patient and rehab team. Intervention/Goal/Outcome:: 1. Goal: Mod I overall. 2. Plan: Home with skilled services. 3. DME needs. 4. f/u appts. 5 continued emotional support. 6. Tentative discharge date to be determined next week - Discharge Plan Discharge Plan: Home with services Home Services: [facility] - Provider Provider: ANTONINO Saucedo, [employer] License Number: [id number] Rehabilitation Plan - Treatment Plan Treatment Plan: Physical Therapy, Occupational Therapy, Speech, Dietary, Patient /Family Education - Discharge Plan Estimated Date of Discharge: 09/07/16 Discharge to: Home
--- NOTE | 2016-09-03 13:31 | CP.PCM.PN ---
Subjective - Date & Time of Evaluation Date of Evaluation: 09/03/16 Time of Evaluation: 13:30 - Subjective Subjective: Patient seen in room denies sob/cp has throat soreness still from intubation doing very well continue current care Objective - Vital Signs/Intake and Output Vital Signs (last 24 hours): Temp Pulse Resp BP Pulse Ox 96.8 F L 82 18 108/62 94 L 09/03/16 10:00 09/03/16 10:00 09/03/16 10:00 09/03/16 10:00 09/03/16 10:00 - Medications Medications: Current Medications Aspirin (Aspirin Chewable) 81 mg PO DAILY [facility] Last Admin: 09/03/16 08:23 Dose: 81 mg Atorvastatin Calcium (Lipitor) 40 mg PO HS [facility] Last Admin: 09/02/16 21:54 Dose: 40 mg Benzocaine/Menthol (Cepacol Sore Throat) 1 basilio PO Q3 PRN PRN Reason: Sore Throat Last Admin: 09/03/16 11:14 Dose: 1 basilio Clopidogrel Bisulfate (Plavix) 75 mg PO DAILY [facility] Last Admin: 09/03/16 09:00 Dose: 75 mg Enoxaparin Sodium (Lovenox) 40 mg SC DAILY [facility] PRN Reason: Protocol Last Admin: 09/03/16 08:22 Dose: 40 mg Famotidine (Pepcid) 20 mg PO BID [facility] Last Admin: 09/03/16 08:21 Dose: 20 mg Insulin Detemir (Levemir) 5 units SC HS [facility] Last Admin: 09/02/16 21:54 Dose: 5 units Insulin Human Regular (Humulin R) 0 units SC ACBD [facility] PRN Reason: Protocol Last Admin: 09/03/16 06:57 Dose: 2 units Levetiracetam (Keppra) 500 mg PO BID [facility] Last Admin: 09/03/16 08:21 Dose: 500 mg Metformin HCl (Glucophage) 500 mg PO 1801 [facility] Last Admin: 09/02/16 17:04 Dose: 500 mg Metformin HCl (Glucophage) 1,000 mg PO 0900 [facility] Last Admin: 09/03/16 09:00 Dose: 1,000 mg Metoprolol Tartrate (Lopressor) 12.5 mg PO Q12 [facility] Last Admin: 09/03/16 08:20 Dose: 12.5 mg - Labs Labs: 09/03/16 06:52 08/31/16 07:00 PT 10.5 SECONDS (9.6-11.2) 08/31/16 07:00 INR 1.01 (0.92-1.08) 08/31/16 07:00 APTT 23.8 SECONDS (23.3-32.5) 08/31/16 07:00
[2016-09-03] MEDS: Insulin Detemir 100 Units/ml Inj SC SCH (21:14)
[2016-09-04] MEDS: Insulin Regular 100 units/ml SC SCH ×2 (07:40→16:48)
[2016-09-04] MEDS: Benzocaine/Menthol (Cepacol) Lozenge PO PRN ×2 (08:56→16:50)
[2016-09-04] MEDS: Enoxaparin 40 mg Syringe SC SCH (08:58)
--- NOTE | 2016-09-04 09:02 | CP.PCM.PN ---
Subjective - Date & Time of Evaluation Date of Evaluation: 09/04/16 Time of Evaluation: 08:00 - Subjective Subjective: 61 year old female patient with PMHx of HTN, DM, uterine prolapse was seen at bedside this morning concerning right lateral ankle ulcer. Patient was resting comfortably in bed and denies of any acute overnight distress. She remains AAO x3. Patient denies pedal complaints and no pedal pain at this time. Patient denies and acute overnight events. Patient denies any f/c/n/v/cp/sob. Objective - Vital Signs/Intake and Output Vital Signs (last 24 hours): Temp Pulse Resp BP Pulse Ox 97.9 F 73 20 106/68 97 09/04/16 08:46 09/04/16 08:57 09/04/16 08:46 09/04/16 08:57 09/04/16 08:46 - Medications Medications: Current Medications Aspirin (Aspirin Chewable) 81 mg PO DAILY [facility] Last Admin: 09/04/16 08:57 Dose: 81 mg Atorvastatin Calcium (Lipitor) 40 mg PO HS [facility] Last Admin: 09/03/16 21:14 Dose: 40 mg Benzocaine/Menthol (Cepacol Sore Throat) 1 basilio PO Q3 PRN PRN Reason: Sore Throat Last Admin: 09/04/16 08:56 Dose: 1 basilio Clopidogrel Bisulfate (Plavix) 75 mg PO DAILY [facility] Last Admin: 09/04/16 08:56 Dose: 75 mg Enoxaparin Sodium (Lovenox) 40 mg SC DAILY [facility] PRN Reason: Protocol Last Admin: 09/04/16 08:58 Dose: 40 mg Famotidine (Pepcid) 20 mg PO BID [facility] Last Admin: 09/04/16 08:57 Dose: 20 mg Insulin Detemir (Levemir) 5 units SC HS [facility] Last Admin: 09/03/16 21:14 Dose: 5 units Insulin Human Regular (Humulin R) 0 units SC ACBD [facility] PRN Reason: Protocol Last Admin: 09/04/16 07:40 Dose: 2 units Levetiracetam (Keppra) 500 mg PO BID [facility] Last Admin: 09/04/16 08:57 Dose: 500 mg Metformin HCl (Glucophage) 500 mg PO 1801 [facility] Last Admin: 09/03/16 17:49 Dose: 500 mg Metformin HCl (Glucophage) 1,000 mg PO 0900 [facility] Last Admin: 09/04/16 08:56 Dose: 1,000 mg Metoprolol Tartrate (Lopressor) 12.5 mg PO Q12 [facility] Last Admin: 09/04/16 08:57 Dose: 12.5 mg - Labs Labs: 09/03/16 06:52 08/31/16 07:00 PT 10.5 SECONDS (9.6-11.2) 08/31/16 07:00 INR 1.01 (0.92-1.08) 08/31/16 07:00 APTT 23.8 SECONDS (23.3-32.5) 08/31/16 07:00 - Constitutional Appears: Well, Non-toxic, No Acute Distress - Extremities Exam Additional comments: Right Lower extremity focused. DERM: No open wound noted. Healed superficial ulceration with scab noted to lateral aspect of right ankle. No erythema noted. No drainage noted. No sign of infection is noted. VASC: DP and PT pulses are palpable, graded 2/4. No edema noted to right lower extremity. Cap refill time to all digits less than 5 seconds NEUOR: Protective sensation grossly diminished. MUSCK: Pedal muscle strenght graded 5/5 in 4 major pedal muscle groups. - Neurological Exam Neurological Exam: Awake, Oriented x3 - Psychiatric Exam Psychiatric exam: Normal Affect, Normal Mood - Skin Skin Exam: Normal Color, Warm Assessment and Plan - Assessment and Plan (Free Text) Assessment: 61 year old female with diabetic superficial ulceration to right ankle Plan: Patient evaluated and treated at bedside with all questions and concerns addressed Chart, labs, and vitals reviewed. Discussed with attending, Dr. Blas. Dressing change with DSD. Patient is stable from podiatry standpoint for discharge. To follow up with Dr. Blas for podiatry needs. Podiatry will continue to follow while inhouse
[2016-09-04] MEDS: Insulin Detemir 100 Units/ml Inj SC SCH (21:21)
[2016-09-05] MEDS: Insulin Regular 100 units/ml SC SCH ×2 (07:26→17:00)
[2016-09-05] MEDS: Enoxaparin 40 mg Syringe SC SCH (08:29)
[2016-09-05] MEDS: Benzocaine/Menthol (Cepacol) Lozenge PO PRN ×2 (08:30→17:06)
--- NOTE | 2016-09-05 10:25 | CP.PCM.PN ---
Subjective - Date & Time of Evaluation Date of Evaluation: 09/05/16 Time of Evaluation: 08:10 - Subjective Subjective: Patient seen and examined bedside in acute rehab. Report feeling fine. Improving on physical therapy. able to ambulate w/o imbalance. Denies, headache , visual hallucination, pyrosis, diarrhea. Anticipate discharge 09/07/16 . Objective - Vital Signs/Intake and Output Vital Signs (last 24 hours): Temp Pulse Resp BP Pulse Ox 98.1 F 96 H 21 102/69 97 09/05/16 08:27 09/05/16 08:29 09/05/16 08:27 09/05/16 08:29 09/05/16 08:27 - Medications Medications: Current Medications Aspirin (Aspirin Chewable) 81 mg PO DAILY [facility] Last Admin: 09/05/16 08:30 Dose: 81 mg Atorvastatin Calcium (Lipitor) 40 mg PO HS [facility] Last Admin: 09/04/16 21:21 Dose: 40 mg Benzocaine/Menthol (Cepacol Sore Throat) 1 basilio PO Q3 PRN PRN Reason: Sore Throat Last Admin: 09/05/16 08:30 Dose: 1 basilio Clopidogrel Bisulfate (Plavix) 75 mg PO DAILY [facility] Last Admin: 09/05/16 08:30 Dose: 75 mg Enoxaparin Sodium (Lovenox) 40 mg SC DAILY [facility] PRN Reason: Protocol Last Admin: 09/05/16 08:29 Dose: 40 mg Famotidine (Pepcid) 20 mg PO BID [facility] Last Admin: 09/05/16 08:30 Dose: 20 mg Insulin Detemir (Levemir) 5 units SC [facility] Last Admin: 09/04/16 21:21 Dose: 5 units Insulin Human Regular (Humulin R) 0 units SC ACBD [facility] PRN Reason: Protocol Last Admin: 09/05/16 07:26 Dose: 3 units Levetiracetam (Keppra) 500 mg PO BID [facility] Last Admin: 09/05/16 08:30 Dose: 500 mg Metformin HCl (Glucophage) 500 mg PO 1801 [facility] Last Admin: 09/04/16 17:04 Dose: 500 mg Metformin HCl (Glucophage) 1,000 mg PO 0900 [facility] Last Admin: 09/05/16 08:30 Dose: 1,000 mg Metoprolol Tartrate (Lopressor) 12.5 mg PO Q12 [facility] Last Admin: 09/05/16 08:29 Dose: Not Given - Labs Labs: 09/03/16 06:52 08/31/16 07:00 PT 10.5 SECONDS (9.6-11.2) 08/31/16 07:00 INR 1.01 (0.92-1.08) 08/31/16 07:00 APTT 23.8 SECONDS (23.3-32.5) 08/31/16 07:00 - Constitutional Appears: Non-toxic, No Acute Distress - Eye Exam Additional comments: left peripheral vision field decreased - Respiratory Exam Respiratory Exam: Clear to Ausculation Bilateral. absent: Rales, Rhonchi, Wheezes, Stridor - Cardiovascular Exam Cardiovascular Exam: REGULAR RHYTHM, +S1, +S2 - GI/Abdominal Exam GI & Abdominal Exam: Soft, Normal Bowel Sounds. absent: Tenderness - Extremities Exam Extremities Exam: Normal Inspection. absent: Calf Tenderness, Pedal Edema - Neurological Exam Neurological Exam: Alert, Awake, Normal Gait, Oriented x3 - Psychiatric Exam Psychiatric exam: Normal Affect, Normal Mood - Skin Skin Exam: Intact Assessment and Plan - Assessment and Plan (Free Text) Plan: 61, yo , f, PMHx/o HTN, DM, uterine prolapse admitted with Right occipital infart and residual left homonymous hemianopsia and gait imbalance . Transferred to acute rehab to c/w rehabilitation 1. CVA, right occipital with left homonymous hemianopsia MRI Brain (08/19): Few scattered foci of high T2 signal within periventricular and subcortical white matter. Acute infarction within RIGHT occipital region. Carotid U/S (08/19): < 50% carotid arterial stenosis bilaterally. No significant atheromatous narrowing identified. Anterograde flow in both vertebral arteries. 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 no cardioembolic event. HTN controlled Echo normal - c/w Subacute rehab. Anticipate dischare 09/07/16 2. Seizure Likely secondary to CVA Patient required intubation in ER for acute respiratory failure secondary to seizure with CVA - S/P Extubated Keppra 500mg IVPB Q12H Neuro consult appreciated TSH 5.6 Folate, Vit 12 and RPR normal -HIV, Hep C, RPR neg. 3) Pyrosis - resolved -Pepcid 20 mg BID 4) DM II, hyperglycemia, uncontrolled Hgb A1c- 13.8% 08/20/16 Blood glucose 177 mg/dl Lispro Sliding Scale ACHS Levemir 5 u SC HS Metformin 1000 mg PO after breakfast 500 mg after meals Atorvastatin 40mg PO Daily -PT/INR 1.01 5. HTN Metoprolol tartrate 12.5 mg BID 6. DVT Prophylaxis Lovenox 40 mg sc daily
--- NOTE | 2016-09-05 18:52 | CP.PCM.PN ---
Subjective - Date & Time of Evaluation Date of Evaluation: 09/05/16 Time of Evaluation: 18:51 - Subjective Subjective: Patient seen in room no pain sit to stand independently and ambulating w/o AD now has made great gains continue care d/c set for 09/07/16 Objective - Vital Signs/Intake and Output Vital Signs (last 24 hours): Temp Pulse Resp BP Pulse Ox 98.1 F 100 H 20 132/77 98 09/05/16 16:14 09/05/16 16:14 09/05/16 16:14 09/05/16 16:14 09/05/16 16:14 - Medications Medications: Current Medications Aspirin (Aspirin Chewable) 81 mg PO DAILY [facility] Last Admin: 09/05/16 08:30 Dose: 81 mg Atorvastatin Calcium (Lipitor) 40 mg PO HS [facility] Last Admin: 09/04/16 21:21 Dose: 40 mg Benzocaine/Menthol (Cepacol Sore Throat) 1 basilio PO Q3 PRN PRN Reason: Sore Throat Last Admin: 09/05/16 17:06 Dose: 1 basilio Clopidogrel Bisulfate (Plavix) 75 mg PO DAILY [facility] Last Admin: 09/05/16 08:30 Dose: 75 mg Enoxaparin Sodium (Lovenox) 40 mg SC DAILY [facility] PRN Reason: Protocol Last Admin: 09/05/16 08:29 Dose: 40 mg Famotidine (Pepcid) 20 mg PO BID [facility] Last Admin: 09/05/16 17:03 Dose: 20 mg Insulin Detemir (Levemir) 5 units SC HS [facility] Last Admin: 09/04/16 21:21 Dose: 5 units Insulin Human Regular (Humulin R) 0 units SC ACBD [facility] PRN Reason: Protocol Last Admin: 09/05/16 17:00 Dose: 2 units Levetiracetam (Keppra) 500 mg PO BID [facility] Last Admin: 09/05/16 17:02 Dose: 500 mg Metformin HCl (Glucophage) 500 mg PO 1801 [facility] Last Admin: 09/05/16 17:03 Dose: 500 mg Metformin HCl (Glucophage) 1,000 mg PO 0900 [facility] Last Admin: 09/05/16 08:30 Dose: 1,000 mg Metoprolol Tartrate (Lopressor) 12.5 mg PO Q12 [facility] Last Admin: 09/05/16 08:29 Dose: Not Given - Labs Labs: 09/03/16 06:52 08/31/16 07:00 PT 10.5 SECONDS (9.6-11.2) 08/31/16 07:00 INR 1.01 (0.92-1.08) 08/31/16 07:00 APTT 23.8 SECONDS (23.3-32.5) 08/31/16 07:00
[2016-09-05] MEDS: Insulin Detemir 100 Units/ml Inj SC SCH (21:03)
[2016-09-06] MEDS: Insulin Regular 100 units/ml SC SCH ×2 (07:06→17:00)
[2016-09-06 07:30] LABS: HEMATOCRIT 30.6 % (34.0-47.0); MEAN CELL VOLUME 91.4 fl (81.0-99.0); MEAN CORPUSCULAR HEMOGLOBIN 30.3 pg (27.0-31.0); MEAN CORPUSCULAR HGB CONC 33.2 g/dL (33.0-37.0); RED CELL DISTRIBUTION WIDTH 15.1 % (11.5-14.5); WHITE BLOOD COUNT 6.2 K/uL (4.8-10.8)
[2016-09-06] MEDS: Enoxaparin 40 mg Syringe SC SCH (08:20)
[2016-09-06] MEDS: Benzocaine/Menthol (Cepacol) Lozenge PO PRN ×2 (08:20→17:01)
--- NOTE | 2016-09-06 16:54 | CP.PCM.PN ---
Subjective - Date & Time of Evaluation Date of Evaluation: 09/06/16 Time of Evaluation: 16:53 - Subjective Subjective: Patient seen in PT gym no distress had a good day and set for d/c tomorrow has made excellent gains will have outpatient therapies on d/c Objective - Vital Signs/Intake and Output Vital Signs (last 24 hours): Temp Pulse Resp BP Pulse Ox 97.7 F 95 H 20 121/70 97 09/06/16 07:53 09/06/16 11:37 09/06/16 07:53 09/06/16 08:21 09/06/16 07:53 - Medications Medications: Current Medications Aspirin (Aspirin Chewable) 81 mg PO DAILY [facility] Last Admin: 09/06/16 08:22 Dose: 81 mg Atorvastatin Calcium (Lipitor) 40 mg PO HS [facility] Last Admin: 09/05/16 21:03 Dose: 40 mg Benzocaine/Menthol (Cepacol Sore Throat) 1 basilio PO Q3 PRN PRN Reason: Sore Throat Last Admin: 09/06/16 08:20 Dose: 1 basilio Clopidogrel Bisulfate (Plavix) 75 mg PO DAILY [facility] Last Admin: 09/06/16 08:22 Dose: 75 mg Enoxaparin Sodium (Lovenox) 40 mg SC DAILY [facility] PRN Reason: Protocol Last Admin: 09/06/16 08:20 Dose: 40 mg Famotidine (Pepcid) 20 mg PO BID [facility] Last Admin: 09/06/16 08:22 Dose: 20 mg Insulin Detemir (Levemir) 5 units SC HS [facility] Last Admin: 09/05/16 21:03 Dose: 5 units Insulin Human Regular (Humulin R) 0 units SC ACBD [facility] PRN Reason: Protocol Last Admin: 09/06/16 07:06 Dose: 2 units Levetiracetam (Keppra) 500 mg PO BID [facility] Last Admin: 09/06/16 08:21 Dose: 500 mg Metformin HCl (Glucophage) 500 mg PO 1801 [facility] Last Admin: 09/05/16 17:03 Dose: 500 mg Metformin HCl (Glucophage) 1,000 mg PO 0900 [facility] Last Admin: 09/06/16 08:22 Dose: 1,000 mg Metoprolol Tartrate (Lopressor) 12.5 mg PO Q12 [facility] Last Admin: 09/06/16 08:21 Dose: 12.5 mg - Labs Labs: 09/06/16 07:16 08/31/16 07:00 PT 10.5 SECONDS (9.6-11.2) 08/31/16 07:00 INR 1.01 (0.92-1.08) 08/31/16 07:00 APTT 23.8 SECONDS (23.3-32.5) 08/31/16 07:00
[2016-09-06] MEDS: Insulin Detemir 100 Units/ml Inj SC SCH (21:05)
[2016-09-07 00:26] VITALS: RESP 20
[2016-09-07] MEDS: Insulin Regular 100 units/ml SC SCH (07:04)
[2016-09-07 08:44] VITALS: BP 96/53; PULSE 103; TEMP 98.2; O2SAT 100
[2016-09-07] MEDS: Benzocaine/Menthol (Cepacol) Lozenge PO PRN (08:45)
[2016-09-07] MEDS: Enoxaparin 40 mg Syringe SC SCH (08:45)
--- NOTE | 2016-09-07 09:47 | CP.PCM.DIS ---
<Stewart Alba - Last Filed: 09/07/16 21:15> Provider - Provider Date of Admission: 08/26/16 18:24 Attending physician: Radha Orellana MD Primary care physician: Radha Orellana MD Time Spent in preparation of Discharge (in minutes): 45 Hospital Course - Lab Results Lab Results: Most Recent Lab Values WBC 6.2 K/uL (4.8-10.8) 09/06/16 07:16 RBC 3.35 Mil/uL (3.80-5.20) L 09/06/16 07:16 Hgb 10.2 g/dL (12.0-16.0) L 09/06/16 07:16 Hct 30.6 % (34.0-47.0) L 09/06/16 07:16 MCV 91.4 fl (81.0-99.0) 09/06/16 07:16 MCH 30.3 pg (27.0-31.0) 09/06/16 07:16 MCHC 33.2 g/dL (33.0-37.0) 09/06/16 07:16 RDW 15.1 % (11.5-14.5) H 09/06/16 07:16 Plt Count 260 K/uL (130-400) 09/06/16 07:16 PT 10.5 SECONDS (9.6-11.2) 08/31/16 07:00 INR 1.01 (0.92-1.08) 08/31/16 07:00 APTT 23.8 SECONDS (23.3-32.5) 08/31/16 07:00 Sodium 145 mmol/l (132-148) 08/31/16 07:00 Potassium 5.0 MMOL/L (3.6-5.0) 08/31/16 07:00 Chloride 101 mmol/L (98-107) 08/31/16 07:00 Carbon Dioxide 30 mmol/L (22-30) 08/31/16 07:00 Anion Gap 18 (10-20) 08/31/16 07:00 BUN 18 mg/dl (7-17) H 08/31/16 07:00 Creatinine 0.8 mg/dL (0.7-1.2) 08/31/16 07:00 Est GFR ( Amer) > 60 08/31/16 07:00 Est GFR (Non-Af Amer) > 60 08/31/16 07:00 POC Glucose (mg/dL) 184 mg/dL (65-110) H 09/07/16 05:11 Random Glucose 146 mg/dL (65-105) H 08/31/16 07:00 Calcium 9.5 mg/dL (8.4-10.2) 08/31/16 07:00 Total Bilirubin 0.6 mg/dl (0.2-1.3) 08/31/16 07:00 AST 33 U/L (14-36) 08/31/16 07:00 ALT 42 U/L (9-52) 08/31/16 07:00 Alkaline Phosphatase 66 U/L (38-126) 08/31/16 07:00 Total Protein 7.2 G/DL (6.3-8.2) 08/31/16 07:00 Albumin 3.8 g/dL (3.5-5.0) 08/31/16 07:00 Globulin 3.4 gm/dL (2.2-3.9) 08/31/16 07:00 Albumin/Globulin Ratio 1.1 (1.0-2.1) 08/31/16 07:00 Stool Occult Blood Negative (NEGATIVE) 08/30/16 08:00 - Hospital Course Hospital Course: Patient 61 y/o female admitted in acute rehab for physical and occupations therapy s/p acute CVA right occipital , with left hemianopsia. patient condition improved gaining muscle strenght and balance . patient reported felling weel today denied any complain, good appetite, patient admits she will stay with son for some days before she goes home. During this admiisn blood sugar were controlled with levemis 5 units s/c Hs and metformin 500 mg po am and 1000 mg PO with dinner tolerated well. Discharge Exam - Head Exam Head Exam: ATRAUMATIC, NORMOCEPHALIC - Eye Exam Eye Exam: EOMI - ENT Exam ENT Exam: Mucous Membranes Moist - Neck Exam Neck exam: Full Rom - Respiratory Exam Respiratory Exam: Clear to PA & Lateral - Cardiovascular Exam Cardiovascular Exam: REGULAR RHYTHM, RRR, +S1, +S2 - GI/Abdominal Exam GI & Abdominal Exam: Normal Bowel Sounds - Extremities Exam Extremities exam: normal capillary refill - Neurological Exam Neurological exam: Alert, Oriented x3 - Psychiatric Exam Psychiatric exam: Normal Affect, Normal Mood - Skin Skin Exam: Normal Color Discharge Plan - Discharge Medications Prescriptions: Aspirin [Aspirin Chewable] 81 mg PO DAILY #30 ctb Benzocaine/Menthol [Cepacol Sore Throat Lozenge] 1 each MM Q3 PRN #1 lozenge PRN Reason: Sore Throat Levetiracetam [Keppra] 500 mg PO BID #60 tablet Atorvastatin [Lipitor] 40 mg PO HS #30 tab Metoprolol Tartrate [Lopressor] 12.5 mg PO Q12 #60 tab Famotidine [Pepcid] 20 mg PO BID #30 tab Clopidogrel [Plavix] 75 mg PO DAILY #30 tab MetFORMIN [glucoPHAGE] 1,000 mg PO BID #60 tab - Follow Up Plan Condition: GOOD Disposition: HOME/ ROUTINE Instructions: Diabetes Mellitus Type 2 in Adults (DC), Giving an Insulin Injection (DC), Stroke (DC), Hypertension (DC), Hypertension (GEN) Additional Instructions: f/u with Neurology in one week f/u with pmd at [facility] in 3 days. Referrals: Radha Orellana MD [Primary Care Provider] - <Marjorie Acevedo - Last Filed: 09/08/16 09:05> Provider - Provider Date of Admission: 08/26/16 18:24 Attending physician: Radha Orellana MD Primary care physician: Radha Orellana MD Hospital Course - Lab Results Lab Results: Most Recent Lab Values WBC 6.2 K/uL (4.8-10.8) 09/06/16 07:16 RBC 3.35 Mil/uL (3.80-5.20) L 09/06/16 07:16 Hgb 10.2 g/dL (12.0-16.0) L 09/06/16 07:16 Hct 30.6 % (34.0-47.0) L 09/06/16 07:16 MCV 91.4 fl (81.0-99.0) 09/06/16 07:16 MCH 30.3 pg (27.0-31.0) 09/06/16 07:16 MCHC 33.2 g/dL (33.0-37.0) 09/06/16 07:16 RDW 15.1 % (11.5-14.5) H 09/06/16 07:16 Plt Count 260 K/uL (130-400) 09/06/16 07:16 PT 10.5 SECONDS (9.6-11.2) 08/31/16 07:00 INR 1.01 (0.92-1.08) 08/31/16 07:00 APTT 23.8 SECONDS (23.3-32.5) 08/31/16 07:00 Sodium 145 mmol/l (132-148) 08/31/16 07:00 Potassium 5.0 MMOL/L (3.6-5.0) 08/31/16 07:00 Chloride 101 mmol/L (98-107) 08/31/16 07:00 Carbon Dioxide 30 mmol/L (22-30) 08/31/16 07:00 Anion Gap 18 (10-20) 08/31/16 07:00 BUN 18 mg/dl (7-17) H 08/31/16 07:00 Creatinine 0.8 mg/dL (0.7-1.2) 08/31/16 07:00 Est GFR ( Amer) > 60 08/31/16 07:00 Est GFR (Non-Af Amer) > 60 08/31/16 07:00 POC Glucose (mg/dL) 184 mg/dL (65-110) H 09/07/16 05:11 Random Glucose 146 mg/dL (65-105) H 08/31/16 07:00 Calcium 9.5 mg/dL (8.4-10.2) 08/31/16 07:00 Total Bilirubin 0.6 mg/dl (0.2-1.3) 08/31/16 07:00 AST 33 U/L (14-36) 08/31/16 07:00 ALT 42 U/L (9-52) 08/31/16 07:00 Alkaline Phosphatase 66 U/L (38-126) 08/31/16 07:00 Total Protein 7.2 G/DL (6.3-8.2) 08/31/16 07:00 Albumin 3.8 g/dL (3.5-5.0) 08/31/16 07:00 Globulin 3.4 gm/dL (2.2-3.9) 08/31/16 07:00 Albumin/Globulin Ratio 1.1 (1.0-2.1) 08/31/16 07:00 Stool Occult Blood Negative (NEGATIVE) 08/30/16 08:00 Discharge Exam - Skin Additional comments: PATIENT SEEN AND EXAMINED. CASE DISCUSSED WITH RESIDENT. AGREE WITH PLAN.
--- NOTE | 2016-09-07 09:49 | CP.PCM.PN ---
<Tj Chavez - Last Filed: 09/07/16 09:59> Subjective - Date & Time of Evaluation Date of Evaluation: 09/06/16 Time of Evaluation: 07:40 - Subjective Subjective: Patient seen and examined bedside in TCU. Reports feeling better and reports has improved her gait while in TCU and with PT. Denies headache, visual hallucination, weakness, gait imbalance, chest pain, palpitation, n, v, d, pyrosis. Patient aware about discharge 09/07/16 and willing to go home. 11: 20 am 09/06/[address] acevedo patient seen pacing in the room w/o gait imbalance , asymptomatic. Patient reports will be living with her son after discharge. Objective - Vital Signs/Intake and Output Vital Signs (last 24 hours): Temp Pulse Resp BP Pulse Ox 98.2 F 103 H 20 96/53 L 100 09/07/16 08:43 09/07/16 08:44 09/07/16 08:43 09/07/16 08:44 09/07/16 08:43 - Medications Medications: Current Medications Aspirin (Aspirin Chewable) 81 mg PO DAILY [facility] Last Admin: 09/07/16 08:45 Dose: 81 mg Atorvastatin Calcium (Lipitor) 40 mg PO HS [facility] Last Admin: 09/06/16 21:04 Dose: 40 mg Benzocaine/Menthol (Cepacol Sore Throat) 1 basilio PO Q3 PRN PRN Reason: Sore Throat Last Admin: 09/07/16 08:45 Dose: 1 basilio Clopidogrel Bisulfate (Plavix) 75 mg PO DAILY [facility] Last Admin: 09/07/16 08:45 Dose: 75 mg Enoxaparin Sodium (Lovenox) 40 mg SC DAILY [facility] PRN Reason: Protocol Last Admin: 09/07/16 08:45 Dose: 40 mg Famotidine (Pepcid) 20 mg PO BID [facility] Last Admin: 09/07/16 08:45 Dose: 20 mg Insulin Detemir (Levemir) 5 units SC HS [facility] Last Admin: 09/06/16 21:05 Dose: 5 units Insulin Human Regular (Humulin R) 0 units SC ACBD [facility] PRN Reason: Protocol Last Admin: 09/07/16 07:04 Dose: 2 units Levetiracetam (Keppra) 500 mg PO BID [facility] Last Admin: 09/07/16 08:45 Dose: 500 mg Metformin HCl (Glucophage) 500 mg PO 1801 [facility] Last Admin: 09/06/16 17:01 Dose: 500 mg Metformin HCl (Glucophage) 1,000 mg PO 0900 [facility] Last Admin: 09/07/16 08:45 Dose: 1,000 mg Metoprolol Tartrate (Lopressor) 12.5 mg PO Q12 [facility] Last Admin: 09/07/16 08:44 Dose: Not Given - Labs Labs: 09/06/16 07:16 08/31/16 07:00 PT 10.5 SECONDS (9.6-11.2) 08/31/16 07:00 INR 1.01 (0.92-1.08) 08/31/16 07:00 APTT 23.8 SECONDS (23.3-32.5) 08/31/16 07:00 - Constitutional Appears: Non-toxic, No Acute Distress - Eye Exam Eye Exam: Normal appearance Additional comments: left eye: left temporal periphery visual field diminished. visual acuity conserved - ENT Exam ENT Exam: Normal Exam - Neck Exam Neck Exam: Normal Inspection - Respiratory Exam Respiratory Exam: Clear to Ausculation Bilateral. absent: Rales, Rhonchi, Wheezes - Cardiovascular Exam Cardiovascular Exam: REGULAR RHYTHM, +S1, +S2 - GI/Abdominal Exam GI & Abdominal Exam: Soft, Normal Bowel Sounds. absent: Tenderness - Extremities Exam Extremities Exam: Normal Inspection. absent: Calf Tenderness, Pedal Edema - Neurological Exam Neurological Exam: Alert, Awake, Normal Gait, Oriented x3 - Psychiatric Exam Psychiatric exam: Normal Affect, Normal Mood - Skin Skin Exam: Intact Assessment and Plan - Assessment and Plan (Free Text) Plan: 61, yo , f, PMHx/o HTN, DM, uterine prolapse admitted with Right occipital infart and residual left homonymous hemianopsia and gait imbalance . Transferred to acute rehab to c/w rehabilitation 1. CVA, right occipital with left homonymous hemianopsia MRI Brain (08/19): Few scattered foci of high T2 signal within periventricular and subcortical white matter. Acute infarction within RIGHT occipital region. Carotid U/S (08/19): < 50% carotid arterial stenosis bilaterally. No significant atheromatous narrowing identified. Anterograde flow in both vertebral arteries. Plavix 75mg PO Daily Aspirin 81 mg Po daily Keppra 500 mg IV BID Neuro Onboard consult appreciated: c/w keppra and same management Contact Person consult appreciated. no cardioembolic event. HTN controlled Echo normal - c/w Subacute rehab. Anticipate dischare 09/07/16 2. Seizure Likely secondary to CVA Patient required intubation in ER for acute respiratory failure secondary to seizure with CVA - S/P Extubated Keppra 500mg IVPB Q12H Neuro consult appreciated TSH 5.6 Folate, Vit 12 and RPR normal -HIV, Hep C, RPR neg. 3) Pyrosis - resolved -Pepcid 20 mg BID 4) DM II, hyperglycemia, uncontrolled Hgb A1c- 13.8% 08/20/16 Blood glucose 177 mg/dl Lispro Sliding Scale ACHS Levemir 5 u SC HS Metformin 1000 mg PO after breakfast 500 mg after meals Atorvastatin 40mg PO Daily -PT/INR 1.01 5. HTN Metoprolol tartrate 12.5 mg BID 6. DVT Prophylaxis Lovenox 40 mg sc daily <Marjorie Acevedo - Last Filed: 09/08/16 08:41> Objective - Vital Signs/Intake and Output Vital Signs (last 24 hours): Temp Pulse Resp BP Pulse Ox 98.2 F 103 H 20 96/53 L 100 09/07/16 08:43 09/07/16 08:44 09/07/16 08:43 09/07/16 08:44 09/07/16 08:43 - Labs Labs: 09/06/16 07:16 08/31/16 07:00 PT 10.5 SECONDS (9.6-11.2) 08/31/16 07:00 INR 1.01 (0.92-1.08) 08/31/16 07:00 APTT 23.8 SECONDS (23.3-32.5) 08/31/16 07:00 - Skin Additional comments: ATTESTATION STATEMENT ATTENDING STATEMENT PATIENT SEEN AND EXAMINED. CASE DISCUSSED WITH RESIDENT. AGREE WITH PLAN.
--- NOTE | 2016-10-01 14:15 | CP.PCM.DIS ---
Provider - Provider Date of Admission: 08/26/16 18:24 Attending physician: Radha Orellana MD Primary care physician: Radha Orellana MD Time Spent in preparation of Discharge (in minutes): 5 Engineering Specialist Technician Discharge Summary - Review of Plan of Care Physical Therapy: Attained Occupational Therapy: Attained Recreational Therapy: Attained - Goal Attainment Ambulation: Attained Status on discharge: Greater than 200 Feet Level of assistance: Independent ADL: Attained Level of assistance: Independent Transfer: Attained Level of assistance: Independent - Plan for patients rehabilitation in the Outpatient: Physical Therapy Discharge instructions provided to patient and family: Instructions with medications, Follow up with PMD and/or surgeon Hospital Course - Lab Results Lab Results: Most Recent Lab Values WBC 6.2 K/uL (4.8-10.8) 09/06/16 07:16 RBC 3.35 Mil/uL (3.80-5.20) L 09/06/16 07:16 Hgb 10.2 g/dL (12.0-16.0) L 09/06/16 07:16 Hct 30.6 % (34.0-47.0) L 09/06/16 07:16 MCV 91.4 fl (81.0-99.0) 09/06/16 07:16 MCH 30.3 pg (27.0-31.0) 09/06/16 07:16 MCHC 33.2 g/dL (33.0-37.0) 09/06/16 07:16 RDW 15.1 % (11.5-14.5) H 09/06/16 07:16 Plt Count 260 K/uL (130-400) 09/06/16 07:16 PT 10.5 SECONDS (9.6-11.2) 08/31/16 07:00 INR 1.01 (0.92-1.08) 08/31/16 07:00 APTT 23.8 SECONDS (23.3-32.5) 08/31/16 07:00 Sodium 145 mmol/l (132-148) 08/31/16 07:00 Potassium 5.0 MMOL/L (3.6-5.0) 08/31/16 07:00 Chloride 101 mmol/L (98-107) 08/31/16 07:00 Carbon Dioxide 30 mmol/L (22-30) 08/31/16 07:00 Anion Gap 18 (10-20) 08/31/16 07:00 BUN 18 mg/dl (7-17) H 08/31/16 07:00 Creatinine 0.8 mg/dL (0.7-1.2) 08/31/16 07:00 Est GFR ( Amer) > 60 08/31/16 07:00 Est GFR (Non-Af Amer) > 60 08/31/16 07:00 POC Glucose (mg/dL) 184 mg/dL (65-110) H 09/07/16 05:11 Random Glucose 146 mg/dL (65-105) H 08/31/16 07:00 Calcium 9.5 mg/dL (8.4-10.2) 08/31/16 07:00 Total Bilirubin 0.6 mg/dl (0.2-1.3) 08/31/16 07:00 AST 33 U/L (14-36) 08/31/16 07:00 ALT 42 U/L (9-52) 08/31/16 07:00 Alkaline Phosphatase 66 U/L (38-126) 08/31/16 07:00 Total Protein 7.2 G/DL (6.3-8.2) 08/31/16 07:00 Albumin 3.8 g/dL (3.5-5.0) 08/31/16 07:00 Globulin 3.4 gm/dL (2.2-3.9) 08/31/16 07:00 Albumin/Globulin Ratio 1.1 (1.0-2.1) 08/31/16 07:00 Stool Occult Blood Negative (NEGATIVE) 08/30/16 08:00 Discharge Exam - Head Exam Head Exam: ATRAUMATIC, NORMOCEPHALIC Discharge Plan - Discharge Medications Prescriptions: Atorvastatin [Lipitor] 40 mg PO HS #30 tab Clopidogrel [Plavix] 75 mg PO DAILY #30 tab Famotidine [Pepcid] 20 mg PO BID #30 tab Levetiracetam [Keppra] 500 mg PO BID #60 tablet - Follow Up Plan Condition: GOOD Disposition: HOME/ ROUTINE Instructions: Diabetes Mellitus Type 2 in Adults (DC), Giving an Insulin Injection (DC), Hypertension (DC), Hypertension (GEN), Stroke (DC) Additional Instructions: f/u with Neurology in one week f/u with pmd at [facility] in 3 days. Referrals: Radha Orellana MD [Primary Care Provider] -
== END 2016-09-07 16:00 | disposition home or self-care (01) | DRG 57 ==
PROVIDERS: ADMIT Family Medicine; ATTEND Family Medicine
PROC: F07L6ZZ Therapeutic Exercise Treatment of Musculoskeletal System - Lower Back / Lower Extremity (ICD-10-PCS; principal; 2016-08-26)
PROC: F08Z4ZZ Home Management Treatment (ICD-10-PCS; 2016-08-26)
PROC: F06Z6ZZ Communicative/Cognitive Integration Skills Treatment (ICD-10-PCS; 2016-08-26)
PROC: F07Z9ZZ Gait Training/Functional Ambulation Treatment (ICD-10-PCS; 2016-08-26)
DX: I69.398 Other sequelae of cerebral infarction (principal); E11.622 Type 2 diabetes mellitus with other skin ulcer; R56.9 Unspecified convulsions; I69.354 Hemiplegia and hemiparesis following cerebral infarction affecting left non-dominant side; L97.319 Non-pressure chronic ulcer of right ankle with unspecified severity; H53.462 Homonymous bilateral field defects, left side; E11.65 Type 2 diabetes mellitus with hyperglycemia; R26.9 Unspecified abnormalities of gait and mobility; Z88.0 Allergy status to penicillin; Z91.041 Radiographic dye allergy status; R12 Heartburn; I10 Essential (primary) hypertension

== ENCOUNTER 2016-09-10 02:01 | Observation (INO) | payer MEDICARE, MEDICAID ==
[2016-09-10 02:02] VITALS: BMI 21.4
[2016-09-10] MEDS ORDERED: Sodium Chloride 0.9% 1,000 ML IV STA (03:03)
--- NOTE | 2016-09-10 03:22 | ED PDOC ---
HPI:Nausea, Vomiting, Diarrhea Time Seen by Provider: 09/10/16 02:36 Chief Complaint (Nursing): GI Problem Chief Complaint (Provider): diarrhea History Per: Patient History/Exam Limitations: no limitations Onset/Duration Of Symptoms: Hrs Current Symptoms Are (Timing): Still Present Have you had recent travel within the past 21 days to any of the following countries: [place], [place], [place] or [place]?: No Additional Complaint(s): 61yo female with PMHx including HTN, CVA, diabetes presents to the ED with c/o watery diarrhea x 24 hours. No abdominal pain with some intermittent abdominal cramping. No fever, vomiting, blood in diarrhea. Patient was just discharged yesterday after being admitted under the family practice service for acute stroke. PCP: clinic Past Medical History Reviewed: Historical Data, Nursing Documentation, Vital Signs Vital Signs: Last Vital Signs Temp 98.2 F 09/10/16 02:40 Pulse 91 H 09/10/16 02:40 Resp 16 09/10/16 02:40 BP 122/69 09/10/16 02:40 Pulse Ox 98 09/10/16 02:40 - Medical History PMH: CVA, Diabetes, HTN, Hypercholesterolemia, Seizures Denies: Chronic Kidney Disease - Surgical History Other surgeries: foot, cataract - Family History Family History: States: No Known Family Hx - Home Medications Home Medications: Ambulatory Orders Medication Instructions Recorded Atorvastatin [Lipitor] 40 mg PO HS #30 tab 09/07/16 Clopidogrel [Plavix] 75 mg PO DAILY #30 tab 09/07/16 Famotidine [Pepcid] 20 mg PO BID #30 tab 09/07/16 Levetiracetam [Keppra] 500 mg PO BID #60 tablet 09/07/16 MetFORMIN [glucoPHAGE] 1,000 mg PO BID #60 tab 09/07/16 Metoprolol Tartrate [Lopressor] 12.5 mg PO Q12 #60 tab 09/07/16 Aspirin [Ecotrin] 81 mg PO DAILY 09/10/16 - Allergies Allergies/Adverse Reactions: Allergies Allergy/AdvReac Type Severity Reaction Status Date / Time iodine Allergy Unknown RASH Verified 08/26/16 18:35 Penicillins Allergy Unknown RASH Verified 08/26/16 18:35 Review of Systems ROS Statement: Except As Marked, All Systems Reviewed And Found Negative Constitutional: Negative for: Fever Gastrointestinal: Positive for: Diarrhea, Other (abd cramping ). Negative for: Vomiting, Abdominal Pain Physical Exam - Reviewed Nursing Documentation Reviewed: Yes Vital Signs Reviewed: Yes - Physical Exam Appears: Positive for: Well, No Acute Distress Head Exam: Positive for: ATRAUMATIC, NORMAL INSPECTION, NORMOCEPHALIC Skin: Positive for: Normal Color, Warm, Dry Eye Exam: Positive for: Normal appearance, EOMI, PERRL ENT: Positive for: Normal ENT Inspection Neck: Positive for: Normal, Painless ROM, Supple Cardiovascular/Chest: Positive for: Regular Rate, Rhythm. Negative for: Murmur , Tachycardia Respiratory: Positive for: Normal Breath Sounds. Negative for: Wheezing, Respiratory Distress Gastrointestinal/Abdominal: Positive for: Normal Exam, Bowel Sounds, Soft. Negative for: Tenderness Extremity: Positive for: Normal ROM. Negative for: Deformity, Swelling Neurologic/Psych: Positive for: Alert, Oriented. Negative for: Motor/Sensory Deficits - Laboratory Results Result Diagrams: 09/10/16 03:10 09/10/16 03:10 - ECG O2 Sat by Pulse Oximetry: 98 Pulse Ox Interpretation: Normal (RA) Medical Decision Making Medical Decision Makin: Impression: acute diarrhea, r/o viral enteritis vs. C. diff. Plan: Labs IVF C. diff. toxin reassess Scribe Attestation: Documented by Ariel Duggan acting as a scribe for Taj Celaya MD. Provider Scribe Attestation: All medical record entries made by the Scribe were at my direction and personally dictated by me. I have reviewed the chart and agree that the record accurately reflects my personal performance of the history, physical exam, medical decision making, and the department course for this patient. I have also personally directed, reviewed, and agree with the discharge instructions and disposition. Disposition - Clinical Impression Clinical Impression: Acute diarrhea - Patient ED Disposition Is Patient to be Admitted: Yes Discussed With : Andrea Jacob Doctor Will See Patient In The: Hospital Counseled Patient/Family Regarding: Studies Performed, Diagnosis - Disposition Disposition Time: 06:00 Condition: FAIR - Pt Status Changed To: Hospital Disposition Of: Observation - POA Present On Arrival: None
[2016-09-10 03:43] LABS: ALB/GLOB RATIO 1.2 (1.0-2.1); ALKALINE PHOSPHATASE 72 U/L (38-126); ALT/SGPT 46 U/L (9-52); AST/SGOT 37 U/L (14-36); BILIRUBIN,TOTAL 0.7 mg/dl (0.2-1.3); BLOOD UREA NITROGEN 28 mg/dl (7-17); CALCIUM 9.5 mg/dL (8.4-10.2); CARBON DIOXIDE 26 mmol/L (22-30); CHLORIDE 102 mmol/L (98-107); GFR AFRICAN-AMERICAN > 60; GLUCOSE,RANDOM 176 mg/dL (65-105); POTASSIUM 4.6 MMOL/L (3.6-5.0); SODIUM 143 mmol/l (132-148); TOTAL PROTEIN 8.1 G/DL (6.3-8.2)
[2016-09-10 03:52] LABS: BASO % 0.3 % (0.0-2.0); EOS # 0.2 K/uL (0.0-0.7); EOS % 2.8 % (0.0-4.0); HEMATOCRIT 33.4 % (34.0-47.0); LYMPH # 1.8 K/uL (1.0-4.3); LYMPH % 25.1 % (20.0-40.0); MEAN CELL VOLUME 91.1 fl (81.0-99.0); MEAN CORPUSCULAR HEMOGLOBIN 31.1 pg (27.0-31.0); MEAN CORPUSCULAR HGB CONC 34.1 g/dL (33.0-37.0); MEAN PLATELET VOLUME 8.7 fl (7.2-11.7); MONO # 0.9 K/uL (0.0-0.8); MONO % 11.8 % (0.0-10.0); NEUT # 4.4 K/uL (1.8-7.0); RED CELL DISTRIBUTION WIDTH 15.7 % (11.5-14.5); WHITE BLOOD COUNT 7.3 K/uL (4.8-10.8)
[2016-09-10] MEDS ORDERED: Atropine-Diphenoxylate 0.025-2.5 mg Tab PO ONE (06:11)
--- NOTE | 2016-09-10 08:35 | CP.PCM.HP ---
History of Present Illness - History of Present Illness History of Present Illness: 61 y/o female with a PMHx remarkable for CVA (most recent hospitalization), HTN , NIDDM2, seizures, and RLE ankle wound presents to the hospital today complaining of profuse watery diarrhea for the past 12 hours. Pt's son reports she has had 8-9 episodes of watery, NB, nonmucoid, foul-smelling diarrhea overnight. He denies any recent change in diet or sick contacts with similar symptoms. Pt denies fever/chills, myalgias, N/V, CP/SOB/SOMMERS, urinary symptoms, numbness/tingling. Upon further investigation, pt's son reports she has had diarrhea since being in Acute rehab and was started on Metformin 1000mg BID during her last visit. ROS: 12 points reviewed, negative, as per HPI PMHx: right occipital CVA (08/19/2016), HTN (well controlled), NIDDM2, seizures , Chronic RLE ankle wound (followed by Dr. Blas), Chronic Left ear tinnitus Meds: Aspirin, Keppra, Atorvastatin, Famantodine, Clopidogrel, Metformin ALL: IV contrast, Penicillin (rash) PSurgHx: b/l cataract surgery, right ankle surgery SocialHx: lives at home alone, currently staying with son for assistance. Denies ETOH, Tobacco, Illicit drug use. ED Course: Vitals on presentation: Temp: 98.2, HR: 91, BP: 122/69, RR: 16, O2: 98% on RA Labs ordered: CMP, CBC with Diff, Cdiff A&B toxin Imaging: EKG Findings: WBC: wnl, BUN elevated @ 28 Present on Admission - Present on Admission Any Indicators Present on Admission: No Review of Systems - Review of Systems All systems: reviewed and no additional remarkable complaints except Past Patient History - Tetanus Immunizations Tetanus Immunization: Unknown - Past Medical History & Family History Past Medical History?: Yes Past Family History: Reviewed and not pertinent - Past Social History Smoking Status: Never Smoked Alcohol: None Drugs: Denies Home Situation {Lives}: Alone Domestic Violence: Negative - CARDIAC Hx Hypercholesterolemia: Yes Hx Hypertension: Yes - PULMONARY Hx Respiratory Disorders: No - NEUROLOGICAL Hx Seizures: Yes - HEENT Hx HEENT Problems: Yes Hx Cataracts: Yes - RENAL Hx Chronic Kidney Disease: No - ENDOCRINE/METABOLIC Hx Endocrine Disorders: Yes Hx Diabetes Mellitus Type 2: Yes - HEMATOLOGICAL/ONCOLOGICAL Hx Blood Disorders: Yes - INTEGUMENTARY Hx Dermatological Problems: No - MUSCULOSKELETAL/RHEUMATOLOGICAL Hx Musculoskeletal Disorders: Yes Hx Falls: No Hx Unsteady Gait: Yes - GASTROINTESTINAL Hx Gastrointestinal Disorders: No - GENITOURINARY/GYNECOLOGICAL Hx Genitourinary Disorders: No - PSYCHIATRIC Hx Psychophysiologic Disorder: No Hx Substance Use: No - SURGICAL HISTORY Hx Surgeries: Yes Hx Cataract Extraction: Yes (Bilateral eye) Hx Orthopedic Surgery: Yes (RT FOOT EXC TUMORS/LEFT FOOT EXC BONE) - ANESTHESIA Hx Anesthesia: Yes Hx Anesthesia Reactions: No Hx Malignant Hyperthermia: No Meds Allergies/Adverse Reactions: Allergies Allergy/AdvReac Type Severity Reaction Status Date / Time iodine Allergy Unknown RASH Verified 08/26/16 18:35 Penicillins Allergy Unknown RASH Verified 08/26/16 18:35 Physical Exam - Constitutional Appears: Non-toxic, No Acute Distress - Head Exam Head Exam: ATRAUMATIC, NORMOCEPHALIC - Eye Exam Eye Exam: EOMI, Normal appearance. absent: Conjunctival injection, Scleral icterus Pupil Exam: NORMAL ACCOMODATION, PERRL - ENT Exam ENT Exam: Mucous Membranes Moist, Normal Exam - Neck Exam Neck exam: Positive for: Full Rom, Normal Inspection. Negative for: Lymphadenopathy, Tenderness - Respiratory Exam Respiratory Exam: Clear to Auscultation Bilateral, NORMAL BREATHING PATTERN. absent: Rales, Rhonchi, Wheezes, Respiratory Distress - Cardiovascular Exam Cardiovascular Exam: REGULAR RHYTHM, RRR, +S1, +S2. absent: Diastolic murmur, Gallop, JVD, Rubs, Systolic Murmur - GI/Abdominal Exam GI & Abdominal Exam: Normal Bowel Sounds, Soft. absent: Distended, Guarding, Mass, Rebound, Rigid, Tenderness - Extremities Exam Extremities exam: Positive for: full ROM, normal inspection, pedal pulses present. Negative for: calf tenderness, pedal edema Additional comments: healing ankle wound on RLE above lateral mallelous. Eschar on surface of wound. Nonerythematous, nontender, without discharge. - Neurological Exam Neurological exam: Alert, Oriented x3 - Psychiatric Exam Psychiatric exam: Normal Affect, Normal Mood - Skin Skin Exam: Dry, Intact, Normal Color, Warm Results - Vital Signs Recent Vital Signs: Last Vital Signs Temp 97.7 F 09/10/16 08:12 Pulse 89 04/04/17 08:12 Resp 19 09/10/16 08:12 BP 90/53 L 09/10/16 08:12 Pulse Ox 100 09/10/16 08:12 - Labs Result Diagrams: 09/10/16 03:10 09/10/16 03:10 Assessment & Plan - Assessment and Plan (Free Text) Assessment: 61 y/o female with a PMHx remarkable right occipital CVA, well controlled HTN, DM2, seizures, and a chronic RLE ankle wound being admitted for dehydration secondary to diarrhea potentially due to medication introduction. Plan: 1) Secretory Diarrhea Secondary to Mediation Usage -afebrile on presentation -recently started on Metformin 1000 BID -CBC with diff: wnl -CMP: slightly elevated BUN @ 28 -C diff A&B toxin: 1st test negative, will follow up with repeat test tomorrow -maybe due to recent Metformin usage, will continue to observe 2) Dehydration -IV NS @ 100mls/hr -follow CMPs 3) Hypertension (well controlled) -continue with home medications 3) Diabetes Mellitus Type 2 -hold metformin -Regular Human Insulin SC ACHS 4) Hx of Right Occipital CVA -continue home medications -Social Work consult as pt lives home alone and is s/p CVA -PT/OT for weakness 5) Generalized Seizures -Keppra 500mg BID 6) Chronic RLE Ankle Wound -pt is followed by Dr. Blas -Podiatry consult appreciated 7) DVT Prophylaxis -Lovenox 40mg SC daily
[2016-09-10] MEDS ORDERED: Dextrose 50% SYRINGE Inj (50 ml) IV PRN (08:45)
[2016-09-10] MEDS: Sodium Chloride 0.9% 1,000 ML IV SCH (08:59)
[2016-09-10] MEDS: Enoxaparin 40 mg Syringe SC SCH (09:16)
[2016-09-10] MEDS ORDERED: Insulin Regular 100 units/ml ONE (11:29)
[2016-09-10] MEDS: Insulin Regular 100 units/ml SC SCH ×3 (11:41→21:32)
--- NOTE | 2016-09-10 16:24 | CP.PCM.CON ---
History of Present Illness - History of Present Illness History of Present Illness: 61 year old female patient with PMHx of HTN, DM, uterine prolapse was seen at bedside concerning right lateral ankle ulcer. Patient was admitted for episodes of watery diarrhea. Patient was resting comfortably in chair this morning and denies of any acute distress. Patient denies pedal complaints and no pedal pain at this time. She states that her right ankle wound is now healed. Patient denies any f/c/n/v/cp/sob. Past Patient History - Tetanus Immunizations Tetanus Immunization: Unknown - Past Medical History & Family History Past Medical History?: Yes - Past Social History Smoking Status: Never Smoked - CARDIAC Hx Cardiac Disorders: Yes Hx Hypercholesterolemia: Yes Hx Hypertension: Yes - PULMONARY Hx Respiratory Disorders: No - NEUROLOGICAL HX Cerebrovascular Accident: Yes - HEENT Hx HEENT Problems: Yes Hx Cataracts: Yes - RENAL Hx Chronic Kidney Disease: No - ENDOCRINE/METABOLIC Hx Diabetes Mellitus Type 2: Yes - HEMATOLOGICAL/ONCOLOGICAL Hx Blood Disorders: Yes Hx Blood Transfusions: No - INTEGUMENTARY Hx Dermatological Problems: No - MUSCULOSKELETAL/RHEUMATOLOGICAL Hx Musculoskeletal Disorders: Yes Hx Falls: No Hx Unsteady Gait: Yes - GASTROINTESTINAL Hx Gastrointestinal Disorders: No - GENITOURINARY/GYNECOLOGICAL Hx Genitourinary Disorders: No - PSYCHIATRIC Hx Psychophysiologic Disorder: No Hx Substance Use: No - SURGICAL HISTORY Hx Surgeries: Yes Hx Cataract Extraction: Yes (Bilateral eye) Hx Orthopedic Surgery: Yes (RT FOOT EXC TUMORS/LEFT FOOT EXC BONE) - ANESTHESIA Hx Anesthesia: Yes Hx Anesthesia Reactions: No Hx Malignant Hyperthermia: No Meds Allergies/Adverse Reactions: Allergies Allergy/AdvReac Type Severity Reaction Status Date / Time iodine Allergy Unknown RASH Verified 08/26/16 18:35 Penicillins Allergy Unknown RASH Verified 08/26/16 18:35 - Medications Medications: Current Medications Aspirin (Ecotrin) 81 mg PO DAILY [facility] Last Admin: 09/10/16 09:15 Dose: 81 mg Atorvastatin Calcium (Lipitor) 40 mg PO HS [facility] Clopidogrel Bisulfate (Plavix) 75 mg PO DAILY [facility] Last Admin: 09/10/16 09:16 Dose: 75 mg Dextrose (Glutose 15) 0 gm PO ONCE PRN; Protocol PRN Reason: Hypoglycemia Protocol Dextrose (Dextrose 50% Inj) 0 ml IV STAT PRN; Protocol PRN Reason: Hyglycemia Protocol Enoxaparin Sodium (Lovenox) 40 mg SC DAILY [facility] PRN Reason: Protocol Last Admin: 09/10/16 09:16 Dose: 40 mg Famotidine (Pepcid) 20 mg PO BID [facility] Last Admin: 09/10/16 09:16 Dose: 20 mg Sodium Chloride (Sodium Chloride 0.9%) 1,000 mls @ 100 mls/hr IV .Q10H [facility] Last Admin: 09/10/16 08:59 Dose: 100 mls/hr Insulin Human Regular (Humulin R) 0 units SC ACHS [facility] PRN Reason: Protocol Last Admin: 09/10/16 11:41 Dose: 2 u Levetiracetam (Keppra) 500 mg PO BID [facility] Last Admin: 09/10/16 09:15 Dose: 500 mg Metoprolol Tartrate (Lopressor) 12.5 mg PO Q12 [facility] Last Admin: 09/10/16 09:22 Dose: Not Given Physical Exam - Constitutional Appears: Well, Non-toxic, No Acute Distress - Extremities Exam Additional comments: Right Lower extremity focused. Vasc: DP and PT pulses are palpable 2/4. No edema noted to right lower extremity. Cap refill time to all digits less than 5 seconds Derm: Healed ulcerations noted to the lateral aspect of the right ankle with dried sanguineous drainage. No active drainage, no malodor, no acute sign of infection noted. Neuro: Protective sensation grossly diminished. Ortho: No pain on palpation to healed ulcerations on lateral aspect of right ankle - Neurological Exam Neurological exam: Alert, Oriented x3 - Psychiatric Exam Psychiatric exam: Normal Affect, Normal Mood Results - Vital Signs Recent Vital Signs: Last Vital Signs Temp 98.2 F 09/10/16 15:45 Pulse 97 H 09/10/16 15:45 Resp 20 09/10/16 15:45 BP 101/64 09/10/16 15:45 Pulse Ox 99 09/10/16 15:45 - Labs Result Diagrams: 09/10/16 03:10 09/10/16 03:10 Labs: Laboratory Results - last 24 hr 09/10/16 09/10/16 07:38 15:58 POC Glucose (mg/dL) 202 H C. difficile Ag & Toxin Negative Assessment & Plan - Assessment and Plan (Free Text) Assessment: 61 year old female with headled diabetic ulceration to right ankle Plan: Patient examined and evaluated Chart and vitals reviewed Discussed in detail with attending, Dr. Blas No dressing needed Patient is stable from podiatry standpoint. Patient to follow up with Dr. Blas as an outpatient Podiatry will continue to follow while in house
--- NOTE | 2016-09-10 20:01 | CARD ---
APPROVED REPORT EKG Measurement Heart [id number] <Conclusion> Normal sinus rhythm Possible Left atrial enlargement Incomplete right bundle branch block T wave abnormality, consider inferolateral ischemia Abnormal ECG
[2016-09-11] MEDS: Sodium Chloride 0.9% 1,000 ML IV SCH ×3 (00:52→16:04)
[2016-09-11 08:04] VITALS: RESP 20
[2016-09-11] MEDS: Enoxaparin 40 mg Syringe SC SCH (09:09)
[2016-09-11] MEDS: Insulin Regular 100 units/ml SC SCH ×3 (09:10→18:10)
[2016-09-11 15:47] VITALS: BP 110/70; PULSE 106; TEMP 97.9; O2SAT 99
== END 2016-09-11 18:45 ==
LOC: H.ER 02:01 → H.ERHOLD 05:46 → H.TEL 13:43
PROVIDERS: ADMIT Family Medicine Geriatric Medicine; ATTEND Family Medicine Geriatric Medicine
DX: K52.1 Toxic gastroenteritis and colitis (principal); T38.3X5A Adverse effect of insulin and oral hypoglycemic [antidiabetic] drugs, initial encounter; Z86.73 Personal history of transient ischemic attack (TIA), and cerebral infarction without residual deficits; Z88.0 Allergy status to penicillin; Z91.041 Radiographic dye allergy status; I10 Essential (primary) hypertension; E78.00 Pure hypercholesterolemia, unspecified; E86.0 Dehydration; G40.409 Other generalized epilepsy and epileptic syndromes, not intractable, without status epilepticus; E11.622 Type 2 diabetes mellitus with other skin ulcer; L97.319 Non-pressure chronic ulcer of right ankle with unspecified severity
CPT/HCPCS: 80053; 82948; 85025; 87230; 93005; 96360; 96372; 97161; 97165; 99285; G0378; G8978; G8979; G8980; G8987; G8988; G8989; J1650; J7040

== ENCOUNTER 2016-12-11 17:32 | Inpatient (IN) | payer MEDICARE, MEDICAID ==
[2016-12-11 17:33] VITALS: BMI 22.3
--- NOTE | 2016-12-11 18:29 | ED PDOC ---
Lower Extremity Pain/Injury Time Seen by Provider: 12/11/16 18:10 Chief Complaint (Nursing): Lower Extremity Problem/Injury Chief Complaint (Provider): Lower Extremity Problem/Injury History Per: Patient History/Exam Limitations: no limitations Onset/Duration Of Symptoms: Days (x2 weeks ) Current Symptoms Are (Timing): Still Present Additional Complaint(s): 61 y/o female with a past medical history of diabetes, hypertension, hypercholesterolemia and cerebrovascular accident (CVA) who presents to the emergency department after referred from wound care center for admission of an infected diabetic heel ulcer x2 weeks. Patient states she scraped ankle against fence and developed wound that did not improve with treatment. Denies fever, drainage, or any further complaints. PMD: Dr. Serafin Blas MD Past Medical History Reviewed: Historical Data, Nursing Documentation, Vital Signs Vital Signs: Last Vital Signs Temp 99.2 F 12/11/16 17:51 Pulse 118 H 12/11/16 17:51 Resp 18 12/11/16 17:51 BP 164/88 H 12/11/16 17:51 Pulse Ox 99 12/11/16 17:51 - Medical History PMH: CVA, Diabetes, HTN, Hypercholesterolemia, Seizures Denies: Chronic Kidney Disease - Surgical History Surgical History: No Surg Hx - Family History Family History: States: Unknown Family Hx - Social History Current smoker - smoking cessation education provided: No Alcohol: None Drugs: Denies - Home Medications Home Medications: Ambulatory Orders Medication Instructions Recorded Atorvastatin [Lipitor] 40 mg PO HS #30 tab 09/07/16 Clopidogrel [Plavix] 75 mg PO DAILY #30 tab 09/07/16 Famotidine [Pepcid] 20 mg PO BID #30 tab 09/07/16 Levetiracetam [Keppra] 500 mg PO BID #60 tablet 09/07/16 Aspirin [Ecotrin] 81 mg PO DAILY 09/10/16 Metoprolol Tartrate [Lopressor] 12.5 mg PO Q12 #60 tab 09/11/16 SITagliptin [Januvia] 100 mg PO DAILY #30 tab 09/11/16 - Allergies Allergies/Adverse Reactions: Allergies Allergy/AdvReac Type Severity Reaction Status Date / Time iodine Allergy Unknown RASH Verified 08/26/16 18:35 Penicillins Allergy Unknown RASH Verified 08/26/16 18:35 Review of Systems ROS Statement: Except As Marked, All Systems Reviewed And Found Negative Constitutional: Negative for: Fever Musculoskeletal: Positive for: Foot Pain (Right heel ulcer). Negative for: Other (No drainage) Physical Exam - Reviewed Nursing Documentation Reviewed: Yes Vital Signs Reviewed: Yes - Physical Exam Appears: Positive for: Non-toxic, No Acute Distress Head Exam: Positive for: ATRAUMATIC, NORMAL INSPECTION, NORMOCEPHALIC Skin: Positive for: Normal Color, Warm, Dry Cardiovascular/Chest: Positive for: Regular Rate, Rhythm. Negative for: Murmur Respiratory: Positive for: Normal Breath Sounds. Negative for: Accessory Muscle Use, Respiratory Distress Gastrointestinal/Abdominal: Positive for: Normal Exam, Soft. Negative for: Tenderness Extremity: Positive for: Normal ROM (Right heel 2cm ulcer. Wound is proximate to heel. ). Negative for: Pedal Edema, Other (No drainage noted from the ulcer. ) Neurologic/Psych: Positive for: Alert, Oriented - ECG O2 Sat by Pulse Oximetry: 99 (RA) Pulse Ox Interpretation: Normal Medical Decision Making Medical Decision Making: Time: 18:19 Initial impression: Right foot wound Initial plan: --VBG Shock Panel --Electrocardiogram STAT --COMP Metabolic Panel --EKG-ED (EDNURTX) --CBC w/ differential --Vancomycin 1gm --Blood Culture STAT --Admit to hospital routine: As inpatient to Med/Surg for infected diabetic foot ulcer under the care of Dr. Kirby Serrano MD Scribe Attestation: Documented by Lis Borrero, acting as a scribe for Roger Das MD. Provider Scribe Attestation: All medical record entries made by the Scribe were at my direction and personally dictated by me. I have reviewed the chart and agree that the record accurately reflects my personal performance of the history, physical exam, medical decision making, and the department course for this patient. I have also personally directed, reviewed, and agree with the discharge instructions and disposition. Disposition - Clinical Impression Clinical Impression: Diabetic foot infection - Patient ED Disposition Is Patient to be Admitted: Yes - Disposition Disposition Time: 18:35 Condition: FAIR - Pt Status Changed To: Hospital Disposition Of: Inpatient - Admit Certification Admit to Inpatient:: After my assessment, the patient will require hospitalization for at least two midnights. This is because of the severity of symptoms shown, intensity of services needed, and/or the medical risk in this patient being treated as an outpatient. - POA Present On Arrival: None
[2016-12-11 18:56] LABS: BASO % 0.5 % (0.0-2.0); EOS # 0.7 K/uL (0.0-0.7); EOS % 8.2 % (0.0-4.0); HEMOGLOBIN 12.7 g/dL (12.0-16.0); LYMPH # 1.6 K/uL (1.0-4.3); LYMPH % 18.7 % (20.0-40.0); MEAN CELL VOLUME 88.5 fl (81.0-99.0); MEAN CORPUSCULAR HEMOGLOBIN 29.9 pg (27.0-31.0); MEAN CORPUSCULAR HGB CONC 33.7 g/dL (33.0-37.0); MEAN PLATELET VOLUME 8.2 fl (7.2-11.7); MONO % 12.1 % (0.0-10.0); NEUT % 60.5 % (50.0-75.0); RBC 4.24 Mil/uL (3.80-5.20); RED CELL DISTRIBUTION WIDTH 13.8 % (11.5-14.5); WHITE BLOOD COUNT 8.3 K/uL (4.8-10.8)
[2016-12-11 18:58] LABS: VENOUS BLOOD GAS BASE EXCESS 3.2 mmol/L (0.0-2.0); VENOUS BLOOD GAS PCO2 45 mmHg (40-60); VENOUS BLOOD GAS PO2 22 mm/Hg (30-55); VENOUS BLOOD PH 7.41 (7.32-7.43)
[2016-12-11 19:06] LABS: ALB/GLOB RATIO 1.2 (1.0-2.1); ALBUMIN 4.7 g/dL (3.5-5.0); ALT/SGPT 38 U/L (9-52); AST/SGOT 22 U/L (14-36); BLOOD UREA NITROGEN 16 mg/dl (7-17); CALCIUM 9.6 mg/dL (8.4-10.2); GFR AFRICAN-AMERICAN > 60; GFR NON-AFRICAN AMERICAN > 60
--- NOTE | 2016-12-11 19:37 | CP.PCM.CON ---
History of Present Illness - History of Present Illness History of Present Illness: 61 y/o female with PMHx of HTN, DM, uterine prolapse presents to the ED for right posterior ankle ulcer. She saw Dr. Blas in wound care where he told her to go to the ER. She states that she is in pain, rating the pain 6/10. The pain stays localized at the site of the ulcer. She has had this wound for 3 years. It finally closed but 2 weeks ago, a gate entrance hit her leg and caused the wound to open again. She denies n/v/sob/cp/chills or fever. She has been receiving continued treatment for her wound in the wound care clinic. Today in the wound care clinic, Gentian Christie and silver dressing was applied before coming to ED. PMH: CVA, HTN, DM, seizures, left ear tinnitus PSH: b/l cataract sugery, right ankle surgery SH: Denies ETHO, tobacco Allergies: IV contrast, Pencillin (rash) Review of Systems - Review of Systems Review of Systems: Per HPI Past Patient History - Tetanus Immunizations Tetanus Immunization: Unknown - Past Medical History & Family History Past Medical History?: Yes - Past Social History Alcohol: None Drugs: Denies - CARDIAC Hx Hypercholesterolemia: Yes Hx Hypertension: Yes - PULMONARY Hx Respiratory Disorders: No - NEUROLOGICAL Hx Seizures: Yes - HEENT Hx HEENT Problems: Yes Hx Cataracts: Yes - RENAL Hx Chronic Kidney Disease: No - ENDOCRINE/METABOLIC Hx Diabetes Mellitus Type 2: Yes - HEMATOLOGICAL/ONCOLOGICAL Hx Blood Disorders: Yes Hx Blood Transfusions: No - INTEGUMENTARY Hx Dermatological Problems: No - MUSCULOSKELETAL/RHEUMATOLOGICAL Hx Musculoskeletal Disorders: Yes Hx Falls: No Hx Unsteady Gait: Yes - GASTROINTESTINAL Hx Gastrointestinal Disorders: No - GENITOURINARY/GYNECOLOGICAL Hx Genitourinary Disorders: No - PSYCHIATRIC Hx Psychophysiologic Disorder: No Hx Substance Use: No - SURGICAL HISTORY Hx Surgeries: Yes Hx Cataract Extraction: Yes (Bilateral eye) Hx Orthopedic Surgery: Yes (RT FOOT EXC TUMORS/LEFT FOOT EXC BONE) - ANESTHESIA Hx Anesthesia: Yes Hx Anesthesia Reactions: No Hx Malignant Hyperthermia: No Meds Allergies/Adverse Reactions: Allergies Allergy/AdvReac Type Severity Reaction Status Date / Time iodine Allergy Unknown RASH Verified 08/26/16 18:35 Penicillins Allergy Unknown RASH Verified 08/26/16 18:35 Physical Exam - Constitutional Appears: Well, Non-toxic, No Acute Distress - Extremities Exam Additional comments: Vasc: DP 2/4 bilaterally, PT 2/4 bilaterally, 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 No purulence noted. No probe to bone noted. - Neurological Exam Neurological exam: Alert, Oriented x3 - Psychiatric Exam Psychiatric exam: Normal Affect, Normal Mood Results - Vital Signs Recent Vital Signs: Last Vital Signs Temp 99.2 F 12/11/16 17:51 Pulse 118 H 12/11/16 17:51 Resp 18 12/11/16 17:51 BP 164/88 H 12/11/16 17:51 Pulse Ox 99 12/11/16 18:35 - Labs Result Diagrams: 12/11/16 18:31 12/11/16 19:00 Labs: Laboratory Results - last 24 hr 12/11/16 12/11/16 12/11/16 18:31 18:52 19:00 WBC 8.3 RBC 4.24 Hgb 12.7 Hct 37.6 MCV 88.5 D MCH 29.9 MCHC 33.7 RDW 13.8 Plt Count 236 MPV 8.2 Neut % (Auto) 60.5 Lymph % (Auto) 18.7 L Guthrie % (Auto) 12.1 H Eos % (Auto) 8.2 H Baso % (Auto) 0.5 Neut # 5.0 Lymph # 1.6 Guthrie # 1.0 H Eos # 0.7 Baso # 0.0 pO2 22 L VBG pH 7.41 VBG pCO2 45 VBG HCO3 25.8 VBG Total CO2 29.9 H VBG O2 Sat (Calc) 44.9 VBG Base Excess 3.2 H VBG Potassium 4.1 Sodium 141.0 141 Chloride 105.0 104 Glucose 214 H Lactate 0.9 FiO2 21.0 Potassium 4.1 Carbon Dioxide 27 Anion Gap 13 BUN 16 Creatinine 0.8 Est GFR ( Amer) > 60 Est GFR (Non-Af Amer) > 60 Random Glucose 219 H Calcium 9.6 Total Bilirubin 0.6 AST 22 ALT 38 Alkaline Phosphatase 85 Total Protein 8.7 H Albumin 4.7 Globulin 4.0 H Albumin/Globulin Ratio 1.2 Venous Blood Potassium 4.1 Assessment & Plan - Assessment and Plan (Free Text) Assessment: 61 y.o female with ulceration of right posterior ankle. Plan: Patient examined and evaluated Chart and vitals reviewed (afebrile, WBC 8.3) Discussed in detail with attending, Dr. Blas Ulcer was cleansed with saline solution and dressed with adaptic, DSD, and Kerlix Wound culture ordered - pending culture results X-rays were taken- no fractures, no gas, no kailash abnormalities noted at the site of ulcer Ordered Bactroban to be applied to right ulcer Ordered Silver dressing to be applied to right ulcer Ulcer will be dressed with Bactroban, Silver dressing, DSD, and Kerlix once admitted Will continue to follow
--- NOTE | 2016-12-11 21:55 | CP.PCM.HP ---
<Andrae Jacob - Last Filed: 12/12/16 06:07> History of Present Illness - History of Present Illness History of Present Illness: 61 yo F w PMHx of HTN, DM2, seizures, CVA, s/p fall and chronic R ankle wound is admitted for an infected RLE ulcer, worsening over previous 2 weeks. Patient has a history of a chronic Right ankle wound that had healed. However, it scraped against the gated opening of a fence a couple of weeks ago and it has reopened and subsequently become infected. She had been seen in the wound clinic , but it has only worsened, and was she was instructed to go to the hospital. She denies any fevers/chills, diaphoresis, nausea, vomiting, diarrhea, chest pain, SOB, dyspnea, cough, abdominal pain, or other myalgias. PMD: Dr Larsen Podiatry: Dr Blas PMHx: right occipital CVA (08/19/2016), HTN (well controlled), NIDDM2, seizures , Chronic RLE ankle wound, Chronic Left ear tinnitus PSHx: b/l cataract surgery, Right ankle wound debridement Allergies: IV contrast, Penicillin (rash) Home Meds: Aspirin, Keppra, Atorvastatin, Pepcid, Clopidogrel, Levemir, Metoprolol, ?Metformin SHx: denies cigarettes, etoh, illicit drug use ED Course: -CBC -CMP -VBG -BCx -EKG -Vancomycin 1gm Present on Admission - Present on Admission Any Indicators Present on Admission: Yes History of DVT/PE: No History of Uncontrolled Diabetes: Yes Urinary Catheter: No Decubitus Ulcer Present: No Review of Systems - Review of Systems All systems: reviewed and no additional remarkable complaints except (see HPI) Past Patient History - Tetanus Immunizations Tetanus Immunization: Unknown - Past Medical History & Family History Past Medical History?: Yes - Past Social History Alcohol: None Drugs: Denies - CARDIAC Hx Hypercholesterolemia: Yes Hx Hypertension: Yes - PULMONARY Hx Respiratory Disorders: No - NEUROLOGICAL Hx Seizures: Yes - HEENT Hx HEENT Problems: Yes - RENAL Hx Chronic Kidney Disease: No - ENDOCRINE/METABOLIC Hx Diabetes Mellitus Type 2: Yes - HEMATOLOGICAL/ONCOLOGICAL Hx Blood Disorders: Yes - INTEGUMENTARY Hx Dermatological Problems: No - MUSCULOSKELETAL/RHEUMATOLOGICAL Hx Musculoskeletal Disorders: Yes - GASTROINTESTINAL Hx Gastrointestinal Disorders: No - GENITOURINARY/GYNECOLOGICAL Hx Genitourinary Disorders: No - PSYCHIATRIC Hx Psychophysiologic Disorder: No - SURGICAL HISTORY Hx Surgeries: Yes Hx Cataract Extraction: Yes (Bilateral eye) Hx Orthopedic Surgery: Yes (RT FOOT EXC TUMORS/LEFT FOOT EXC BONE) - ANESTHESIA Hx Anesthesia: Yes Hx Anesthesia Reactions: No Hx Malignant Hyperthermia: No Meds Allergies/Adverse Reactions: Allergies Allergy/AdvReac Type Severity Reaction Status Date / Time iodine Allergy Unknown RASH Verified 08/26/16 18:35 Penicillins Allergy Unknown RASH Verified 08/26/16 18:35 Physical Exam - Constitutional Appears: Non-toxic, No Acute Distress - Head Exam Head Exam: ATRAUMATIC, NORMOCEPHALIC - Eye Exam Eye Exam: Normal appearance - Neck Exam Neck exam: Positive for: Normal Inspection - Respiratory Exam Respiratory Exam: Clear to Auscultation Bilateral, NORMAL BREATHING PATTERN. absent: Chest Wall Tenderness, Respiratory Distress - Cardiovascular Exam Cardiovascular Exam: REGULAR RHYTHM, RRR - GI/Abdominal Exam GI & Abdominal Exam: Normal Bowel Sounds, Soft. absent: Distended, Tenderness - Extremities Exam Extremities exam: Negative for: calf tenderness, pedal edema Additional comments: as seen w Podiatry: ulcer located very lower calf, just proximal to ankle, measuring 2cm in diameter - Neurological Exam Neurological exam: Alert, Oriented x3 - Psychiatric Exam Psychiatric exam: Normal Affect, Normal Mood - Skin Skin Exam: Dry, Normal Color, Warm Results - Vital Signs Recent Vital Signs: Last Vital Signs Temp 98.4 F 12/11/16 21:17 Pulse 103 H 12/11/16 21:17 Resp 18 12/11/16 21:17 BP 148/81 12/11/16 21:17 Pulse Ox 97 12/11/16 21:00 - Labs Result Diagrams: 12/11/16 18:31 12/11/16 19:00 Labs: Laboratory Results - last 24 hr 12/11/16 12/11/16 12/11/16 18:31 18:52 19:00 WBC 8.3 RBC 4.24 Hgb 12.7 Hct 37.6 MCV 88.5 D MCH 29.9 MCHC 33.7 RDW 13.8 Plt Count 236 MPV 8.2 Neut % (Auto) 60.5 Lymph % (Auto) 18.7 L Williamson % (Auto) 12.1 H Eos % (Auto) 8.2 H Baso % (Auto) 0.5 Neut # 5.0 Lymph # 1.6 Williamson # 1.0 H Eos # 0.7 Baso # 0.0 pO2 22 L VBG pH 7.41 VBG pCO2 45 VBG HCO3 25.8 VBG Total CO2 29.9 H VBG O2 Sat (Calc) 44.9 VBG Base Excess 3.2 H VBG Potassium 4.1 Sodium 141.0 141 Chloride 105.0 104 Glucose 214 H Lactate 0.9 FiO2 21.0 Potassium 4.1 Carbon Dioxide 27 Anion Gap 13 BUN 16 Creatinine 0.8 Est GFR ( Amer) > 60 Est GFR (Non-Af Amer) > 60 Random Glucose 219 H Calcium 9.6 Total Bilirubin 0.6 AST 22 ALT 38 Alkaline Phosphatase 85 Total Protein 8.7 H Albumin 4.7 Globulin 4.0 H Albumin/Globulin Ratio 1.2 Venous Blood Potassium 4.1 Assessment & Plan - Assessment and Plan (Free Text) Plan: 61 yo F w PMHx of HTN, DM2, seizures, CVA s/p fall, and chronic R ankle wound is admitted for an infected RLE ulcer, worsening over previous 2 weeks 1) RLE ulcer -h/o Chronic RLE diabetic ulcer that had previously healed -Mupirocin Ointment -Vancomycin 1gm IVPB STAT [ED] -f/u Wound Cx -f/u BCx -f/u CBC -f/u ID Consult 2) DM -Diabetic Diet -Lispro Sliding Scale -f/u FS ACHS -f/u BMP 3) HTN -Currently Controlled -Lisinopril 20mg PO Daily -Hydrochlorothiazide 12.5mg PO Daily -f/u BP readings -f/u medication rec, due to noncompliance w most of her medications, as she is not taking most of them in fear that one of them is causing a rash; f/u w family member or pharmacy 4) DVT Prophylaxis -Lovenox 40mg SC HS <London Turk - Last Filed: 12/12/16 06:54> Results - Vital Signs Recent Vital Signs: Last Vital Signs Temp 98.3 F 12/12/16 00:38 Pulse 93 H 12/12/16 00:38 Resp 18 12/12/16 00:38 BP 117/74 12/12/16 00:38 Pulse Ox 97 12/12/16 00:38 - Labs Result Diagrams: 12/11/16 18:31 12/12/16 05:30 Labs: Laboratory Results - last 24 hr 12/11/16 12/11/16 12/11/16 18:31 18:52 19:00 WBC 8.3 RBC 4.24 Hgb 12.7 Hct 37.6 MCV 88.5 D MCH 29.9 MCHC 33.7 RDW 13.8 Plt Count 236 MPV 8.2 Neut % (Auto) 60.5 Lymph % (Auto) 18.7 L Williamson % (Auto) 12.1 H Eos % (Auto) 8.2 H Baso % (Auto) 0.5 Neut # 5.0 Lymph # 1.6 Williamson # 1.0 H Eos # 0.7 Baso # 0.0 pO2 22 L VBG pH 7.41 VBG pCO2 45 VBG HCO3 25.8 VBG Total CO2 29.9 H VBG O2 Sat (Calc) 44.9 VBG Base Excess 3.2 H VBG Potassium 4.1 Sodium 141.0 141 Chloride 105.0 104 Glucose 214 H Lactate 0.9 FiO2 21.0 Potassium 4.1 Carbon Dioxide 27 Anion Gap 13 BUN 16 Creatinine 0.8 Est GFR ( Amer) > 60 Est GFR (Non-Af Amer) > 60 POC Glucose (mg/dL) Random Glucose 219 H Calcium 9.6 Total Bilirubin 0.6 AST 22 ALT 38 Alkaline Phosphatase 85 Total Protein 8.7 H Albumin 4.7 Globulin 4.0 H Albumin/Globulin Ratio 1.2 Venous Blood Potassium 4.1 12/11/16 12/12/16 12/12/16 22:05 05:30 05:37 WBC RBC Hgb Hct MCV MCH MCHC RDW Plt Count MPV Neut % (Auto) Lymph % (Auto) Williamson % (Auto) Eos % (Auto) Baso % (Auto) Neut # Lymph # Williamson # Eos # Baso # pO2 VBG pH VBG pCO2 VBG HCO3 VBG Total CO2 VBG O2 Sat (Calc) VBG Base Excess VBG Potassium Sodium 141 Chloride 106 Glucose Lactate FiO2 Potassium 4.1 Carbon Dioxide 27 Anion Gap 12 BUN 15 Creatinine 0.9 Est GFR ( Amer) > 60 Est GFR (Non-Af Amer) > 60 POC Glucose (mg/dL) 312 H 194 H Random Glucose 168 H Calcium 9.1 Total Bilirubin AST ALT Alkaline Phosphatase Total Protein Albumin Globulin Albumin/Globulin Ratio Venous Blood Potassium Attending/Attestation - Attestation I have personally seen and examined this patient.: Yes I have fully participated in the care of the patient.: Yes I have reviewed all pertinent clinical information: Yes
[2016-12-11] MEDS: Enoxaparin 40 mg Syringe SC SCH (23:55)
[2016-12-12 06:23] LABS: HEMOGLOBIN 12.1 g/dL (12.0-16.0); MEAN CELL VOLUME 88.3 fl (81.0-99.0); MEAN CORPUSCULAR HEMOGLOBIN 29.3 pg (27.0-31.0); MEAN CORPUSCULAR HGB CONC 33.2 g/dL (33.0-37.0); RBC 4.15 Mil/uL (3.80-5.20); RED CELL DISTRIBUTION WIDTH 13.8 % (11.5-14.5); WHITE BLOOD COUNT 7.6 K/uL (4.8-10.8)
[2016-12-12 06:31] LABS: BLOOD UREA NITROGEN 15 mg/dl (7-17); CALCIUM 9.1 mg/dL (8.4-10.2); GFR AFRICAN-AMERICAN > 60; GFR NON-AFRICAN AMERICAN > 60
[2016-12-12] MEDS: Insulin Lispro (humaLOG) 100 Units/ml Inj SC SCH ×4 (09:20→22:31)
--- NOTE | 2016-12-12 12:29 | CP.PCM.PN ---
Subjective - Date & Time of Evaluation Date of Evaluation: 12/12/16 Time of Evaluation: 12:27 - Subjective Subjective: 61 y/o female seen at bedside for right posterior ankle ulcer. Pt is AAOx3 and is in NAD. Pt states that she had little in her ankle today but she is managing it well. Pt denies of any acute overnight events. Pt denies of any F/N/V/C/SOB today. Pt's dressing is clean, dry and intact. Pt denies of any new pedal complains today. Objective - Vital Signs/Intake and Output Vital Signs (last 24 hours): Temp Pulse Resp BP Pulse Ox 98.5 F 58 L 18 125/70 100 12/12/16 08:12 12/12/16 08:12 12/12/16 08:12 12/12/16 08:12 12/12/16 08:12 - Medications Medications: Current Medications Aspirin (Aspirin Chewable) 81 mg PO DAILY [facility] Last Admin: 12/12/16 09:19 Dose: Not Given Clopidogrel Bisulfate (Plavix) 75 mg PO DAILY [facility] Enoxaparin Sodium (Lovenox) 40 mg SC HS [facility] PRN Reason: Protocol Last Admin: 12/11/16 23:55 Dose: 40 mg Famotidine (Pepcid) 20 mg PO BID [facility] Hydrochlorothiazide (Microzide) 12.5 mg PO DAILY [facility] Insulin Human Lispro (Humalog) 0 units SC ACHS [facility] PRN Reason: Protocol Last Admin: 12/12/16 09:20 Dose: 2 units Levetiracetam (Keppra) 500 mg PO BID [facility] Lisinopril (Zestril) 20 mg PO DAILY [facility] Mupirocin (Bactroban Ointment) 1 applic TOP BID [facility] - Labs Labs: 12/12/16 05:30 12/12/16 05:30 - Constitutional Appears: Well, Non-toxic, No Acute Distress - Extremities Exam Additional comments: Vasc: DP/PT pulses are palpable 2/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 Neuro: protective sensation grossly diminished bilaterally Ortho: pain on palpation of the posterior ankle, MM is 5/5 in all four compartments, no pain on palpation of the calf b/l - Neurological Exam Neurological Exam: Alert, Altered, Awake, Oriented x3 Assessment and Plan - Assessment and Plan (Free Text) Assessment: 61 y/o female seen at bedside for ulceration of right posterior ankle secondary to injury Plan: Pt evaluated and chart reviewed Pt discussed in detail with attending, Dr. Blas Chart and vitals reviewed (afebrile, WBC 7.6) Dressing changed using bactroban, adaptic, DSD, and Kerlix Wound culture ordered - pending culture results X-rays were taken- no fractures, no gas, no kailash abnormalities noted at the site of ulcer ID consulted for IV abx recommendations Podiatry to follow patient while in-house
--- NOTE | 2016-12-12 12:39 | RAD ---
PROCEDURE: Right Ankle Radiographs. HISTORY: right leg wound COMPARISON: None FINDINGS: BONES: No acute fracture. Plantar and Achilles Tendon insertion calcaneal spurs. JOINTS: Normal. No osteoarthritis. Ankle mortise maintained. Talar dome intact SOFT TISSUES: Normal. OTHER FINDINGS: None. IMPRESSION: No acute findings related to/accounting for the clinical presentation.
--- NOTE | 2016-12-12 13:18 | CP.PCM.PN ---
<Swati Soler - Last Filed: 12/12/16 13:56> Subjective - Date & Time of Evaluation Date of Evaluation: 12/12/16 Time of Evaluation: 07:20 - Subjective Subjective: Patient seen and examined at bedside, reports severe pain from RLE ulcer. Denies fevers, chills, SOB, weakness or dizziness. Tolerating PO diet. Patient was cooperative with physical exam, though had difficulty tolerating exam due to pain. Objective - Vital Signs/Intake and Output Vital Signs (last 24 hours): Temp Pulse Resp BP Pulse Ox 98.5 F 58 L 18 125/70 100 12/12/16 08:12 12/12/16 08:12 12/12/16 08:12 12/12/16 08:12 12/12/16 08:12 - Medications Medications: Current Medications Aspirin (Aspirin Chewable) 81 mg PO DAILY [facility] Last Admin: 12/12/16 09:19 Dose: Not Given Clopidogrel Bisulfate (Plavix) 75 mg PO DAILY [facility] Enoxaparin Sodium (Lovenox) 40 mg SC HS [facility] PRN Reason: Protocol Last Admin: 12/11/16 23:55 Dose: 40 mg Famotidine (Pepcid) 20 mg PO BID [facility] Hydrochlorothiazide (Microzide) 12.5 mg PO DAILY [facility] Insulin Human Lispro (Humalog) 0 units SC [facility] PRN Reason: Protocol Last Admin: 12/12/16 12:27 Dose: 3 units Levetiracetam (Keppra) 500 mg PO BID [facility] Lisinopril (Zestril) 20 mg PO DAILY [facility] Mupirocin (Bactroban Ointment) 1 applic TOP BID [facility] - Labs Labs: 12/12/16 05:30 12/12/16 05:30 - Constitutional Appears: Non-toxic, No Acute Distress - Head Exam Head Exam: ATRAUMATIC, NORMOCEPHALIC - Eye Exam Eye Exam: EOMI, PERRL - ENT Exam ENT Exam: Mucous Membranes Moist - Neck Exam Neck Exam: Full ROM. absent: Lymphadenopathy - Respiratory Exam Respiratory Exam: Clear to Ausculation Bilateral, NORMAL BREATHING PATTERN - Cardiovascular Exam Cardiovascular Exam: REGULAR RHYTHM, +S1, +S2 - GI/Abdominal Exam GI & Abdominal Exam: Soft, Normal Bowel Sounds. absent: Distended, Tenderness - Extremities Exam Extremities Exam: Full ROM (open ulcer of RLE posterior ankle measuring 3 x 3 cm , with fibrinous tissue, no surrounding erythema, minimal serous drainage on gauze removed fom ulcer, patient very tender in area surrounding ulcer ), Normal Capillary Refill (strength 2+ bilaterally in upper and lower extremities , sensation intact and normla bilaterlly). absent: Calf Tenderness, Pedal Edema - Back Exam Back Exam: absent: CVA tenderness (L), CVA tenderness (R) - Neurological Exam Neurological Exam: Alert, Awake, CN II-XII Intact, Oriented x3 - Psychiatric Exam Psychiatric exam: Normal Affect, Normal Mood - Skin Skin Exam: Dry, Warm Assessment and Plan - Assessment and Plan (Free Text) Assessment: 61 yr old F admitted for worsening infected right posterior ankle ulcer with PMHx of HTN, DM2, seizures, CVA s/p fall, and chronic R ankle wound. Patient reports moderate to severe pain form ulcer, worsened with palpation or dressing changes. Vitals signs are stable, no leukocytosis. ID and podiatry are on board , will follow recommendations. 1) Nonhealing RLE ulcer -worsened over last 2 weeks, xray showed no right ankle/heel fracture (see full report) -h/o Chronic RLE ulcer that had previously healed -Mupirocin Ointment -Vancomycin 1gm Q12H IVPB -f/u Wound Cx, BCx -ID Consult appreciated -Dr. Jensen, will follow recommendations -Podiatry consult appreciated- Dr. Blas, will follow recommendations 2) DM -Diabetic Diet -Lispro Sliding Scale -POC glucose ACHS -f/u CMP, HbA1c, fasting lipid panel 3) HTN -Controlled -home meds held for now (Lisinopril 20mg PO QD, Hydrochlorothiazide 12.5mg PO QD ) -f/u BP readings -f/u medication rec, due to noncompliance w most of her medications, as she is not taking most of them in fear that one of them is causing a rash; f/u w family member or pharmacy 4) DVT Prophylaxis -Lovenox 40mg SC HS <London Turk - Last Filed: 12/13/16 07:03> Objective - Vital Signs/Intake and Output Vital Signs (last 24 hours): Temp Pulse Resp BP Pulse Ox 97.3 F L 106 H 19 124/69 96 12/13/16 00:31 12/13/16 00:31 12/13/16 00:31 12/13/16 00:31 12/13/16 00:31 - Medications Medications: Current Medications Aspirin (Aspirin Chewable) 81 mg PO DAILY [facility] Last Admin: 12/12/16 09:19 Dose: Not Given Clopidogrel Bisulfate (Plavix) 75 mg PO DAILY [facility] Enoxaparin Sodium (Lovenox) 40 mg SC HS [facility] PRN Reason: Protocol Last Admin: 12/12/16 22:29 Dose: 40 mg Famotidine (Pepcid) 20 mg PO BID [facility] Hydrochlorothiazide (Microzide) 12.5 mg PO DAILY [facility] Vancomycin HCl 1 gm/ Sodium (Chloride) 250 mls @ 166.667 mls/hr IVPB Q12 [facility] Last Admin: 12/12/16 22:27 Dose: 166.667 mls/hr Ciprofloxacin (Cipro 400mg/200ml Dsw) 400 mg in 200 mls @ 200 mls/hr IVPB Q12 [facility] Last Admin: 12/13/16 00:21 Dose: 200 mls/hr Insulin Human Lispro (Humalog) 0 units SC ACHS [facility] PRN Reason: Protocol Last Admin: 12/12/16 22:31 Dose: Not Given Levetiracetam (Keppra) 500 mg PO BID [facility] Lisinopril (Zestril) 20 mg PO DAILY [facility] Mupirocin (Bactroban Ointment) 1 applic TOP BID [facility] Last Admin: 12/12/16 19:28 Dose: Not Given Oxycodone/Acetaminophen (Percocet 5/325 Mg Tab) 1 tab PO Q4 PRN PRN Reason: Pain, Mild (1-3) Stop: 12/15/16 13:30 Oxycodone/Acetaminophen (Percocet 5/325 Mg Tab) 2 tab PO Q6 PRN PRN Reason: Pain, moderate (4-7) Stop: 12/15/16 13:31 - Labs Labs: 12/13/16 05:40 12/12/16 05:30 Attending/Attestation - Attestation I have personally seen and examined this patient.: Yes I have fully participated in the care of the patient.: Yes I have reviewed all pertinent clinical information, including history, physical exam and plan: Yes
[2016-12-12] MEDS ORDERED: Oxycodone/Acetaminophen 5/325 mg Tab PO PRN ×2 (13:29→13:30)
--- NOTE | 2016-12-12 17:59 | CARD ---
APPROVED REPORT EKG Measurement Heart [id number] <Conclusion> Sinus tachycardia Possible Left atrial enlargement Right bundle branch block Abnormal ECG
--- NOTE | 2016-12-12 20:04 | CP.PCM.PN ---
Subjective - Date & Time of Evaluation Date of Evaluation: 12/12/16 Time of Evaluation: 20:00 - Subjective Subjective: I D (INITIAL CONSULT) NOTE PATIENT EXAMINED ,CHART REVIEWED HISTORY DISCUSSED C HER REVIEWED PRIOR CULTURES AWAIT F/U CULTURES CONTINUE VANCOMYCIN HAVE ADDED CIPROFLOXIN Objective - Vital Signs/Intake and Output Vital Signs (last 24 hours): Temp Pulse Resp BP Pulse Ox 98.3 F 73 18 122/76 98 12/12/16 15:55 12/12/16 15:55 12/12/16 15:55 12/12/16 15:55 12/12/16 15:55 - Medications Medications: Current Medications Aspirin (Aspirin Chewable) 81 mg PO DAILY [facility] Last Admin: 12/12/16 09:19 Dose: Not Given Clopidogrel Bisulfate (Plavix) 75 mg PO DAILY [facility] Enoxaparin Sodium (Lovenox) 40 mg SC HS [facility] PRN Reason: Protocol Last Admin: 12/11/16 23:55 Dose: 40 mg Famotidine (Pepcid) 20 mg PO BID [facility] Hydrochlorothiazide (Microzide) 12.5 mg PO DAILY [facility] Vancomycin HCl 1 gm/ Sodium (Chloride) 250 mls @ 166.667 mls/hr IVPB Q12 [facility] Last Admin: 12/12/16 14:31 Dose: 166.667 mls/hr Ciprofloxacin (Cipro 400mg/200ml Dsw) 400 mg in 200 mls @ 200 mls/hr IVPB Q12 [facility] Insulin Human Lispro (Humalog) 0 units SC ACHS [facility] PRN Reason: Protocol Last Admin: 12/12/16 17:33 Dose: 2 units Levetiracetam (Keppra) 500 mg PO BID [facility] Lisinopril (Zestril) 20 mg PO DAILY [facility] Mupirocin (Bactroban Ointment) 1 applic TOP BID [facility] Last Admin: 12/12/16 19:28 Dose: Not Given Oxycodone/Acetaminophen (Percocet 5/325 Mg Tab) 1 tab PO Q4 PRN PRN Reason: Pain, Mild (1-3) Stop: 12/15/16 13:30 Oxycodone/Acetaminophen (Percocet 5/325 Mg Tab) 2 tab PO Q6 PRN PRN Reason: Pain, moderate (4-7) Stop: 12/15/16 13:31 - Labs Labs: 12/12/16 05:30 12/12/16 05:30
[2016-12-12] MEDS ORDERED: Aztreonam 1 GM in Sodium Chloride 0.9% 100 ML IVPB SCH (21:00)
[2016-12-12] MEDS: Enoxaparin 40 mg Syringe SC SCH (22:29)
[2016-12-13] MEDS: Ciprofloxacin 400mg/200ml D5W 400 MG/200 ML BAG IVPB SCH ×3 (00:21→21:07)
[2016-12-13 06:55] LABS: BASO % 0.3 % (0.0-2.0); EOS % 12.6 % (0.0-4.0); HEMOGLOBIN 12.1 g/dL (12.0-16.0); LYMPH # 1.8 K/uL (1.0-4.3); LYMPH % 24.2 % (20.0-40.0); MEAN CELL VOLUME 89.2 fl (81.0-99.0); MEAN CORPUSCULAR HEMOGLOBIN 29.6 pg (27.0-31.0); MEAN CORPUSCULAR HGB CONC 33.2 g/dL (33.0-37.0); MEAN PLATELET VOLUME 8.5 fl (7.2-11.7); MONO # 0.9 K/uL (0.0-0.8); NEUT # 3.9 K/uL (1.8-7.0); NEUT % 50.9 % (50.0-75.0); NRBC % 0.1 % (0.0-0.0); RBC 4.08 Mil/uL (3.80-5.20); WHITE BLOOD COUNT 7.6 K/uL (4.8-10.8)
[2016-12-13 07:01] LABS: ALB/GLOB RATIO 1.1 (1.0-2.1); ALBUMIN 3.8 g/dL (3.5-5.0); ALT/SGPT 30 U/L (9-52); AST/SGOT 19 U/L (14-36); BLOOD UREA NITROGEN 18 mg/dl (7-17); CALCIUM 9.3 mg/dL (8.4-10.2); GFR AFRICAN-AMERICAN > 60; GFR NON-AFRICAN AMERICAN 56; HDL CHOLESTEROL 38 MG/DL (30-70)
--- NOTE | 2016-12-13 07:07 | CP.PCM.PN ---
Subjective - Date & Time of Evaluation Date of Evaluation: 12/13/16 Time of Evaluation: 07:04 - Subjective Subjective: 61 y/o female seen at bedside for right posterior ankle ulcer. Pt is AAOx3 and is in NAD. Pt denies of having any pain today. Pt denies of any acute overnight events. Pt denies of any F/N/V/C/SOB today. Pt's dressing is clean, dry and intact. Pt denies of any new pedal complains today. Objective - Vital Signs/Intake and Output Vital Signs (last 24 hours): Temp Pulse Resp BP Pulse Ox 97.3 F L 106 H 19 124/69 96 12/13/16 00:31 12/13/16 00:31 12/13/16 00:31 12/13/16 00:31 12/13/16 00:31 - Medications Medications: Current Medications Aspirin (Aspirin Chewable) 81 mg PO DAILY [facility] Last Admin: 12/12/16 09:19 Dose: Not Given Clopidogrel Bisulfate (Plavix) 75 mg PO DAILY [facility] Enoxaparin Sodium (Lovenox) 40 mg SC HS [facility] PRN Reason: Protocol Last Admin: 12/12/16 22:29 Dose: 40 mg Famotidine (Pepcid) 20 mg PO BID [facility] Hydrochlorothiazide (Microzide) 12.5 mg PO DAILY [facility] Vancomycin HCl 1 gm/ Sodium (Chloride) 250 mls @ 166.667 mls/hr IVPB Q12 [facility] Last Admin: 12/12/16 22:27 Dose: 166.667 mls/hr Ciprofloxacin (Cipro 400mg/200ml Dsw) 400 mg in 200 mls @ 200 mls/hr IVPB Q12 [facility] Last Admin: 12/13/16 00:21 Dose: 200 mls/hr Insulin Human Lispro (Humalog) 0 units SC ACHS [facility] PRN Reason: Protocol Last Admin: 12/12/16 22:31 Dose: Not Given Levetiracetam (Keppra) 500 mg PO BID [facility] Lisinopril (Zestril) 20 mg PO DAILY [facility] Mupirocin (Bactroban Ointment) 1 applic TOP BID [facility] Last Admin: 12/12/16 19:28 Dose: Not Given Oxycodone/Acetaminophen (Percocet 5/325 Mg Tab) 1 tab PO Q4 PRN PRN Reason: Pain, Mild (1-3) Stop: 12/15/16 13:30 Oxycodone/Acetaminophen (Percocet 5/325 Mg Tab) 2 tab PO Q6 PRN PRN Reason: Pain, moderate (4-7) Stop: 12/15/16 13:31 - Labs Labs: 12/13/16 05:40 12/12/16 05:30 - Constitutional Appears: Well, Non-toxic, No Acute Distress - Extremities Exam Additional comments: Vasc: DP/PT 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 Neuro: protective sensation grossly diminished bilaterally Ortho: pain on palpation of the posterior ankle, MM is 5/5 in all four compartments, no pain on palpation of the calf b/l - Neurological Exam Neurological Exam: Alert, Awake, Oriented x3 - Psychiatric Exam Psychiatric exam: Normal Affect, Normal Mood Assessment and Plan - Assessment and Plan (Free Text) Assessment: 61 y/o female seen at bedside for ulceration of right posterior ankle secondary to injury Plan: Pt evaluated and chart reviewed Pt discussed in detail with attending, Dr. Blas Chart and vitals reviewed (afebrile, WBC 7.6) Dressing changed using bactroban, adaptic, DSD, ABD pad and Kerlix Wound culture ordered - pending culture results X-rays were taken- no fractures, no gas, no kailash abnormalities noted at the site of ulcer Pt placed on vanco and ciprofloxin as per ID - ID waiting on wound cultures Podiatry to follow patient while in-house
[2016-12-13 07:11] LABS: LDL CHOLESTEROL 113 mg/dL (0-129)
--- NOTE | 2016-12-13 09:00 | CP.PCM.PN ---
<Swati Soler - Last Filed: 12/13/16 11:27> Subjective - Date & Time of Evaluation Date of Evaluation: 12/13/16 Time of Evaluation: 07:30 - Subjective Subjective: Patient seen and examined at bedside with Dr. Turk, reports severe pain with RLE wound care and dressing changes, requests medication for pain, we informed nurse to administer meds and re-iterated to patient she needs to ask nurse for pain meds PRN. Patient refuses to take home meds as she is convinced one of them caused her a whole body rash which has resolved. Denies SOB, chest pain, weakness or dizziness. Has normal urine and stool output. Objective - Vital Signs/Intake and Output Vital Signs (last 24 hours): Temp Pulse Resp BP Pulse Ox 97.9 F 91 H 20 113/72 100 12/13/16 08:44 12/13/16 08:44 12/13/16 08:44 12/13/16 08:44 12/13/16 08:44 - Medications Medications: Current Medications Aspirin (Aspirin Chewable) 81 mg PO DAILY [facility] Last Admin: 12/12/16 09:19 Dose: Not Given Clopidogrel Bisulfate (Plavix) 75 mg PO DAILY [facility] Enoxaparin Sodium (Lovenox) 40 mg SC HS [facility] PRN Reason: Protocol Last Admin: 12/12/16 22:29 Dose: 40 mg Famotidine (Pepcid) 20 mg PO BID [facility] Hydrochlorothiazide (Microzide) 12.5 mg PO DAILY [facility] Vancomycin HCl 1 gm/ Sodium (Chloride) 250 mls @ 166.667 mls/hr IVPB Q12 [facility] Last Admin: 12/12/16 22:27 Dose: 166.667 mls/hr Ciprofloxacin (Cipro 400mg/200ml Dsw) 400 mg in 200 mls @ 200 mls/hr IVPB Q12 [facility] Last Admin: 12/13/16 00:21 Dose: 200 mls/hr Insulin Human Lispro (Humalog) 0 units SC ACHS [facility] PRN Reason: Protocol Last Admin: 12/12/16 22:31 Dose: Not Given Levetiracetam (Keppra) 500 mg PO BID [facility] Lisinopril (Zestril) 20 mg PO DAILY [facility] Mupirocin (Bactroban Ointment) 1 applic TOP BID [facility] Last Admin: 12/12/16 19:28 Dose: Not Given Oxycodone/Acetaminophen (Percocet 5/325 Mg Tab) 1 tab PO Q4 PRN PRN Reason: Pain, Mild (1-3) Stop: 12/15/16 13:30 Last Admin: 12/13/16 07:48 Dose: 1 tab Oxycodone/Acetaminophen (Percocet 5/325 Mg Tab) 2 tab PO Q6 PRN PRN Reason: Pain, moderate (4-7) Stop: 12/15/16 13:31 - Labs Labs: 12/13/16 05:40 12/13/16 05:40 - Constitutional Appears: Non-toxic, No Acute Distress - Head Exam Head Exam: ATRAUMATIC, NORMOCEPHALIC - Eye Exam Eye Exam: EOMI, PERRL - ENT Exam ENT Exam: Mucous Membranes Moist - Neck Exam Neck Exam: Full ROM. absent: Lymphadenopathy - Respiratory Exam Respiratory Exam: Clear to Ausculation Bilateral, NORMAL BREATHING PATTERN - Cardiovascular Exam Cardiovascular Exam: REGULAR RHYTHM, +S1, +S2 - GI/Abdominal Exam GI & Abdominal Exam: Soft. absent: Distended, Tenderness - Extremities Exam Extremities Exam: Full ROM, Tenderness (of right posterior ankle, per podiatry ulcer measures 3x3 cm with granular and fibrinous tissue, no active drainage or erythema). absent: Pedal Edema - Back Exam Back Exam: absent: CVA tenderness (L), CVA tenderness (R) - Neurological Exam Neurological Exam: Alert, Awake, CN II-XII Intact - Psychiatric Exam Psychiatric exam: Anxious (mildly), Normal Affect - Skin Skin Exam: Dry, Intact, Warm Assessment and Plan - Assessment and Plan (Free Text) Assessment: 61 yr old F admitted for worsening infected right posterior ankle ulcer s/p trauma with PMHx of HTN, DM2, seizures, CVA s/p fall, and chronic R ankle wound. Patient reports moderate to severe pain from ulcer, worsened with palpation or dressing changes. Vitals signs are stable, no leukocytosis. ID and podiatry are on board, will follow recommendations. IV antibiotics, wound care, preliminary wound culture results heavy growth gram negative rods. 1) Nonhealing RLE ulcer s/p trauma -worsened over last 2 weeks, secondary to trauma, xray showed no right ankle/ heel fracture (see full report) -h/o Chronic RLE ulcer that had previously healed -Mupirocin Ointment -Vanco trough 15.9 this AM -Vancomycin 1gm IV Q12H (day 3), Ciprofloxacin 400mg IV Q12H (day 1) -Wound Cx results heavy growth gram negative rods, f/u final result -BCx no growth x 24hrs -ID Consult appreciated -Dr. Jensen, will follow recommendations -Podiatry consult appreciated- Dr. Blas, will follow recommendations -wound care consult placed, f/u TSH and FT4 2) Non Insulin Dependant DM Type 2 -uncontrolled -Diabetic Diet -Lispro Sliding Scale -POC glucose ACHS -CMP within normal limits, fasting lipid panel within normal limits -f/u HbA1c, will consider starting PO meds 3) HTN -Controlled -home meds held for now (Lisinopril 20mg PO QD, Hydrochlorothiazide 12.5mg PO QD ) -f/u BP readings -f/u medication rec, due to noncompliance w most of her medications, as she is not taking most of them in fear that one of them is causing a rash; f/u w family member as patient gets medications by mail 4) DVT Prophylaxis -Lovenox 40mg SC HS <London Turk - Last Filed: 12/16/16 06:47> Objective - Vital Signs/Intake and Output Vital Signs (last 24 hours): Temp Pulse Resp BP Pulse Ox 98.3 F 68 19 131/74 98 12/16/16 00:00 12/16/16 00:00 12/16/16 00:00 12/16/16 00:00 12/16/16 00:00 - Medications Medications: Current Medications Aspirin (Aspirin Chewable) 81 mg PO DAILY [facility] Last Admin: 12/15/16 09:41 Dose: 81 mg Clopidogrel Bisulfate (Plavix) 75 mg PO DAILY [facility] Enoxaparin Sodium (Lovenox) 40 mg SC HS [facility] PRN Reason: Protocol Last Admin: 12/15/16 21:45 Dose: 40 mg Famotidine (Pepcid) 20 mg PO BID [facility] Glipizide (Glucotrol) 10 mg PO ACBD [facility] Hydrochlorothiazide (Microzide) 12.5 mg PO DAILY [facility] Ciprofloxacin (Cipro 400mg/200ml Dsw) 400 mg in 200 mls @ 200 mls/hr IVPB Q12 [facility] Last Admin: 12/15/16 20:32 Dose: 200 mls/hr Vancomycin HCl 500 mg/ Sodium (Chloride) 100 mls @ 100 mls/hr IVPB Q12 [facility] Last Admin: 12/15/16 21:43 Dose: 100 mls/hr Insulin Human Lispro (Humalog) 0 units SC ACHS [facility] PRN Reason: Protocol Last Admin: 12/15/16 21:46 Dose: Not Given Levetiracetam (Keppra) 500 mg PO BID [facility] Levothyroxine Sodium (Synthroid) 25 mcg PO ACB [facility] Last Admin: 12/15/16 09:41 Dose: 25 mcg Lisinopril (Zestril) 20 mg PO DAILY [facility] Mupirocin (Bactroban Ointment) 1 applic TOP BID [facility] Last Admin: 12/15/16 17:18 Dose: Not Given Sitagliptin Phosphate (Januvia) 100 mg PO DAILY [facility] Last Admin: 12/15/16 09:41 Dose: 100 mg - Labs Labs: 12/13/16 05:40 12/15/16 06:00 Attending/Attestation - Attestation I have personally seen and examined this patient.: Yes I have fully participated in the care of the patient.: Yes I have reviewed all pertinent clinical information, including history, physical exam and plan: Yes
[2016-12-13] MEDS: Insulin Lispro (humaLOG) 100 Units/ml Inj SC SCH ×4 (10:00→22:42)
[2016-12-13] MEDS: Enoxaparin 40 mg Syringe SC SCH (22:39)
[2016-12-14] MEDS: Insulin Lispro (humaLOG) 100 Units/ml Inj SC SCH ×4 (08:48→21:17)
[2016-12-14] MEDS: Ciprofloxacin 400mg/200ml D5W 400 MG/200 ML BAG IVPB SCH ×2 (08:49→20:15)
--- NOTE | 2016-12-14 12:16 | CP.PCM.PN ---
Subjective - Date & Time of Evaluation Date of Evaluation: 12/14/16 Time of Evaluation: 12:15 - Subjective Subjective: I D NOTE PATIENT'S VANCOMYCIN TROUGH LEVEL IS ELEVATED ,>15 HAVE ADJUSTED DOSE TO 500MG IVPB Q12H AWAITING ID OF GRAM(-) RODS,AT PRESENT ASSUMING THE SAME 12/04/16 CULTURES AND HAD ADDED CIPROFLOXIN Objective - Vital Signs/Intake and Output Vital Signs (last 24 hours): Temp Pulse Resp BP Pulse Ox 97.9 F 100 H 18 123/74 100 12/14/16 07:26 12/14/16 07:26 12/14/16 07:26 12/14/16 07:26 12/14/16 07:26 - Medications Medications: Current Medications Aspirin (Aspirin Chewable) 81 mg PO DAILY [facility] Last Admin: 12/14/16 08:47 Dose: 81 mg Clopidogrel Bisulfate (Plavix) 75 mg PO DAILY [facility] Enoxaparin Sodium (Lovenox) 40 mg SC HS [facility] PRN Reason: Protocol Last Admin: 12/13/16 22:39 Dose: 40 mg Famotidine (Pepcid) 20 mg PO BID [facility] Hydrochlorothiazide (Microzide) 12.5 mg PO DAILY [facility] Ciprofloxacin (Cipro 400mg/200ml Dsw) 400 mg in 200 mls @ 200 mls/hr IVPB Q12 [facility] Last Admin: 12/14/16 08:49 Dose: 200 mls/hr Vancomycin HCl 500 mg/ Sodium (Chloride) 100 mls @ 100 mls/hr IVPB Q12 [facility] Insulin Human Lispro (Humalog) 0 units SC ACHS [facility] PRN Reason: Protocol Last Admin: 12/14/16 08:48 Dose: 3 units Levetiracetam (Keppra) 500 mg PO BID [facility] Lisinopril (Zestril) 20 mg PO DAILY [facility] Mupirocin (Bactroban Ointment) 1 applic TOP BID [facility] Last Admin: 12/14/16 08:47 Dose: 1 applic Oxycodone/Acetaminophen (Percocet 5/325 Mg Tab) 1 tab PO Q4 PRN PRN Reason: Pain, Mild (1-3) Stop: 12/15/16 13:30 Last Admin: 12/13/16 07:48 Dose: 1 tab Oxycodone/Acetaminophen (Percocet 5/325 Mg Tab) 2 tab PO Q6 PRN PRN Reason: Pain, moderate (4-7) Stop: 12/15/16 13:31 - Labs Labs: 12/13/16 05:40 12/13/16 05:40
--- NOTE | 2016-12-14 13:49 | CP.PCM.PN ---
Subjective - Date & Time of Evaluation Date of Evaluation: 12/14/16 Time of Evaluation: 08:30 - Subjective Subjective: 61 y/o female seen at bedside with attending Dr. Blas for right posterior ankle ulcer. Pt is AAOx3 and is in NAD. Pt is resting in her bed comfortably. Pt denies of any pain in her ankle today. Pt denies of any acute overnight events. Pt denies of any F/N/V/C/SOB today. Pt's dressing is clean, dry and intact. Pt denies of any new pedal complains today. Objective - Vital Signs/Intake and Output Vital Signs (last 24 hours): Temp Pulse Resp BP Pulse Ox 97.9 F 100 H 18 123/74 100 12/14/16 07:26 12/14/16 07:26 12/14/16 07:26 12/14/16 07:26 12/14/16 07:26 - Medications Medications: Current Medications Aspirin (Aspirin Chewable) 81 mg PO DAILY [facility] Last Admin: 12/14/16 08:47 Dose: 81 mg Clopidogrel Bisulfate (Plavix) 75 mg PO DAILY [facility] Enoxaparin Sodium (Lovenox) 40 mg SC HS [facility] PRN Reason: Protocol Last Admin: 12/13/16 22:39 Dose: 40 mg Famotidine (Pepcid) 20 mg PO BID [facility] Hydrochlorothiazide (Microzide) 12.5 mg PO DAILY [facility] Ciprofloxacin (Cipro 400mg/200ml Dsw) 400 mg in 200 mls @ 200 mls/hr IVPB Q12 [facility] Last Admin: 12/14/16 08:49 Dose: 200 mls/hr Vancomycin HCl 500 mg/ Sodium (Chloride) 100 mls @ 100 mls/hr IVPB Q12 [facility] Insulin Human Lispro (Humalog) 0 units SC ACHS [facility] PRN Reason: Protocol Last Admin: 12/14/16 12:24 Dose: 4 units Levetiracetam (Keppra) 500 mg PO BID [facility] Lisinopril (Zestril) 20 mg PO DAILY [facility] Mupirocin (Bactroban Ointment) 1 applic TOP BID [facility] Last Admin: 12/14/16 08:47 Dose: 1 applic Oxycodone/Acetaminophen (Percocet 5/325 Mg Tab) 1 tab PO Q4 PRN PRN Reason: Pain, Mild (1-3) Stop: 12/15/16 13:30 Last Admin: 12/13/16 07:48 Dose: 1 tab Oxycodone/Acetaminophen (Percocet 5/325 Mg Tab) 2 tab PO Q6 PRN PRN Reason: Pain, moderate (4-7) Stop: 12/15/16 13:31 - Labs Labs: 12/13/16 05:40 12/13/16 05:40 - Constitutional Appears: Well, Non-toxic, No Acute Distress - Extremities Exam Additional comments: Vasc: DP/PT pulses are palpable 2/4 b/l, EMERGENCY MAN of digits <3 sec x 10, no edema present, temperature gradient is cool to cool Derm: ulcer located at right posterior lower calf measuring approximately 3 x 3 x .1; base is granular and minimally fibrotic in nature, no erythema, no active drainage, no malodor, no tunneling, No purulence, No probe to bone noted. Neuro: protective sensation grossly diminished bilaterally Ortho: pain on palpation of the posterior ankle, MM is 5/5 in all four compartments, no pain on palpation of the calf b/l - Neurological Exam Neurological Exam: Alert, Awake, Oriented x3 - Psychiatric Exam Psychiatric exam: Normal Affect, Normal Mood Assessment and Plan - Assessment and Plan (Free Text) Assessment: 61 y/o female seen at bedside for ulceration of right posterior ankle secondary to an injury Plan: Pt evaluated and chart reviewed Chart and vitals reviewed (afebrile, WBC 7.6 on 12/13) Dressing changed using bactroban, adaptic, DSD, and Kerlix Wound culture preliminary results show heavy growth of gram negative rods X-rays reviewed - no fractures, no gas, no kailash abnormalities noted at the site of ulcer Pt to remain on IV abx as per ID Podiatry to follow patient while in-house
--- NOTE | 2016-12-14 15:52 | CP.PCM.PN ---
Subjective - Date & Time of Evaluation Date of Evaluation: 12/14/16 Time of Evaluation: 08:50 - Subjective Subjective: Zoey seen and examined at bedside, in no acute distress. Reports her RLE pain persists and is controlled with medication. She is tolerating wound care . Denies fevers, chills, nausea or vomiting. Has normal urine and stool output. Objective - Vital Signs/Intake and Output Vital Signs (last 24 hours): Temp Pulse Resp BP Pulse Ox 97.9 F 100 H 18 123/74 100 12/14/16 07:26 12/14/16 07:26 12/14/16 07:26 12/14/16 07:26 12/14/16 07:26 - Medications Medications: Current Medications Aspirin (Aspirin Chewable) 81 mg PO DAILY [facility] Last Admin: 12/14/16 08:47 Dose: 81 mg Clopidogrel Bisulfate (Plavix) 75 mg PO DAILY [facility] Enoxaparin Sodium (Lovenox) 40 mg SC HS [facility] PRN Reason: Protocol Last Admin: 12/13/16 22:39 Dose: 40 mg Famotidine (Pepcid) 20 mg PO BID [facility] Hydrochlorothiazide (Microzide) 12.5 mg PO DAILY [facility] Ciprofloxacin (Cipro 400mg/200ml Dsw) 400 mg in 200 mls @ 200 mls/hr IVPB Q12 [facility] Last Admin: 12/14/16 08:49 Dose: 200 mls/hr Vancomycin HCl 500 mg/ Sodium (Chloride) 100 mls @ 100 mls/hr IVPB Q12 [facility] Insulin Human Lispro (Humalog) 0 units SC ACHS [facility] PRN Reason: Protocol Last Admin: 12/14/16 12:24 Dose: 4 units Levetiracetam (Keppra) 500 mg PO BID [facility] Lisinopril (Zestril) 20 mg PO DAILY [facility] Mupirocin (Bactroban Ointment) 1 applic TOP BID [facility] Last Admin: 12/14/16 08:47 Dose: 1 applic Oxycodone/Acetaminophen (Percocet 5/325 Mg Tab) 1 tab PO Q4 PRN PRN Reason: Pain, Mild (1-3) Stop: 12/15/16 13:30 Last Admin: 12/13/16 07:48 Dose: 1 tab Oxycodone/Acetaminophen (Percocet 5/325 Mg Tab) 2 tab PO Q6 PRN PRN Reason: Pain, moderate (4-7) Stop: 12/15/16 13:31 - Labs Labs: 12/13/16 05:40 12/13/16 05:40 - Constitutional Appears: Non-toxic, No Acute Distress - Head Exam Head Exam: ATRAUMATIC, NORMOCEPHALIC - Eye Exam Eye Exam: EOMI, PERRL - ENT Exam ENT Exam: Mucous Membranes Moist - Neck Exam Neck Exam: Full ROM - Respiratory Exam Respiratory Exam: Clear to Ausculation Bilateral, NORMAL BREATHING PATTERN - Cardiovascular Exam Cardiovascular Exam: REGULAR RHYTHM - GI/Abdominal Exam GI & Abdominal Exam: Soft, Normal Bowel Sounds. absent: Distended, Tenderness - Extremities Exam Extremities Exam: Full ROM (RLE with dressing clean/dry/intact, per podiatry: right posterior 3x3 cm ankle ulcer with granular base and minimal fibrotic tissue, no active drainage, no erythema). absent: Calf Tenderness - Back Exam Back Exam: absent: CVA tenderness (L), CVA tenderness (R) - Neurological Exam Neurological Exam: Alert, Awake, CN II-XII Intact, Oriented x3 - Psychiatric Exam Psychiatric exam: Normal Affect, Normal Mood - Skin Skin Exam: Dry, Intact, Normal Color Assessment and Plan - Assessment and Plan (Free Text) Assessment: 61 yr old F admitted for worsening infected right posterior ankle ulcer s/p trauma with PMHx of HTN, DM2, seizures, CVA s/p fall, and chronic R ankle wound. Patient reports moderate to severe pain from ulcer, worsened with palpation or dressing changes. Vitals signs are stable, no leukocytosis. ID and podiatry are on board, will follow recommendations. IV antibiotics, wound care, wound culture results heavy growth Enterobacter Cloacae Ssp Cloac sensitive to Cipro. 1) Nonhealing RLE ulcer s/p trauma -worsened over last 2 weeks, secondary to trauma, xray showed no right ankle/ heel fracture (see full report) -h/o Chronic RLE ulcer that had previously healed -Mupirocin Ointment -Vanco trough 15.9 this AM -Vancomycin decreased to 500gm IV Q12H (day 4), Ciprofloxacin 400mg IV Q12H ( day 2) -Wound Cx results heavy growth gram negative rods: Enterobacter Cloacae Ssp Cloac sensitive to Cipro -BCx no growth x 48hrs -ID Consult appreciated -Dr. Jensen, will follow recommendations -Podiatry consult appreciated- Dr. Blas, will follow recommendations -wound care consult placed 2) Non Insulin Dependant DM Type 2 -uncontrolled, HbA1c 8.7 (12/13/16) -Diabetic Diet -Lispro Sliding Scale -POC glucose ACHS -CMP within normal limits, fasting lipid panel within normal limits -start home med Januvia 100mg PO QD 3) HTN -Controlled -home meds held for now (Lisinopril 20mg PO QD, Hydrochlorothiazide 12.5mg PO QD ) -f/u BP readings -f/u medication rec, due to noncompliance w most of her medications, as she is not taking most of them in fear that one of them is causing a rash; awaiting family to bring in meds as she gets them mailed to her home 4) Elevated TSH -TSH 10.40 -FT4 0.87 -pt denies hx of thyroid disease -Endocrinology consult appreciated: Dr. Cornell, will follow recommendations 5) DVT Prophylaxis -Lovenox 40mg SC HS
[2016-12-14] MEDS: Enoxaparin 40 mg Syringe SC SCH (21:19)
[2016-12-15] MEDS: Insulin Lispro (humaLOG) 100 Units/ml Inj SC SCH ×4 (06:31→21:46)
[2016-12-15 07:52] LABS: ALB/GLOB RATIO 1.2 (1.0-2.1); ALBUMIN 3.9 g/dL (3.5-5.0); ALT/SGPT 30 U/L (9-52); AST/SGOT 16 U/L (14-36); BLOOD UREA NITROGEN 19 mg/dl (7-17); CALCIUM 9.3 mg/dL (8.4-10.2); GFR AFRICAN-AMERICAN > 60; GFR NON-AFRICAN AMERICAN 56; HDL CHOLESTEROL 38 MG/DL (30-70)
[2016-12-15 08:02] LABS: T4 6.02 ug/dl (5.5-11.0)
[2016-12-15 08:03] LABS: LDL CHOLESTEROL 111 mg/dL (0-129)
[2016-12-15] MEDS: Ciprofloxacin 400mg/200ml D5W 400 MG/200 ML BAG IVPB SCH ×2 (09:41→20:32)
[2016-12-15] MEDS: Levothyroxine 25 MCG TAB PO SCH (09:41)
--- NOTE | 2016-12-15 11:07 | CP.PCM.PN ---
Subjective - Date & Time of Evaluation Date of Evaluation: 12/15/16 Time of Evaluation: 11:04 - Subjective Subjective: 61 y/o female seen at bedside with for right posterior ankle ulcer. Pt is AAOx3 and is in NAD. Pt is resting in her bed comfortably. Pt denies of any pain in her ankle today. Pt states that she only has pain in her ankle during dressing changes. Pt denies of any acute overnight events. Pt denies of any F/N/V/C/SOB today. Pt's dressing is clean, dry and intact. Pt denies of any new pedal complains today. Objective - Vital Signs/Intake and Output Vital Signs (last 24 hours): Temp Pulse Resp BP Pulse Ox 97.8 F 62 18 114/73 100 12/15/16 07:43 12/15/16 07:43 12/15/16 07:43 12/15/16 07:43 12/15/16 07:43 - Medications Medications: Current Medications Aspirin (Aspirin Chewable) 81 mg PO DAILY [facility] Last Admin: 12/15/16 09:41 Dose: 81 mg Clopidogrel Bisulfate (Plavix) 75 mg PO DAILY [facility] Enoxaparin Sodium (Lovenox) 40 mg SC HS [facility] PRN Reason: Protocol Last Admin: 12/14/16 21:19 Dose: 40 mg Famotidine (Pepcid) 20 mg PO BID [facility] Glipizide (Glucotrol) 5 mg PO ACBD [facility] Last Admin: 12/15/16 09:41 Dose: 5 mg Hydrochlorothiazide (Microzide) 12.5 mg PO DAILY [facility] Ciprofloxacin (Cipro 400mg/200ml Dsw) 400 mg in 200 mls @ 200 mls/hr IVPB Q12 [facility] Last Admin: 12/15/16 09:41 Dose: 200 mls/hr Vancomycin HCl 500 mg/ Sodium (Chloride) 100 mls @ 100 mls/hr IVPB Q12 [facility] Last Admin: 12/15/16 09:42 Dose: 100 mls/hr Insulin Human Lispro (Humalog) 0 units SC ACHS [facility] PRN Reason: Protocol Last Admin: 12/15/16 06:31 Dose: Not Given Levetiracetam (Keppra) 500 mg PO BID [facility] Levothyroxine Sodium (Synthroid) 25 mcg PO ACB [facility] Last Admin: 12/15/16 09:41 Dose: 25 mcg Lisinopril (Zestril) 20 mg PO DAILY [facility] Mupirocin (Bactroban Ointment) 1 applic TOP BID [facility] Last Admin: 12/15/16 10:28 Dose: Not Given Oxycodone/Acetaminophen (Percocet 5/325 Mg Tab) 1 tab PO Q4 PRN PRN Reason: Pain, Mild (1-3) Stop: 12/15/16 13:30 Last Admin: 12/13/16 07:48 Dose: 1 tab Oxycodone/Acetaminophen (Percocet 5/325 Mg Tab) 2 tab PO Q6 PRN PRN Reason: Pain, moderate (4-7) Stop: 12/15/16 13:31 Sitagliptin Phosphate (Januvia) 100 mg PO DAILY [facility] Last Admin: 12/15/16 09:41 Dose: 100 mg - Labs Labs: 12/13/16 05:40 12/15/16 06:00 - Constitutional Appears: Well, Non-toxic, No Acute Distress - Extremities Exam Additional comments: Vasc: DP/PT pulses are palpable 2/4 b/l, [employer]: <3 sec x 10, no pitting or non- pitting edema present, temperature gradient is warm to cool Derm: ulcer located at right posterior lower calf measuring approximately 3 x 3 x .1; base is granular and minimally fibrotic in nature, no erythema, no active drainage, no malodor, no tunneling, No purulence, No probe to bone noted. Neuro: protective sensation grossly diminished bilaterally Ortho: pain on palpation of the posterior ankle, MM is 5/5 in all four compartments, no pain on palpation of the calf b/l - Neurological Exam Neurological Exam: Alert, Awake, Oriented x3 - Psychiatric Exam Psychiatric exam: Normal Affect, Normal Mood Assessment and Plan - Assessment and Plan (Free Text) Assessment: 61 y/o female seen at bedside for ulceration of right posterior ankle secondary to an injury Plan: Pt evaluated and chart reviewed Chart and vitals reviewed (afebrile, WBC 7.6 on 12/13) Dressing changed using bactroban, adaptic, DSD, and Kerlix Wound culture final results show heavy growth of Enterobacter Cloacae Pt to remain on IV abx as per ID Podiatry to follow patient while in-house
--- NOTE | 2016-12-15 14:25 | CP.PCM.PN ---
Subjective - Date & Time of Evaluation Date of Evaluation: 12/15/16 Time of Evaluation: 09:15 - Subjective Subjective: Patient seen and examined a bedside. She appears comfortable and denies any leg pain overnight. Patient reports gradual weight gain over the last several months in addition to intermittent constipation but denies cold intolerance, excessive fatigue or palpitations. She was recommended starting synthroid based on endocrine consultation but patient has refused this morning. Patient remains afebrile with no chest pain, sob, abdominal pain, nausea or vomiting. Objective - Vital Signs/Intake and Output Vital Signs (last 24 hours): Temp Pulse Resp BP Pulse Ox 97.8 F 62 18 114/73 100 12/15/16 07:43 12/15/16 07:43 12/15/16 07:43 12/15/16 07:43 12/15/16 07:43 - Medications Medications: Current Medications Aspirin (Aspirin Chewable) 81 mg PO DAILY [facility] Last Admin: 12/15/16 09:41 Dose: 81 mg Clopidogrel Bisulfate (Plavix) 75 mg PO DAILY [facility] Enoxaparin Sodium (Lovenox) 40 mg SC HS [facility] PRN Reason: Protocol Last Admin: 12/14/16 21:19 Dose: 40 mg Famotidine (Pepcid) 20 mg PO BID [facility] Glipizide (Glucotrol) 5 mg PO ACBD [facility] Last Admin: 12/15/16 09:41 Dose: 5 mg Hydrochlorothiazide (Microzide) 12.5 mg PO DAILY [facility] Ciprofloxacin (Cipro 400mg/200ml Dsw) 400 mg in 200 mls @ 200 mls/hr IVPB Q12 [facility] Last Admin: 12/15/16 09:41 Dose: 200 mls/hr Vancomycin HCl 500 mg/ Sodium (Chloride) 100 mls @ 100 mls/hr IVPB Q12 [facility] Last Admin: 12/15/16 09:42 Dose: 100 mls/hr Insulin Human Lispro (Humalog) 0 units SC ACHS [facility] PRN Reason: Protocol Last Admin: 12/15/16 12:18 Dose: 3 units Levetiracetam (Keppra) 500 mg PO BID [facility] Levothyroxine Sodium (Synthroid) 25 mcg PO ACB [facility] Last Admin: 12/15/16 09:41 Dose: 25 mcg Lisinopril (Zestril) 20 mg PO DAILY [facility] Mupirocin (Bactroban Ointment) 1 applic TOP BID [facility] Last Admin: 12/15/16 10:28 Dose: Not Given Sitagliptin Phosphate (Januvia) 100 mg PO DAILY [facility] Last Admin: 12/15/16 09:41 Dose: 100 mg - Labs Labs: 12/13/16 05:40 12/15/16 06:00 - Constitutional Appears: Non-toxic, No Acute Distress - Head Exam Head Exam: ATRAUMATIC, NORMAL INSPECTION, NORMOCEPHALIC - Eye Exam Eye Exam: EOMI, PERRL - ENT Exam ENT Exam: Mucous Membranes Moist - Neck Exam Neck Exam: absent: Tenderness, Thyromegaly - Respiratory Exam Respiratory Exam: Clear to Ausculation Bilateral, NORMAL BREATHING PATTERN. absent: Rales, Rhonchi, Wheezes, Respiratory Distress - Cardiovascular Exam Cardiovascular Exam: REGULAR RHYTHM, +S1, +S2 - GI/Abdominal Exam GI & Abdominal Exam: Soft, Normal Bowel Sounds. absent: Distended, Tenderness - Extremities Exam Additional comments: RLE dressing in place by podiatry. Dressing is clean, dry, intact. Distal sensory/motor exam WNL. No erythema or warm noted beyond dressing. - Neurological Exam Neurological Exam: Alert, Awake, Oriented x3 - Psychiatric Exam Psychiatric exam: Normal Affect, Normal Mood - Skin Skin Exam: Dry, Warm Assessment and Plan - Assessment and Plan (Free Text) Assessment: 61 y/o F with PMH including HTN, DM2, Seizures, CVA s/p fall and Chronic Right ankle ulcer, admitted for worsening infected right posterior ankle ulcer s/p trauma. During admission, vital signs have remained stable and patient has been afebrile, with no leukocytosis. Podiatry has been following for wound care and ID recommendations have been appreciated for antibiotic coverage. Wound culture results reveal heavy growth of Enterobacter Cloacae Ssp Cloac sensitive to Cipro. Plan: Nonhealing RLE ulcer s/p trauma -Chronic ulcer has acutely worsened over last 2 weeks, secondary to trauma, xray showed no right ankle/heel fracture (see full report) -Wound Cx results heavy growth gram negative rods: Enterobacter Cloacae Ssp Cloac sensitive to Cipro -Vancomycin decreased to 500gm IV Q12H (day 5), Ciprofloxacin 400mg IV Q12H ( day 3) -Mupirocin Ointment -Last vanco trough 15.9, within therapeutic range -Wound care consult requested -ID Consult appreciated by Dr. Jensen, will follow recommendations -Podiatry consult appreciated by Dr. Blas, will follow recommendations Elevated TSH, Likely secondary to newly diagnosed Hypothyroidism -TSH 10.40 -FT4 0.87 -Pt denies hx of thyroid disease but reports a sister with hypothyroidism -Endocrinology consult appreciated by Dr. Cornell -Synthroid 25mcg started Non Insulin Dependant DM Type 2, with hyperglycemia -Uncontrolled, HbA1c 8.7 (12/13/16) -Diabetic Diet -Januvia 100mg PO daily -Glipizide 5mg PO with breakfast and dinner started by endocrine -Lispro Sliding Scale -Accuchecks ACHS HTN -Well Controlled despite holding of home medications -Home meds held for now (Lisinopril 20mg PO QD, Hydrochlorothiazide 12.5mg PO QD ) -Will f/u BP readings and consider medication adjustments as needed DVT Prophylaxis -Lovenox 40mg SC daily
[2016-12-15] MEDS: Enoxaparin 40 mg Syringe SC SCH (21:45)
[2016-12-16] MEDS: Insulin Lispro (humaLOG) 100 Units/ml Inj SC SCH ×5 (06:53→22:03)
[2016-12-16 07:10] LABS: BASO % 0.5 % (0.0-2.0); EOS # 0.9 K/uL (0.0-0.7); EOS % 13.1 % (0.0-4.0); HEMOGLOBIN 11.8 g/dL (12.0-16.0); LYMPH # 1.9 K/uL (1.0-4.3); LYMPH % 28.3 % (20.0-40.0); MEAN CORPUSCULAR HGB CONC 33.7 g/dL (33.0-37.0); MEAN PLATELET VOLUME 8.4 fl (7.2-11.7); MONO % 14.5 % (0.0-10.0); NEUT % 43.6 % (50.0-75.0); RBC 3.95 Mil/uL (3.80-5.20); WHITE BLOOD COUNT 6.8 K/uL (4.8-10.8)
[2016-12-16] MEDS: Levothyroxine 25 MCG TAB PO SCH (07:29)
--- NOTE | 2016-12-16 07:32 | CP.PCM.PN ---
Subjective - Date & Time of Evaluation Date of Evaluation: 12/16/16 Time of Evaluation: 07:29 - Subjective Subjective: 61 y/o female seen at bedside with for right posterior ankle ulcer. Pt is AAOx3 and is in NAD. Pt is resting in her bed comfortably. Pt denies of any pain in her ankle today. Pt states that she only has pain in her ankle during dressing changes. Pt denies of any acute overnight events. Pt denies of any F/N/V/C/SOB today. Pt's dressing is clean, dry and intact. Pt denies of any new pedal complains today. Objective - Vital Signs/Intake and Output Vital Signs (last 24 hours): Temp Pulse Resp BP Pulse Ox 98.3 F 68 19 131/74 98 12/16/16 00:00 12/16/16 00:00 12/16/16 00:00 12/16/16 00:00 12/16/16 00:00 - Medications Medications: Current Medications Aspirin (Aspirin Chewable) 81 mg PO DAILY [facility] Last Admin: 12/15/16 09:41 Dose: 81 mg Clopidogrel Bisulfate (Plavix) 75 mg PO DAILY [facility] Enoxaparin Sodium (Lovenox) 40 mg SC HS [facility] PRN Reason: Protocol Last Admin: 12/15/16 21:45 Dose: 40 mg Famotidine (Pepcid) 20 mg PO BID [facility] Glipizide (Glucotrol) 10 mg PO ACBD [facility] Hydrochlorothiazide (Microzide) 12.5 mg PO DAILY [facility] Ciprofloxacin (Cipro 400mg/200ml Dsw) 400 mg in 200 mls @ 200 mls/hr IVPB Q12 [facility] Last Admin: 12/15/16 20:32 Dose: 200 mls/hr Vancomycin HCl 500 mg/ Sodium (Chloride) 100 mls @ 100 mls/hr IVPB Q12 [facility] Last Admin: 12/15/16 21:43 Dose: 100 mls/hr Insulin Human Lispro (Humalog) 0 units SC ACHS [facility] PRN Reason: Protocol Last Admin: 12/16/16 06:53 Dose: Not Given Levetiracetam (Keppra) 500 mg PO BID [facility] Levothyroxine Sodium (Synthroid) 25 mcg PO ACB [facility] Last Admin: 12/15/16 09:41 Dose: 25 mcg Lisinopril (Zestril) 20 mg PO DAILY [facility] Mupirocin (Bactroban Ointment) 1 applic TOP BID [facility] Last Admin: 12/15/16 17:18 Dose: Not Given Sitagliptin Phosphate (Januvia) 100 mg PO DAILY [facility] Last Admin: 12/15/16 09:41 Dose: 100 mg - Labs Labs: 12/16/16 06:20 12/15/16 06:00 - Constitutional Appears: Well, Non-toxic, No Acute Distress - Extremities Exam Additional comments: Vasc: DP/PT pulses are palpable 2/4 b/l, AGRICULTURE INTERN: <3 sec x 10, no pitting or non- pitting edema present, temperature gradient is warm to cool Derm: ulcer located at right posterior lower calf measuring approximately 3 x 3 x .1; base is granular and minimally fibrotic in nature, no erythema, no active drainage, no malodor, no tunneling, No purulence, No probe to bone noted. Neuro: protective sensation grossly diminished bilaterally Ortho: pain on palpation of the posterior ankle, MM is 5/5 in all four compartments, no pain on palpation of the calf b/l - Neurological Exam Neurological Exam: Alert, Awake, Oriented x3 - Psychiatric Exam Psychiatric exam: Normal Affect, Normal Mood Assessment and Plan - Assessment and Plan (Free Text) Assessment: 61 y/o female seen at bedside for ulceration of right posterior ankle secondary to an injury Plan: Pt evaluated and chart reviewed Pt discussed in details with attending Dr. Blas Chart and vitals reviewed (afebrile, WBC 6.8) Dressing changed using bactroban, adaptic, DSD, and Kerlix Wound culture final results show heavy growth of Enterobacter Cloacae Pt to remain on IV abx as per ID Podiatry to follow patient while in-house
[2016-12-16] MEDS ORDERED: Oxycodone/Acetaminophen 5/325 mg Tab PO PRN (07:34)
[2016-12-16 08:07] LABS: BLOOD UREA NITROGEN 25 mg/dl (7-17); CALCIUM 9.3 mg/dL (8.4-10.2); GFR AFRICAN-AMERICAN > 60; GFR NON-AFRICAN AMERICAN 56
[2016-12-16] MEDS: Ciprofloxacin 400mg/200ml D5W 400 MG/200 ML BAG IVPB SCH ×2 (08:22→21:54)
[2016-12-16] MEDS: Oxycodone/Acetaminophen 5/325 mg Tab PO PRN (08:23)
--- NOTE | 2016-12-16 11:04 | CP.PCM.PN ---
<Swati Soler - Last Filed: 12/16/16 16:47> Subjective - Date & Time of Evaluation Date of Evaluation: 12/16/16 Time of Evaluation: 07:20 - Subjective Subjective: Patient seen and examined at bedside, in no acute distress, no acute events overnight. Denies fevers, chills, nausea, vomiting, chest pain or SOB. Tolerating PO diet has normal urine output. Patient is aware she needs IV antibiotics, is tolerating daily wound care, pain is managed with medication. Objective - Vital Signs/Intake and Output Vital Signs (last 24 hours): Temp Pulse Resp BP Pulse Ox 97.7 F 90 20 187/80 H 97 12/16/16 09:00 12/16/16 09:00 12/16/16 09:00 12/16/16 09:00 12/16/16 09:00 - Medications Medications: Current Medications Aspirin (Aspirin Chewable) 81 mg PO DAILY [facility] Last Admin: 12/16/16 08:20 Dose: 81 mg Clopidogrel Bisulfate (Plavix) 75 mg PO DAILY [facility] Enoxaparin Sodium (Lovenox) 40 mg SC HS [facility] PRN Reason: Protocol Last Admin: 12/15/16 21:45 Dose: 40 mg Famotidine (Pepcid) 20 mg PO BID [facility] Glipizide (Glucotrol) 10 mg PO ACBD [facility] Last Admin: 12/16/16 07:29 Dose: 10 mg Hydrochlorothiazide (Microzide) 12.5 mg PO DAILY [facility] Ciprofloxacin (Cipro 400mg/200ml Dsw) 400 mg in 200 mls @ 200 mls/hr IVPB Q12 [facility] Last Admin: 12/16/16 08:22 Dose: 200 mls/hr Vancomycin HCl 500 mg/ Sodium (Chloride) 100 mls @ 100 mls/hr IVPB Q12 [facility] Last Admin: 12/16/16 08:22 Dose: 100 mls/hr Insulin Human Lispro (Humalog) 0 units SC ACHS [facility] PRN Reason: Protocol Last Admin: 12/16/16 06:53 Dose: Not Given Levetiracetam (Keppra) 500 mg PO BID [facility] Levothyroxine Sodium (Synthroid) 25 mcg PO ACB [facility] Last Admin: 12/16/16 07:29 Dose: 25 mcg Lisinopril (Zestril) 20 mg PO DAILY [facility] Mupirocin (Bactroban Ointment) 1 applic TOP BID [facility] Last Admin: 12/16/16 08:20 Dose: Not Given Oxycodone/Acetaminophen (Percocet 5/325 Mg Tab) 1 tab PO Q4 PRN PRN Reason: Pain, moderate (4-7) Stop: 12/19/16 07:35 Last Admin: 12/16/16 08:23 Dose: 1 tab Oxycodone/Acetaminophen (Percocet 5/325 Mg Tab) 2 tab PO Q6 PRN PRN Reason: Pain, severe (8-10) Stop: 12/19/16 07:35 Sitagliptin Phosphate (Januvia) 100 mg PO DAILY [facility] Last Admin: 12/16/16 08:21 Dose: 100 mg - Labs Labs: 12/16/16 06:20 12/16/16 06:20 - Constitutional Appears: Non-toxic, No Acute Distress - Head Exam Head Exam: ATRAUMATIC, NORMOCEPHALIC - Eye Exam Eye Exam: EOMI, PERRL - ENT Exam ENT Exam: Mucous Membranes Moist - Neck Exam Neck Exam: Full ROM. absent: Lymphadenopathy - Respiratory Exam Respiratory Exam: Clear to Ausculation Bilateral, NORMAL BREATHING PATTERN - Cardiovascular Exam Cardiovascular Exam: REGULAR RHYTHM, +S1, +S2 - GI/Abdominal Exam GI & Abdominal Exam: Soft, Normal Bowel Sounds. absent: Distended, Tenderness - Extremities Exam Extremities Exam: Full ROM (RLE with dressing clean/dry/intact, per podiatry: right posterior 3x3 cm ankle ulcer with granular base and minimal fibrotic tissue, no active drainage, no erythema), Pedal Edema - Back Exam Back Exam: absent: CVA tenderness (L), CVA tenderness (R) - Neurological Exam Neurological Exam: Alert, Awake, CN II-XII Intact, Oriented x3 - Psychiatric Exam Psychiatric exam: Normal Affect, Normal Mood - Skin Skin Exam: Dry, Normal Color, Warm Assessment and Plan - Assessment and Plan (Free Text) Assessment: 61 y/o F with PMH including HTN, DM2, Seizures, CVA s/p fall and Chronic Right ankle ulcer, admitted for worsening infected right posterior ankle ulcer s/p trauma. During admission, vital signs have remained stable and patient has been afebrile, with no leukocytosis. Wound culture results reveal heavy growth of Enterobacter Cloacae Ssp Cloac sensitive to Cipro. Podiatry has been following for wound care, ID is onboard and per recommendations patient will have PICC line placed for continued IV antibiotics. Endocrinology is on board and levothyroxine was started. Plan: Nonhealing RLE ulcer s/p trauma -Chronic ulcer has acutely worsened over last 2 weeks, secondary to trauma, xray showed no right ankle/heel fracture (see full report) -Wound Cx results heavy growth gram negative rods: Enterobacter Cloacae Ssp Cloac sensitive to Cipro -Vancomycin decreased to 500gm IV Q12H (day 6), Ciprofloxacin 400mg IV Q12H ( day 4) -Mupirocin Ointment -Last vanco trough 10.7, within therapeutic range -Wound care consult requested -ID Consult appreciated by Dr. Jensen, will follow recommendations , PICC line to be placed for continued antibiotic treatment -Podiatry consult appreciated by Dr. Blas, will follow recommendations Elevated TSH, Likely secondary to newly diagnosed Hypothyroidism -TSH 7.98 -Thyroxine 6.02 -Pt denies hx of thyroid disease but reports a sister with hypothyroidism -Endocrinology consult appreciated-Dr. Cornell: will follow recommendations -Levothyroxine 25mcg PO QD started Non Insulin Dependant DM Type 2, with hyperglycemia -Uncontrolled, HbA1c 8.7 (12/13/16) -Diabetic Diet -Januvia 100mg PO daily -Endocrinology consult appreciated-Dr. Cornell: recommends: discontinue Glipizide, start Humalog 12 units SC AC, Levemir 20 units SC HS -Lispro Sliding Scale -Accuchecks ACHS -lipid panel :triglycerides 170, chol 182, LDL 111, HDL 38 HTN -Well Controlled despite holding of home medications -Home meds held for now (Lisinopril 20mg PO QD, Hydrochlorothiazide 12.5mg PO QD ) -Will f/u BP readings and consider medication adjustments as needed DVT Prophylaxis -Lovenox 40mg SC daily <London Turk - Last Filed: 12/19/16 06:45> Objective - Vital Signs/Intake and Output Vital Signs (last 24 hours): Temp Pulse Resp BP Pulse Ox 98.6 F 100 H 18 124/72 95 12/17/16 16:41 12/17/16 16:41 12/17/16 16:41 12/17/16 16:41 12/17/16 16:41 - Labs Labs: 12/16/16 06:20 12/16/16 06:20 Attending/Attestation - Attestation I have personally seen and examined this patient.: Yes I have fully participated in the care of the patient.: Yes I have reviewed all pertinent clinical information, including history, physical exam and plan: Yes
[2016-12-16] MEDS ORDERED: Insulin Lispro (humaLOG) 100 Units/ml Inj SC SCH (16:30)
[2016-12-16] MEDS ORDERED: Insulin Detemir 100 Units/ml Inj SC SCH ×2 (22:00)
[2016-12-16] MEDS: Enoxaparin 40 mg Syringe SC SCH (22:02)
--- NOTE | 2016-12-17 06:42 | CP.PCM.PN ---
<Swati Soler - Last Filed: 12/17/16 06:42> Subjective - Date & Time of Evaluation Date of Evaluation: 12/17/16 Objective - Vital Signs/Intake and Output Vital Signs (last 24 hours): Temp Pulse Resp BP Pulse Ox 98.3 F 96 H 18 121/71 97 12/17/16 00:50 12/17/16 00:50 12/17/16 00:50 12/17/16 00:50 12/17/16 00:50 - Medications Medications: Current Medications Aspirin (Aspirin Chewable) 81 mg PO DAILY [facility] Last Admin: 12/16/16 08:20 Dose: 81 mg Clopidogrel Bisulfate (Plavix) 75 mg PO DAILY [facility] Enoxaparin Sodium (Lovenox) 40 mg SC HS [facility] PRN Reason: Protocol Last Admin: 12/16/16 22:02 Dose: 40 mg Famotidine (Pepcid) 20 mg PO BID [facility] Hydrochlorothiazide (Microzide) 12.5 mg PO DAILY [facility] Ciprofloxacin (Cipro 400mg/200ml Dsw) 400 mg in 200 mls @ 200 mls/hr IVPB Q12 [facility] Last Admin: 12/16/16 21:54 Dose: 200 mls/hr Vancomycin HCl 500 mg/ Sodium (Chloride) 100 mls @ 100 mls/hr IVPB Q12 [facility] Last Admin: 12/16/16 20:47 Dose: 100 mls/hr Insulin Detemir (Levemir) 20 units SC HS [facility] Last Admin: 12/16/16 22:02 Dose: 20 units Insulin Human Lispro (Humalog) 0 units SC ACHS [facility] PRN Reason: Protocol Last Admin: 12/16/16 22:03 Dose: Not Given Insulin Human Lispro (Humalog) 12 units SC AC [facility] Last Admin: 12/16/16 16:47 Dose: 12 units Levetiracetam (Keppra) 500 mg PO BID [facility] Levothyroxine Sodium (Synthroid) 25 mcg PO ACB [facility] Last Admin: 12/16/16 07:29 Dose: 25 mcg Lisinopril (Zestril) 20 mg PO DAILY [facility] Mupirocin (Bactroban Ointment) 1 applic TOP BID [facility] Last Admin: 12/16/16 16:44 Dose: Not Given Oxycodone/Acetaminophen (Percocet 5/325 Mg Tab) 1 tab PO Q4 PRN PRN Reason: Pain, moderate (4-7) Stop: 12/19/16 07:35 Last Admin: 12/16/16 08:23 Dose: 1 tab Oxycodone/Acetaminophen (Percocet 5/325 Mg Tab) 2 tab PO Q6 PRN PRN Reason: Pain, severe (8-10) Stop: 12/19/16 07:35 Sitagliptin Phosphate (Januvia) 100 mg PO DAILY [facility] Last Admin: 12/16/16 08:21 Dose: 100 mg - Labs Labs: 12/16/16 06:20 12/16/16 06:20 <London Turk - Last Filed: 12/17/16 06:56> Objective - Vital Signs/Intake and Output Vital Signs (last 24 hours): Temp Pulse Resp BP Pulse Ox 98.3 F 96 H 18 121/71 97 12/17/16 00:50 12/17/16 00:50 12/17/16 00:50 12/17/16 00:50 12/17/16 00:50 - Medications Medications: Current Medications Aspirin (Aspirin Chewable) 81 mg PO DAILY [facility] Last Admin: 12/16/16 08:20 Dose: 81 mg Clopidogrel Bisulfate (Plavix) 75 mg PO DAILY [facility] Enoxaparin Sodium (Lovenox) 40 mg SC HS [facility] PRN Reason: Protocol Last Admin: 12/16/16 22:02 Dose: 40 mg Famotidine (Pepcid) 20 mg PO BID [facility] Hydrochlorothiazide (Microzide) 12.5 mg PO DAILY [facility] Ciprofloxacin (Cipro 400mg/200ml Dsw) 400 mg in 200 mls @ 200 mls/hr IVPB Q12 [facility] Last Admin: 12/16/16 21:54 Dose: 200 mls/hr Vancomycin HCl 500 mg/ Sodium (Chloride) 100 mls @ 100 mls/hr IVPB Q12 [facility] Last Admin: 12/16/16 20:47 Dose: 100 mls/hr Insulin Detemir (Levemir) 20 units SC HS [facility] Last Admin: 12/16/16 22:02 Dose: 20 units Insulin Human Lispro (Humalog) 0 units SC ACHS [facility] PRN Reason: Protocol Last Admin: 12/17/16 06:50 Dose: Not Given Insulin Human Lispro (Humalog) 12 units SC AC [facility] Last Admin: 12/16/16 16:47 Dose: 12 units Levetiracetam (Keppra) 500 mg PO BID [facility] Levothyroxine Sodium (Synthroid) 25 mcg PO ACB [facility] Last Admin: 12/16/16 07:29 Dose: 25 mcg Lisinopril (Zestril) 20 mg PO DAILY [facility] Mupirocin (Bactroban Ointment) 1 applic TOP BID [facility] Last Admin: 12/16/16 16:44 Dose: Not Given Oxycodone/Acetaminophen (Percocet 5/325 Mg Tab) 1 tab PO Q4 PRN PRN Reason: Pain, moderate (4-7) Stop: 12/19/16 07:35 Last Admin: 12/16/16 08:23 Dose: 1 tab Oxycodone/Acetaminophen (Percocet 5/325 Mg Tab) 2 tab PO Q6 PRN PRN Reason: Pain, severe (8-10) Stop: 12/19/16 07:35 Sitagliptin Phosphate (Januvia) 100 mg PO DAILY [facility] Last Admin: 12/16/16 08:21 Dose: 100 mg - Labs Labs: 12/16/16 06:20 12/16/16 06:20 Attending/Attestation - Attestation I have fully participated in the care of the patient.: Yes I have reviewed all pertinent clinical information, including history, physical exam and plan: Yes
[2016-12-17] MEDS: Insulin Lispro (humaLOG) 100 Units/ml Inj SC SCH ×6 (06:50→16:31)
[2016-12-17] MEDS: Levothyroxine 25 MCG TAB PO SCH (06:53)
[2016-12-17] MEDS: Ciprofloxacin 400mg/200ml D5W 400 MG/200 ML BAG IVPB SCH (08:28)
--- NOTE | 2016-12-17 10:46 | CP.PCM.PN ---
Subjective - Date & Time of Evaluation Date of Evaluation: 12/17/16 Time of Evaluation: 07:30 - Subjective Subjective: 61 y/o female seen at bedside with for right posterior ankle ulcer. Pt is AAOx3 and is in NAD. Pt is resting in her bed comfortably. Pt denies of any pain in her ankle today. Pt denies of any acute overnight events. Pt denies of any F/N/V /C/SOB today. Pt denies of any new pedal complains today. Pt's dressing is clean , dry and intact. Objective - Vital Signs/Intake and Output Vital Signs (last 24 hours): Temp Pulse Resp BP Pulse Ox 98.2 F 91 H 20 113/71 96 12/17/16 08:07 12/17/16 08:07 12/17/16 08:07 12/17/16 08:07 12/17/16 08:07 - Medications Medications: Current Medications Aspirin (Aspirin Chewable) 81 mg PO DAILY [facility] Last Admin: 12/17/16 08:27 Dose: 81 mg Clopidogrel Bisulfate (Plavix) 75 mg PO DAILY [facility] Enoxaparin Sodium (Lovenox) 40 mg SC HS [facility] PRN Reason: Protocol Last Admin: 12/16/16 22:02 Dose: 40 mg Famotidine (Pepcid) 20 mg PO BID [facility] Hydrochlorothiazide (Microzide) 12.5 mg PO DAILY [facility] Ciprofloxacin (Cipro 400mg/200ml Dsw) 400 mg in 200 mls @ 200 mls/hr IVPB Q12 [facility] Last Admin: 12/17/16 08:28 Dose: 200 mls/hr Vancomycin HCl 500 mg/ Sodium (Chloride) 100 mls @ 100 mls/hr IVPB Q12 [facility] Last Admin: 12/17/16 08:30 Dose: 100 mls/hr Insulin Detemir (Levemir) 20 units SC HS [facility] Last Admin: 12/16/16 22:02 Dose: 20 units Insulin Human Lispro (Humalog) 0 units SC ACHS [facility] PRN Reason: Protocol Last Admin: 12/17/16 06:50 Dose: Not Given Insulin Human Lispro (Humalog) 12 units SC AC [facility] Last Admin: 12/17/16 08:31 Dose: 12 units Levetiracetam (Keppra) 500 mg PO BID [facility] Levothyroxine Sodium (Synthroid) 25 mcg PO ACB [facility] Last Admin: 12/17/16 06:53 Dose: 25 mcg Lisinopril (Zestril) 20 mg PO DAILY [facility] Mupirocin (Bactroban Ointment) 1 applic TOP BID [facility] Last Admin: 12/17/16 08:28 Dose: Not Given Oxycodone/Acetaminophen (Percocet 5/325 Mg Tab) 1 tab PO Q4 PRN PRN Reason: Pain, moderate (4-7) Stop: 12/19/16 07:35 Last Admin: 12/16/16 08:23 Dose: 1 tab Oxycodone/Acetaminophen (Percocet 5/325 Mg Tab) 2 tab PO Q6 PRN PRN Reason: Pain, severe (8-10) Stop: 12/19/16 07:35 Sitagliptin Phosphate (Januvia) 100 mg PO DAILY [facility] Last Admin: 12/17/16 08:29 Dose: 100 mg - Labs Labs: 12/16/16 06:20 12/16/16 06:20 - Constitutional Appears: Well, Non-toxic, No Acute Distress - Extremities Exam Additional comments: Vasc: DP/PT pulses are palpable 2/4 b/l, PROCESS TRAINER: <3 sec x 10, no pitting or non- pitting edema present, temperature gradient is warm to cool Derm: ulcer located at right posterior lower calf measuring approximately 3 x 3 x .1; base is granular and minimally fibrotic in nature, no erythema, no active drainage, no malodor, no tunneling, No purulence, No probe to bone noted. Neuro: protective sensation grossly diminished bilaterally Ortho: pain on palpation of the posterior ankle, MMT is 5/5 in all four compartments, no pain on palpation of the calf b/l - Neurological Exam Neurological Exam: Alert, Awake, Oriented x3 - Psychiatric Exam Psychiatric exam: Normal Affect, Normal Mood Assessment and Plan - Assessment and Plan (Free Text) Assessment: 61 y/o female seen at bedside for ulceration of right posterior ankle secondary to an injury Plan: Pt evaluated and chart reviewed Pt discussed in details with attending Dr. Blas Chart and vitals reviewed (afebrile, WBC 6.8 as of yesterday) Dressing changed using bactroban, adaptic, DSD, and Kerlix Wound culture final results show heavy growth of Enterobacter Cloacae Pt to remain on IV abx as per ID - Pt to receive PICC line to continue receiving IV abx Podiatry to follow patient while in-house
[2016-12-17] MEDS ORDERED: Lidocaine 1% Inj (20ml) ONE (14:33)
--- NOTE | 2016-12-17 14:49 | PCM.SURG1 ---
Surgeon's Initial Post Op Note - Surgeon's Notes Surgeon: Gene Anthony MD Senior Art Director: None Type of Anesthesia: Local Pre-Operative Diagnosis: Poor venous access Operative Findings: patent right basilic vein. Post-Operative Diagnosis: Poor venous access Operation Performed: Right single lumen picc placement 39 cm. Tip in SVC. Specimen/Specimens Removed: none Estimated Blood Loss: EBL {In ML}: 2 Blood Products Given: N/A Drains Used: No Drains Post-Op Condition: Fair Date of Surgery/Procedure: 12/17/16 Time of Surgery/Procedure: 14:40
--- NOTE | 2016-12-17 14:59 | CP.PCM.DIS ---
<Swati Soler - Last Filed: 12/17/16 15:26> Provider - Provider Date of Admission: 12/11/16 18:21 Attending physician: London Turk MD Primary care physician: -Podiatry; Dr. Ray- ID; Dr. Anthony-IR; Dr. 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 Priority: High Hospital Course - Lab Results Lab Results: Micro Results 12/11/16 18:45 Blood-Venous Blood Culture - Final NO GROWTH AFTER 5 DAYS 12/11/16 18:45 Blood-Venous Gram Stain - Final TEST NOT PERFORMED 12/11/16 20:25 Leg - Right Gram Stain - Final 12/11/16 20:25 Leg - Right Wound Culture - Final Enterobacter Cloacae Ssp Cloac Most Recent Lab Values WBC 6.8 K/uL (4.8-10.8) 12/16/16 06:20 RBC 3.95 Mil/uL (3.80-5.20) 12/16/16 06:20 Hgb 11.8 g/dL (12.0-16.0) L 12/16/16 06:20 Hct 35.1 % (34.0-47.0) 12/16/16 06:20 MCV 89.0 fl (81.0-99.0) 12/16/16 06:20 MCH 30.0 pg (27.0-31.0) 12/16/16 06:20 MCHC 33.7 g/dL (33.0-37.0) 12/16/16 06:20 RDW 14.0 % (11.5-14.5) 12/16/16 06:20 Plt Count 214 K/uL (130-400) 12/16/16 06:20 MPV 8.4 fl (7.2-11.7) 12/16/16 06:20 Neut % (Auto) 43.6 % (50.0-75.0) L 12/16/16 06:20 Lymph % (Auto) 28.3 % (20.0-40.0) 12/16/16 06:20 Antelope % (Auto) 14.5 % (0.0-10.0) H 12/16/16 06:20 Eos % (Auto) 13.1 % (0.0-4.0) H 12/16/16 06:20 Baso % (Auto) 0.5 % (0.0-2.0) 12/16/16 06:20 Neut # 3.0 K/uL (1.8-7.0) 12/16/16 06:20 Lymph # 1.9 K/uL (1.0-4.3) 12/16/16 06:20 Antelope # 1.0 K/uL (0.0-0.8) H 12/16/16 06:20 Eos # 0.9 K/uL (0.0-0.7) H 12/16/16 06:20 Baso # 0.0 K/uL (0.0-0.2) 12/16/16 06:20 pO2 22 mm/Hg (30-55) L 12/11/16 18:52 VBG pH 7.41 (7.32-7.43) 12/11/16 18:52 VBG pCO2 45 mmHg (40-60) 12/11/16 18:52 VBG HCO3 25.8 mmol/L 12/11/16 18:52 VBG Total CO2 29.9 mmol/L (22-28) H 12/11/16 18:52 VBG O2 Sat (Calc) 44.9 % (40-65) 12/11/16 18:52 VBG Base Excess 3.2 mmol/L (0.0-2.0) H 12/11/16 18:52 VBG Potassium 4.1 mmol/L (3.6-5.2) 12/11/16 18:52 Sodium 141.0 mmol/L (132-148) 12/11/16 18:52 Chloride 105.0 mmol/L (98-107) 12/11/16 18:52 Glucose 214 mg/dL (65-105) H 12/11/16 18:52 Lactate 0.9 mmol/L (0.7-2.1) 12/11/16 18:52 FiO2 21.0 % 12/11/16 18:52 Sodium 139 mmol/l (132-148) 12/16/16 06:20 Potassium 5.1 MMOL/L (3.6-5.0) H 12/16/16 06:20 Chloride 106 mmol/L (98-107) 12/16/16 06:20 Carbon Dioxide 26 mmol/L (22-30) 12/16/16 06:20 Anion Gap 12 (10-20) 12/16/16 06:20 BUN 25 mg/dl (7-17) H 12/16/16 06:20 Creatinine 1.0 mg/dL (0.7-1.2) 12/16/16 06:20 Est GFR ( Amer) > 60 12/16/16 06:20 Est GFR (Non-Af Amer) 56 12/16/16 06:20 POC Glucose (mg/dL) 119 mg/dL (65-110) H 12/17/16 11:53 Random Glucose 225 mg/dL (65-105) H 12/16/16 06:20 Hemoglobin A1c 8.7 % (4.2-6.5) H D 12/13/16 05:40 Calcium 9.3 mg/dL (8.4-10.2) 12/16/16 06:20 Total Bilirubin 0.3 mg/dl (0.2-1.3) 12/15/16 06:00 AST 16 U/L (14-36) 12/15/16 06:00 ALT 30 U/L (9-52) 12/15/16 06:00 Alkaline Phosphatase 64 U/L (38-126) 12/15/16 06:00 Total Protein 7.0 G/DL (6.3-8.2) 12/15/16 06:00 Albumin 3.9 g/dL (3.5-5.0) 12/15/16 06:00 Globulin 3.2 gm/dL (2.2-3.9) 12/15/16 06:00 Albumin/Globulin Ratio 1.2 (1.0-2.1) 12/15/16 06:00 Triglycerides 170 mg/DL (0-149) H D 12/15/16 06:00 Cholesterol 182 mg/dL (0-199) 12/15/16 06:00 LDL Cholesterol Direct 111 mg/dL (0-129) 12/15/16 06:00 HDL Cholesterol 38 MG/DL (30-70) 12/15/16 06:00 Free T4 0.87 ng/dL (0.78-2.19) 12/14/16 06:00 Thyroxine (T4) 6.02 ug/dl (5.5-11.0) 12/15/16 06:00 TSH 3rd Generation 7.98 mIU/ML (0.46-4.68) H 12/15/16 06:00 Venous Blood Potassium 4.1 mmol/L (3.6-5.2) 12/11/16 18:52 Vancomycin Trough 10.7 ug/mL (5.0-10.0) H 12/15/16 20:30 Thyroperoxidase Ab <1 IU/mL (<9) 12/15/16 06:00 - Hospital Course Hospital Course: 61 yr old F admitted for worsening infected right posterior ankle ulcer s/p trauma with PMH including HTN, DM2, Seizures, CVA s/p fall and Chronic Right ankle ulcer . During admission, vital signs have remained stable and patient has been afebrile, with no leukocytosis. Wound culture results revealed heavy growth of Enterobacter Cloacae Ssp Cloac sensitive to Cipro. Patient was treated with 6 days of Vancomycin 500mg Q12 IV and 4 days Ciprofloxacin 400mg IV Q12 Podiatry, Endocrinology and ID have been onboard and per recommendations patient had PICC line placed for continued IV antibiotics in TCU to complete a total of 14days. Patient is stable for discharge to TCU. - Date & Time of H&P Date of H&P: 12/11/16 Time of H&P: 21:54 Discharge Exam - Head Exam Head Exam: ATRAUMATIC, NORMOCEPHALIC - Eye Exam Eye Exam: EOMI, PERRL - ENT Exam ENT Exam: Mucous Membranes Moist - Neck Exam Neck exam: Full Rom - Respiratory Exam Respiratory Exam: Clear to PA & Lateral, NORMAL BREATHING PATTERN - Cardiovascular Exam Cardiovascular Exam: REGULAR RHYTHM, +S1, +S2 - GI/Abdominal Exam GI & Abdominal Exam: Normal Bowel Sounds, Soft. absent: Distended, Tenderness - Extremities Exam Extremities exam: full ROM (RUE PICC line intact/dressing clean and dry; right posterior 3x3 cm ankle ulcer with granular base and minimal fibrotic tissue, no active drainage, no erythema) - Back Exam Back exam: absent: CVA tenderness (L), CVA tenderness (R) - Neurological Exam Neurological exam: Alert, CN II-XII Intact, Oriented x3 - Psychiatric Exam Psychiatric exam: Normal Affect, Normal Mood - Skin Skin Exam: Dry, Intact, Warm Discharge Plan - Discharge Medications Prescriptions: Insulin Detemir [Levemir] 20 units SC HS #1 vial Levothyroxine [Synthroid] 25 mcg PO ACB #30 tab SITagliptin [Januvia] 100 mg PO DAILY #30 tab - Follow Up Plan Condition: FAIR Disposition: TRANSF TO SNF Patient education suggested?: Yes Instructions: Diabetic Foot Care (DC), Acute Wound Care (DC), Hypertension (DC) Additional Instructions: -Discharge to TCU Referrals: Serafin Blas DPM [Doctor Podiatric Medicine] - Iggy Larsen MD [Family Provider] - Rain Cornell MD [Medical Doctor] - <London Turk - Last Filed: 12/19/16 06:47> Provider - Provider Date of Admission: 12/11/16 18:21 Attending physician: London Turk MD Hospital Course - Lab Results Lab Results: Micro Results 12/11/16 18:45 Blood-Venous Blood Culture - Final NO GROWTH AFTER 5 DAYS 12/11/16 18:45 Blood-Venous Gram Stain - Final TEST NOT PERFORMED 12/11/16 20:25 Leg - Right Gram Stain - Final 12/11/16 20:25 Leg - Right Wound Culture - Final Enterobacter Cloacae Ssp Cloac Most Recent Lab Values WBC 6.8 K/uL (4.8-10.8) 12/16/16 06:20 RBC 3.95 Mil/uL (3.80-5.20) 12/16/16 06:20 Hgb 11.8 g/dL (12.0-16.0) L 12/16/16 06:20 Hct 35.1 % (34.0-47.0) 12/16/16 06:20 MCV 89.0 fl (81.0-99.0) 12/16/16 06:20 MCH 30.0 pg (27.0-31.0) 12/16/16 06:20 MCHC 33.7 g/dL (33.0-37.0) 12/16/16 06:20 RDW 14.0 % (11.5-14.5) 12/16/16 06:20 Plt Count 214 K/uL (130-400) 12/16/16 06:20 MPV 8.4 fl (7.2-11.7) 12/16/16 06:20 Neut % (Auto) 43.6 % (50.0-75.0) L 12/16/16 06:20 Lymph % (Auto) 28.3 % (20.0-40.0) 12/16/16 06:20 Antelope % (Auto) 14.5 % (0.0-10.0) H 12/16/16 06:20 Eos % (Auto) 13.1 % (0.0-4.0) H 12/16/16 06:20 Baso % (Auto) 0.5 % (0.0-2.0) 12/16/16 06:20 Neut # 3.0 K/uL (1.8-7.0) 12/16/16 06:20 Lymph # 1.9 K/uL (1.0-4.3) 12/16/16 06:20 Antelope # 1.0 K/uL (0.0-0.8) H 12/16/16 06:20 Eos # 0.9 K/uL (0.0-0.7) H 12/16/16 06:20 Baso # 0.0 K/uL (0.0-0.2) 12/16/16 06:20 pO2 22 mm/Hg (30-55) L 12/11/16 18:52 VBG pH 7.41 (7.32-7.43) 12/11/16 18:52 VBG pCO2 45 mmHg (40-60) 12/11/16 18:52 VBG HCO3 25.8 mmol/L 12/11/16 18:52 VBG Total CO2 29.9 mmol/L (22-28) H 12/11/16 18:52 VBG O2 Sat (Calc) 44.9 % (40-65) 12/11/16 18:52 VBG Base Excess 3.2 mmol/L (0.0-2.0) H 12/11/16 18:52 VBG Potassium 4.1 mmol/L (3.6-5.2) 12/11/16 18:52 Sodium 141.0 mmol/L (132-148) 12/11/16 18:52 Chloride 105.0 mmol/L (98-107) 12/11/16 18:52 Glucose 214 mg/dL (65-105) H 12/11/16 18:52 Lactate 0.9 mmol/L (0.7-2.1) 12/11/16 18:52 FiO2 21.0 % 12/11/16 18:52 Sodium 139 mmol/l (132-148) 12/16/16 06:20 Potassium 5.1 MMOL/L (3.6-5.0) H 12/16/16 06:20 Chloride 106 mmol/L (98-107) 12/16/16 06:20 Carbon Dioxide 26 mmol/L (22-30) 12/16/16 06:20 Anion Gap 12 (10-20) 12/16/16 06:20 BUN 25 mg/dl (7-17) H 12/16/16 06:20 Creatinine 1.0 mg/dL (0.7-1.2) 12/16/16 06:20 Est GFR ( Amer) > 60 12/16/16 06:20 Est GFR (Non-Af Amer) 56 12/16/16 06:20 POC Glucose (mg/dL) 107 mg/dL (65-110) 12/17/16 15:25 Random Glucose 225 mg/dL (65-105) H 12/16/16 06:20 Hemoglobin A1c 8.7 % (4.2-6.5) H D 12/13/16 05:40 Calcium 9.3 mg/dL (8.4-10.2) 12/16/16 06:20 Total Bilirubin 0.3 mg/dl (0.2-1.3) 12/15/16 06:00 AST 16 U/L (14-36) 12/15/16 06:00 ALT 30 U/L (9-52) 12/15/16 06:00 Alkaline Phosphatase 64 U/L (38-126) 12/15/16 06:00 Total Protein 7.0 G/DL (6.3-8.2) 12/15/16 06:00 Albumin 3.9 g/dL (3.5-5.0) 12/15/16 06:00 Globulin 3.2 gm/dL (2.2-3.9) 12/15/16 06:00 Albumin/Globulin Ratio 1.2 (1.0-2.1) 12/15/16 06:00 Triglycerides 170 mg/DL (0-149) H D 12/15/16 06:00 Cholesterol 182 mg/dL (0-199) 12/15/16 06:00 LDL Cholesterol Direct 111 mg/dL (0-129) 12/15/16 06:00 HDL Cholesterol 38 MG/DL (30-70) 12/15/16 06:00 Free T4 0.87 ng/dL (0.78-2.19) 12/14/16 06:00 Thyroxine (T4) 6.02 ug/dl (5.5-11.0) 12/15/16 06:00 TSH 3rd Generation 7.98 mIU/ML (0.46-4.68) H 12/15/16 06:00 Venous Blood Potassium 4.1 mmol/L (3.6-5.2) 12/11/16 18:52 Vancomycin Trough 10.7 ug/mL (5.0-10.0) H 12/15/16 20:30 Thyroperoxidase Ab <1 IU/mL (<9) 12/15/16 06:00 Attending/Attestation - Attestation I have personally seen and examined this patient.: Yes I have fully participated in the care of the patient.: Yes I have reviewed all pertinent clinical information, including history, physical exam and plan: Yes
[2016-12-17] MEDS: Oxycodone/Acetaminophen 5/325 mg Tab PO PRN (16:28)
[2016-12-17 16:43] VITALS: BP 124/72; PULSE 100; RESP 18; TEMP 98.6; O2SAT 95
== END 2016-12-17 18:21 | DRG 594 ==
LOC: H.ER 17:32 → H.ERHOLD 18:21 → H.MEDSURG1 22:29
PROVIDERS: ADMIT Family Medicine; ATTEND Family Medicine
PROC: 02HV33Z Insertion of Infusion Device into Superior Vena Cava, Percutaneous Approach (ICD-10-PCS; principal; 2016-12-17)
DX: L97.312 Non-pressure chronic ulcer of right ankle with fat layer exposed (principal); E11.65 Type 2 diabetes mellitus with hyperglycemia; I10 Essential (primary) hypertension; B96.89 Other specified bacterial agents as the cause of diseases classified elsewhere; E78.00 Pure hypercholesterolemia, unspecified; Z88.0 Allergy status to penicillin; Z91.041 Radiographic dye allergy status; Z86.73 Personal history of transient ischemic attack (TIA), and cerebral infarction without residual deficits; E03.9 Hypothyroidism, unspecified; G40.909 Epilepsy, unspecified, not intractable, without status epilepticus; L08.9 Local infection of the skin and subcutaneous tissue, unspecified; Z91.19 Patient's noncompliance with other medical treatment and regimen

== ENCOUNTER 2016-12-17 16:12 | Inpatient (IN) | payer OTHER, MEDICAID ==
[2016-12-17 18:29] VITALS: BMI 24.7
[2016-12-17 19:55] VITALS: RESP 20
[2016-12-17] MEDS ORDERED: Oxycodone/Acetaminophen 5/325 mg Tab PO PRN ×2 (20:48)
[2016-12-17] MEDS: Insulin Lispro (humaLOG) 100 Units/ml Inj SC SCH (21:35)
[2016-12-17] MEDS: Insulin Detemir 100 Units/ml Inj SC SCH (21:36)
[2016-12-18] MEDS: Ciprofloxacin 400mg/200ml D5W 400 MG/200 ML BAG IVPB SCH ×2 (04:54→16:00)
[2016-12-18] MEDS: Levothyroxine 25 MCG TAB PO SCH (06:36)
[2016-12-18] MEDS: Insulin Lispro (humaLOG) 100 Units/ml Inj SC SCH ×5 (06:37→17:23)
[2016-12-18] MEDS: Enoxaparin 40 mg Syringe SC SCH (08:09)
--- NOTE | 2016-12-18 11:27 | RAD ---
HISTORY: rule out active disease COMPARISON: 08/21/2016 TECHNIQUE: Chest PA and lateral FINDINGS: LUNGS: No active pulmonary disease. PLEURA: No significant pleural effusion identified. No pneumothorax apparent. CARDIOVASCULAR: Normal heart size. Right PICC catheter terminates in the region of the superior vena cava. OSSEOUS STRUCTURES: No significant abnormalities. VISUALIZED UPPER ABDOMEN: Normal. OTHER FINDINGS: None. IMPRESSION: No acute infiltrate. Right PICC catheter.
--- NOTE | 2016-12-18 12:04 | CP.PCM.HP ---
<Swati Soler - Last Filed: 12/18/16 18:08> History of Present Illness - History of Present Illness History of Present Illness: 61 yr old F admitted to TCU for rehabilitation and IV antibiotics after discharge from [facility] for worsening infected right posterior ankle ulcer s/p trauma. Denies chest pain, SOB, weakness or dizziness. Patients' right posterior ankle pain is controlled with medication. Patient has PMH including HTN, DM2, Seizures, CVA s/p fall and Chronic Right ankle ulcer . Patients vital signs have remained stable and patient has been afebrile, with no leukocytosis. Wound culture results revealed heavy growth of Enterobacter Cloacae Ssp Cloac sensitive to Cipro. Patient was treated with 6 days of Vancomycin 500mg Q12 IV and 4 days Ciprofloxacin 400mg IV Q12. Podiatry, Endocrinology and ID have been onboard and per recommendations patient had PICC line placed for continued IV antibiotics in TCU to complete a total of 14days. Present on Admission - Present on Admission Any Indicators Present on Admission: Yes History of DVT/PE: No History of Uncontrolled Diabetes: Yes Urinary Catheter: No Decubitus Ulcer Present: No Review of Systems - Review of Systems All systems: reviewed and no additional remarkable complaints except (for what is mentioned in the HPI) Past Patient History - Tetanus Immunizations Tetanus Immunization: Unknown - Past Medical History & Family History Past Medical History?: Yes - Past Social History Smoking Status: Former Smoker - CARDIAC Hx Hypercholesterolemia: Yes Hx Hypertension: Yes - PULMONARY Hx Respiratory Disorders: No - NEUROLOGICAL Hx Seizures: Yes - HEENT Hx HEENT Problems: Yes - RENAL Hx Chronic Kidney Disease: No - ENDOCRINE/METABOLIC Hx Diabetes Mellitus Type 2: Yes - HEMATOLOGICAL/ONCOLOGICAL Hx Blood Disorders: Yes - INTEGUMENTARY Hx Dermatological Problems: No - MUSCULOSKELETAL/RHEUMATOLOGICAL Hx Falls: Yes Hx Fractures: Yes - GASTROINTESTINAL Hx Constipation: Yes - GENITOURINARY/GYNECOLOGICAL Hx Genitourinary Disorders: No - PSYCHIATRIC Hx Substance Use: No - SURGICAL HISTORY Hx Surgeries: Yes Hx Cataract Extraction: Yes (Bilateral eye) Hx Orthopedic Surgery: Yes (RT FOOT EXC TUMORS/LEFT FOOT EXC BONE) - ANESTHESIA Hx Anesthesia: Yes Hx Anesthesia Reactions: No Hx Malignant Hyperthermia: No Meds Allergies/Adverse Reactions: Allergies Allergy/AdvReac Type Severity Reaction Status Date / Time iodine Allergy Unknown RASH Verified 08/26/16 18:35 Penicillins Allergy Unknown RASH Verified 08/26/16 18:35 Physical Exam - Constitutional Appears: Non-toxic, No Acute Distress - Head Exam Head Exam: ATRAUMATIC, NORMOCEPHALIC - Eye Exam Eye Exam: EOMI, PERRL - ENT Exam ENT Exam: Mucous Membranes Moist - Neck Exam Neck exam: Positive for: Full Rom. Negative for: Lymphadenopathy - Respiratory Exam Respiratory Exam: Clear to Auscultation Bilateral, NORMAL BREATHING PATTERN - Cardiovascular Exam Cardiovascular Exam: REGULAR RHYTHM, +S1, +S2 - GI/Abdominal Exam GI & Abdominal Exam: Normal Bowel Sounds, Soft. absent: Distended, Tenderness - Extremities Exam Extremities exam: Positive for: full ROM (RUE PICC line intact/dressing clean and dry), tenderness (in right posterior 3x3 cm ankle ulcer with granular base and minimal fibrotic tissue, no active drainage, no erythema)) - Back Exam Back exam: absent: CVA tenderness (L), CVA tenderness (R) - Neurological Exam Neurological exam: Alert, CN II-XII Intact, Oriented x3 - Psychiatric Exam Psychiatric exam: Anxious - Skin Skin Exam: Abrasion (skin mildly excoriated in upper back and bilateral forearms ), Dry, Intact, Warm Results - Vital Signs Recent Vital Signs: Last Vital Signs Temp 97.5 F L 12/18/16 08:34 Pulse 60 12/18/16 08:34 Resp 20 12/18/16 08:34 BP 122/59 L 12/18/16 08:34 Pulse Ox 94 L 12/18/16 08:34 - Labs Labs: Laboratory Results - last 24 hr 12/17/16 12/18/16 12/18/16 20:39 05:22 10:57 POC Glucose (mg/dL) 102 175 H 160 H Assessment & Plan - Assessment and Plan (Free Text) Assessment: 61 yr old F admitted to TCU for rehabilitation and IV antibiotics after discharge from [facility] for worsening infected right posterior ankle ulcer s/p trauma. Patient has PMH including HTN, DM2, Seizures, CVA s/p fall and Chronic Right ankle ulcer . Patients vital signs have remained stable and patient has been afebrile, with no leukocytosis. Podiatry, Endocrinology and ID have been onboard and per recommendations patient had PICC line placed for continued IV antibiotics in TCU to complete a total of 14days. Plan: Nonhealing RLE ulcer s/p trauma -Chronic ulcer has acutely worsened over last 2 weeks, secondary to trauma, xray showed no right ankle/heel fracture (see full report) -Wound Cx results heavy growth gram negative rods: Enterobacter Cloacae Ssp Cloac sensitive to Cipro -Vancomycin decreased to 500gm IV Q12H (day 7), Ciprofloxacin 400mg IV Q12H ( day 5) -Mupirocin Ointment -Last vanco trough 10.7, within therapeutic range -Wound care consult requested -ID Consult appreciated by Dr. Jensen, will follow recommendations , PICC line to be placed for continued antibiotic treatment -Podiatry consult appreciated by Dr. Blas, will follow recommendations Hypothyroidism -newly diagnosed -TSH 7.98, Thyroxine 6.02 -Pt denies hx of thyroid disease but reports a sister with hypothyroidism -Endocrinology consult appreciated-Dr. Cornell: will follow recommendations -Levothyroxine 25mcg PO QD started Non Insulin Dependant DM Type 2, with hyperglycemia -Uncontrolled, HbA1c 8.7 (12/13/16) -Diabetic Diet -Januvia 100mg PO daily -Endocrinology consult appreciated-Dr. Cornell: recommends: discontinue Glipizide, Humalog 12 units SC AC, Levemir 20 units SC HS -Humalog held this afternoon as pt had POC glucose of 114mg/dL -Lispro Sliding Scale -Accuchecks ACHS -lipid panel :triglycerides 170, chol 182, LDL 111, HDL 38 HTN -Well Controlled -Home meds held for now (Lisinopril 20mg PO QD, Hydrochlorothiazide 12.5mg PO QD ) -Will f/u BP readings and consider medication adjustments as needed Hx of CVA s/p fall and one time seizure -stable, chronic -patient sees Dr. Langley (outpatient neurologist) -continue home med : Plavix 75mg PO QD, Atorvastatin 40mg PO QD, Keppra 500mg PO BID DVT Prophylaxis -Lovenox 40mg SC daily - Date & Time Date: 12/18/16 Time: 07:20 <Iggy Larsen - Last Filed: 12/20/16 06:56> Results - Vital Signs Recent Vital Signs: Last Vital Signs Temp 98.2 F 12/19/16 21:39 Pulse 71 12/19/16 21:39 Resp 20 12/19/16 21:39 BP 134/69 12/19/16 21:39 Pulse Ox 96 12/19/16 21:39 - Labs Result Diagrams: 12/19/16 05:35 12/19/16 04:30 Labs: Laboratory Results - last 24 hr 12/19/16 12/19/16 12/19/16 04:30 05:35 11:26 WBC 8.4 RBC 3.95 Hgb 11.4 L Hct 34.9 MCV 88.5 MCH 28.9 MCHC 32.7 L RDW 14.5 Plt Count 196 MPV 8.5 Neut % (Auto) 64.4 Lymph % (Auto) 16.2 L Garza % (Auto) 11.2 H Eos % (Auto) 7.8 H Baso % (Auto) 0.4 Neut # 5.4 Lymph # 1.4 Garza # 0.9 H Eos # 0.7 Baso # 0.0 Sodium 136 Potassium 4.5 Chloride 101 Carbon Dioxide 25 Anion Gap 13 BUN 39 H Creatinine 1.4 H Est GFR ( Amer) 46 Est GFR (Non-Af Amer) 38 POC Glucose (mg/dL) 280 H Random Glucose 140 H Calcium 9.0 Total Bilirubin 0.6 AST 27 ALT 45 Alkaline Phosphatase 57 Total Protein 6.8 Albumin 3.7 Globulin 3.1 Albumin/Globulin Ratio 1.2 Thyroxine (T4) 5.46 L TSH 3rd Generation 7.41 H 12/19/16 12/19/16 12/20/16 16:13 20:51 05:36 WBC RBC Hgb Hct MCV MCH MCHC RDW Plt Count MPV Neut % (Auto) Lymph % (Auto) Garza % (Auto) Eos % (Auto) Baso % (Auto) Neut # Lymph # Garza # Eos # Baso # Sodium Potassium Chloride Carbon Dioxide Anion Gap BUN Creatinine Est GFR ( Amer) Est GFR (Non-Af Amer) POC Glucose (mg/dL) 198 H 198 H 153 H Random Glucose Calcium Total Bilirubin AST ALT Alkaline Phosphatase Total Protein Albumin Globulin Albumin/Globulin Ratio Thyroxine (T4) TSH 3rd Generation Attending/Attestation - Attestation I have personally seen and examined this patient.: Yes I have fully participated in the care of the patient.: Yes I have reviewed all pertinent clinical information: Yes
[2016-12-18] MEDS ORDERED: Insulin Lispro (humaLOG) 100 Units/ml Inj SC SCH (16:30)
--- NOTE | 2016-12-18 17:10 | CP.PCM.CON ---
History of Present Illness - History of Present Illness History of Present Illness: 61 y/o female seen at bedside in TCU with Dr. Blas for right posterior ankle ulcer. Pt has been followed by podiatry while on the floors. Pt is AAOx3 and is in NAD. Pt is resting in her bed comfortably. Pt denies of any pain in her ankle today. Pt denies of any acute overnight events. Pt denies of any F/N/V/C/ SOB today. Pt denies of any new pedal complains today. Pt's dressing is clean, dry and intact. PMH: CVA, HTN, DM, seizures, left ear tinnitus PSH: b/l cataract surgery, right ankle surgery SH: Denies EtOH, tobacco Allergies: IV contrast, Pencillin (rash) Review of Systems - Constitutional Constitutional: As Per HPI Past Patient History - Tetanus Immunizations Tetanus Immunization: Unknown - Past Medical History & Family History Past Medical History?: Yes - Past Social History Smoking Status: Former Smoker - CARDIAC Hx Hypercholesterolemia: Yes Hx Hypertension: Yes - PULMONARY Hx Respiratory Disorders: No - NEUROLOGICAL Hx Seizures: Yes - HEENT Hx HEENT Problems: Yes - RENAL Hx Chronic Kidney Disease: No - ENDOCRINE/METABOLIC Hx Diabetes Mellitus Type 2: Yes - HEMATOLOGICAL/ONCOLOGICAL Hx Blood Disorders: Yes - INTEGUMENTARY Hx Dermatological Problems: No - MUSCULOSKELETAL/RHEUMATOLOGICAL Hx Falls: Yes Hx Fractures: Yes - GASTROINTESTINAL Hx Constipation: Yes - GENITOURINARY/GYNECOLOGICAL Hx Genitourinary Disorders: No - PSYCHIATRIC Hx Substance Use: No - SURGICAL HISTORY Hx Surgeries: Yes Hx Cataract Extraction: Yes (Bilateral eye) Hx Orthopedic Surgery: Yes (RT FOOT EXC TUMORS/LEFT FOOT EXC BONE) - ANESTHESIA Hx Anesthesia: Yes Hx Anesthesia Reactions: No Hx Malignant Hyperthermia: No Meds Allergies/Adverse Reactions: Allergies Allergy/AdvReac Type Severity Reaction Status Date / Time iodine Allergy Unknown RASH Verified 08/26/16 18:35 Penicillins Allergy Unknown RASH Verified 08/26/16 18:35 - Medications Medications: Current Medications Aspirin (Aspirin Chewable) 81 mg PO DAILY [facility] Last Admin: 12/18/16 08:08 Dose: 81 mg Atorvastatin Calcium (Lipitor) 40 mg PO DAILY [facility] Last Admin: 12/18/16 12:02 Dose: 40 mg Clopidogrel Bisulfate (Plavix) 75 mg PO DAILY [facility] Last Admin: 12/18/16 08:09 Dose: 75 mg Enoxaparin Sodium (Lovenox) 40 mg SC DAILY [facility] PRN Reason: Protocol Last Admin: 12/18/16 08:09 Dose: 40 mg Famotidine (Pepcid) 20 mg PO BID [facility] Last Admin: 12/18/16 08:09 Dose: 20 mg Hydrochlorothiazide (Microzide) 12.5 mg PO DAILY [facility] Last Admin: 12/18/16 08:09 Dose: 12.5 mg Hydroxyzine HCl (Atarax) 10 mg PO QID PRN PRN Reason: Itching / Pruritus Ciprofloxacin (Cipro 400mg/200ml Dsw) 400 mg in 200 mls @ 200 mls/hr IVPB Q12@ 0500,1700 [facility] Last Admin: 12/18/16 04:54 Dose: 200 mls/hr Vancomycin HCl 500 mg/ Sodium (Chloride) 100 mls @ 100 mls/hr IVPB Q12@0500, 1700 [facility] Last Admin: 12/18/16 04:43 Dose: 100 mls/hr Insulin Detemir (Levemir) 20 units SC HS [facility] Last Admin: 12/17/16 21:36 Dose: Not Given Insulin Human Lispro (Humalog) 12 units SC AC [facility] Last Admin: 12/18/16 12:03 Dose: 12 u Insulin Human Lispro (Humalog) 0 units SC [facility] PRN Reason: Protocol Levetiracetam (Keppra) 500 mg PO BID [facility] Last Admin: 12/18/16 08:08 Dose: 500 mg Levothyroxine Sodium (Synthroid) 25 mcg PO ACB [facility] Last Admin: 12/18/16 06:36 Dose: 25 mcg Lisinopril (Zestril) 20 mg PO DAILY [facility] Last Admin: 12/18/16 08:09 Dose: 20 mg Loratadine (Claritin) 10 mg PO DAILY [facility] Last Admin: 12/18/16 12:08 Dose: Not Given Mupirocin (Bactroban Ointment) 1 applic TOP BID [facility] Last Admin: 12/18/16 08:08 Dose: 1 applic Oxycodone/Acetaminophen (Percocet 5/325 Mg Tab) 1 tab PO Q4 PRN PRN Reason: Pain, Mild (1-3) Stop: 12/20/16 20:49 Oxycodone/Acetaminophen (Percocet 5/325 Mg Tab) 2 tab PO Q6 PRN PRN Reason: Pain, moderate (4-7) Stop: 12/20/16 20:49 Sitagliptin Phosphate (Januvia) 100 mg PO DAILY [facility] Last Admin: 12/18/16 08:08 Dose: 100 mg Physical Exam - Constitutional Appears: Well, Non-toxic, No Acute Distress - Extremities Exam Additional comments: Vasc: DP/PT pulses are palpable 2/4 b/l, [employer]: <3 sec x 10, no pitting or non- pitting edema present, temperature gradient is warm to cool Derm: ulcer located at right posterior lower calf measuring approximately 3 x 3 x .1; base is granular and minimally fibrotic in nature, no erythema, no active drainage, no malodor, no tunneling, No purulence, No probe to bone noted. Neuro: protective sensation grossly diminished bilaterally Ortho: pain on palpation of the posterior ankle, MMT is 5/5 in all four compartments, no pain on palpation of the calf b/l - Neurological Exam Neurological exam: Alert, Oriented x3 - Psychiatric Exam Psychiatric exam: Normal Affect, Normal Mood Results - Vital Signs Recent Vital Signs: Last Vital Signs Temp 97.5 F L 12/18/16 08:34 Pulse 60 12/18/16 08:34 Resp 20 12/18/16 08:34 BP 122/59 L 12/18/16 08:34 Pulse Ox 94 L 12/18/16 08:34 - Labs Labs: Laboratory Results - last 24 hr 12/17/16 12/18/16 12/18/16 20:39 05:22 10:57 POC Glucose (mg/dL) 102 175 H 160 H 12/18/16 16:13 POC Glucose (mg/dL) 114 H Assessment & Plan - Assessment and Plan (Free Text) Assessment: 61 y/o female seen at bedside for ulceration of right posterior ankle secondary to an injury Plan: Pt evaluated and chart reviewed Pt seen with attending Dr. Blas Chart and vitals reviewed (afebrile, WBC 6.8 as of 12/16) Dressing changed using bactroban, adaptic, DSD, and Kerlix Wound culture final results show heavy growth of Enterobacter Cloacae Pt to remain on IV abx as per ID - Pt has received PICC line to continue receiving IV abx Podiatry to follow patient while in-house - Date & Time Date: 12/18/16 Time: 17:13
[2016-12-18] MEDS: Insulin Detemir 100 Units/ml Inj SC SCH (21:23)
[2016-12-19] MEDS: Ciprofloxacin 400mg/200ml D5W 400 MG/200 ML BAG IVPB SCH ×2 (05:08→16:00)
[2016-12-19 06:27] LABS: BASO % 0.4 % (0.0-2.0); EOS # 0.7 K/uL (0.0-0.7); EOS % 7.8 % (0.0-4.0); HEMOGLOBIN 11.4 g/dL (12.0-16.0); LYMPH # 1.4 K/uL (1.0-4.3); LYMPH % 16.2 % (20.0-40.0); MEAN CELL VOLUME 88.5 fl (81.0-99.0); MEAN CORPUSCULAR HEMOGLOBIN 28.9 pg (27.0-31.0); MEAN CORPUSCULAR HGB CONC 32.7 g/dL (33.0-37.0); MEAN PLATELET VOLUME 8.5 fl (7.2-11.7); MONO # 0.9 K/uL (0.0-0.8); MONO % 11.2 % (0.0-10.0); NEUT # 5.4 K/uL (1.8-7.0); NEUT % 64.4 % (50.0-75.0); NRBC % 0.1 % (0.0-0.0); RBC 3.95 Mil/uL (3.80-5.20); RED CELL DISTRIBUTION WIDTH 14.5 % (11.5-14.5); WHITE BLOOD COUNT 8.4 K/uL (4.8-10.8)
--- NOTE | 2016-12-19 06:53 | CP.PCM.PN ---
<Swati Soler - Last Filed: 12/19/16 21:08> Subjective - Date & Time of Evaluation Date of Evaluation: 12/19/16 Time of Evaluation: 07:30 - Subjective Subjective: Patient seen and examined at bedside with Dr. Turk. Reports she did not participate in PT yesterday because she felt mild dizziness, patient was informed her BP meds were held as her BP is controlled without them. Otherwise patient denies chest pain, SOB, chills or weakness. Right posterior ankle pain is improving and controlled with medication. Patient has normal urine and stool output. Discussed with patient the importance and benefits of getting out of bed and participating actively in PT. Objective - Vital Signs/Intake and Output Vital Signs (last 24 hours): Temp Pulse Resp BP Pulse Ox 98.1 F 89 20 95/46 L 97 12/18/16 21:53 12/18/16 21:53 12/18/16 21:53 12/18/16 21:53 12/18/16 21:53 - Medications Medications: Current Medications Aspirin (Aspirin Chewable) [address] [facility] Last Admin: 12/18/16 08:08 Dose: 81 mg Atorvastatin Calcium (Lipitor) [address] [facility] Last Admin: 12/18/16 12:02 Dose: 40 mg Clopidogrel Bisulfate (Plavix) [address] [facility] Last Admin: 12/18/16 08:09 Dose: 75 mg Enoxaparin Sodium (Lovenox) [address] [facility] PRN Reason: Protocol Last Admin: 12/18/16 08:09 Dose: 40 mg Famotidine (Pepcid) [address] [facility] Last Admin: 12/18/16 17:18 Dose: 20 mg Hydrochlorothiazide (Microzide) 12.[address] [facility] Last Admin: 12/18/16 08:09 Dose: 12.5 mg Hydroxyzine HCl (Atarax) 10 mg PO QID PRN PRN Reason: Itching / Pruritus Ciprofloxacin (Cipro 400mg/200ml Dsw) 400 mg in 200 mls @ 200 mls/hr IVPB Q12@ 0500,1700 [facility] Last Admin: 12/19/16 05:08 Dose: 200 mls/hr Vancomycin HCl 500 mg/ Sodium (Chloride) 100 mls @ 100 mls/hr IVPB Q12@0500, 1700 [facility] Last Admin: 12/19/16 05:06 Dose: 100 mls/hr Insulin Detemir (Levemir) [address] [facility] Last Admin: 12/18/16 21:23 Dose: 20 unit Insulin Human Lispro (Humalog) [address] [facility] PRN Reason: Protocol Levetiracetam (Keppra) [address] [facility] Last Admin: 12/18/16 17:18 Dose: 500 mg Levothyroxine Sodium (Synthroid) [address] [facility] Last Admin: 12/18/16 06:36 Dose: 25 mcg Loratadine (Claritin) [address] [facility] Last Admin: 12/18/16 12:08 Dose: Not Given Mupirocin (Bactroban Ointment) [address] [facility] Last Admin: 12/18/16 17:21 Dose: 1 applic Oxycodone/Acetaminophen (Percocet 5/325 Mg Tab) 1 tab PO Q4 PRN PRN Reason: Pain, Mild (1-3) Stop: 12/20/16 20:49 Oxycodone/Acetaminophen (Percocet 5/325 Mg Tab) 2 tab PO Q6 PRN PRN Reason: Pain, moderate (4-7) Stop: 12/20/16 20:49 Sitagliptin Phosphate (Januvia) [address] [facility] Last Admin: 12/18/16 08:08 Dose: 100 mg - Constitutional Appears: Non-toxic, No Acute Distress - Head Exam Head Exam: ATRAUMATIC, NORMOCEPHALIC - Eye Exam Eye Exam: EOMI, PERRL - ENT Exam ENT Exam: Mucous Membranes Moist - Neck Exam Neck Exam: Full ROM. absent: Lymphadenopathy - Respiratory Exam Respiratory Exam: Clear to Ausculation Bilateral, NORMAL BREATHING PATTERN - Cardiovascular Exam Cardiovascular Exam: REGULAR RHYTHM, +S1, +S2 - GI/Abdominal Exam GI & Abdominal Exam: Soft, Normal Bowel Sounds. absent: Distended, Tenderness - Extremities Exam Extremities Exam: Full ROM (RUE PICC line intact/dressing clean and dry), Tenderness (in right posterior 3x3 cm ankle ulcer with granular base and minimal fibrotic tissue, no active drainage, no erythema) - Back Exam Back Exam: absent: CVA tenderness (L), CVA tenderness (R) - Neurological Exam Neurological Exam: Alert, Awake, CN II-XII Intact, Oriented x3 - Psychiatric Exam Psychiatric exam: Normal Affect, Normal Mood - Skin Skin Exam: Abrasion (skin mildly excoriated in upper back and bilateral forearms ), Dry, Warm Assessment and Plan - Assessment and Plan (Free Text) Assessment: 61 yr old F admitted to TCU for rehabilitation and IV antibiotics after discharge from [facility] for worsening infected right posterior ankle ulcer s/p trauma. Patient has PMH including HTN, DM2, Seizures, CVA s/p fall and Chronic Right ankle ulcer . Patients vital signs have remained stable and patient has been afebrile, with no leukocytosis. Podiatry, Endocrinology and ID have been onboard and per recommendations patient had PICC line placed for continued IV antibiotics in TCU to complete a total of 14days. Patient had mild dizziness with low BP once yesterday and didn't participate in PT, BP meds were held, today BP is stable and patient was encouraged to participate in PT. Plan: Nonhealing RLE ulcer s/p trauma -Chronic ulcer has acutely worsened over last 2 weeks, secondary to trauma, xray showed no right ankle/heel fracture (see full report) -Wound Cx results heavy growth gram negative rods: Enterobacter Cloacae Ssp Cloac sensitive to Cipro -Vancomycin 500gm IV Q12H (day 8), Ciprofloxacin 400mg IV Q12H (day 6) -Mupirocin Ointment -Last vanco trough 10.7, within therapeutic range -Wound care consult requested -ID Consult appreciated by Dr. Jensen, will follow recommendations , continue antibiotic treatment to complete 2 weeks. -Podiatry consult appreciated by Dr. Blas, will follow recommendations Hypothyroidism -newly diagnosed -TSH 7.98, Thyroxine 6.02 -Pt denies hx of thyroid disease but reports a sister with hypothyroidism -Endocrinology consult appreciated-Dr. Cornell: will follow recommendations -adjusted :Levothyroxine 50mcg PO QD started Non Insulin Dependant DM Type 2, with hyperglycemia -Uncontrolled, HbA1c 8.7 (12/13/16) -Diabetic Diet -Januvia 100mg PO daily -Endocrinology consult appreciated-Dr. Cornell: recommends: Glipizide 5mg PO ACBD, Humalog SC AC HS low dose protocol, Levemir 20 units SC HS -Humalog held this afternoon as pt had POC glucose of 114mg/dL -Lispro Sliding Scale -Accuchecks ACHS -lipid panel :triglycerides 170, chol 182, LDL 111, HDL 38 HTN -Well Controlled -Home meds held for now (Lisinopril 20mg PO QD, Hydrochlorothiazide 12.5mg PO QD ) -Will f/u BP readings and consider medication adjustments as needed Hx of CVA s/p fall and one time seizure -stable, chronic -patient sees Dr. Langley (outpatient neurologist) -continue home med : Plavix 75mg PO QD, Atorvastatin 40mg PO QD, Keppra 500mg PO BID DVT Prophylaxis -Lovenox 40mg SC daily <London Turk - Last Filed: 12/23/16 06:47> Objective - Vital Signs/Intake and Output Vital Signs (last 24 hours): Temp Pulse Resp BP Pulse Ox 99.9 F H 76 20 123/70 95 12/22/16 21:55 12/22/16 21:55 12/22/16 21:55 12/22/16 21:55 12/22/16 21:55 - Medications Medications: Current Medications Aspirin (Aspirin Chewable) [address] [facility] Last Admin: 12/22/16 08:13 Dose: 81 mg Atorvastatin Calcium (Lipitor) [address] [facility] Last Admin: 12/22/16 08:17 Dose: 40 mg Clopidogrel Bisulfate (Plavix) [address] [facility] Last Admin: 12/22/16 08:19 Dose: 75 mg Enoxaparin Sodium (Lovenox) [address] [facility] PRN Reason: Protocol Last Admin: 12/22/16 08:18 Dose: 40 mg Famotidine (Pepcid) 20 mg PO Q12@0900,2100 [facility] Last Admin: 12/22/16 21:37 Dose: 20 mg Glipizide (Glucotrol) [address] [facility] Last Admin: 12/22/16 17:00 Dose: 5 mg Hydrochlorothiazide (Microzide) 12.[address] [facility] Last Admin: 12/18/16 08:09 Dose: 12.5 mg Hydroxyzine HCl (Atarax) 10 mg PO QID PRN PRN Reason: Itching / Pruritus Last Admin: 12/22/16 17:01 Dose: 10 mg Meropenem 500 mg/ Sodium (Chloride) 100 mls @ 100 mls/hr IVPB Q24H [facility] Last Admin: 12/22/16 20:06 Dose: 100 mls/hr Insulin Detemir (Levemir) [address] [facility] Last Admin: 12/22/16 21:51 Dose: 20 unit Insulin Human Lispro (Humalog) [address] [facility] PRN Reason: Protocol Last Admin: 12/22/16 16:59 Dose: Not Given Levetiracetam (Keppra) [address] [facility] Last Admin: 12/22/16 17:01 Dose: 500 mg Levothyroxine Sodium (Synthroid) [address] [facility] Last Admin: 12/23/16 06:42 Dose: 50 mcg Linezolid (Zyvox) [address] [facility] Last Admin: 12/22/16 21:37 Dose: 600 mg Loratadine (Claritin) [address] [facility] Last Admin: 12/22/16 08:16 Dose: 10 mg Mupirocin (Bactroban Ointment) [address] [facility] Last Admin: 12/22/16 08:13 Dose: 1 % Saccharomyces Boulardii (Florastor) [address] [facility] Last Admin: 12/22/16 17:00 Dose: 250 mg Sitagliptin Phosphate (Januvia) [address] [facility] Last Admin: 12/22/16 08:16 Dose: 100 mg - Labs Labs: 12/19/16 05:35 12/21/16 05:20 Attending/Attestation - Attestation I have personally seen and examined this patient.: Yes I have fully participated in the care of the patient.: Yes I have reviewed all pertinent clinical information, including history, physical exam and plan: Yes
[2016-12-19] MEDS: Insulin Lispro (humaLOG) 100 Units/ml Inj SC SCH ×3 (06:55→16:30)
[2016-12-19] MEDS: Levothyroxine 25 MCG TAB PO SCH (06:55)
[2016-12-19 07:04] LABS: ALB/GLOB RATIO 1.2 (1.0-2.1); ALBUMIN 3.7 g/dL (3.5-5.0)
[2016-12-19 07:45] LABS: T4 5.46 ug/dl (5.5-11.0)
--- NOTE | 2016-12-19 08:50 | CP.PCM.PN ---
Subjective - Date & Time of Evaluation Date of Evaluation: 12/19/16 Time of Evaluation: 10:34 - Subjective Subjective: 61 y/o female seen at bedside in TCU for right posterior ankle ulcer. Pt appears to be resting comfortably in her bed is in NAD. Pt is AAOx3. Pt denies of any pain in her ankle today. Pt denies of any acute overnight events. Pt denies of any F/N/V/C/SOB today. Pt's dressing is clean, dry and intact. Pt denies of any new pedal complains today. Objective - Vital Signs/Intake and Output Vital Signs (last 24 hours): Temp Pulse Resp BP Pulse Ox 98.1 F 89 20 95/46 L 97 12/18/16 21:53 12/18/16 21:53 12/18/16 21:53 12/18/16 21:53 12/18/16 21:53 - Medications Medications: Current Medications Aspirin (Aspirin Chewable) 81 mg PO DAILY [facility] Last Admin: 12/18/16 08:08 Dose: 81 mg Atorvastatin Calcium (Lipitor) 40 mg PO DAILY [facility] Last Admin: 12/18/16 12:02 Dose: 40 mg Clopidogrel Bisulfate (Plavix) 75 mg PO DAILY [facility] Last Admin: 12/18/16 08:09 Dose: 75 mg Enoxaparin Sodium (Lovenox) 40 mg SC DAILY [facility] PRN Reason: Protocol Last Admin: 12/18/16 08:09 Dose: 40 mg Famotidine (Pepcid) 20 mg PO BID [facility] Last Admin: 12/18/16 17:18 Dose: 20 mg Hydrochlorothiazide (Microzide) 12.5 mg PO DAILY [facility] Last Admin: 12/18/16 08:09 Dose: 12.5 mg Hydroxyzine HCl (Atarax) 10 mg PO QID PRN PRN Reason: Itching / Pruritus Ciprofloxacin (Cipro 400mg/200ml Dsw) 400 mg in 200 mls @ 200 mls/hr IVPB Q12@ 0500,1700 [facility] Last Admin: 12/19/16 05:08 Dose: 200 mls/hr Vancomycin HCl 500 mg/ Sodium (Chloride) 100 mls @ 100 mls/hr IVPB Q12@0500, 1700 [facility] Last Admin: 12/19/16 05:06 Dose: 100 mls/hr Insulin Detemir (Levemir) 20 units SC HS [facility] Last Admin: 12/18/16 21:23 Dose: 20 unit Insulin Human Lispro (Humalog) 0 units SC AC [facility] PRN Reason: Protocol Last Admin: 12/19/16 06:55 Dose: Not Given Levetiracetam (Keppra) 500 mg PO BID [facility] Last Admin: 12/18/16 17:18 Dose: 500 mg Levothyroxine Sodium (Synthroid) 25 mcg PO ACB [facility] Last Admin: 12/19/16 06:55 Dose: 25 mcg Loratadine (Claritin) 10 mg PO DAILY [facility] Last Admin: 12/18/16 12:08 Dose: Not Given Mupirocin (Bactroban Ointment) 1 applic TOP BID [facility] Last Admin: 12/18/16 17:21 Dose: 1 applic Oxycodone/Acetaminophen (Percocet 5/325 Mg Tab) 1 tab PO Q4 PRN PRN Reason: Pain, Mild (1-3) Stop: 12/20/16 20:49 Oxycodone/Acetaminophen (Percocet 5/325 Mg Tab) 2 tab PO Q6 PRN PRN Reason: Pain, moderate (4-7) Stop: 12/20/16 20:49 Sitagliptin Phosphate (Januvia) 100 mg PO DAILY [facility] Last Admin: 12/18/16 08:08 Dose: 100 mg - Labs Labs: 12/19/16 05:35 12/19/16 04:30 - Constitutional Appears: Well, Non-toxic, No Acute Distress - Extremities Exam Additional comments: Vasc: DP/PT pulses are palpable 2/4 b/l, [employer]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 Neuro: protective sensation grossly diminished bilaterally Ortho: pain on palpation of the posterior ankle, MMT is 5/5 in all four compartments, no pain on palpation of the calf b/l - Neurological Exam Neurological Exam: Alert, Awake, Oriented x3 - Psychiatric Exam Psychiatric exam: Normal Affect, Normal Mood Assessment and Plan - Assessment and Plan (Free Text) Assessment: 61 y/o female seen at bedside for ulceration of right posterior ankle secondary to an injury Plan: Pt evaluated and chart reviewed Pt seen with attending Dr. Blas Chart and vitals reviewed (afebrile, WBC 8.4 as of 12/16) Dressing changed using bactroban, adaptic, DSD, and Kerlix Wound culture final results show heavy growth of Enterobacter Cloacae Pt to remain on IV abx as per ID - Pt has received PICC line to continue receiving IV abx Pt is stable from podiatry standpoint Podiatry to follow patient while in-house
[2016-12-19] MEDS: Enoxaparin 40 mg Syringe SC SCH (09:07)
[2016-12-19] MEDS: Saccharomyces Boulardi 250 mg Cap PO SCH ×2 (12:38→16:00)
[2016-12-19] MEDS: Insulin Detemir 100 Units/ml Inj SC SCH (23:06)
[2016-12-20] MEDS: Insulin Lispro (humaLOG) 100 Units/ml Inj SC SCH ×3 (06:41→17:08)
[2016-12-20] MEDS: Ciprofloxacin 400mg/200ml D5W 400 MG/200 ML BAG IVPB SCH ×3 (06:48→19:01)
[2016-12-20] MEDS: Levothyroxine 50 MCG TAB PO SCH (06:49)
--- NOTE | 2016-12-20 06:51 | CP.PCM.PN ---
<Swati Soler - Last Filed: 12/20/16 17:29> Subjective - Date & Time of Evaluation Date of Evaluation: 12/20/16 Time of Evaluation: 07:10 - Subjective Subjective: Patient seen and examined at bedside with Dr. Larsen. No acute events overnight. Afebrile, BP controlled, generalized pruritus has resolved. Denies chest pain, weakness or dizziness. RLE pain controlled with medication, normal urine and stool output. Objective - Vital Signs/Intake and Output Vital Signs (last 24 hours): Temp Pulse Resp BP Pulse Ox 98.2 F 71 20 134/69 96 12/19/16 21:39 12/19/16 21:39 12/19/16 21:39 12/19/16 21:39 12/19/16 21:39 - Medications Medications: Current Medications Aspirin (Aspirin Chewable) 81 mg PO DAILY REPLACED BY [facility] Last Admin: 12/19/16 09:08 Dose: 81 mg Atorvastatin Calcium (Lipitor) 40 mg PO DAILY REPLACED BY [facility] Last Admin: 12/19/16 09:08 Dose: 40 mg Clopidogrel Bisulfate (Plavix) 75 mg PO DAILY REPLACED BY [facility] Last Admin: 12/19/16 09:08 Dose: 75 mg Enoxaparin Sodium (Lovenox) 40 mg SC DAILY REPLACED BY [facility] PRN Reason: Protocol Last Admin: 12/19/16 09:07 Dose: 40 mg Famotidine (Pepcid) 20 mg PO BID REPLACED BY [facility] Last Admin: 12/19/16 16:02 Dose: 20 mg Glipizide (Glucotrol) 5 mg PO ACBD REPLACED BY [facility] Last Admin: 12/20/16 06:40 Dose: 5 mg Hydrochlorothiazide (Microzide) 12.5 mg PO DAILY REPLACED BY [facility] Last Admin: 12/18/16 08:09 Dose: 12.5 mg Hydroxyzine HCl (Atarax) 10 mg PO QID PRN PRN Reason: Itching / Pruritus Ciprofloxacin (Cipro 400mg/200ml Dsw) 400 mg in 200 mls @ 200 mls/hr IVPB Q12@ 0500,1700 REPLACED BY [facility] Last Admin: 12/20/16 06:48 Dose: 200 mls/hr Vancomycin HCl 500 mg/ Sodium (Chloride) 100 mls @ 100 mls/hr IVPB Q12@0500, 1700 REPLACED BY [facility] Last Admin: 12/20/16 05:32 Dose: 100 mls/hr Insulin Detemir (Levemir) 20 units SC HS REPLACED BY [facility] Last Admin: 12/19/16 23:06 Dose: 20 unit Insulin Human Lispro (Humalog) 0 units SC AC REPLACED BY [facility] PRN Reason: Protocol Last Admin: 12/20/16 06:41 Dose: Not Given Levetiracetam (Keppra) 500 mg PO BID REPLACED BY [facility] Last Admin: 12/19/16 16:01 Dose: 500 mg Levothyroxine Sodium (Synthroid) 50 mcg PO ACB REPLACED BY [facility] Last Admin: 12/20/16 06:49 Dose: 50 mcg Loratadine (Claritin) 10 mg PO DAILY REPLACED BY [facility] Last Admin: 12/19/16 09:08 Dose: 10 mg Mupirocin (Bactroban Ointment) 1 applic TOP BID REPLACED BY [facility] Last Admin: 12/19/16 15:59 Dose: 1 applic Oxycodone/Acetaminophen (Percocet 5/325 Mg Tab) 1 tab PO Q4 PRN PRN Reason: Pain, Mild (1-3) Stop: 12/20/16 20:49 Oxycodone/Acetaminophen (Percocet 5/325 Mg Tab) 2 tab PO Q6 PRN PRN Reason: Pain, moderate (4-7) Stop: 12/20/16 20:49 Saccharomyces Boulardii (Florastor) 250 mg PO BID REPLACED BY [facility] Last Admin: 12/19/16 16:00 Dose: 250 mg Sitagliptin Phosphate (Januvia) 100 mg PO DAILY REPLACED BY [facility] Last Admin: 12/19/16 09:09 Dose: 100 mg - Labs Labs: 12/19/16 05:35 12/19/16 04:30 - Constitutional Appears: Non-toxic, No Acute Distress - Head Exam Head Exam: ATRAUMATIC, NORMOCEPHALIC - Eye Exam Eye Exam: EOMI, PERRL - ENT Exam ENT Exam: Mucous Membranes Moist - Neck Exam Neck Exam: Full ROM. absent: Lymphadenopathy - Respiratory Exam Respiratory Exam: Clear to Ausculation Bilateral, NORMAL BREATHING PATTERN - Cardiovascular Exam Cardiovascular Exam: REGULAR RHYTHM, +S1, +S2 - GI/Abdominal Exam GI & Abdominal Exam: Soft, Normal Bowel Sounds. absent: Distended, Tenderness - Extremities Exam Extremities Exam: Full ROM (RUE PICC line intact/dressing clean and dry), Tenderness (in right posterior 3x3 cm ankle ulcer with granular base and minimal fibrotic tissue, no active drainage, no erythema). absent: Pedal Edema - Back Exam Back Exam: absent: CVA tenderness (L), CVA tenderness (R) - Neurological Exam Neurological Exam: Alert, Awake, CN II-XII Intact, Oriented x3 - Psychiatric Exam Psychiatric exam: Normal Affect, Normal Mood - Skin Skin Exam: Dry, Normal Color, Warm Assessment and Plan - Assessment and Plan (Free Text) Assessment: 61 yr old F admitted to TCU for rehabilitation and IV antibiotics after discharge from [facility] for worsening infected right posterior ankle ulcer s/p trauma. Patient has PMH including HTN, DM2, Seizures, CVA s/p fall and Chronic Right ankle ulcer . Patients vital signs have remained stable and patient has been afebrile, with no leukocytosis. Podiatry, Endocrinology and ID have been onboard and per recommendations patient had PICC line placed for continued IV antibiotics in TCU to complete a total of 14days. Patients' BP is stable. Plan: Nonhealing RLE ulcer s/p trauma -Chronic ulcer has acutely worsened over last 2 weeks, secondary to trauma, xray showed no right ankle/heel fracture (see full report) -Wound Cx results heavy growth gram negative rods: Enterobacter Cloacae Ssp Cloac sensitive to Cipro -Vancomycin 500gm IV Q12H (day 9), Ciprofloxacin 400mg IV Q12H (day 7) -Mupirocin Ointment -Last vanco trough 10.7 on (12/15/16), within therapeutic range -Wound care consult requested -ID Consult appreciated by Dr. Jensen, will follow recommendations , continue antibiotic treatment to complete 1-2 weeks. -Podiatry consult appreciated by Dr. Blas, will follow recommendations Acute Kidney Injury -acute, Cr 1.4 (was 1.0 on 12/16/16) -IVF 1L NS at 100 mLs/hr -will repeat BMP tomorrow -avoid nephrotoxic drugs, f/u AM vanco trough, will consider d/c vancomycin Hypothyroidism -newly diagnosed -repeat TSH 7.41, Thyroxine 5.46 -Pt denies hx of thyroid disease but reports a sister with hypothyroidism -Endocrinology consult appreciated-Dr. Cornell: will follow recommendations -adjusted :Levothyroxine 50mcg PO QD started Non Insulin Dependant DM Type 2, with hyperglycemia -Uncontrolled, HbA1c 8.7 (12/13/16) -Diabetic Diet -Januvia 100mg PO daily -Endocrinology consult appreciated- Cam: recommends: Glipizide 5mg PO ACBD, Humalog SC AC HS low dose protocol, Levemir 20 units SC HS -Lispro Sliding Scale -Accuchecks ACHS -lipid panel :triglycerides 170, chol 182, LDL 111, HDL 38 HTN -Well Controlled -Home meds held for now (Lisinopril 20mg PO QD, Hydrochlorothiazide 12.5mg PO QD ) -Will f/u BP readings and consider medication adjustments as needed Hx of CVA s/p fall and one time seizure -stable, chronic -patient sees Dr. Langley (outpatient neurologist) -continue home med : Plavix 75mg PO QD, Atorvastatin 40mg PO QD, Keppra 500mg PO BID DVT /GI Prophylaxis -Lovenox 40mg SC daily -Florastor 250mg PO BID <Iggy Larsen A - Last Filed: 12/23/16 06:43> Objective - Vital Signs/Intake and Output Vital Signs (last 24 hours): Temp Pulse Resp BP Pulse Ox 99.9 F H 76 20 123/70 95 12/22/16 21:55 12/22/16 21:55 12/22/16 21:55 12/22/16 21:55 12/22/16 21:55 - Medications Medications: Current Medications Aspirin (Aspirin Chewable) 81 mg PO DAILY REPLACED BY [facility] Last Admin: 12/22/16 08:13 Dose: 81 mg Atorvastatin Calcium (Lipitor) 40 mg PO DAILY REPLACED BY [facility] Last Admin: 12/22/16 08:17 Dose: 40 mg Clopidogrel Bisulfate (Plavix) 75 mg PO DAILY REPLACED BY [facility] Last Admin: 12/22/16 08:19 Dose: 75 mg Enoxaparin Sodium (Lovenox) 40 mg SC DAILY REPLACED BY [facility] PRN Reason: Protocol Last Admin: 12/22/16 08:18 Dose: 40 mg Famotidine (Pepcid) 20 mg PO Q12@0900,2100 REPLACED BY [facility] Last Admin: 12/22/16 21:37 Dose: 20 mg Glipizide (Glucotrol) 5 mg PO ACBD REPLACED BY [facility] Last Admin: 12/22/16 17:00 Dose: 5 mg Hydrochlorothiazide (Microzide) 12.5 mg PO DAILY REPLACED BY [facility] Last Admin: 12/18/16 08:09 Dose: 12.5 mg Hydroxyzine HCl (Atarax) 10 mg PO QID PRN PRN Reason: Itching / Pruritus Last Admin: 12/22/16 17:01 Dose: 10 mg Meropenem 500 mg/ Sodium (Chloride) 100 mls @ 100 mls/hr IVPB Q24H REPLACED BY [facility] Last Admin: 12/22/16 20:06 Dose: 100 mls/hr Insulin Detemir (Levemir) 20 units SC HS REPLACED BY [facility] Last Admin: 12/22/16 21:51 Dose: 20 unit Insulin Human Lispro (Humalog) 0 units SC AC REPLACED BY [facility] PRN Reason: Protocol Last Admin: 12/22/16 16:59 Dose: Not Given Levetiracetam (Keppra) 500 mg PO BID REPLACED BY [facility] Last Admin: 12/22/16 17:01 Dose: 500 mg Levothyroxine Sodium (Synthroid) 50 mcg PO ACB REPLACED BY [facility] Last Admin: 12/23/16 06:42 Dose: 50 mcg Linezolid (Zyvox) 600 mg PO Q12 REPLACED BY [facility] Last Admin: 12/22/16 21:37 Dose: 600 mg Loratadine (Claritin) 10 mg PO DAILY REPLACED BY [facility] Last Admin: 12/22/16 08:16 Dose: 10 mg Mupirocin (Bactroban Ointment) 1 applic TOP DAILY REPLACED BY [facility] Last Admin: 12/22/16 08:13 Dose: 1 % Saccharomyces Boulardii (Florastor) 250 mg PO BID REPLACED BY [facility] Last Admin: 12/22/16 17:00 Dose: 250 mg Sitagliptin Phosphate (Januvia) 100 mg PO DAILY REPLACED BY [facility] Last Admin: 12/22/16 08:16 Dose: 100 mg - Labs Labs: 12/19/16 05:35 12/21/16 05:20 Attending/Attestation - Attestation I have personally seen and examined this patient.: Yes I have fully participated in the care of the patient.: Yes I have reviewed all pertinent clinical information, including history, physical exam and plan: Yes
[2016-12-20] MEDS: Enoxaparin 40 mg Syringe SC SCH (09:19)
[2016-12-20] MEDS: Saccharomyces Boulardi 250 mg Cap PO SCH ×2 (09:19→17:18)
--- NOTE | 2016-12-20 09:27 | CP.PCM.PN ---
Subjective - Date & Time of Evaluation Date of Evaluation: 12/20/16 Time of Evaluation: 06:40 - Subjective Subjective: 61 y/o female seen at bedside in TCU for right posterior ankle ulcer. Pt appears to be resting comfortably in her bed is in NAD. Pt denies of any acute overnight events. Pt is AAOx3. Pt denies of any pain in her ankle today. Pt's dressing is clean, dry and intact. Pt denies of any F/N/V/C/SOB today. Pt denies of any new pedal complains today. Objective - Vital Signs/Intake and Output Vital Signs (last 24 hours): Temp Pulse Resp BP Pulse Ox 98.2 F 88 20 91/54 L 97 12/20/16 08:31 12/20/16 08:31 12/20/16 08:31 12/20/16 08:31 12/20/16 08:31 - Medications Medications: Current Medications Aspirin (Aspirin Chewable) 81 mg PO DAILY [facility] Last Admin: 12/20/16 09:19 Dose: 81 mg Atorvastatin Calcium (Lipitor) 40 mg PO DAILY [facility] Last Admin: 12/20/16 09:19 Dose: 40 mg Clopidogrel Bisulfate (Plavix) 75 mg PO DAILY [facility] Last Admin: 12/20/16 09:19 Dose: 75 mg Enoxaparin Sodium (Lovenox) 40 mg SC DAILY [facility] PRN Reason: Protocol Last Admin: 12/20/16 09:19 Dose: 40 mg Famotidine (Pepcid) 20 mg PO BID [facility] Last Admin: 12/20/16 09:19 Dose: 20 mg Glipizide (Glucotrol) 5 mg PO ACBD [facility] Last Admin: 12/20/16 06:40 Dose: 5 mg Hydrochlorothiazide (Microzide) 12.5 mg PO DAILY [facility] Last Admin: 12/18/16 08:09 Dose: 12.5 mg Hydroxyzine HCl (Atarax) 10 mg PO QID PRN PRN Reason: Itching / Pruritus Ciprofloxacin (Cipro 400mg/200ml Dsw) 400 mg in 200 mls @ 200 mls/hr IVPB Q12@ 0500,1700 [facility] Last Admin: 12/20/16 06:48 Dose: 200 mls/hr Vancomycin HCl 500 mg/ Sodium (Chloride) 100 mls @ 100 mls/hr IVPB Q12@0500, 1700 [facility] Last Admin: 12/20/16 05:32 Dose: 100 mls/hr Insulin Detemir (Levemir) 20 units SC HS [facility] Last Admin: 12/19/16 23:06 Dose: 20 unit Insulin Human Lispro (Humalog) 0 units SC AC [facility] PRN Reason: Protocol Last Admin: 12/20/16 06:41 Dose: Not Given Levetiracetam (Keppra) 500 mg PO BID [facility] Last Admin: 12/20/16 09:19 Dose: 500 mg Levothyroxine Sodium (Synthroid) 50 mcg PO ACB [facility] Last Admin: 12/20/16 06:49 Dose: 50 mcg Loratadine (Claritin) 10 mg PO DAILY [facility] Last Admin: 12/20/16 09:19 Dose: 10 mg Mupirocin (Bactroban Ointment) 1 applic TOP BID [facility] Last Admin: 12/20/16 09:16 Dose: 1 applic Oxycodone/Acetaminophen (Percocet 5/325 Mg Tab) 1 tab PO Q4 PRN PRN Reason: Pain, Mild (1-3) Stop: 12/20/16 20:49 Oxycodone/Acetaminophen (Percocet 5/325 Mg Tab) 2 tab PO Q6 PRN PRN Reason: Pain, moderate (4-7) Stop: 12/20/16 20:49 Saccharomyces Boulardii (Florastor) 250 mg PO BID [facility] Last Admin: 12/20/16 09:19 Dose: 250 mg Sitagliptin Phosphate (Januvia) 100 mg PO DAILY [facility] Last Admin: 12/20/16 09:19 Dose: 100 mg - Labs Labs: 12/19/16 05:35 12/19/16 04:30 - Constitutional Appears: Well, Non-toxic, No Acute Distress - Extremities Exam Additional comments: Vasc: DP/PT pulses are palpable 2/4 b/l, [employer]: <3 sec x 10, no pitting or non- pitting edema present, temperature gradient is warm to cool Derm: ulcer located at right posterior lower calf measuring approximately 3 x 3 x .1; base is granular and mildly fibrotic in nature, minimal drainage residue on the previous dressing presenting greenish tint, no erythema, no active drainage, no malodor, no tunneling, No purulence, No probe to bone noted. Neuro: protective sensation grossly diminished bilaterally Ortho: pain on palpation of the posterior ankle, MMT is 5/5 in all four compartments, no pain on palpation of the calf b/l - Neurological Exam Neurological Exam: Alert, Awake, Oriented x3 - Psychiatric Exam Psychiatric exam: Normal Affect, Normal Mood Assessment and Plan - Assessment and Plan (Free Text) Assessment: 61 y/o female seen at bedside for ulceration of right posterior ankle secondary to an injury Plan: Pt evaluated and chart reviewed Pt discussed in details with attending Dr. Blas Chart and vitals reviewed (afebrile, WBC 8.4 as of 12/19) Dressing changed using bactroban, adaptic, DSD, and Kerlix Wound culture final results show heavy growth of Enterobacter Cloacae Pt to remain on IV abx as per ID - Pt has received PICC line to continue receiving IV abx Pt is stable from podiatry standpoint Podiatry to follow patient while in-house
--- NOTE | 2016-12-20 18:55 | CP.PCM.PN ---
Subjective - Date & Time of Evaluation Date of Evaluation: 12/20/16 Time of Evaluation: 18:54 - Subjective Subjective: I D NOTE ANTIBIOTICS CHANGED TO ZYVOX 600 MG PO BID AND MEROPENEM 500MG Objective - Vital Signs/Intake and Output Vital Signs (last 24 hours): Temp Pulse Resp BP Pulse Ox 98.1 F 96 H 20 108/63 95 12/20/16 17:27 12/20/16 17:27 12/20/16 17:27 12/20/16 17:27 12/20/16 17:27 - Medications Medications: Current Medications Aspirin (Aspirin Chewable) 81 mg PO DAILY [facility] Last Admin: 12/20/16 09:19 Dose: 81 mg Atorvastatin Calcium (Lipitor) 40 mg PO DAILY [facility] Last Admin: 12/20/16 09:19 Dose: 40 mg Clopidogrel Bisulfate (Plavix) 75 mg PO DAILY [facility] Last Admin: 12/20/16 09:19 Dose: 75 mg Enoxaparin Sodium (Lovenox) 40 mg SC DAILY [facility] PRN Reason: Protocol Last Admin: 12/20/16 09:19 Dose: 40 mg Famotidine (Pepcid) 20 mg PO BID [facility] Last Admin: 12/20/16 17:11 Dose: 20 mg Glipizide (Glucotrol) 5 mg PO ACBD [facility] Last Admin: 12/20/16 17:11 Dose: 5 mg Hydrochlorothiazide (Microzide) 12.5 mg PO DAILY [facility] Last Admin: 12/18/16 08:09 Dose: 12.5 mg Hydroxyzine HCl (Atarax) 10 mg PO QID PRN PRN Reason: Itching / Pruritus Insulin Detemir (Levemir) 20 units SC HS [facility] Last Admin: 12/19/16 23:06 Dose: 20 unit Insulin Human Lispro (Humalog) 0 units SC AC [facility] PRN Reason: Protocol Last Admin: 12/20/16 17:08 Dose: Not Given Levetiracetam (Keppra) 500 mg PO BID [facility] Last Admin: 12/20/16 17:11 Dose: 500 mg Levothyroxine Sodium (Synthroid) 50 mcg PO ACB [facility] Last Admin: 12/20/16 06:49 Dose: 50 mcg Loratadine (Claritin) 10 mg PO DAILY [facility] Last Admin: 12/20/16 09:19 Dose: 10 mg Mupirocin (Bactroban Ointment) 1 applic TOP BID [facility] Last Admin: 12/20/16 17:18 Dose: 1 applic Oxycodone/Acetaminophen (Percocet 5/325 Mg Tab) 1 tab PO Q4 PRN PRN Reason: Pain, Mild (1-3) Stop: 12/20/16 20:49 Oxycodone/Acetaminophen (Percocet 5/325 Mg Tab) 2 tab PO Q6 PRN PRN Reason: Pain, moderate (4-7) Stop: 12/20/16 20:49 Saccharomyces Boulardii (Florastor) 250 mg PO BID [facility] Last Admin: 12/20/16 17:18 Dose: 250 mg Sitagliptin Phosphate (Januvia) 100 mg PO DAILY [facility] Last Admin: 12/20/16 09:19 Dose: 100 mg - Labs Labs: 12/19/16 05:35 12/19/16 04:30
[2016-12-20] MEDS: Meropenem 500 MG in Sodium Chloride 0.9% 100 ML IVPB SCH (20:42)
[2016-12-20] MEDS: Insulin Detemir 100 Units/ml Inj SC SCH (22:18)
[2016-12-21 05:50] LABS: GFR AFRICAN-AMERICAN > 60; GFR NON-AFRICAN AMERICAN > 60
[2016-12-21 05:51] LABS: BLOOD UREA NITROGEN 24 mg/dl (7-17); CALCIUM 9.1 mg/dL (8.4-10.2)
[2016-12-21] MEDS: Insulin Lispro (humaLOG) 100 Units/ml Inj SC SCH ×3 (07:00→16:30)
[2016-12-21] MEDS: Levothyroxine 50 MCG TAB PO SCH (07:02)
[2016-12-21] MEDS: Saccharomyces Boulardi 250 mg Cap PO SCH ×2 (09:13→16:02)
[2016-12-21] MEDS: Enoxaparin 40 mg Syringe SC SCH (09:15)
[2016-12-21] MEDS ORDERED: POLYETHYLENE GLYCOL 3350 17 GM/Dose PACKET PO ONE (10:30)
--- NOTE | 2016-12-21 12:42 | CP.PCM.PN ---
Subjective - Date & Time of Evaluation Date of Evaluation: 12/21/16 Time of Evaluation: 08:55 - Subjective Subjective: Patient seen and examined at bedside, no acute events overnight. Denies SOB, weakness, palpitations or dizziness. Reports she is ambulating without difficulty, tolerating PO diet, normal urine output. Has no concerns or complaints at this time. Objective - Vital Signs/Intake and Output Vital Signs (last 24 hours): Temp Pulse Resp BP Pulse Ox 97.0 F L 87 20 111/67 98 12/21/16 08:45 12/21/16 08:45 12/21/16 08:45 12/21/16 08:45 12/21/16 08:45 - Medications Medications: Current Medications Aspirin (Aspirin Chewable) 81 mg PO DAILY [facility] Last Admin: 12/21/16 09:14 Dose: 81 mg Atorvastatin Calcium (Lipitor) 40 mg PO DAILY [facility] Last Admin: 12/21/16 09:16 Dose: 40 mg Clopidogrel Bisulfate (Plavix) 75 mg PO DAILY [facility] Last Admin: 12/21/16 09:13 Dose: 75 mg Enoxaparin Sodium (Lovenox) 40 mg SC DAILY [facility] PRN Reason: Protocol Last Admin: 12/21/16 09:15 Dose: 40 mg Famotidine (Pepcid) 20 mg PO Q12@0900,2100 [facility] Last Admin: 12/21/16 09:14 Dose: 20 mg Glipizide (Glucotrol) 5 mg PO ACBD [facility] Last Admin: 12/21/16 07:01 Dose: 5 mg Hydrochlorothiazide (Microzide) 12.5 mg PO DAILY [facility] Last Admin: 12/18/16 08:09 Dose: 12.5 mg Hydroxyzine HCl (Atarax) 10 mg PO QID PRN PRN Reason: Itching / Pruritus Meropenem 500 mg/ Sodium (Chloride) 100 mls @ 100 mls/hr IVPB Q24H [facility] Last Admin: 12/20/16 20:42 Dose: 100 mls/hr Insulin Detemir (Levemir) 20 units SC HS [facility] Last Admin: 12/20/16 22:18 Dose: 20 unit Insulin Human Lispro (Humalog) 0 units SC AC [facility] PRN Reason: Protocol Last Admin: 12/21/16 11:30 Dose: Not Given Levetiracetam (Keppra) 500 mg PO BID [facility] Last Admin: 12/21/16 09:14 Dose: 500 mg Levothyroxine Sodium (Synthroid) 50 mcg PO ACB [facility] Last Admin: 12/21/16 07:02 Dose: 50 mcg Linezolid (Zyvox) 600 mg PO Q12 [facility] Last Admin: 12/21/16 09:14 Dose: 600 mg Loratadine (Claritin) 10 mg PO DAILY [facility] Last Admin: 12/21/16 09:14 Dose: 10 mg Mupirocin (Bactroban Ointment) 1 applic TOP BID [facility] Last Admin: 12/21/16 09:15 Dose: 1 applic Saccharomyces Boulardii (Florastor) 250 mg PO BID [facility] Last Admin: 12/21/16 09:13 Dose: 250 mg Sitagliptin Phosphate (Januvia) 100 mg PO DAILY [facility] Last Admin: 12/21/16 09:13 Dose: 100 mg - Labs Labs: 12/19/16 05:35 12/21/16 05:20 - Constitutional Appears: Non-toxic, No Acute Distress - Head Exam Head Exam: ATRAUMATIC, NORMOCEPHALIC - Eye Exam Eye Exam: EOMI, PERRL - ENT Exam ENT Exam: Mucous Membranes Moist - Neck Exam Neck Exam: Full ROM. absent: Lymphadenopathy - Respiratory Exam Respiratory Exam: Clear to Ausculation Bilateral, NORMAL BREATHING PATTERN - Cardiovascular Exam Cardiovascular Exam: REGULAR RHYTHM, +S1, +S2 - GI/Abdominal Exam GI & Abdominal Exam: Soft, Normal Bowel Sounds. absent: Distended, Tenderness - Extremities Exam Extremities Exam: Full ROM (RUE PICC line intact/dressing clean and dry), Tenderness (in right posterior 2x3 cm ankle ulcer with granular base and minimal fibrotic tissue, no active drainage, no erythema). absent: Calf Tenderness, Pedal Edema - Back Exam Back Exam: absent: CVA tenderness (L), CVA tenderness (R) Assessment and Plan - Assessment and Plan (Free Text) Assessment: 61 yr old F admitted to TCU for rehabilitation and IV antibiotics after discharge from [facility] for worsening infected right posterior ankle ulcer s/p trauma. Patient has PMH including HTN, DM2, Seizures, CVA s/p fall and Chronic Right ankle ulcer . Patients vital signs have remained stable and patient has been afebrile, with no leukocytosis. Podiatry, Endocrinology and ID have been onboard. Patient had ORESTES which resolved after PO and ID hydration, Per ID recommendation, Vancomycin and Ciprofloxacin were discontinued and today patient is on day 1 of Zyvox 600mg PO BID and Meropenem 500mg IVP Q24H. Plan: Nonhealing RLE ulcer s/p trauma -improved, Chronic -Wound Cx results heavy growth Enterobacter Cloacae Ssp Cloac -patient completed Vancomycin 500gm IV Q12H (day 9), Ciprofloxacin 400mg IV Q12H (day 7), discontinued after last does 12/20/16 -today is Day 1 of Zyvox 600mg PO BID and Meropenem 500mg IVP Q24H -Wound care consult appreciated -ID Consult appreciated by Dr. Jensen, will follow recommendations , continue antibiotic treatment to complete 1-2 weeks. -Podiatry consult appreciated by Dr. Blas, will follow recommendations Hypothyroidism -newly diagnosed -repeat TSH 7.41, Thyroxine 5.46 -Endocrinology consult appreciated-Dr. Cornell: will follow recommendations -continue Levothyroxine 50mcg PO QD started Non Insulin Dependant DM Type 2, with hyperglycemia -Uncontrolled, HbA1c 8.7 (12/13/16) -Diabetic Diet -Januvia 100mg PO daily -Endocrinology consult appreciated-Dr. Cornell: recommends: Glipizide 5mg PO ACBD, Humalog SC AC HS low dose protocol, Levemir 20 units SC HS -Lispro Sliding Scale -Accuchecks ACHS -lipid panel :triglycerides 170, chol 182, LDL 111, HDL 38 HTN -Well Controlled -Home meds held for now (Lisinopril 20mg PO QD, Hydrochlorothiazide 12.5mg PO QD ) -Will f/u BP readings and consider medication adjustments as needed Hx of CVA s/p fall and one time seizure -stable, chronic -will refer to f/u with Dr. Langley (her outpatient neurologist) -continue home med : Plavix 75mg PO QD, Atorvastatin 40mg PO QD, Keppra 500mg PO BID DVT /GI Prophylaxis -Lovenox 40mg SC daily -Florastor 250mg PO BID Acute Kidney Injury -resolved -s/p IVF 1L NS and encouraged PO fluid intake -ID d/c'd vancomycin and cipro
[2016-12-21] MEDS: Meropenem 500 MG in Sodium Chloride 0.9% 100 ML IVPB SCH (18:56)
[2016-12-21] MEDS: Insulin Detemir 100 Units/ml Inj SC SCH (21:47)
[2016-12-22] MEDS: Levothyroxine 50 MCG TAB PO SCH (06:50)
[2016-12-22] MEDS: Insulin Lispro (humaLOG) 100 Units/ml Inj SC SCH ×3 (06:50→16:59)
[2016-12-22] MEDS: Saccharomyces Boulardi 250 mg Cap PO SCH ×2 (08:16→17:00)
[2016-12-22] MEDS: Enoxaparin 40 mg Syringe SC SCH (08:18)
--- NOTE | 2016-12-22 10:51 | CP.PCM.PN ---
Subjective - Date & Time of Evaluation Date of Evaluation: 12/22/16 Time of Evaluation: 11:00 - Subjective Subjective: 61 y/o female pt seen at the bedside this morning regarding right posterior ankle ulceration. Pt seen resting comfortably in bed at time of visit. Does complain of some mild pain to the wound today. Denies any other problems at this time. Denies f/n/v/c/sob/cp. Objective - Vital Signs/Intake and Output Vital Signs (last 24 hours): Temp Pulse Resp BP Pulse Ox 97.7 F 87 20 106/69 100 12/22/16 08:52 12/22/16 08:52 12/22/16 08:52 12/22/16 08:52 12/22/16 08:52 - Medications Medications: Current Medications Aspirin (Aspirin Chewable) 81 mg PO DAILY [facility] Last Admin: 12/22/16 08:13 Dose: 81 mg Atorvastatin Calcium (Lipitor) 40 mg PO DAILY [facility] Last Admin: 12/22/16 08:17 Dose: 40 mg Clopidogrel Bisulfate (Plavix) 75 mg PO DAILY [facility] Last Admin: 12/22/16 08:19 Dose: 75 mg Enoxaparin Sodium (Lovenox) 40 mg SC DAILY [facility] PRN Reason: Protocol Last Admin: 12/22/16 08:18 Dose: 40 mg Famotidine (Pepcid) 20 mg PO Q12@0900,2100 [facility] Last Admin: 12/22/16 08:19 Dose: 20 mg Glipizide (Glucotrol) 5 mg PO ACBD [facility] Last Admin: 12/22/16 06:50 Dose: 5 mg Hydrochlorothiazide (Microzide) 12.5 mg PO DAILY [facility] Last Admin: 12/18/16 08:09 Dose: 12.5 mg Hydroxyzine HCl (Atarax) 10 mg PO QID PRN PRN Reason: Itching / Pruritus Meropenem 500 mg/ Sodium (Chloride) 100 mls @ 100 mls/hr IVPB Q24H [facility] Last Admin: 12/21/16 18:56 Dose: 100 mls/hr Insulin Detemir (Levemir) 20 units SC HS [facility] Last Admin: 12/21/16 21:47 Dose: 20 unit Insulin Human Lispro (Humalog) 0 units SC AC [facility] PRN Reason: Protocol Last Admin: 12/22/16 06:50 Dose: Not Given Levetiracetam (Keppra) 500 mg PO BID [facility] Last Admin: 12/22/16 08:17 Dose: 500 mg Levothyroxine Sodium (Synthroid) 50 mcg PO ACB [facility] Last Admin: 12/22/16 06:50 Dose: 50 mcg Linezolid (Zyvox) 600 mg PO Q12 [facility] Last Admin: 12/22/16 08:19 Dose: 600 mg Loratadine (Claritin) 10 mg PO DAILY [facility] Last Admin: 12/22/16 08:16 Dose: 10 mg Mupirocin (Bactroban Ointment) 1 applic TOP DAILY [facility] Last Admin: 12/22/16 08:13 Dose: 1 % Saccharomyces Boulardii (Florastor) 250 mg PO BID [facility] Last Admin: 12/22/16 08:16 Dose: 250 mg Sitagliptin Phosphate (Januvia) 100 mg PO DAILY [facility] Last Admin: 12/22/16 08:16 Dose: 100 mg - Labs Labs: 12/19/16 05:35 12/21/16 05:20 - Constitutional Appears: Well, Non-toxic, No Acute Distress - Extremities Exam Extremities Exam: Calf Tenderness Additional comments: Vasc: DP/PT pulses are palpable 2/4 b/l, [employer]: <3 sec x 10, no pitting or non- pitting edema present, temperature gradient is warm to cool Derm: superficial ulceration located at right posterior lower calf measuring approximately 3 x 3 x 0.1; base is granular and mildly fibrotic in nature, minimal drainage residue on the previous dressing presenting greenish tint, no erythema, no active drainage, no malodor, no tunneling, No purulence, No probe to bone noted. Neuro: protective sensation grossly diminished bilaterally Ortho: pain on palpation of the posterior ankle, MMT is 5/5 in all four compartments, no pain on palpation of the calf b/l - Neurological Exam Neurological Exam: Alert, Awake, Oriented x3 - Psychiatric Exam Psychiatric exam: Normal Affect, Normal Mood Assessment and Plan - Assessment and Plan (Free Text) Assessment: 61 y/o female seen at bedside for ulceration of right posterior ankle secondary to an injury Plan: Pt S&E at bedside Pt discussed in detailed with attending Dr. Blas Chart, labs and vitals reviewed (afebrile, WBC 8.4 as of 12/19) Dressing changed using bactroban, adaptic, DSD, and Kerlix Wound culture: heavy growth of Enterobacter Cloacae c/w IV abx as per ID: has PICC line on meropenem & zyvox Pt is stable from podiatry standpoint Podiatry to follow patient while in-house
--- NOTE | 2016-12-22 16:06 | CP.PCM.PN ---
Subjective - Date & Time of Evaluation Date of Evaluation: 12/22/16 Time of Evaluation: 11:00 - Subjective Subjective: Pt seen and evaluated at bedside this morning, does not have any complaints, reports only has pain when dressing its been changed. otherwise she is ambulating with any assistance, doing well overall. Objective - Vital Signs/Intake and Output Vital Signs (last 24 hours): Temp Pulse Resp BP Pulse Ox 97.7 F 87 20 106/69 100 12/22/16 09:00 12/22/16 09:00 12/22/16 09:00 12/22/16 09:00 12/22/16 09:00 - Medications Medications: Current Medications Aspirin (Aspirin Chewable) 81 mg PO DAILY [facility] Last Admin: 12/22/16 08:13 Dose: 81 mg Atorvastatin Calcium (Lipitor) 40 mg PO DAILY [facility] Last Admin: 12/22/16 08:17 Dose: 40 mg Clopidogrel Bisulfate (Plavix) 75 mg PO DAILY [facility] Last Admin: 12/22/16 08:19 Dose: 75 mg Enoxaparin Sodium (Lovenox) 40 mg SC DAILY [facility] PRN Reason: Protocol Last Admin: 12/22/16 08:18 Dose: 40 mg Famotidine (Pepcid) 20 mg PO Q12@0900,2100 [facility] Last Admin: 12/22/16 08:19 Dose: 20 mg Glipizide (Glucotrol) 5 mg PO ACBD [facility] Last Admin: 12/22/16 06:50 Dose: 5 mg Hydrochlorothiazide (Microzide) 12.5 mg PO DAILY [facility] Last Admin: 12/18/16 08:09 Dose: 12.5 mg Hydroxyzine HCl (Atarax) 10 mg PO QID PRN PRN Reason: Itching / Pruritus Meropenem 500 mg/ Sodium (Chloride) 100 mls @ 100 mls/hr IVPB Q24H [facility] Last Admin: 12/21/16 18:56 Dose: 100 mls/hr Insulin Detemir (Levemir) 20 units SC HS [facility] Last Admin: 12/21/16 21:47 Dose: 20 unit Insulin Human Lispro (Humalog) 0 units SC AC [facility] PRN Reason: Protocol Last Admin: 12/22/16 06:50 Dose: Not Given Levetiracetam (Keppra) 500 mg PO BID [facility] Last Admin: 12/22/16 08:17 Dose: 500 mg Levothyroxine Sodium (Synthroid) 50 mcg PO ACB [facility] Last Admin: 12/22/16 06:50 Dose: 50 mcg Linezolid (Zyvox) 600 mg PO Q12 [facility] Last Admin: 12/22/16 08:19 Dose: 600 mg Loratadine (Claritin) 10 mg PO DAILY [facility] Last Admin: 12/22/16 08:16 Dose: 10 mg Mupirocin (Bactroban Ointment) 1 applic TOP DAILY [facility] Last Admin: 12/22/16 08:13 Dose: 1 % Saccharomyces Boulardii (Florastor) 250 mg PO BID [facility] Last Admin: 12/22/16 08:16 Dose: 250 mg Sitagliptin Phosphate (Januvia) 100 mg PO DAILY [facility] Last Admin: 12/22/16 08:16 Dose: 100 mg - Labs Labs: 12/19/16 05:35 12/21/16 05:20 - Constitutional Appears: Non-toxic, No Acute Distress - Head Exam Head Exam: NORMOCEPHALIC - Eye Exam Eye Exam: Normal appearance, PERRL - ENT Exam ENT Exam: Mucous Membranes Moist - Respiratory Exam Respiratory Exam: Clear to Ausculation Bilateral, NORMAL BREATHING PATTERN. absent: Rhonchi, Wheezes - Cardiovascular Exam Cardiovascular Exam: REGULAR RHYTHM, +S1, +S2 - GI/Abdominal Exam GI & Abdominal Exam: Soft, Normal Bowel Sounds. absent: Tenderness - Extremities Exam Additional comments: Right lower extremity neatly dressed, no discharge noted - Neurological Exam Neurological Exam: Alert, Awake, Oriented x3 Assessment and Plan - Assessment and Plan (Free Text) Assessment: 61 yr old F admitted to TCU for rehabilitation and IV antibiotics after discharge from [facility] for worsening infected right posterior ankle ulcer s/p trauma. Patient has PMH including HTN, DM2, Seizures, CVA s/p fall and Chronic Right ankle ulcer . Patients vital signs have remained stable and patient has been afebrile, with no leukocytosis. Podiatry, Endocrinology and ID have been onboard. Plan: Nonhealing RLE ulcer s/p trauma -improved, Chronic -Wound Cx results heavy growth Enterobacter Cloacae Ssp Cloac -patient completed Vancomycin 500gm IV Q12H (day 9), Ciprofloxacin 400mg IV Q12H (day 7), discontinued after last does 12/20/16 -today is Day 2 of Zyvox 600mg PO BID and Meropenem 500mg IVP Q24H -Wound care consult appreciated -ID recommendations appreciated -continue antibiotic treatment to complete 1-2 weeks. -Podiatry recommendations an plan appreciated Hypothyroidism -newly diagnosed -repeat TSH 7.41, Thyroxine 5.46 -Endocrinology consult appreciated-Dr. Cornell: will follow recommendations -continue Levothyroxine 50mcg PO QD started Non Insulin Dependant DM Type 2, with hyperglycemia -Uncontrolled, HbA1c 8.7 (12/13/16) -Diabetic Diet -Januvia 100mg PO daily -Endocrinology consult appreciated-Dr. Cornell: recommends: Glipizide 5mg PO ACBD, Humalog SC AC HS low dose protocol, Levemir 20 units SC HS -Lispro Sliding Scale -Accuchecks ACHS -lipid panel :triglycerides 170, chol 182, LDL 111, HDL 38 HTN -Well Controlled -Home meds held for now (Lisinopril 20mg PO QD, Hydrochlorothiazide 12.5mg PO QD ) -Will f/u BP readings and consider medication adjustments as needed Hx of CVA s/p fall and one time seizure -stable, chronic -will refer to f/u with Dr. Langley (her outpatient neurologist) -continue home med : Plavix 75mg PO QD, Atorvastatin 40mg PO QD, Keppra 500mg PO BID DVT /GI Prophylaxis -Lovenox 40mg SC daily -Florastor 250mg PO BID
[2016-12-22] MEDS: Meropenem 500 MG in Sodium Chloride 0.9% 100 ML IVPB SCH (20:06)
[2016-12-22] MEDS: Insulin Detemir 100 Units/ml Inj SC SCH (21:51)
--- NOTE | 2016-12-23 02:38 | PN ---
DATE: 12/22/2016 ROOM: 710. SUBJECTIVE: This is a 61-year-old female with recent nonhealing right foot ulceration and is being followed closely now for metabolic management. Her glycemic levels are fluctuating, but much improved at this time. LABORATORY DATA: The latest chemistry shows a BUN of 24, sodium 139, potassium 4.8, chloride 107, CO2 of 25, glucose 148, and creatinine 0.9. Her glucose values have ranged from 94 to 149 mg/dL. ASSESSMENT AND PLAN: At this time, we will continue the dual oral hypoglycemic therapy with Januvia given as 100 mg daily and metformin 500 mg b.i.d. So, at this time, we will continue with *------* hypoglycemia and detailed orders have been given in the computer as noted. Rain Cornell MD cc:
[2016-12-23] MEDS: Levothyroxine 50 MCG TAB PO SCH (06:42)
[2016-12-23] MEDS: Saccharomyces Boulardi 250 mg Cap PO SCH ×2 (08:54→17:25)
[2016-12-23] MEDS: Enoxaparin 40 mg Syringe SC SCH (08:54)
[2016-12-23] MEDS: Insulin Lispro (humaLOG) 100 Units/ml Inj SC SCH ×3 (08:57→17:26)
--- NOTE | 2016-12-23 11:00 | PN ---
LOCATION: [facility] room #710, [facility]. This is a 61-year-old female with recent uncontrolled type II insulin-requiring diabetes, currently undergoing IV antibiotic management for a nonhealing infected neuropathic right foot ulceration and is being followed closely also for metabolic management. Her glycemic levels are fluctuating but much improved at this time and the latest glucose levels have ranged from 97 to 169 and 172 mg/dL. Her latest chemistry showed a BUN of 24, sodium 139, potassium 4.8, chloride 107, CO2 of 25, glucose 148 and creatinine 0.9. So at this time, we will continue the same dual oral hypoglycemic therapy to allow for dose equilibration and keep her on the Januvia, begun as a 100 mg daily and glipizide at 5 mg b.i.d. before meals as ordered. We will also continue the Levemir given as basal insulin at 20 units subQ at bedtime daily as ordered. We will continue also her Synthroid given as 50 mcg once daily in the morning to allow for dose equilibration. We will obtain serial thyroid studies and titrate her dose regimen accordingly. We will also obtain serial chemistries and supplement accordingly as needed. We will follow. Rain Cornell MD
--- NOTE | 2016-12-23 14:21 | CP.PCM.PN ---
<Swait Soler - Last Filed: 12/23/16 20:31> Subjective - Date & Time of Evaluation Date of Evaluation: 12/23/16 Time of Evaluation: 07:20 - Subjective Subjective: Patient seen and examined at bedside, in no acute distress. Reports ambulating without difficulty, normal appetite, normal urine and stool output. Denies fevers, chills, SOB, palpitations, chest pain or weakness. Objective - Vital Signs/Intake and Output Vital Signs (last 24 hours): Temp Pulse Resp BP Pulse Ox 98.1 F 92 H 20 107/58 L 99 12/23/16 08:24 12/23/16 08:24 12/23/16 08:24 12/23/16 08:24 12/23/16 08:24 - Medications Medications: Current Medications Aspirin (Aspirin Chewable) 81 mg PO DAILY [facility] Last Admin: 12/23/16 08:55 Dose: 81 mg Atorvastatin Calcium (Lipitor) 40 mg PO DAILY [facility] Last Admin: 12/23/16 08:56 Dose: 40 mg Clopidogrel Bisulfate (Plavix) 75 mg PO DAILY [facility] Last Admin: 12/23/16 08:55 Dose: 75 mg Enoxaparin Sodium (Lovenox) 40 mg SC DAILY [facility] PRN Reason: Protocol Last Admin: 12/23/16 08:54 Dose: 40 mg Famotidine (Pepcid) 20 mg PO Q12@0900,2100 [facility] Last Admin: 12/23/16 08:55 Dose: 20 mg Glipizide (Glucotrol) 5 mg PO ACBD [facility] Last Admin: 12/23/16 08:00 Dose: 5 mg Hydrochlorothiazide (Microzide) 12.5 mg PO DAILY [facility] Last Admin: 12/18/16 08:09 Dose: 12.5 mg Hydroxyzine HCl (Atarax) 10 mg PO QID PRN PRN Reason: Itching / Pruritus Last Admin: 12/22/16 17:01 Dose: 10 mg Meropenem 500 mg/ Sodium (Chloride) 100 mls @ 100 mls/hr IVPB Q24H [facility] Last Admin: 12/22/16 20:06 Dose: 100 mls/hr Insulin Detemir (Levemir) 20 units SC HS [facility] Last Admin: 12/22/16 21:51 Dose: 20 unit Insulin Human Lispro (Humalog) 0 units SC AC [facility] PRN Reason: Protocol Last Admin: 12/23/16 12:43 Dose: Not Given Levetiracetam (Keppra) 500 mg PO BID [facility] Last Admin: 12/23/16 08:55 Dose: 500 mg Levothyroxine Sodium (Synthroid) 50 mcg PO ACB [facility] Last Admin: 12/23/16 06:42 Dose: 50 mcg Linezolid (Zyvox) 600 mg PO Q12 [facility] Last Admin: 12/23/16 08:56 Dose: 600 mg Loratadine (Claritin) 10 mg PO DAILY [facility] Last Admin: 12/23/16 08:55 Dose: 10 mg Mupirocin (Bactroban Ointment) 1 applic TOP DAILY [facility] Last Admin: 12/23/16 08:56 Dose: 1 % Saccharomyces Boulardii (Florastor) 250 mg PO BID [facility] Last Admin: 12/23/16 08:54 Dose: 250 mg Sitagliptin Phosphate (Januvia) 100 mg PO DAILY [facility] Last Admin: 12/23/16 08:55 Dose: 100 mg - Labs Labs: 12/19/16 05:35 12/21/16 05:20 - Constitutional Appears: Non-toxic, No Acute Distress - Head Exam Head Exam: ATRAUMATIC, NORMOCEPHALIC - Eye Exam Eye Exam: EOMI, PERRL - ENT Exam ENT Exam: Mucous Membranes Moist - Neck Exam Neck Exam: Full ROM. absent: Lymphadenopathy - Respiratory Exam Respiratory Exam: NORMAL BREATHING PATTERN. absent: Clear to Ausculation Bilateral - Cardiovascular Exam Cardiovascular Exam: REGULAR RHYTHM, +S1, +S2 - GI/Abdominal Exam GI & Abdominal Exam: Soft, Normal Bowel Sounds. absent: Distended, Tenderness - Extremities Exam Extremities Exam: Full ROM (RUE PICC line intact/dressing clean and dry), Normal Capillary Refill, Tenderness (improved: in right posterior 2x3 cm ankle ulcer with granular base and minimal fibrotic tissue, no active drainage, no erythema). absent: Calf Tenderness, Pedal Edema - Back Exam Back Exam: absent: CVA tenderness (L), CVA tenderness (R) - Neurological Exam Neurological Exam: Alert, Awake, CN II-XII Intact, Oriented x3 - Psychiatric Exam Psychiatric exam: Normal Affect, Normal Mood - Skin Skin Exam: Dry, Normal Color, Warm Assessment and Plan - Assessment and Plan (Free Text) Assessment: 61 yr old F admitted to TCU for rehabilitation and IV antibiotics after discharge from [facility] for worsening infected right posterior ankle ulcer s/p trauma. Patient has PMH including HTN, DM2, Seizures, CVA s/p fall and Chronic Right ankle ulcer . Patients vital signs have remained stable and patient has been afebrile, with no leukocytosis. Podiatry, Endocrinology and ID have been onboard. Plan: Nonhealing RLE ulcer s/p trauma -improved, Chronic -Wound Cx results heavy growth Enterobacter Cloacae Ssp Cloac -patient completed Vancomycin 500gm IV Q12H (day 9), Ciprofloxacin 400mg IV Q12H (day 7), discontinued after last does 12/20/16 -today is Day 3 of Zyvox 600mg PO BID and Meropenem 500mg IVP Q24H -Wound care consult appreciated -ID recommendations appreciated -continue antibiotic treatment to complete 1-2 weeks. -Podiatry recommendations an plan appreciated -will plan for discharge on 12/25/16 when patient will have completed 2 weeks of IV antibiotics Hypothyroidism -newly diagnosed -repeat TSH 7.41, Thyroxine 5.46 -Endocrinology consult appreciated-Dr. Cornell: will follow recommendations -continue Levothyroxine 50mcg PO QD started Non Insulin Dependant DM Type 2, with hyperglycemia -Uncontrolled, HbA1c 8.7 (12/13/16) -Diabetic Diet -Januvia 100mg PO daily -Endocrinology consult appreciated-Dr. Cornell: recommends: Glipizide 5mg PO ACBD, Humalog SC AC HS low dose protocol, Levemir 20 units SC HS -Lispro Sliding Scale -Accuchecks [facility] -lipid panel :triglycerides 170, chol 182, LDL 111, HDL 38 HTN -Well Controlled -Home meds held for now (Lisinopril 20mg PO QD, Hydrochlorothiazide 12.5mg PO QD ) -Will f/u BP readings and consider medication adjustments as needed Hx of CVA s/p fall and one time seizure -stable, chronic -will refer to f/u with Dr. Langley (her outpatient neurologist) -continue home med : Plavix 75mg PO QD, Atorvastatin 40mg PO QD, Keppra 500mg PO BID DVT /GI Prophylaxis -Lovenox 40mg SC daily -Florastor 250mg PO BID <London Turk - Last Filed: 12/24/16 06:45> Objective - Vital Signs/Intake and Output Vital Signs (last 24 hours): Temp Pulse Resp BP Pulse Ox 97.9 F 91 H 20 100/63 100 12/23/16 21:17 12/23/16 21:17 12/23/16 21:17 12/23/16 21:17 12/23/16 21:17 - Medications Medications: Current Medications Aspirin (Aspirin Chewable) 81 mg PO DAILY [facility] Last Admin: 12/23/16 08:55 Dose: 81 mg Atorvastatin Calcium (Lipitor) 40 mg PO DAILY [facility] Last Admin: 12/23/16 08:56 Dose: 40 mg Clopidogrel Bisulfate (Plavix) 75 mg PO DAILY [facility] Last Admin: 12/23/16 08:55 Dose: 75 mg Enoxaparin Sodium (Lovenox) 40 mg SC DAILY [facility] PRN Reason: Protocol Last Admin: 12/23/16 08:54 Dose: 40 mg Famotidine (Pepcid) 20 mg PO Q12@0900,2100 [facility] Last Admin: 12/23/16 22:24 Dose: 20 mg Glipizide (Glucotrol) 5 mg PO ACBD [facility] Last Admin: 12/23/16 16:40 Dose: 5 mg Hydroxyzine HCl (Atarax) 10 mg PO QID PRN PRN Reason: Itching / Pruritus Last Admin: 12/22/16 17:01 Dose: 10 mg Meropenem 500 mg/ Sodium (Chloride) 100 mls @ 100 mls/hr IVPB DAILY@1700 [facility] Insulin Detemir (Levemir) 20 units SC HS [facility] Last Admin: 12/23/16 22:22 Dose: 20 unit Insulin Human Lispro (Humalog) 0 units SC AC [facility] PRN Reason: Protocol Last Admin: 12/23/16 17:26 Dose: Not Given Levetiracetam (Keppra) 500 mg PO BID [facility] Last Admin: 12/23/16 17:25 Dose: 500 mg Levothyroxine Sodium (Synthroid) 50 mcg PO ACB [facility] Last Admin: 12/23/16 06:42 Dose: 50 mcg Linezolid (Zyvox) 600 mg PO Q12 [facility] Last Admin: 12/23/16 22:24 Dose: 600 mg Loratadine (Claritin) 10 mg PO DAILY [facility] Last Admin: 12/23/16 08:55 Dose: 10 mg Mupirocin (Bactroban Ointment) 1 applic TOP DAILY [facility] Last Admin: 12/23/16 08:56 Dose: 1 % Saccharomyces Boulardii (Florastor) 250 mg PO BID [facility] Last Admin: 12/23/16 17:25 Dose: 250 mg Sitagliptin Phosphate (Januvia) 100 mg PO DAILY [facility] Last Admin: 12/23/16 08:55 Dose: 100 mg - Labs Labs: 12/19/16 05:35 12/21/16 05:20 Attending/Attestation - Attestation I have personally seen and examined this patient.: Yes I have fully participated in the care of the patient.: Yes I have reviewed all pertinent clinical information, including history, physical exam and plan: Yes
--- NOTE | 2016-12-23 17:10 | CP.PCM.PN ---
Subjective - Subjective Subjective: Patient is a 61 y/o female presenting w/ need for rehabilitation and IV antibiotics s/p trauma accompanied by uncontrolled DM type 2. Patient was seen at [employer] [facility] for worsening infected right posterior ankle ulcer s/p [facility] Objective - Vital Signs/Intake and Output Vital Signs (last 24 hours): Temp Pulse Resp BP Pulse Ox 98.1 F 92 H 20 107/58 L 99 12/23/16 08:24 12/23/16 08:24 12/23/16 08:24 12/23/16 08:24 12/23/16 08:24 - Medications Medications: Current Medications Aspirin (Aspirin Chewable) 81 mg PO DAILY [facility] Last Admin: 12/23/16 08:55 Dose: 81 mg Atorvastatin Calcium (Lipitor) 40 mg PO DAILY [facility] Last Admin: 12/23/16 08:56 Dose: 40 mg Clopidogrel Bisulfate (Plavix) 75 mg PO DAILY [facility] Last Admin: 12/23/16 08:55 Dose: 75 mg Enoxaparin Sodium (Lovenox) 40 mg SC DAILY [facility] PRN Reason: Protocol Last Admin: 12/23/16 08:54 Dose: 40 mg Famotidine (Pepcid) 20 mg PO Q12@0900,2100 [facility] Last Admin: 12/23/16 08:55 Dose: 20 mg Glipizide (Glucotrol) 5 mg PO ACBD [facility] Last Admin: 12/23/16 08:00 Dose: 5 mg Hydrochlorothiazide (Microzide) 12.5 mg PO DAILY [facility] Last Admin: 12/18/16 08:09 Dose: 12.5 mg Hydroxyzine HCl (Atarax) 10 mg PO QID PRN PRN Reason: Itching / Pruritus Last Admin: 12/22/16 17:01 Dose: 10 mg Meropenem 500 mg/ Sodium (Chloride) 100 mls @ 100 mls/hr IVPB Q24H [facility] Last Admin: 12/22/16 20:06 Dose: 100 mls/hr Insulin Detemir (Levemir) 20 units SC HS [facility] Last Admin: 12/22/16 21:51 Dose: 20 unit Insulin Human Lispro (Humalog) 0 units SC AC [facility] PRN Reason: Protocol Last Admin: 12/23/16 12:43 Dose: Not Given Levetiracetam (Keppra) 500 mg PO BID [facility] Last Admin: 12/23/16 08:55 Dose: 500 mg Levothyroxine Sodium (Synthroid) 50 mcg PO ACB [facility] Last Admin: 12/23/16 06:42 Dose: 50 mcg Linezolid (Zyvox) 600 mg PO Q12 [facility] Last Admin: 12/23/16 08:56 Dose: 600 mg Loratadine (Claritin) 10 mg PO DAILY [facility] Last Admin: 12/23/16 08:55 Dose: 10 mg Mupirocin (Bactroban Ointment) 1 applic TOP DAILY [facility] Last Admin: 12/23/16 08:56 Dose: 1 % Saccharomyces Boulardii (Florastor) 250 mg PO BID [facility] Last Admin: 12/23/16 08:54 Dose: 250 mg Sitagliptin Phosphate (Januvia) 100 mg PO DAILY [facility] Last Admin: 12/23/16 08:55 Dose: 100 mg - Labs Labs: 12/19/16 05:35 12/21/16 05:20 - Constitutional Appears: No Acute Distress Assessment and Plan (1) Thyroid disease Status: Acute (2) Hyperglycemia Status: Acute (3) DM2 (diabetes mellitus, type 2) Status: Chronic - Assessment and Plan (Free Text) Assessment: Patient is a 61 year old female with recent uncontrolled Type 2 insulin- required diabetes with intercurrent right heel no hepatic--- ulceration. Transfer status: has been transferred to PCU for ongoing IV antibiotics and is also being reffered for diabetic evaluation and management. Her glycemic levels are fluctuating but much improvement this time and the latest chemistries are pending as ordered. The glucose values today have ranged from 102 to 114 and 160 and 175 mm/dL. For this time, we'll continue to the low dose correction scale, using Humalog insulin, was given. Plan: We also continue the basal insulin, even with Levemir, ordered as 20 units at bedtime daily to start tonight. We will continue the Januvia given as 100 mg once daily in the morning as ordered. We also continue her Levothyroxine given as 25ug daily as ordered and we will repeat the thyroid studies accordingly and we'll adjusted those regimens optimized metabolic control. We will also initiate diabetic education and dietary instructions at the time of this admission.
[2016-12-23] MEDS: Meropenem 500 MG in Sodium Chloride 0.9% 100 ML IVPB SCH (18:52)
[2016-12-23] MEDS: Insulin Detemir 100 Units/ml Inj SC SCH (22:22)
--- NOTE | 2016-12-23 22:43 | CP.PCM.PN ---
Subjective - Date & Time of Evaluation Date of Evaluation: 12/23/16 Time of Evaluation: 06:00 - Subjective Subjective: 61 year old female patient seen at bedside for right posterior ankle ulceration. Patient resting in bed comfortably, AAOx3 and NAD. Patient denies any acute events overnight. Patient reports mild pain to posterior ankle. Patient denies N/V/F/C/D/SOB. No other pedal complaints at this time. Objective - Vital Signs/Intake and Output Vital Signs (last 24 hours): Temp Pulse Resp BP Pulse Ox 97.9 F 91 H 20 100/63 100 12/23/16 21:17 12/23/16 21:17 12/23/16 21:17 12/23/16 21:17 12/23/16 21:17 - Medications Medications: Current Medications Aspirin (Aspirin Chewable) 81 mg PO DAILY [facility] Last Admin: 12/23/16 08:55 Dose: 81 mg Atorvastatin Calcium (Lipitor) 40 mg PO DAILY [facility] Last Admin: 12/23/16 08:56 Dose: 40 mg Clopidogrel Bisulfate (Plavix) 75 mg PO DAILY [facility] Last Admin: 12/23/16 08:55 Dose: 75 mg Enoxaparin Sodium (Lovenox) 40 mg SC DAILY [facility] PRN Reason: Protocol Last Admin: 12/23/16 08:54 Dose: 40 mg Famotidine (Pepcid) 20 mg PO Q12@0900,2100 [facility] Last Admin: 12/23/16 22:24 Dose: 20 mg Glipizide (Glucotrol) 5 mg PO ACBD [facility] Last Admin: 12/23/16 16:40 Dose: 5 mg Hydroxyzine HCl (Atarax) 10 mg PO QID PRN PRN Reason: Itching / Pruritus Last Admin: 12/22/16 17:01 Dose: 10 mg Meropenem 500 mg/ Sodium (Chloride) 100 mls @ 100 mls/hr IVPB Q24H [facility] Last Admin: 12/23/16 18:52 Dose: 100 mls/hr Insulin Detemir (Levemir) 20 units SC HS [facility] Last Admin: 12/23/16 22:22 Dose: 20 unit Insulin Human Lispro (Humalog) 0 units SC AC [facility] PRN Reason: Protocol Last Admin: 12/23/16 17:26 Dose: Not Given Levetiracetam (Keppra) 500 mg PO BID [facility] Last Admin: 12/23/16 17:25 Dose: 500 mg Levothyroxine Sodium (Synthroid) 50 mcg PO ACB [facility] Last Admin: 12/23/16 06:42 Dose: 50 mcg Linezolid (Zyvox) 600 mg PO Q12 [facility] Last Admin: 12/23/16 22:24 Dose: 600 mg Loratadine (Claritin) 10 mg PO DAILY [facility] Last Admin: 12/23/16 08:55 Dose: 10 mg Mupirocin (Bactroban Ointment) 1 applic TOP DAILY [facility] Last Admin: 12/23/16 08:56 Dose: 1 % Saccharomyces Boulardii (Florastor) 250 mg PO BID [facility] Last Admin: 12/23/16 17:25 Dose: 250 mg Sitagliptin Phosphate (Januvia) 100 mg PO DAILY [facility] Last Admin: 12/23/16 08:55 Dose: 100 mg - Labs Labs: 12/19/16 05:35 12/21/16 05:20 - Constitutional Appears: Well, Non-toxic, No Acute Distress - Extremities Exam Additional comments: RLE focused physical exam: Vasc: DP and PT pulses palpable 2/4. CFT <3 seconds to all digits x5. No edema noted. TG cool to cool Neuro: Gross sensation diminished. Derm: Superficial ulceration noted to posterior ankle measuring approximately 3 x 3 x 0.1 cm. Base is mixed granular-fibrotic with periwound erythema. No drainage, purulence, malodor, fluctuane noted. Ortho: Tenderness to palpation noted to posterior ankle. - Neurological Exam Neurological Exam: Alert, Awake, Oriented x3 - Psychiatric Exam Psychiatric exam: Normal Affect, Normal Mood Assessment and Plan - Assessment and Plan (Free Text) Assessment: 61 year old female seen at bedside for ulceration to right posterior ankle secondary to trauma Plan: Patient seen and evaluated at bedside. Discussed with attending, Dr. Blas Charts, labs, vitals reviewed: afebrile Dressing changed using bactroban, adaptic, and DSD C/W IV abx per ID = linezolid and meropenem Patient is stable from podiatry standpoint. Will continue to follow patient while in house
--- NOTE | 2016-12-24 02:57 | PN ---
DATE: In U, room 710. SUBJECTIVE: This is a 61-year-old female with recent uncontrolled type 2 insulin-requiring diabetes, now being followed closely for metabolic management. Her glycemic levels are fluctuating, but much improved at this time and the latest glucose levels have ranged from 114 to 141 mg/dL. Today's glucose levels have ranged from 112 to 130 mg/dL. LABORATORY DATA: Her latest chemistries include the BUN of 24, sodium 139, potassium 4.8, chloride 107, CO2 of 25, glucose 148 and creatinine 0.9. ASSESSMENT AND PLAN: So at this time, we will continue the same basal insulin given as Levemir at 20 units subcu at bedtime daily as given. We will continue the dual oral hypoglycemic drug therapy as ordered with Januvia given as 100 mg daily and glipizide 5 mg b.i.d. before meals as ordered. We will titrate incremental as indicated to optimize metabolic control. We will obtain serial chemistries and supplement accordingly as needed. We will follow. Rain Cornell MD
[2016-12-24] MEDS: Insulin Lispro (humaLOG) 100 Units/ml Inj SC SCH ×3 (06:57→16:30)
[2016-12-24] MEDS: Levothyroxine 50 MCG TAB PO SCH (06:59)
[2016-12-24 07:02] LABS: HEMOGLOBIN 11.6 g/dL (12.0-16.0); MEAN CELL VOLUME 89.7 fl (81.0-99.0); MEAN CORPUSCULAR HEMOGLOBIN 28.9 pg (27.0-31.0); MEAN CORPUSCULAR HGB CONC 32.2 g/dL (33.0-37.0); RBC 4.01 Mil/uL (3.80-5.20); RED CELL DISTRIBUTION WIDTH 14.4 % (11.5-14.5)
[2016-12-24 07:07] LABS: ALB/GLOB RATIO 1.2 (1.0-2.1); ALBUMIN 4.1 g/dL (3.5-5.0); ALT/SGPT 76 U/L (9-52); AST/SGOT 55 U/L (14-36); BLOOD UREA NITROGEN 24 mg/dl (7-17); GFR AFRICAN-AMERICAN > 60; GFR NON-AFRICAN AMERICAN 50
[2016-12-24] MEDS: Saccharomyces Boulardi 250 mg Cap PO SCH ×2 (09:06→16:07)
[2016-12-24] MEDS: Enoxaparin 40 mg Syringe SC SCH (09:07)
--- NOTE | 2016-12-24 09:20 | PN ---
DATE: 12/16/2016 SUBJECTIVE: This is a 61-year-old female *------*. Glucose studies are fluctuating but improved. Her glucose studies have ranged 53-198 mg/dL. Her recent chemistries showed a BUN of 39, sodium 136, potassium 4.5, chloride 101, *------*, glucose 140, creatinine 1.2. Her thyroid study showed T4 of 5.46 with a TSH of 7.41 *------*. At this time, we would modify her Synthroid and titrate to higher dose of 50 mcg once daily in the morning as ordered. We will also continue *------* mg once daily in the morning. We will also continue her basal insulin given as Levemir at 20 units subcu *------*. We will titrate the *------* as needed. We will follow. Rain Cornell MD
--- NOTE | 2016-12-24 09:46 | CP.PCM.PN ---
<Swati Soler - Last Filed: 12/24/16 15:57> Subjective - Date & Time of Evaluation Date of Evaluation: 12/24/16 Time of Evaluation: 07:10 - Subjective Subjective: Patient seen and examined at bedside, sitting in bed in no acute distress. Reports she had multiple bowel movements yesterday, denies abdominal pain or malodorous BM. Otherwise patient is tolerating PO diet, ambulating without difficulty, is aware her last day of IV antibiotics is tomorrow. No other concerns or complaints at this time. Objective - Vital Signs/Intake and Output Vital Signs (last 24 hours): Temp Pulse Resp BP Pulse Ox 97.2 F L 88 20 113/64 100 12/24/16 08:08 12/24/16 08:08 12/24/16 08:08 12/24/16 08:08 12/24/16 08:08 - Medications Medications: Current Medications Aspirin (Aspirin Chewable) 81 mg PO DAILY [facility] Last Admin: 12/24/16 09:06 Dose: 81 mg Atorvastatin Calcium (Lipitor) 40 mg PO DAILY [facility] Last Admin: 12/24/16 09:07 Dose: 40 mg Clopidogrel Bisulfate (Plavix) 75 mg PO DAILY [facility] Last Admin: 12/24/16 09:09 Dose: 75 mg Enoxaparin Sodium (Lovenox) 40 mg SC DAILY [facility] PRN Reason: Protocol Last Admin: 12/24/16 09:07 Dose: 40 mg Famotidine (Pepcid) 20 mg PO Q12@0900,2100 [facility] Last Admin: 12/24/16 09:08 Dose: 20 mg Glipizide (Glucotrol) 5 mg PO ACBD [facility] Last Admin: 12/24/16 06:58 Dose: 5 mg Hydroxyzine HCl (Atarax) 10 mg PO QID PRN PRN Reason: Itching / Pruritus Last Admin: 12/22/16 17:01 Dose: 10 mg Meropenem 500 mg/ Sodium (Chloride) 100 mls @ 100 mls/hr IVPB DAILY@1700 [facility] Insulin Detemir (Levemir) 20 units SC [facility] Last Admin: 12/23/16 22:22 Dose: 20 unit Insulin Human Lispro (Humalog) 0 units SC AC [facility] PRN Reason: Protocol Last Admin: 12/24/16 06:57 Dose: Not Given Levetiracetam (Keppra) 500 mg PO BID [facility] Last Admin: 12/24/16 09:06 Dose: 500 mg Levothyroxine Sodium (Synthroid) 50 mcg PO ACB [facility] Last Admin: 12/24/16 06:59 Dose: 50 mcg Linezolid (Zyvox) 600 mg PO Q12 [facility] Last Admin: 12/24/16 09:06 Dose: 600 mg Loratadine (Claritin) 10 mg PO DAILY [facility] Last Admin: 12/24/16 09:07 Dose: 10 mg Mupirocin (Bactroban Ointment) 1 applic TOP DAILY [facility] Last Admin: 12/24/16 09:10 Dose: 1 % Saccharomyces Boulardii (Florastor) 250 mg PO BID [facility] Last Admin: 12/24/16 09:06 Dose: 250 mg Sitagliptin Phosphate (Januvia) 100 mg PO DAILY [facility] Last Admin: 12/24/16 09:07 Dose: 100 mg - Labs Labs: 12/24/16 06:20 12/24/16 06:20 - Constitutional Appears: Non-toxic, No Acute Distress - Head Exam Head Exam: ATRAUMATIC, NORMOCEPHALIC - Eye Exam Eye Exam: EOMI, PERRL - ENT Exam ENT Exam: Mucous Membranes Moist - Neck Exam Neck Exam: Full ROM. absent: Lymphadenopathy - Respiratory Exam Respiratory Exam: Clear to Ausculation Bilateral, NORMAL BREATHING PATTERN - Cardiovascular Exam Cardiovascular Exam: REGULAR RHYTHM, +S1, +S2 - GI/Abdominal Exam GI & Abdominal Exam: Soft, Normal Bowel Sounds. absent: Distended, Tenderness - Extremities Exam Extremities Exam: Full ROM (RUE PICC line intact/dressing clean and dry), Tenderness (improved: in right posterior 2x3 cm ankle ulcer with granular base and minimal fibrotic tissue, no active drainage, no erythema). absent: Pedal Edema - Back Exam Back Exam: absent: CVA tenderness (L), CVA tenderness (R) - Neurological Exam Neurological Exam: Alert, Awake, CN II-XII Intact, Normal Gait, Oriented x3 - Psychiatric Exam Psychiatric exam: Normal Affect, Normal Mood - Skin Skin Exam: Dry, Intact, Normal Color, Warm Assessment and Plan - Assessment and Plan (Free Text) Assessment: 61 yr old F admitted to TCU for rehabilitation and IV antibiotics after discharge from [facility] for worsening infected right posterior ankle ulcer s/p trauma. Patient has PMH including HTN, DM2, Seizures, CVA s/p fall and Chronic Right ankle ulcer . Patients vital signs have remained stable and patient has been afebrile, with no leukocytosis. Podiatry, Endocrinology and ID have been onboard. Plan: Nonhealing RLE ulcer s/p trauma -improved, Chronic -Wound Cx results heavy growth Enterobacter Cloacae Ssp Cloac -patient completed Vancomycin 500gm IV Q12H (day 9), Ciprofloxacin 400mg IV Q12H (day 7), discontinued after last does 12/20/16 -today is Day 4 of Zyvox 600mg PO BID and Meropenem 500mg IVP Q24H -Wound care consult appreciated -ID recommendations appreciated -continue antibiotic treatment to complete 1-2 weeks. -Podiatry on board: when discharged will see patient in wound clinic weekly with 1st appt 01/01/[address] Blas at 10:45am -will plan for discharge on 12/25/16 when patient will have completed 2 weeks of IV antibiotics Hypothyroidism -newly diagnosed -repeat TSH 7.41, Thyroxine 5.46 -Endocrinology consult appreciated-Dr. Cornell: will follow recommendations -continue Levothyroxine 50mcg PO QD started Non Insulin Dependant DM Type 2, with hyperglycemia -Uncontrolled, HbA1c 8.7 (12/13/16) -Diabetic Diet -Januvia 100mg PO daily -Endocrinology consult appreciated-Dr. Cornell: recommends: Glipizide 5mg PO ACBD, Humalog SC AC HS low dose protocol, Levemir 20 units SC HS -Lispro Sliding Scale -Accuchecks ACHS -lipid panel :triglycerides 170, chol 182, LDL 111, HDL 38 HTN -Well Controlled -Home meds held for now (Lisinopril 20mg PO QD, Hydrochlorothiazide 12.5mg PO QD ) -Will f/u BP readings and consider medication adjustments as needed Hx of CVA s/p fall and one time seizure -stable, chronic -will refer to f/u with Dr. Langley (her outpatient neurologist) -continue home med : Plavix 75mg PO QD, Atorvastatin 40mg PO QD, Keppra 500mg PO BID DVT /GI Prophylaxis -Lovenox 40mg SC daily -Florastor 250mg PO BID <London Turk - Last Filed: 12/26/16 06:47> Objective - Vital Signs/Intake and Output Vital Signs (last 24 hours): Temp Pulse Resp BP Pulse Ox 97.7 F 111 H 20 121/70 95 12/25/16 17:25 12/25/16 17:25 12/25/16 17:25 12/25/16 17:25 12/25/16 17:25 - Labs Labs: 12/24/16 06:20 12/24/16 06:20 Attending/Attestation - Attestation I have personally seen and examined this patient.: Yes I have fully participated in the care of the patient.: Yes I have reviewed all pertinent clinical information, including history, physical exam and plan: Yes
--- NOTE | 2016-12-24 11:47 | CP.PCM.PN ---
Subjective - Date & Time of Evaluation Date of Evaluation: 12/24/16 Time of Evaluation: 07:30 - Subjective Subjective: 61 year old female patient seen at bedside in TCU for R posterior ankle ulceration. Patient seen eating breakfast, AAOx3 and NAD. Patient's dressing is clean/dry/intact at this visit. Patient is wearing Patient denies any acute events overnight. Patient states she will be going home tomorrow. Patient denies any pain to her posterior ankle. Patient admits to having diarrhea which started last night. Patient denies N/V/F/C/SOB. No other pedal complaints at this time. Objective - Vital Signs/Intake and Output Vital Signs (last 24 hours): Temp Pulse Resp BP Pulse Ox 97.2 F L 88 20 113/64 100 12/24/16 08:08 12/24/16 08:08 12/24/16 08:08 12/24/16 08:08 12/24/16 08:08 - Medications Medications: Current Medications Aspirin (Aspirin Chewable) 81 mg PO DAILY [facility] Last Admin: 12/24/16 09:06 Dose: 81 mg Atorvastatin Calcium (Lipitor) 40 mg PO DAILY [facility] Last Admin: 12/24/16 09:07 Dose: 40 mg Clopidogrel Bisulfate (Plavix) 75 mg PO DAILY [facility] Last Admin: 12/24/16 09:09 Dose: 75 mg Enoxaparin Sodium (Lovenox) 40 mg SC DAILY [facility] PRN Reason: Protocol Last Admin: 12/24/16 09:07 Dose: 40 mg Famotidine (Pepcid) 20 mg PO Q12@0900,2100 [facility] Last Admin: 12/24/16 09:08 Dose: 20 mg Glipizide (Glucotrol) 5 mg PO ACBD [facility] Last Admin: 12/24/16 06:58 Dose: 5 mg Hydroxyzine HCl (Atarax) 10 mg PO QID PRN PRN Reason: Itching / Pruritus Last Admin: 12/22/16 17:01 Dose: 10 mg Meropenem 500 mg/ Sodium (Chloride) 100 mls @ 100 mls/hr IVPB DAILY@1700 [facility] Insulin Detemir (Levemir) 20 units SC [facility] Last Admin: 12/23/16 22:22 Dose: 20 unit Insulin Human Lispro (Humalog) 0 units SC AC [facility] PRN Reason: Protocol Last Admin: 12/24/16 06:57 Dose: Not Given Levetiracetam (Keppra) 500 mg PO BID [facility] Last Admin: 12/24/16 09:06 Dose: 500 mg Levothyroxine Sodium (Synthroid) 50 mcg PO ACB [facility] Last Admin: 12/24/16 06:59 Dose: 50 mcg Linezolid (Zyvox) 600 mg PO Q12 [facility] Last Admin: 12/24/16 09:06 Dose: 600 mg Loratadine (Claritin) 10 mg PO DAILY [facility] Last Admin: 12/24/16 09:07 Dose: 10 mg Mupirocin (Bactroban Ointment) 1 applic TOP DAILY [facility] Last Admin: 12/24/16 09:10 Dose: 1 % Saccharomyces Boulardii (Florastor) 250 mg PO BID [facility] Last Admin: 12/24/16 09:06 Dose: 250 mg Sitagliptin Phosphate (Januvia) 100 mg PO DAILY [facility] Last Admin: 12/24/16 09:07 Dose: 100 mg - Labs Labs: 12/24/16 06:20 12/24/16 06:20 - Constitutional Appears: Well, Non-toxic, No Acute Distress - Extremities Exam Additional comments: RLE focused physical exam: Vasc: DP and PT pulses palpable 2/4. CFT <3 seconds to all digits x5. No edema noted. TG cool to cool. Neuro: Gross sensation diminished. Derm: Superficial ulceration noted to posterior ankle measuring approximately 3 x 3 x 0.1 cm. Base is 90% fibrotic and 10% granular with mild periwound erythema. No drainage, purulence, malodor, fluctuance noted. No probe to bone noted. Ortho: Tenderness to palpation noted to posterior ankle. - Neurological Exam Neurological Exam: Alert, Awake, Oriented x3 - Psychiatric Exam Psychiatric exam: Normal Affect, Normal Mood Assessment and Plan - Assessment and Plan (Free Text) Assessment: 61 year old female patient with right posterior ankle ulceration secondary to trauma Plan: Patient seen and evaluated at bedside. Discussed with attending, Dr. Blas. Charts, labs, vitals reviewed: afebrile, WBC @ 7.0. Bactroban applied to posterior ankle and dressed with adaptic, 4x4s, and kerlix Per medicine, patient completed Vancomycin (day 9), Ciprofloxacin (day 7) after last dose on 12/20/16. Today is day 3 of Zyvox 600 mg PO bid and Meropenem 500mg IVP Q24H. Continue abx treatment to complete 1-2 weeks. Per medicine, plan for discharge tomorrow, 12/25/16 when patient will have completed 2 weeks of IV abx. Per medicine, patient will follow up in wound care clinic with Dr. Blas next week 01/01/17. Patient is stable from podiatry standpoint. Will continue to follow patient while in house.
[2016-12-24] MEDS ORDERED: Meropenem 500 MG in Sodium Chloride 0.9% 100 ML IVPB SCH (17:00)
[2016-12-24] MEDS: Insulin Detemir 100 Units/ml Inj SC SCH (21:07)
[2016-12-25] MEDS: Insulin Lispro (humaLOG) 100 Units/ml Inj SC SCH ×2 (06:48→12:00)
--- NOTE | 2016-12-25 06:53 | PN ---
DATE: ENDO FOLLOWUP NOTE Room 710, in PCU This is a 61-year-old female with recent uncontrolled type 2 insulin requiring diabetes now being followed closely for metabolic management. She is also undergoing IV antibiotic treatment for right foot nonhealing neuropathic ulceration at this time. Her glucose levels are fluctuating, but much improved and have ranged from 123 to 124 and 148 mL/dL. Her latest chemistry showed a BUN of 24, sodium 140, potassium 4.5, chloride 107, CO2 of 24, glucose 110, creatinine 1.1. So, at this time, we will continue the same basal and bolus insulin regimen as ordered with Levemir given 20 units subcutaneous at bedtime daily as given. We will continue the oral hypoglycemic therapy given as Januvia 100 mg daily and glipizide 5 mg b.i.d. before meals as well. We will titrate incrementally her insulin regimen and oral hypoglycemic therapy to optimize metabolic control. We will obtain serial chemistry and supplement accordingly as needed. We will follow. Rain Cornell MD
[2016-12-25] MEDS: Levothyroxine 50 MCG TAB PO SCH (06:54)
[2016-12-25] MEDS: Saccharomyces Boulardi 250 mg Cap PO SCH (08:31)
[2016-12-25] MEDS: Enoxaparin 40 mg Syringe SC SCH (08:33)
--- NOTE | 2016-12-25 09:24 | CP.PCM.PN ---
Subjective - Date & Time of Evaluation Date of Evaluation: 12/25/16 Time of Evaluation: 07:20 - Subjective Subjective: 61 year old female patient seen at bedside in TCU for R posterior ankle ulceration. Patient seen in bed resting comfortably, AAOx3 and NAD. Patient's dressing is clean/dry/intact at this visit. Patient denies any acute events overnight. Patient states she will be going home today. Patient denies any pain to her posterior ankle currently, but states she experiences tenderness during dressing changes. Patient admits to continued diarrhea, however has had fewer bowel movements since yesterday's visit. Patient denies N/V/F/C/SOB. No other pedal complaints at this time. Objective - Vital Signs/Intake and Output Vital Signs (last 24 hours): Temp Pulse Resp BP Pulse Ox 97.2 F L 92 H 20 128/72 99 12/25/16 07:55 12/25/16 07:55 12/25/16 07:55 12/25/16 07:55 12/25/16 07:55 - Medications Medications: Current Medications Aspirin (Aspirin Chewable) 81 mg PO DAILY [facility] Last Admin: 12/25/16 08:33 Dose: 81 mg Atorvastatin Calcium (Lipitor) 40 mg PO DAILY [facility] Last Admin: 12/25/16 08:33 Dose: 40 mg Clopidogrel Bisulfate (Plavix) 75 mg PO DAILY [facility] Last Admin: 12/25/16 08:33 Dose: 75 mg Enoxaparin Sodium (Lovenox) 40 mg SC DAILY [facility] PRN Reason: Protocol Last Admin: 12/25/16 08:33 Dose: 40 mg Famotidine (Pepcid) 20 mg PO Q12@0900,2100 [facility] Last Admin: 12/25/16 08:32 Dose: 20 mg Glipizide (Glucotrol) 5 mg PO ACBD [facility] Last Admin: 12/25/16 06:54 Dose: 5 mg Hydroxyzine HCl (Atarax) 10 mg PO QID PRN PRN Reason: Itching / Pruritus Last Admin: 12/25/16 08:32 Dose: 10 mg Meropenem 500 mg/ Sodium (Chloride) 100 mls @ 100 mls/hr IVPB DAILY@1700 [facility] Last Admin: 12/24/16 16:05 Dose: 100 mls/hr Insulin Detemir (Levemir) 20 units SC HS [facility] Last Admin: 12/24/16 21:07 Dose: 20 unit Insulin Human Lispro (Humalog) 0 units SC AC [facility] PRN Reason: Protocol Last Admin: 12/25/16 06:48 Dose: Not Given Levetiracetam (Keppra) 500 mg PO BID [facility] Last Admin: 12/25/16 08:32 Dose: 500 mg Levothyroxine Sodium (Synthroid) 50 mcg PO ACB [facility] Last Admin: 12/25/16 06:54 Dose: 50 mcg Linezolid (Zyvox) 600 mg PO Q12 [facility] Last Admin: 12/25/16 08:32 Dose: 600 mg Loratadine (Claritin) 10 mg PO DAILY [facility] Last Admin: 12/25/16 08:32 Dose: 10 mg Mupirocin (Bactroban Ointment) 1 applic TOP DAILY [facility] Last Admin: 12/25/16 08:31 Dose: 1 % Saccharomyces Boulardii (Florastor) 250 mg PO BID [facility] Last Admin: 12/25/16 08:31 Dose: 250 mg Sitagliptin Phosphate (Januvia) 100 mg PO DAILY [facility] Last Admin: 12/25/16 08:32 Dose: 100 mg - Labs Labs: 12/24/16 06:20 12/24/16 06:20 - Constitutional Appears: Well, Non-toxic, No Acute Distress - Extremities Exam Additional comments: RLE focused physical exam: Vasc: DP and PT pulses palpable 2/4. CFT <3 seconds to all digits x5. No edema noted. TG warm to cool. Neuro: Gross sensation diminished. Derm: Superficial ulceration noted to posterior ankle measuring approximately 3 x 3 x 0.1 cm. Base is 90% fibrotic and 10% granular with mild periwound erythema. No drainage, purulence, malodor, fluctuance noted. No probe to bone noted. Ortho: Tenderness to palpation noted to posterior ankle. - Neurological Exam Neurological Exam: Alert, Awake, Oriented x3 - Psychiatric Exam Psychiatric exam: Normal Affect, Normal Mood Assessment and Plan - Assessment and Plan (Free Text) Assessment: 61 year old female patient with right posterior ankle ulceration secondary to trauma Plan: Patient seen and evaluated at bedside. Discussed with attending, Dr. Blas. Charts, labs, vitals reviewed: afebrile Posterior ankle dressed with Silvercel, 4x4s, and kerlix. Advised patient to keep dressing clean, dry, and intact until appointment with Dr. Blas next week. Per medicine, plan for discharge today when patient will have completed 2 weeks of IV abx. Patient will follow up in wound care clinic with Dr. Blas next week 01/01/17 @10:45. Patient is stable from podiatry standpoint. Will continue to follow patient while in house.
--- NOTE | 2016-12-25 15:48 | CP.PCM.DIS ---
<Swati Soler - Last Filed: 12/25/16 22:44> Provider - Provider Date of Admission: 12/17/16 18:29 Attending physician: London Turk MD Primary care physician: Dr. Larsen Consults: Dr. Blas-Podiatry; Dr. Ray-ID; Dr. Cornell-endocrinology; Dr. 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 Priority: High (2) Hypothyroidism Status: Acute Priority: Medium (3) DM2 (diabetes mellitus, type 2) Status: Chronic Priority: Medium Hospital Course - Lab Results Lab Results: Most Recent Lab Values WBC 7.0 K/uL (4.8-10.8) 12/24/16 06:20 RBC 4.01 Mil/uL (3.80-5.20) 12/24/16 06:20 Hgb 11.6 g/dL (12.0-16.0) L 12/24/16 06:20 Hct 35.9 % (34.0-47.0) 12/24/16 06:20 MCV 89.7 fl (81.0-99.0) 12/24/16 06:20 MCH 28.9 pg (27.0-31.0) 12/24/16 06:20 MCHC 32.2 g/dL (33.0-37.0) L 12/24/16 06:20 RDW 14.4 % (11.5-14.5) 12/24/16 06:20 Plt Count 202 K/uL (130-400) 12/24/16 06:20 MPV 8.5 fl (7.2-11.7) 12/19/16 05:35 Neut % (Auto) 64.4 % (50.0-75.0) 12/19/16 05:35 Lymph % (Auto) 16.2 % (20.0-40.0) L 12/19/16 05:35 Sutter % (Auto) 11.2 % (0.0-10.0) H 12/19/16 05:35 Eos % (Auto) 7.8 % (0.0-4.0) H 12/19/16 05:35 Baso % (Auto) 0.4 % (0.0-2.0) 12/19/16 05:35 Neut # 5.4 K/uL (1.8-7.0) 12/19/16 05:35 Lymph # 1.4 K/uL (1.0-4.3) 12/19/16 05:35 Sutter # 0.9 K/uL (0.0-0.8) H 12/19/16 05:35 Eos # 0.7 K/uL (0.0-0.7) 12/19/16 05:35 Baso # 0.0 K/uL (0.0-0.2) 12/19/16 05:35 Sodium 140 mmol/l (132-148) 12/24/16 06:20 Potassium 4.5 MMOL/L (3.6-5.0) 12/24/16 06:20 Chloride 107 mmol/L (98-107) 12/24/16 06:20 Carbon Dioxide 24 mmol/L (22-30) 12/24/16 06:20 Anion Gap 14 (10-20) 12/24/16 06:20 BUN 24 mg/dl (7-17) H 12/24/16 06:20 Creatinine 1.1 mg/dL (0.7-1.2) 12/24/16 06:20 Est GFR ( Amer) > 60 12/24/16 06:20 Est GFR (Non-Af Amer) 50 12/24/16 06:20 POC Glucose (mg/dL) 107 mg/dL (65-110) 12/25/16 10:56 Random Glucose 110 mg/dL (65-105) H 12/24/16 06:20 Calcium 9.0 mg/dL (8.4-10.2) 12/24/16 06:20 Total Bilirubin 0.6 mg/dl (0.2-1.3) 12/24/16 06:20 AST 55 U/L (14-36) H D 12/24/16 06:20 ALT 76 U/L (9-52) H D 12/24/16 06:20 Alkaline Phosphatase 64 U/L (38-126) 12/24/16 06:20 Total Protein 7.5 G/DL (6.3-8.2) 12/24/16 06:20 Albumin 4.1 g/dL (3.5-5.0) 12/24/16 06:20 Globulin 3.4 gm/dL (2.2-3.9) 12/24/16 06:20 Albumin/Globulin Ratio 1.2 (1.0-2.1) 12/24/16 06:20 Thyroxine (T4) 5.46 ug/dl (5.5-11.0) L 12/19/16 04:30 TSH 3rd Generation 7.41 mIU/ML (0.46-4.68) H 12/19/16 04:30 - Hospital Course Hospital Course: 61 yr old F admitted to TCU for rehabilitation and IV antibiotics after discharge from [facility] for worsening infected right posterior ankle ulcer s/p trauma. Patient has PMH including HTN, DM2, Seizures, CVA s/p fall and Chronic Right ankle ulcer . Patients vital signs have remained stable and patient has been afebrile, with no leukocytosis. Podiatry, Endocrinology and ID have been onboard. Patient was discharged stable and independently ambulating well with intructions to discontinue lisinopril and hydrochlorothiazide, take medications as prescribed, keep right foot wound clean and dry, Hypoglycemia precautions reviewed, follow up with Dr. Blas in Wound Care clinic on 01/01/17 at 10:45am, follow up with Dr. Larsen in 1 week, follow up with Dr. Cornell (dental insurance coordinator ) in 1-2 weeks, follow up with Dr. Langley (neurology) in 1-2 weeks, follow up with Dr. Urbina (cardiology) in 1-2 weeks. - Date & Time of H&P Date of H&P: 12/18/16 Time of H&P: 12:04 Discharge Exam - Head Exam Head Exam: ATRAUMATIC, NORMOCEPHALIC - Eye Exam Eye Exam: EOMI Pupil Exam: NORMAL ACCOMODATION - ENT Exam ENT Exam: Mucous Membranes Moist - Neck Exam Neck exam: Full Rom - Respiratory Exam Respiratory Exam: Clear to PA & Lateral, NORMAL BREATHING PATTERN. absent: Respiratory Distress - GI/Abdominal Exam GI & Abdominal Exam: Normal Bowel Sounds, Soft. absent: Tenderness - Extremities Exam Extremities exam: full ROM (RUE picc line removed, no bleeding, no tenderness, no ecchymosis), tenderness (improved: in right posterior 2x3 cm ankle ulcer with granular base and minimal fibrotic tissue, no active drainage, no erythema) - Back Exam Back exam: absent: CVA tenderness (L), CVA tenderness (R) - Neurological Exam Neurological exam: Alert, CN II-XII Intact, Oriented x3 - Psychiatric Exam Psychiatric exam: Normal Affect, Normal Mood - Skin Skin Exam: Dry, Warm Discharge Plan - Discharge Medications Prescriptions: Aspirin [Aspirin Chewable] 81 mg PO DAILY #30 tab Atorvastatin [Lipitor] 40 mg PO HS #30 tab Clopidogrel [Plavix] 75 mg PO DAILY #30 tab Famotidine [Pepcid] 20 mg PO DAILY #30 tab GlipiZIDE [Glucotrol] 5 mg PO ACBD #60 tab hydrOXYzine HCl [Atarax] 10 mg PO QID PRN #20 tab PRN Reason: Itching / Pruritus Insulin Detemir [Levemir] 20 units SC HS #1 unit Levetiracetam 500 mg PO BID #60 tab Levothyroxine [Synthroid] 25 mcg PO ACB #30 tab Loratadine [Claritin] 10 mg PO DAILY #30 tab Saccharomyces Boulardi [Florastor] 250 mg PO BID #30 cap SITagliptin [Januvia] 100 mg PO DAILY #30 tab - Follow Up Plan Condition: GOOD Disposition: HOME/ ROUTINE Instructions: Insulin Detemir (By injection), Hypothyroidism (DC), Diabetic Hypoglycemia (DC), Diabetes Mellitus Type 2 in Adults (DC), Diabetic Foot Ulcers (DC) Additional Instructions: -Discontinue lisinopril and hydrochlorothiazide -Take medications as prescribed -keep right foot wound clean and dry -Hypoglycemia precautions reviewed -Follow up with Dr. Blas in Wound Care clinic on 01/01/17 at 10:45am -Follow up with Dr. Larsen in 1 week -Follow up with Dr. Cornell (dental insurance coordinator ) in 1-2 weeks -Follow up with Dr. Langley (neurology) in 1-2 weeks -Follow up with Dr. Urbina (cardiology) in 1-2 weeks Referrals: Yovani Langley MD [Staff Provider] - Rain Conrell MD [Medical Doctor] - Iggy Larsen MD [Family Provider] - Serafin Blas DPM [Doctor Podiatric Medicine] - Aaliyah Urbina MD [Staff Provider] - <Iggy Larsen - Last Filed: 12/30/16 07:08> Provider - Provider Date of Admission: 12/17/16 18:29 Attending physician: London Turk MD Hospital Course - Lab Results Lab Results: Most Recent Lab Values WBC 7.0 K/uL (4.8-10.8) 12/24/16 06:20 RBC 4.01 Mil/uL (3.80-5.20) 12/24/16 06:20 Hgb 11.6 g/dL (12.0-16.0) L 12/24/16 06:20 Hct 35.9 % (34.0-47.0) 12/24/16 06:20 MCV 89.7 fl (81.0-99.0) 12/24/16 06:20 MCH 28.9 pg (27.0-31.0) 12/24/16 06:20 MCHC 32.2 g/dL (33.0-37.0) L 12/24/16 06:20 RDW 14.4 % (11.5-14.5) 12/24/16 06:20 Plt Count 202 K/uL (130-400) 12/24/16 06:20 MPV 8.5 fl (7.2-11.7) 12/19/16 05:35 Neut % (Auto) 64.4 % (50.0-75.0) 12/19/16 05:35 Lymph % (Auto) 16.2 % (20.0-40.0) L 12/19/16 05:35 Sutter % (Auto) 11.2 % (0.0-10.0) H 12/19/16 05:35 Eos % (Auto) 7.8 % (0.0-4.0) H 12/19/16 05:35 Baso % (Auto) 0.4 % (0.0-2.0) 12/19/16 05:35 Neut # 5.4 K/uL (1.8-7.0) 12/19/16 05:35 Lymph # 1.4 K/uL (1.0-4.3) 12/19/16 05:35 Sutter # 0.9 K/uL (0.0-0.8) H 12/19/16 05:35 Eos # 0.7 K/uL (0.0-0.7) 12/19/16 05:35 Baso # 0.0 K/uL (0.0-0.2) 12/19/16 05:35 Sodium 140 mmol/l (132-148) 12/24/16 06:20 Potassium 4.5 MMOL/L (3.6-5.0) 12/24/16 06:20 Chloride 107 mmol/L (98-107) 12/24/16 06:20 Carbon Dioxide 24 mmol/L (22-30) 12/24/16 06:20 Anion Gap 14 (10-20) 12/24/16 06:20 BUN 24 mg/dl (7-17) H 12/24/16 06:20 Creatinine 1.1 mg/dL (0.7-1.2) 12/24/16 06:20 Est GFR ( Amer) > 60 12/24/16 06:20 Est GFR (Non-Af Amer) 50 12/24/16 06:20 POC Glucose (mg/dL) 95 mg/dL (65-110) 12/25/16 15:56 Random Glucose 110 mg/dL (65-105) H 12/24/16 06:20 Calcium 9.0 mg/dL (8.4-10.2) 12/24/16 06:20 Total Bilirubin 0.6 mg/dl (0.2-1.3) 12/24/16 06:20 AST 55 U/L (14-36) H D 12/24/16 06:20 ALT 76 U/L (9-52) H D 12/24/16 06:20 Alkaline Phosphatase 64 U/L (38-126) 12/24/16 06:20 Total Protein 7.5 G/DL (6.3-8.2) 12/24/16 06:20 Albumin 4.1 g/dL (3.5-5.0) 12/24/16 06:20 Globulin 3.4 gm/dL (2.2-3.9) 12/24/16 06:20 Albumin/Globulin Ratio 1.2 (1.0-2.1) 12/24/16 06:20 Thyroxine (T4) 5.46 ug/dl (5.5-11.0) L 12/19/16 04:30 TSH 3rd Generation 7.41 mIU/ML (0.46-4.68) H 12/19/16 04:30 Attending/Attestation - Attestation I have personally seen and examined this patient.: Yes I have fully participated in the care of the patient.: Yes I have reviewed all pertinent clinical information, including history, physical exam and plan: Yes
[2016-12-25 17:25] VITALS: BP 121/70; PULSE 111; TEMP 97.7; O2SAT 95
--- NOTE | 2016-12-25 18:59 | PN ---
Rain Cornell. Dictating an endo follow up note for Zack Cordero in [facility] in Room 711 TCU : 1955 Patient is a 61 year old female with recent uncontrolled Type 2 insulin- required diabetes with intercurrent right heel no hepatic--- ulceration. Transfer status: has been transferred to PCU for ongoing IV antibiotics and is also being reffered for diabetic evaluation and management. Her glycemic levels are fluctuating but much improvement this time and the latest chemistries are pending as ordered. The glucose values today have ranged from 102 to 114 and 160 and 175 mm/dL. For this time, we'll continue to the low dose correction scale, using Humalog insulin, was given. We also continue the basal insulin, even with Levemir, ordered as 20 units at bedtime daily to start tonight. We will continue the Januvia given as 100 mg once daily in the morning as ordered. We also continue her Levothyroxine given as 25ug daily as ordered and we will repeat the thyroid studies accordingly and we'll adjusted those regimens optimized metabolic control. We will also initiate diabetic education and dietary instructions at the time of this admission. Rain Cornell MD [facility]ENTERDarcy
--- NOTE | 2016-12-25 20:37 | PN ---
DATE: SUBJECTIVE: This is a 61-year-old female with recent uncontrolled type 2 insulin requiring diabetes now being followed closely for metabolic management. Her glycemic levels are fluctuating but much improved at this time and the latest chemistries showed a BUN of 24, sodium 140, potassium 4.5, chloride 107, CO2 of 24, glucose 110, and creatinine 1.1. Her glucose levels have ranged from 104 to 107 and 139 mg/dL. So, at this time, we will continue the same basal insulin given as Levemir of 20 units subcutaneous at bedtime daily with Januvia given as 100 mg daily and glipizide of 5 mg b.i.d. as ordered. We will titrate incrementally as indicated to optimize metabolic control. We will obtain serial chemistries and supplement accordingly as needed. We will follow. Rain Cornell MD
== END 2016-12-25 17:00 | disposition home or self-care (01) | DRG 593 ==
LOC: H.TCU 18:29
PROVIDERS: ADMIT Family Medicine; ATTEND Family Medicine
PROC: F08Z4ZZ Home Management Treatment (ICD-10-PCS; principal; 2016-12-17)
PROC: F07L0FZ Range of Motion and Joint Mobility Treatment of Musculoskeletal System - Lower Back / Lower Extremity using Assistive, Adaptive, Supportive or Protective Equipment (ICD-10-PCS; 2016-12-17)
DX: L97.512 Non-pressure chronic ulcer of other part of right foot with fat layer exposed (principal); N17.9 Acute kidney failure, unspecified; E11.65 Type 2 diabetes mellitus with hyperglycemia; I10 Essential (primary) hypertension; E03.9 Hypothyroidism, unspecified; B96.89 Other specified bacterial agents as the cause of diseases classified elsewhere; Z87.891 Personal history of nicotine dependence; G40.909 Epilepsy, unspecified, not intractable, without status epilepticus; Z86.73 Personal history of transient ischemic attack (TIA), and cerebral infarction without residual deficits; Z88.0 Allergy status to penicillin; Z91.041 Radiographic dye allergy status; R19.7 Diarrhea, unspecified; Z79.4 Long term (current) use of insulin